=== PATIENT | male | born 1960 | race Caucasian/White ===

== ENCOUNTER → 2016-07-17 | Outpatient (REF) | payer MEDICARE ==
[~2016-07-17] MED LIST: /AUGM875TA OR; /PANT40TA PO; ALPH0.1S OS; ATRO1OPD OS; AUGM875T27 PO; BACIDCA PO; BIAX500T PO; CARA1TAB2 PO; CIPR250S PO; FURO10SO PO; GLIM1TAB PO; GLUC1000 PO; HEPA100SY INJ; HUMULIN SC; INSUH10VL SC; INSULANT SC; INVO300T PO; LASI20TA PO; LISI5TAB PO; MAXI0.1O OS; METF1000 PO; MOISTURIN CREAM TOP; NOVOLOG100 MG/ML SC; OFLO3OPSO OS; PERC7.5T8 OR; PRED1SUS6 OS; PREDOPD OS; ROCE1INJ4 IJ; SALI0.9I2 IV; SILV1CRE19 TOP; SIMV40TA2 PO; TYLE325T5 PO; VICTOZA PO; [UNRECOGNIZED DRUG - CODE] OS
== END ==
LOC: M LABDRAW1 12:54
PROVIDERS: ATTEND Internal Medicine Endocrinology, Diabetes & Metabolism
DX: E11.65 Type 2 diabetes mellitus with hyperglycemia (principal); E78.00 Pure hypercholesterolemia, unspecified

== ENCOUNTER → 2016-09-04 | Outpatient (REF) | payer MEDICARE | LOC: M LAB REF 11:48 | PROVIDERS: ATTEND Podiatrist | DX: E11.621 Type 2 diabetes mellitus with foot ulcer (principal) ==

== ENCOUNTER → 2016-12-22 | Outpatient (CLI) | payer MEDICARE ==
[~2016-12-22] MED LIST changes: +BENA25TA10 PO; +BYDU1INJ SC; +GABA-282 PO; +INSUHUMDS SC; +INVO100T PO; +LATA5OPD OS; +METF500T13 PO; +METO-346 PO; +PANT40TA2 PO; +PROBCAP4 PO; -SILV1CRE19 TOP; +SILV1CRE60 TOP
[2016-12-22 14:28] LABS: CREATININE FOR GFR 1.59 MG/DL (0.70-1.30); GLOMERULAR FILTRATION RATE 47.8 (>56)
== END ==
LOC: M SMT 10:20
PROVIDERS: ATTEND Surgery
DX: E11.621 Type 2 diabetes mellitus with foot ulcer (principal)
CPT/HCPCS: 11042; 36415; 82565; 84520; G0463

== ENCOUNTER → 2016-12-28 | Outpatient (CLI) | payer MEDICARE ==
--- NOTE | 2016-12-28 17:16 | REP ---
MRI RIGHT FOOT, WITH AND WITHOUT CONTRAST: TECHNIQUE: Multiple sequences obtained in the axial, coronal, and sagittal planes, pre and post intravenous administration of 11 mL of gadolinium. Comparison is made with prior MRI 03/19/2014. The patient has had prior amputation at the second, third and fourth distal metatarsal level. There are diffuse arthritic changes. There is narrowing, subchondral sclerosis and spurring at the first metatarsal phalangeal joint. There is diffuse narrowing with subchondral sclerosis and cystic change in the intertarsal joints. Scattered subchondral marrow edema throughout the tarsal bones appears to be secondary to arthritic changes. There is also subchondral marrow edema in the bases of the metatarsals. There is edema in the distal first metatarsal. On the post gadolinium images there does appear to be some subtle ill-defined bone marrow enhancement within the plantar aspect of the head of the first metatarsal suggesting an area of osteomyelitis. The adjacent first proximal phalanx does not appear to be involved. There is scattered ill-defined soft tissue edema in the superficial soft tissues of the forefoot with some mild scattered ill-defined enhancement compatible with mild cellulitis. No abscess collection is seen. IMPRESSION: Findings suggesting osteomyelitis in the plantar aspect of the distal first metatarsal. Adjacent cellulitis. No abscess. Diffuse arthritic changes. Signed by Tone Wang MD 12/29/2016 09:47 A
== END ==
LOC: M RAD 13:57
PROVIDERS: ATTEND Surgery
DX: E11.621 Type 2 diabetes mellitus with foot ulcer (principal)
CPT/HCPCS: 73720; A9576

== ENCOUNTER → 2017-01-12 | Outpatient (CLI) | payer MEDICARE ==
--- NOTE | 2017-01-12 17:03 | REP ---
Clinical: Preoperative assessment . Comparison: None . Technique: PA and lateral. Findings: The mediastinum and cardiac silhouette are relatively normal; evidence of prior aortic valve replacement and surgical clips in the right suprahilar mediastinum. Airway is midline and patent. The lung jack are clear and without acute consolidation, effusion, or pneumothorax. The skeletal structures are intact and normal. Impression: 1. No acute cardiopulmonary process. Signed by Gilbert Hicks MD 01/12/2017 04:54 P
== END ==
LOC: M WUC 16:35
PROVIDERS: ATTEND Podiatrist
DX: Z01.818 Encounter for other preprocedural examination (principal); M86.671 Other chronic osteomyelitis, right ankle and foot; E11.621 Type 2 diabetes mellitus with foot ulcer; Z79.4 Long term (current) use of insulin; A49.01 Methicillin susceptible Staphylococcus aureus infection, unspecified site
CPT/HCPCS: 71020; 86140; G0463

== ENCOUNTER → 2017-01-12 | Outpatient (REF) | payer MEDICARE | LOC: M LAB REF 16:28 | PROVIDERS: ATTEND Nurse Practitioner Adult Health | DX: M86.671 Other chronic osteomyelitis, right ankle and foot (principal) ==

== ENCOUNTER → 2017-01-19 | Day surgery (SDC) | payer MEDICARE ==
[~2017-01-19] VITALS: Ht 195.6 cm; Wt 112.9 kg
[~2017-01-19] MED LIST changes: +BACITRACIN PWD 50,000 UNITS VIAL As Ordered ONE; +BUPIVACAINE HCL 0.5% 30 ML VIAL As Ordered ONE; +KETAMINE HCL 200 MG/20 ML VIAL As Ordered ONE; +KETOROLAC 60 MG/2 ML VIAL (J1885) As Ordered ONE; +LIDOCAINE 2% INJ 100 MG/5 ML SDV (FOR ANES.) As Ordered ONE; +LIDOCAINE 2% MDV 20 ML VIAL As Ordered ONE; +LR 1,000 ML IV ONE; +METOPROLOL TART 12.5 MG PER 1/2 TAB PO ONE; +METOPROLOL TART 25 MG TABLET As Ordered ONE; +METOPROLOL TART 25 MG TABLET PO ONE; +MIDAZOLAM INJ 2 MG/2 ML VIAL (J2250) As Ordered ONE; +NEOSPORIN GU IRRIG 20 ML VIAL As Ordered ONE; +ONDANSETRON 4MG/2ML VIAL (J2405) As Ordered ONE; +PROPOFOL 200 MG/20 ML VIAL As Ordered ONE; +ROPIvacaine 0.5% 30 ML INJECTION (J2795) As Ordered ONE; +VANCOMYCIN 1000 MG/20 ML VIAL (J3370) As Ordered ONE; +VANCOMYCIN HCL 1,000 MG, VIAL MATE ADAPTER 1 EACH in D5W 250 ML IV ONE; +VANCOMYCIN HCL 500 MG/10 ML VIAL (J3370) As Ordered ONE; +dexameTHASONE 4 MG/ML 1ML VIAL (J1100) As Ordered ONE; +fentaNYL 100 MCG/2 ML INJECTION (J3010) As Ordered ONE
[2017-01-19 10:58] VITALS: BP 116/68
--- NOTE | 2017-01-19 13:41 | REP ---
Clinical: Postoperative assessment. Technique: Portable AP, lateral and oblique views of the right foot. Comparison: 03/30/2016. Findings: The patient is status post partial amputations through the mid tarsal diaphyses. Overlying postsurgical changes including scattered antibiotic pellets in drainage catheter noted. Impression: Status post midtarsal amputations. Signed by Gilbert Hicks MD 01/19/2017 01:32 P
[2017-01-19 14:15] VITALS: BP 108/60
--- NOTE | 2017-01-19 18:01 | RO ---
DATE OF PROCEDURE: 01/19/2017 PREPROCEDURE DIAGNOSES: Unhealing ulceration, possible osteomyelitis first metatarsal right foot. POSTPROCEDURE DIAGNOSES: Unhealing ulceration, possible osteomyelitis first metatarsal right foot. OPERATIVE PROCEDURE: Transmetatarsal amputation right foot. SURGEON: Oziel Singh DPM CUSTOMER SERVICE SALES ASSOCIATE: Tone Fishman DO HEMOSTASIS: Ankle pneumatic tourniquet. This was only used for a portion of the case and it was inflated to 200 mg of mmHg for 18 minutes. IMPLANTS UTILIZED: 5 mm vancomycin impregnated beads. DRAINS: TLS. DESCRIPTION OF PROCEDURE: On 01/19/2017, this 56-year-old male was taken from his hospital room to the operating room and placed on the operating room table in the supine position. Following the induction of IV sedation, local and regional anesthesia, the right lower extremity was prepped and draped in the usual aseptic manner. Attention was directed to the patient's right foot where the following procedure was performed: TRANSMETATARSAL AMPUTATION RIGHT FOOT: Attention directed to the patient's first metatarsal where there was noted to be an ulceration inferior to the first metatarsal head. At this time, a wedge shaped incision was placed at the proximal aspect of the digits then encompassing a plantar aspect which extended just proximal to the ulcer under the first metatarsal head. All bleeders as encountered were electrocoagulated or tied. The tourniquet was then inflated and the first metatarsal was then osteotomized just proximal to articular cartilage biased more on the medial side and inferior surface. Upon creation of this osteotomy through the first metatarsal, the first metatarsal was sent for culture, aerobic and anaerobically. The sesamoids were similarly dissected free from the soft tissue and sent for bacterial culture. Then the second metatarsal was exposed and an osteotomy was performed approximately 1 to 2 mm proximal to the first metatarsal osteotomy. Similarly this was staggered down for the third, fourth and fifth metatarsals giving a parabola to the foot. All bleeders as encountered were electrocoagulated. Tendons were tensioned in a distal direction and cut to allow retraction. The skin and soft tissues was examined and the soft tissue was thinned to allow adequate closure. After electrocoagulation was performed and tourniquet was deflated, the wound was pulse lavaged with 3 liters of dilute vancomycin solution. Utilizing Karla any remaining bleeding was covered, allowed to set for one minute and hemostasis was noted to be obtained. TLS drain was then placed across the first through fifth metatarsal exiting dorsally between the fourth and fifth metatarsals. This was sutured in place with #2-0 silk suture. Skin closure was obtained with #3-0 nylon suture in a simple interrupted type fashion. Sterile compressive dressing was applied. The patient having apparently tolerated the surgical procedure well was taken from the OR to the recovery room with vital signs stable, the patient afebrile, for further monitoring by the anesthesia department. Depending on the patient's culture he will be placed on antibiotics to cover the most suitable pathogen. The bone was hard and no abscess was formed. No direct evidence of osteomyelitis. [facility]
== END | disposition home or self-care (01) ==
LOC: M SDC 09:35
PROVIDERS: ATTEND Podiatrist
DX: L97.512 Non-pressure chronic ulcer of other part of right foot with fat layer exposed (principal); M79.674 Pain in right toe(s); E10.42 Type 1 diabetes mellitus with diabetic polyneuropathy; E10.621 Type 1 diabetes mellitus with foot ulcer; Z79.4 Long term (current) use of insulin; I48.91 Unspecified atrial fibrillation; Z95.2 Presence of prosthetic heart valve; N18.9 Chronic kidney disease, unspecified; N40.0 Benign prostatic hyperplasia without lower urinary tract symptoms; Z79.899 Other long term (current) drug therapy
CPT/HCPCS: 28805; 73630; 87070; 87075; 87077; 87186; 87205; 88307; C1713; J1100; J1885; J2250; J2405; J2795; J3010; J3370

== ENCOUNTER → 2017-02-13 | Outpatient (REF) | payer MEDICARE ==
[~2017-02-13] MED LIST changes: -BACITRACIN PWD 50,000 UNITS VIAL As Ordered ONE; -BUPIVACAINE HCL 0.5% 30 ML VIAL As Ordered ONE; -KETAMINE HCL 200 MG/20 ML VIAL As Ordered ONE; -KETOROLAC 60 MG/2 ML VIAL (J1885) As Ordered ONE; -LIDOCAINE 2% INJ 100 MG/5 ML SDV (FOR ANES.) As Ordered ONE; -LIDOCAINE 2% MDV 20 ML VIAL As Ordered ONE; -LR 1,000 ML IV ONE; -METOPROLOL TART 12.5 MG PER 1/2 TAB PO ONE; -METOPROLOL TART 25 MG TABLET As Ordered ONE; -METOPROLOL TART 25 MG TABLET PO ONE; -MIDAZOLAM INJ 2 MG/2 ML VIAL (J2250) As Ordered ONE; -NEOSPORIN GU IRRIG 20 ML VIAL As Ordered ONE; -ONDANSETRON 4MG/2ML VIAL (J2405) As Ordered ONE; -PROPOFOL 200 MG/20 ML VIAL As Ordered ONE; -ROPIvacaine 0.5% 30 ML INJECTION (J2795) As Ordered ONE; -VANCOMYCIN 1000 MG/20 ML VIAL (J3370) As Ordered ONE; -VANCOMYCIN HCL 1,000 MG, VIAL MATE ADAPTER 1 EACH in D5W 250 ML IV ONE; -VANCOMYCIN HCL 500 MG/10 ML VIAL (J3370) As Ordered ONE; -dexameTHASONE 4 MG/ML 1ML VIAL (J1100) As Ordered ONE; -fentaNYL 100 MCG/2 ML INJECTION (J3010) As Ordered ONE
== END ==
LOC: M LAB REF 17:05
PROVIDERS: ATTEND Podiatrist
DX: L97.512 Non-pressure chronic ulcer of other part of right foot with fat layer exposed (principal)

== ENCOUNTER → 2017-04-19 | Outpatient (REF) | payer MEDICARE | LOC: EEVIPCON 15:41 → M LAB REF 15:41 | PROVIDERS: ATTEND Podiatrist | DX: L03.115 Cellulitis of right lower limb (principal) ==

== ENCOUNTER → 2017-05-18 | Outpatient (CLI) | payer MEDICARE | LOC: M ADAMS 10:51 | DX: R06.02 Shortness of breath (principal) | CPT/HCPCS: 71046 ==

== ENCOUNTER → 2017-06-22 | Outpatient (REF) | payer MEDICARE | LOC: M LAB REF 18:07 | DX: L03.115 Cellulitis of right lower limb (principal) | CPT/HCPCS: 87186 ==

== ENCOUNTER → 2017-07-13 | Outpatient (CLI) | payer MEDICARE ==
[~2017-07-13] MED LIST changes: -/AUGM875TA OR; -/PANT40TA PO; -ALPH0.1S OS; -ATRO1OPD OS; -AUGM875T27 PO; -BACIDCA PO; -BENA25TA10 PO; -BIAX500T PO; -BYDU1INJ SC; -CARA1TAB2 PO; -CIPR250S PO; -FURO10SO PO; -GABA-282 PO; -GLIM1TAB PO; -GLUC1000 PO; -HEPA100SY INJ; -HUMULIN SC; -INSUH10VL SC; -INSUHUMDS SC; -INSULANT SC; -INVO100T PO; -INVO300T PO; -LASI20TA PO; -LATA5OPD OS; -LISI5TAB PO; -MAXI0.1O OS; -METF1000 PO; -METF500T13 PO; +METHACHOLINE KIT (J7674) INH; -METO-346 PO; -MOISTURIN CREAM TOP; -NOVOLOG100 MG/ML SC; -OFLO3OPSO OS; -PANT40TA2 PO; -PERC7.5T8 OR; -PRED1SUS6 OS; -PREDOPD OS; -PROBCAP4 PO; -ROCE1INJ4 IJ; -SALI0.9I2 IV; -SILV1CRE60 TOP; -SIMV40TA2 PO; -TYLE325T5 PO; -VICTOZA PO; -[UNRECOGNIZED DRUG - CODE] OS
== END ==
LOC: M CARPUL 07:28
DX: R06.02 Shortness of breath (principal)
CPT/HCPCS: J7674

== ENCOUNTER → 2017-09-14 | Outpatient (REF) | payer MEDICARE | LOC: M LAB REF 08:52 | DX: T81.31XA Disruption of external operation (surgical) wound, not elsewhere classified, initial encounter (principal); B95.4 Other streptococcus as the cause of diseases classified elsewhere; B95.7 Other staphylococcus as the cause of diseases classified elsewhere; B96.5 Pseudomonas (aeruginosa) (mallei) (pseudomallei) as the cause of diseases classified elsewhere | CPT/HCPCS: 87077; 87186 ==

== ENCOUNTER → 2017-09-21 | Outpatient (REF) | payer MEDICARE ==
[2017-09-21 12:38] LABS: HEMATOCRIT 43.1 % (42.0-52.0); HEMOGLOBIN 12.8 g/dl (13.5-17.5); MEAN CORPUSCULAR HEMOGLOBIN 28.2 pg (27.0-33.0); MEAN CORPUSCULAR HGB CONC 29.7 g/dl (32.0-36.5); MEAN CORPUSCULAR VOLUME 94.9 fl (80.0-96.0); PLATELET COUNT, AUTOMATED 292 10^3/uL (150-450); RED BLOOD COUNT 4.54 10^6/uL (4.30-6.10); RED CELL DISTRIBUTION WIDTH 15.3 % (11.5-14.5); WHITE BLOOD COUNT 6.3 10^3/uL (4.0-10.0)
[2017-09-21 13:10] LABS: ALBUMIN 3.9 GM/DL (3.2-5.2); ALBUMIN/GLOBULIN RATIO 1.05 (1.00-1.93); ALKALINE PHOSPHATASE 81 U/L (45-117); ALT/SGPT 13 U/L (12-78); ANION GAP 10 MEQ/L (8-16); AST/SGOT 19 U/L (7-37); BILIRUBIN,TOTAL 0.7 MG/DL (0.2-1.0); BLOOD UREA NITROGEN 16 MG/DL (7-18); C REACTIVE PROTEIN QUANTITATIV 1.83 MG/DL (0.00-0.30); CALCIUM LEVEL 8.9 MG/DL (8.5-10.1); CARBON DIOXIDE LEVEL 20 MEQ/L (21-32); CHLORIDE LEVEL 111 MEQ/L (98-107); CREATININE FOR GFR 1.45 MG/DL (0.70-1.30); GLUCOSE, FASTING 73 MG/DL (70-100); POTASSIUM SERUM 5.1 MEQ/L (3.5-5.1); SODIUM LEVEL 141 MEQ/L (136-145); TOTAL PROTEIN 7.6 GM/DL (6.4-8.2)
[2017-09-21 13:25] LABS: ERYTHROCYTE SEDIMENTATION RATE 6 mm/hr (0-20)
== END ==
LOC: M LAB REF 12:19
DX: E11.621 Type 2 diabetes mellitus with foot ulcer (principal); L97.809 Non-pressure chronic ulcer of other part of unspecified lower leg with unspecified severity
CPT/HCPCS: 80053

== ENCOUNTER → 2017-09-24 | Outpatient (CLI) | payer MEDICARE | LOC: M RAD 06:31 | DX: T81.31XA Disruption of external operation (surgical) wound, not elsewhere classified, initial encounter (principal); I70.213 Atherosclerosis of native arteries of extremities with intermittent claudication, bilateral legs | CPT/HCPCS: 93926 ==

== ENCOUNTER → 2017-09-26 | Outpatient (REF) | payer MEDICARE ==
[2017-09-26 14:06] LABS: ESTIMATED AVERAGE GLUCOSE 154 MG/DL (60-110)
== END ==
LOC: M LAB REF 12:13
DX: E11.621 Type 2 diabetes mellitus with foot ulcer (principal)
CPT/HCPCS: 83036

== ENCOUNTER → 2017-11-29 | Outpatient (CLI) | payer MEDICARE ==
[2017-11-29 18:17] LABS: NT-PRO BNP 455 PG/ML (<125)
== END ==
LOC: M SMT 13:04
DX: R06.02 Shortness of breath (principal); E11.621 Type 2 diabetes mellitus with foot ulcer; L97.512 Non-pressure chronic ulcer of other part of right foot with fat layer exposed
CPT/HCPCS: 36415

== ENCOUNTER → 2018-01-16 | Outpatient (REF) | payer MEDICARE | LOC: M LAB REF 17:29 | DX: E11.621 Type 2 diabetes mellitus with foot ulcer (principal); L97.512 Non-pressure chronic ulcer of other part of right foot with fat layer exposed | CPT/HCPCS: 87186 ==

== ENCOUNTER 2018-01-25 14:31 | Inpatient (IN) | payer MEDICARE ==
[2018-01-25] MEDS: PIPERACILLIN/TAZOBACTAM SOD 3.375 GM in D5W MINI-BAG PLUS 50 ML IV (16:58)
[2018-01-25 17:29] LABS: BASO # 0.1 10^3/uL (0.0-0.2); BASO % 1.4 % (0.0-1.0); EOS # 0.3 10^3/uL (0.0-0.50); EOS % 4.8 % (0.0-3.0); HEMATOCRIT 34.5 % (42.0-52.0); HEMOGLOBIN 11.1 g/dl (13.5-17.5); IMMATURE GRANULOCYTE % 0.4 % (0-3.0); LYMPH # 1.5 10^3/uL (1.5-4.5); LYMPH % 27.2 % (24.0-44.0); MEAN CORPUSCULAR HEMOGLOBIN 27.6 pg (27.0-33.0); MEAN CORPUSCULAR HGB CONC 32.2 g/dl (32.0-36.5); MEAN CORPUSCULAR VOLUME 85.8 fl (80.0-96.0); MONO # 0.4 10^3/uL (0.0-0.8); MONO % 6.2 % (0.0-5.0); NEUTROPHILS # 3.4 10^3/uL (1.8-7.7); PLATELET COUNT, AUTOMATED 449 10^3/uL (150-450); RED BLOOD COUNT 4.02 10^6/uL (4.30-6.10); RED CELL DISTRIBUTION WIDTH 15.5 % (11.5-14.5); WHITE BLOOD COUNT 5.6 10^3/uL (4.0-10.0)
[2018-01-25 17:50] LABS: ERYTHROCYTE SEDIMENTATION RATE 2 mm/hr (0-20)
[2018-01-25 17:59] LABS: ANION GAP 7 MEQ/L (8-16); BLOOD UREA NITROGEN 23 MG/DL (7-18); C REACTIVE PROTEIN QUANTITATIV 3.55 MG/DL (0.00-0.30); CALCIUM LEVEL 8.9 MG/DL (8.5-10.1); CARBON DIOXIDE LEVEL 25 MEQ/L (21-32); CHLORIDE LEVEL 106 MEQ/L (98-107); CREATININE FOR GFR 1.55 MG/DL (0.70-1.30); GLOMERULAR FILTRATION RATE 49.1 (>56); GLUCOSE, FASTING 177 MG/DL (70-100); POTASSIUM SERUM 4.5 MEQ/L (3.5-5.1); SODIUM LEVEL 138 MEQ/L (136-145)
[2018-01-25 18:05] LABS: LACTIC ACID SEPSIS PROTOCOL 2.2 MMOL/L (0.4-2.0)
[2018-01-25] MEDS: VANCOMYCIN HCL 1,000 MG, VIAL MATE ADAPTER 1 EACH in D5W 250 ML IV ×2 (18:12→22:45)
[2018-01-25] MEDS ORDERED: ONDANSETRON 4MG/2ML VIAL (J2405) IV (19:15)
[2018-01-25] MEDS ORDERED: ACETAMINOPHEN TAB 650MG DOSE (2X325MG) PO (19:15)
[2018-01-25 22:36] LABS: BEDSIDE GLUCOSE 190 MG/DL (70-105)
[2018-01-25] MEDS: diphenhydrAMINE 50 MG CAP PO (23:03)
[2018-01-25] MEDS: SIMVASTATIN 40 MG TAB PO (23:03)
[2018-01-25] MEDS: SENOKOT S TAB PO (23:03)
[2018-01-25] MEDS: AMITRIPTYLINE 10 MG TAB PO (23:03)
[2018-01-25] MEDS: FAMOTIDINE 20 MG TAB PO (23:03)
[2018-01-25] MEDS: LATANOPROST 0.005% OPHTH SOLN 2.5 ML OS (23:04)
[2018-01-25] MEDS: LEVEMIR (INSULIN DETEMIR) 1 UNITS/0.01ML SC (23:04)
[2018-01-26] MEDS: PIPERACILLIN/TAZOBACTAM SOD 3.375 GM in D5W MINI-BAG PLUS 50 ML IV ×4 (00:33→18:11)
[2018-01-26] MEDS ORDERED: PIPERACILLIN/TAZOBACTAM SOD 2.25 GM in D5W MINI-BAG PLUS 50 ML IV (01:00)
[2018-01-26] MEDS: NS 500 ML IV (01:00)
[2018-01-26 03:10] LABS: HEMATOCRIT 30.2 % (42.0-52.0); HEMOGLOBIN 9.9 g/dl (13.5-17.5); MEAN CORPUSCULAR HEMOGLOBIN 27.7 pg (27.0-33.0); MEAN CORPUSCULAR HGB CONC 32.8 g/dl (32.0-36.5); MEAN CORPUSCULAR VOLUME 84.6 fl (80.0-96.0); PLATELET COUNT, AUTOMATED 351 10^3/uL (150-450); RED BLOOD COUNT 3.57 10^6/uL (4.30-6.10); RED CELL DISTRIBUTION WIDTH 15.3 % (11.5-14.5); WHITE BLOOD COUNT 4.6 10^3/uL (4.0-10.0)
[2018-01-26 03:35] LABS: ANION GAP 8 MEQ/L (8-16); BLOOD UREA NITROGEN 19 MG/DL (7-18); C REACTIVE PROTEIN QUANTITATIV 2.87 MG/DL (0.00-0.30); CALCIUM LEVEL 8.1 MG/DL (8.5-10.1); CARBON DIOXIDE LEVEL 22 MEQ/L (21-32); CHLORIDE LEVEL 108 MEQ/L (98-107); CREATININE FOR GFR 1.31 MG/DL (0.70-1.30); GLOMERULAR FILTRATION RATE 59.6 (>56); GLUCOSE, FASTING 202 MG/DL (70-100); MAGNESIUM LEVEL 1.9 MG/DL (1.8-2.4); POTASSIUM SERUM 3.8 MEQ/L (3.5-5.1); SODIUM LEVEL 138 MEQ/L (136-145)
[2018-01-26 03:39] LABS: LACTIC ACID SEPSIS PROTOCOL 0.9 MMOL/L (0.4-2.0)
[2018-01-26] MEDS: FAMOTIDINE 20 MG TAB PO ×2 (09:07→20:59)
[2018-01-26] MEDS: HEPARIN SOD (PORCINE) 5000 UNITS/ML VIAL SC ×2 (09:07→21:00)
[2018-01-26] MEDS: SENOKOT S TAB PO ×2 (09:07→20:59)
[2018-01-26] MEDS: VANCOMYCIN HCL 1,000 MG, VIAL MATE ADAPTER 1 EACH in D5W 250 ML IV ×2 (09:07→20:58)
[2018-01-26] MEDS: ASPIRIN 81 MG ENTERIC TAB PO (09:07)
[2018-01-26 11:05] LABS: BEDSIDE GLUCOSE 84 MG/DL (70-105)
[2018-01-26] MEDS ORDERED: DEXTROSE 50% 50 ML SYRINGE IV (14:30)
[2018-01-26] MEDS ORDERED: GLUCAGON FOR INJ 1 MG VIAL (J1610) SC (14:30)
[2018-01-26] MEDS ORDERED: GLUCOSE 4 GM CHEW TABLET PO (14:30)
[2018-01-26 17:27] LABS: BEDSIDE GLUCOSE 167 MG/DL (70-105)
[2018-01-26] MEDS: HumaLOG INSULIN (NovoLOG) PER UNIT SC ×2 (18:11→21:01)
[2018-01-26 19:59] LABS: BEDSIDE GLUCOSE 251 MG/DL (70-105)
[2018-01-26] MEDS: SIMVASTATIN 40 MG TAB PO (20:59)
[2018-01-26] MEDS: AMITRIPTYLINE 10 MG TAB PO (20:59)
[2018-01-26] MEDS: diphenhydrAMINE 50 MG CAP PO (20:59)
[2018-01-26] MEDS: LEVEMIR (INSULIN DETEMIR) 1 UNITS/0.01ML SC (21:00)
[2018-01-26] MEDS: LATANOPROST 0.005% OPHTH SOLN 2.5 ML OS (21:02)
[2018-01-27] MEDS: PIPERACILLIN/TAZOBACTAM SOD 3.375 GM in D5W MINI-BAG PLUS 50 ML IV ×5 (00:59→23:55)
[2018-01-27 06:17] LABS: BEDSIDE GLUCOSE 229 MG/DL (70-105)
[2018-01-27 07:34] LABS: HEMATOCRIT 30.6 % (42.0-52.0); MEAN CORPUSCULAR HEMOGLOBIN 27.3 pg (27.0-33.0); MEAN CORPUSCULAR HGB CONC 32.7 g/dl (32.0-36.5); MEAN CORPUSCULAR VOLUME 83.6 fl (80.0-96.0); PLATELET COUNT, AUTOMATED 404 10^3/uL (150-450); RED BLOOD COUNT 3.66 10^6/uL (4.30-6.10); RED CELL DISTRIBUTION WIDTH 15.2 % (11.5-14.5); WHITE BLOOD COUNT 4.8 10^3/uL (4.0-10.0)
[2018-01-27 07:49] LABS: ANION GAP 9 MEQ/L (8-16); BLOOD UREA NITROGEN 14 MG/DL (7-18); C REACTIVE PROTEIN QUANTITATIV 1.46 MG/DL (0.00-0.30); CALCIUM LEVEL 8.4 MG/DL (8.5-10.1); CARBON DIOXIDE LEVEL 22 MEQ/L (21-32); CHLORIDE LEVEL 109 MEQ/L (98-107); CREATININE FOR GFR 1.26 MG/DL (0.70-1.30); GLOMERULAR FILTRATION RATE > 60.0 (>56); GLUCOSE, FASTING 212 MG/DL (70-100); POTASSIUM SERUM 4.2 MEQ/L (3.5-5.1); SODIUM LEVEL 140 MEQ/L (136-145)
[2018-01-27 08:24] LABS: VANCOMYCIN LEVEL TROUGH 15.8 UG/ML (10.0-20.0)
[2018-01-27] MEDS: SENOKOT S TAB PO ×2 (08:32→21:56)
[2018-01-27] MEDS: VANCOMYCIN HCL 1,000 MG, VIAL MATE ADAPTER 1 EACH in D5W 250 ML IV ×2 (08:32→21:55)
[2018-01-27] MEDS: HEPARIN SOD (PORCINE) 5000 UNITS/ML VIAL SC ×2 (08:32→21:56)
[2018-01-27] MEDS: ASPIRIN 81 MG ENTERIC TAB PO (08:32)
[2018-01-27] MEDS: HumaLOG INSULIN (NovoLOG) PER UNIT SC ×4 (08:33→21:57)
[2018-01-27] MEDS: FAMOTIDINE 20 MG TAB PO ×2 (08:33→21:56)
[2018-01-27 11:32] LABS: BEDSIDE GLUCOSE 108 MG/DL (70-105)
[2018-01-27 16:27] LABS: BEDSIDE GLUCOSE 169 MG/DL (70-105)
[2018-01-27 19:40] LABS: BEDSIDE GLUCOSE 276 MG/DL (70-105)
[2018-01-27] MEDS: SIMVASTATIN 40 MG TAB PO (21:56)
[2018-01-27] MEDS: diphenhydrAMINE 50 MG CAP PO (21:56)
[2018-01-27] MEDS: AMITRIPTYLINE 10 MG TAB PO (21:56)
[2018-01-27] MEDS: LEVEMIR (INSULIN DETEMIR) 1 UNITS/0.01ML SC (21:56)
[2018-01-27] MEDS: LATANOPROST 0.005% OPHTH SOLN 2.5 ML OS (21:57)
[2018-01-28] MEDS: PIPERACILLIN/TAZOBACTAM SOD 3.375 GM in D5W MINI-BAG PLUS 50 ML IV ×3 (06:27→18:00)
[2018-01-28 07:11] LABS: HEMATOCRIT 30.7 % (42.0-52.0); HEMOGLOBIN 10.1 g/dl (13.5-17.5); MEAN CORPUSCULAR HEMOGLOBIN 27.8 pg (27.0-33.0); MEAN CORPUSCULAR HGB CONC 32.9 g/dl (32.0-36.5); MEAN CORPUSCULAR VOLUME 84.6 fl (80.0-96.0); PLATELET COUNT, AUTOMATED 368 10^3/uL (150-450); RED BLOOD COUNT 3.63 10^6/uL (4.30-6.10); RED CELL DISTRIBUTION WIDTH 15.3 % (11.5-14.5)
[2018-01-28 07:23] LABS: ANION GAP 10 MEQ/L (8-16); BLOOD UREA NITROGEN 9 MG/DL (7-18); C REACTIVE PROTEIN QUANTITATIV 0.94 MG/DL (0.00-0.30); CALCIUM LEVEL 8.3 MG/DL (8.5-10.1); CARBON DIOXIDE LEVEL 23 MEQ/L (21-32); CHLORIDE LEVEL 110 MEQ/L (98-107); CREATININE FOR GFR 1.11 MG/DL (0.70-1.30); GLOMERULAR FILTRATION RATE > 60.0 (>56); GLUCOSE, FASTING 175 MG/DL (70-100); MAGNESIUM LEVEL 2.1 MG/DL (1.8-2.4); SODIUM LEVEL 143 MEQ/L (136-145)
[2018-01-28] MEDS: HEPARIN SOD (PORCINE) 5000 UNITS/ML VIAL SC (09:00)
[2018-01-28] MEDS: HumaLOG INSULIN (NovoLOG) PER UNIT SC ×4 (09:33→21:00)
[2018-01-28] MEDS: ASPIRIN 81 MG ENTERIC TAB PO (09:34)
[2018-01-28] MEDS: VANCOMYCIN HCL 1,000 MG, VIAL MATE ADAPTER 1 EACH in D5W 250 ML IV ×2 (09:34→22:16)
[2018-01-28] MEDS: FAMOTIDINE 20 MG TAB PO ×2 (09:34→22:18)
[2018-01-28] MEDS: SENOKOT S TAB PO ×2 (09:34→22:18)
[2018-01-28 11:30] LABS: BEDSIDE GLUCOSE 191 MG/DL (70-105)
[2018-01-28] MEDS ORDERED: LIDOCAINE 1% MDV 20ML VIAL As Ordered (13:40)
[2018-01-28 16:41] LABS: BEDSIDE GLUCOSE 100 MG/DL (70-105)
[2018-01-28] MEDS: BUPIVACAINE HCL 0.5% 10 ML VIAL As Ordered (19:14)
[2018-01-28] MEDS: LIDOCAINE 2% MDV 20 ML VIAL As Ordered (19:15)
[2018-01-28] MEDS ORDERED: fentaNYL 100 MCG/2 ML INJECTION (J3010) As Ordered (19:41)
[2018-01-28] MEDS ORDERED: MIDAZOLAM INJ 2 MG/2 ML VIAL (J2250) As Ordered (19:41)
[2018-01-28] MEDS ORDERED: PROPOFOL 200 MG/20 ML VIAL As Ordered ×2 (19:41→20:05)
[2018-01-28] MEDS: ROPIvacaine 0.5% 30 ML INJECTION (J2795 PER 1MG) As Ordered (19:55)
[2018-01-28] MEDS ORDERED: PHENYLephrine HCL 500 MCG/5 ML (100MCG/ML) SYRINGE (J2370) As Ordered (20:04)
[2018-01-28] MEDS: TOBRAMYCIN SULF 1.2 GM VIAL As Ordered (20:22)
[2018-01-28] MEDS ORDERED: PERCOCET 5MG/325MG TAB PO (21:15)
[2018-01-28] MEDS ORDERED: fentaNYL 100 MCG/2 ML INJECTION (J3010) IV (21:15)
[2018-01-28 21:22] LABS: BEDSIDE GLUCOSE 123 MG/DL (70-105)
[2018-01-28] MEDS: LEVEMIR (INSULIN DETEMIR) 1 UNITS/0.01ML SC (22:18)
[2018-01-28] MEDS: SIMVASTATIN 40 MG TAB PO (22:18)
[2018-01-28] MEDS: AMITRIPTYLINE 10 MG TAB PO (22:18)
[2018-01-28] MEDS: diphenhydrAMINE 50 MG CAP PO (22:19)
[2018-01-28] MEDS: LATANOPROST 0.005% OPHTH SOLN 2.5 ML OS (22:20)
[2018-01-29] MEDS: PIPERACILLIN/TAZOBACTAM SOD 3.375 GM in D5W MINI-BAG PLUS 50 ML IV ×5 (00:25→23:58)
[2018-01-29] MEDS: SODIUM CHLORIDE 0.9% INJ 10 ML SYR IV ×3 (01:59→18:05)
[2018-01-29] MEDS: HEPARIN SOD (PORCINE) 5000 UNITS/ML VIAL SC ×2 (05:59→18:04)
[2018-01-29 06:26] LABS: HEMATOCRIT 31.1 % (42.0-52.0); HEMOGLOBIN 10.1 g/dl (13.5-17.5); MEAN CORPUSCULAR HEMOGLOBIN 27.9 pg (27.0-33.0); MEAN CORPUSCULAR HGB CONC 32.5 g/dl (32.0-36.5); MEAN CORPUSCULAR VOLUME 85.9 fl (80.0-96.0); PLATELET COUNT, AUTOMATED 358 10^3/uL (150-450); RED BLOOD COUNT 3.62 10^6/uL (4.30-6.10); RED CELL DISTRIBUTION WIDTH 15.2 % (11.5-14.5); WHITE BLOOD COUNT 6.4 10^3/uL (4.0-10.0)
[2018-01-29] MEDS: PERCOCET 5MG/325MG TAB PO ×2 (06:26→13:40)
[2018-01-29 06:49] LABS: ANION GAP 9 MEQ/L (8-16); BLOOD UREA NITROGEN 8 MG/DL (7-18); C REACTIVE PROTEIN QUANTITATIV 0.74 MG/DL (0.00-0.30); CALCIUM LEVEL 8.3 MG/DL (8.5-10.1); CARBON DIOXIDE LEVEL 24 MEQ/L (21-32); CHLORIDE LEVEL 107 MEQ/L (98-107); CREATININE FOR GFR 1.18 MG/DL (0.70-1.30); GLOMERULAR FILTRATION RATE > 60.0 (>56); GLUCOSE, FASTING 263 MG/DL (70-100); MAGNESIUM LEVEL 2.1 MG/DL (1.8-2.4); POTASSIUM SERUM 4.1 MEQ/L (3.5-5.1); SODIUM LEVEL 140 MEQ/L (136-145)
[2018-01-29] MEDS: LR 1,000 ML IV (08:19)
[2018-01-29 08:37] LABS: VANCOMYCIN LEVEL TROUGH 18.1 UG/ML (10.0-20.0)
[2018-01-29] MEDS: FAMOTIDINE 20 MG TAB PO ×2 (09:13→21:08)
[2018-01-29] MEDS: SENOKOT S TAB PO ×2 (09:13→21:08)
[2018-01-29] MEDS: VANCOMYCIN HCL 1,000 MG, VIAL MATE ADAPTER 1 EACH in D5W 250 ML IV ×2 (09:13→21:07)
[2018-01-29] MEDS: ASPIRIN 81 MG ENTERIC TAB PO (09:13)
[2018-01-29] MEDS: HumaLOG INSULIN (NovoLOG) PER UNIT SC ×4 (09:14→21:00)
[2018-01-29 11:47] LABS: BEDSIDE GLUCOSE 111 MG/DL (70-105)
[2018-01-29 17:12] LABS: BEDSIDE GLUCOSE 218 MG/DL (70-105)
[2018-01-29 20:48] LABS: BEDSIDE GLUCOSE 147 MG/DL (70-105)
[2018-01-29] MEDS: LATANOPROST 0.005% OPHTH SOLN 2.5 ML OS (21:00)
[2018-01-29] MEDS: LEVEMIR (INSULIN DETEMIR) 1 UNITS/0.01ML SC (21:08)
[2018-01-29] MEDS: AMITRIPTYLINE 10 MG TAB PO (21:08)
[2018-01-29] MEDS: diphenhydrAMINE 50 MG CAP PO (21:08)
[2018-01-29] MEDS: SIMVASTATIN 40 MG TAB PO (21:08)
[2018-01-30] MEDS: HEPARIN SOD (PORCINE) 5000 UNITS/ML VIAL SC ×2 (05:55→18:14)
[2018-01-30] MEDS: PIPERACILLIN/TAZOBACTAM SOD 3.375 GM in D5W MINI-BAG PLUS 50 ML IV ×3 (05:55→18:15)
[2018-01-30] MEDS: SODIUM CHLORIDE 0.9% INJ 10 ML SYR IV ×3 (05:56→22:48)
[2018-01-30 06:06] LABS: HEMATOCRIT 30.5 % (42.0-52.0); HEMOGLOBIN 9.8 g/dl (13.5-17.5); MEAN CORPUSCULAR HEMOGLOBIN 27.5 pg (27.0-33.0); MEAN CORPUSCULAR HGB CONC 32.1 g/dl (32.0-36.5); MEAN CORPUSCULAR VOLUME 85.4 fl (80.0-96.0); PLATELET COUNT, AUTOMATED 348 10^3/uL (150-450); RED BLOOD COUNT 3.57 10^6/uL (4.30-6.10); RED CELL DISTRIBUTION WIDTH 15.2 % (11.5-14.5); WHITE BLOOD COUNT 5.5 10^3/uL (4.0-10.0)
[2018-01-30 06:55] LABS: ANION GAP 5 MEQ/L (8-16); BLOOD UREA NITROGEN 7 MG/DL (7-18); C REACTIVE PROTEIN QUANTITATIV 4.89 MG/DL (0.00-0.30); CALCIUM LEVEL 8.2 MG/DL (8.5-10.1); CARBON DIOXIDE LEVEL 27 MEQ/L (21-32); CHLORIDE LEVEL 108 MEQ/L (98-107); CREATININE FOR GFR 1.19 MG/DL (0.70-1.30); GLOMERULAR FILTRATION RATE > 60.0 (>56); GLUCOSE, FASTING 198 MG/DL (70-100); MAGNESIUM LEVEL 1.8 MG/DL (1.8-2.4); SODIUM LEVEL 140 MEQ/L (136-145)
[2018-01-30] MEDS: SENOKOT S TAB PO ×2 (09:06→21:21)
[2018-01-30] MEDS: VANCOMYCIN HCL 1,000 MG, VIAL MATE ADAPTER 1 EACH in D5W 250 ML IV ×2 (09:06→21:22)
[2018-01-30] MEDS: FAMOTIDINE 20 MG TAB PO ×2 (09:07→21:21)
[2018-01-30] MEDS: ASPIRIN 81 MG ENTERIC TAB PO (09:07)
[2018-01-30] MEDS: HumaLOG INSULIN (NovoLOG) PER UNIT SC ×4 (09:07→21:00)
[2018-01-30 11:34] LABS: BEDSIDE GLUCOSE 214 MG/DL (70-105)
[2018-01-30 16:59] LABS: BEDSIDE GLUCOSE 145 MG/DL (70-105)
[2018-01-30 19:43] LABS: BEDSIDE GLUCOSE 208 MG/DL (70-105)
[2018-01-30] MEDS: AMITRIPTYLINE 10 MG TAB PO (21:21)
[2018-01-30] MEDS: diphenhydrAMINE 50 MG CAP PO (21:21)
[2018-01-30] MEDS: SIMVASTATIN 40 MG TAB PO (21:21)
[2018-01-30] MEDS: LATANOPROST 0.005% OPHTH SOLN 2.5 ML OS (21:22)
[2018-01-30] MEDS: LEVEMIR (INSULIN DETEMIR) 1 UNITS/0.01ML SC (21:22)
[2018-01-31] MEDS: PIPERACILLIN/TAZOBACTAM SOD 3.375 GM in D5W MINI-BAG PLUS 50 ML IV ×3 (00:03→12:35)
[2018-01-31] MEDS: SODIUM CHLORIDE 0.9% INJ 10 ML SYR IV ×4 (00:42→22:19)
[2018-01-31 05:18] LABS: HEMATOCRIT 28.6 % (42.0-52.0); HEMOGLOBIN 9.3 g/dl (13.5-17.5); MEAN CORPUSCULAR HEMOGLOBIN 27.4 pg (27.0-33.0); MEAN CORPUSCULAR HGB CONC 32.5 g/dl (32.0-36.5); MEAN CORPUSCULAR VOLUME 84.4 fl (80.0-96.0); PLATELET COUNT, AUTOMATED 326 10^3/uL (150-450); RED BLOOD COUNT 3.39 10^6/uL (4.30-6.10); RED CELL DISTRIBUTION WIDTH 15.5 % (11.5-14.5); WHITE BLOOD COUNT 4.3 10^3/uL (4.0-10.0)
[2018-01-31 05:37] LABS: ANION GAP 7 MEQ/L (8-16); BLOOD UREA NITROGEN 7 MG/DL (7-18); C REACTIVE PROTEIN QUANTITATIV 3.99 MG/DL (0.00-0.30); CALCIUM LEVEL 8.1 MG/DL (8.5-10.1); CARBON DIOXIDE LEVEL 25 MEQ/L (21-32); CHLORIDE LEVEL 109 MEQ/L (98-107); CREATININE FOR GFR 1.02 MG/DL (0.70-1.30); GLOMERULAR FILTRATION RATE > 60.0 (>56); GLUCOSE, FASTING 221 MG/DL (70-100); MAGNESIUM LEVEL 1.9 MG/DL (1.8-2.4); POTASSIUM SERUM 3.8 MEQ/L (3.5-5.1); SODIUM LEVEL 141 MEQ/L (136-145)
[2018-01-31] MEDS: HEPARIN SOD (PORCINE) 5000 UNITS/ML VIAL SC ×2 (06:07→17:46)
[2018-01-31] MEDS: FAMOTIDINE 20 MG TAB PO ×2 (09:09→21:02)
[2018-01-31] MEDS: ASPIRIN 81 MG ENTERIC TAB PO (09:09)
[2018-01-31] MEDS: SENOKOT S TAB PO ×2 (09:09→21:02)
[2018-01-31] MEDS: VANCOMYCIN HCL 1,000 MG, VIAL MATE ADAPTER 1 EACH in D5W 250 ML IV ×2 (09:10→21:02)
[2018-01-31] MEDS: HumaLOG INSULIN (NovoLOG) PER UNIT SC ×4 (09:10→20:56)
[2018-01-31 12:11] LABS: BEDSIDE GLUCOSE 196 MG/DL (70-105)
[2018-01-31 17:00] LABS: BEDSIDE GLUCOSE 154 MG/DL (70-105)
[2018-01-31] MEDS: LevoFLOXacin 750 MG TABLET PO (17:53)
[2018-01-31 20:24] LABS: BEDSIDE GLUCOSE 202 MG/DL (70-105)
[2018-01-31] MEDS: diphenhydrAMINE 50 MG CAP PO (21:02)
[2018-01-31] MEDS: LATANOPROST 0.005% OPHTH SOLN 2.5 ML OS (21:02)
[2018-01-31] MEDS: LEVEMIR (INSULIN DETEMIR) 1 UNITS/0.01ML SC (21:02)
[2018-01-31] MEDS: AMITRIPTYLINE 10 MG TAB PO (21:02)
[2018-01-31] MEDS: SIMVASTATIN 40 MG TAB PO (21:04)
[2018-02-01] MEDS: LevoFLOXacin 750 MG TABLET PO (05:01)
[2018-02-01] MEDS: SODIUM CHLORIDE 0.9% INJ 10 ML SYR IV ×4 (05:02→21:54)
[2018-02-01 05:15] LABS: HEMATOCRIT 28.7 % (42.0-52.0); HEMOGLOBIN 9.3 g/dl (13.5-17.5); MEAN CORPUSCULAR HEMOGLOBIN 27.7 pg (27.0-33.0); MEAN CORPUSCULAR HGB CONC 32.4 g/dl (32.0-36.5); MEAN CORPUSCULAR VOLUME 85.4 fl (80.0-96.0); PLATELET COUNT, AUTOMATED 340 10^3/uL (150-450); RED BLOOD COUNT 3.36 10^6/uL (4.30-6.10); RED CELL DISTRIBUTION WIDTH 15.9 % (11.5-14.5); WHITE BLOOD COUNT 4.6 10^3/uL (4.0-10.0)
[2018-02-01 05:53] LABS: ANION GAP 9 MEQ/L (8-16); BLOOD UREA NITROGEN 14 MG/DL (7-18); C REACTIVE PROTEIN QUANTITATIV 2.06 MG/DL (0.00-0.30); CARBON DIOXIDE LEVEL 25 MEQ/L (21-32); CHLORIDE LEVEL 109 MEQ/L (98-107); CREATININE FOR GFR 1.05 MG/DL (0.70-1.30); GLOMERULAR FILTRATION RATE > 60.0 (>56); GLUCOSE, FASTING 274 MG/DL (70-100); MAGNESIUM LEVEL 1.9 MG/DL (1.8-2.4); POTASSIUM SERUM 4.1 MEQ/L (3.5-5.1); SODIUM LEVEL 143 MEQ/L (136-145)
[2018-02-01] MEDS: HEPARIN SOD (PORCINE) 5000 UNITS/ML VIAL SC ×2 (07:25→18:11)
[2018-02-01] MEDS: ASPIRIN 81 MG ENTERIC TAB PO (07:26)
[2018-02-01] MEDS: SENOKOT S TAB PO ×2 (07:26→20:36)
[2018-02-01] MEDS: FAMOTIDINE 20 MG TAB PO ×2 (07:26→20:36)
[2018-02-01] MEDS: HumaLOG INSULIN (NovoLOG) PER UNIT SC ×4 (07:26→21:36)
[2018-02-01] MEDS: VANCOMYCIN HCL 1,000 MG, VIAL MATE ADAPTER 1 EACH in D5W 250 ML IV ×2 (09:14→20:35)
[2018-02-01 12:25] LABS: BEDSIDE GLUCOSE 201 MG/DL (70-105)
[2018-02-01] MEDS: dexameTHASONE 4 MG/ML 1ML VIAL (J1100) As Ordered ×2 (13:55→14:24)
[2018-02-01] MEDS: BUPIVACAINE HCL 0.5% 30 ML VIAL As Ordered (13:55)
[2018-02-01] MEDS: LIDOCAINE 2% MDV 20 ML VIAL As Ordered (13:55)
[2018-02-01] MEDS ORDERED: ONDANSETRON 4MG/2ML VIAL (J2405) As Ordered (14:02)
[2018-02-01] MEDS ORDERED: LIDOCAINE 2% INJ 100 MG/5 ML SDV (FOR ANES.) As Ordered (14:02)
[2018-02-01] MEDS ORDERED: PROPOFOL 200 MG/20 ML VIAL As Ordered ×2 (14:02)
[2018-02-01] MEDS ORDERED: MIDAZOLAM INJ 2 MG/2 ML VIAL (J2250) As Ordered (14:03)
[2018-02-01] MEDS ORDERED: fentaNYL 100 MCG/2 ML INJECTION (J3010) As Ordered (14:03)
[2018-02-01] MEDS: ROPIvacaine 0.5% 30 ML INJECTION (J2795 PER 1MG) As Ordered (14:38)
[2018-02-01] MEDS: TOBRAMYCIN SULF 1.2 GM VIAL As Ordered (14:58)
[2018-02-01] MEDS: NEOSPORIN GU IRRIG 20 ML VIAL As Ordered (14:59)
[2018-02-01] MEDS: BACITRACIN PWD 50,000 UNITS VIAL As Ordered (14:59)
[2018-02-01 15:39] LABS: BEDSIDE GLUCOSE 206 MG/DL (70-105)
[2018-02-01] MEDS ORDERED: ONDANSETRON 4MG/2ML VIAL (J2405) IV (15:45)
[2018-02-01] MEDS ORDERED: fentaNYL 100 MCG/2 ML INJECTION (J3010) IV (15:45)
[2018-02-01] MEDS ORDERED: PERCOCET 5MG/325MG TAB PO (15:45)
[2018-02-01] MEDS: NS 1,000 ML IV (16:55)
[2018-02-01] MEDS: LATANOPROST 0.005% OPHTH SOLN 2.5 ML OS (20:36)
[2018-02-01] MEDS: AMITRIPTYLINE 10 MG TAB PO (20:36)
[2018-02-01] MEDS: SIMVASTATIN 40 MG TAB PO (20:36)
[2018-02-01] MEDS: diphenhydrAMINE 50 MG CAP PO (20:36)
[2018-02-01 21:03] LABS: BEDSIDE GLUCOSE 210 MG/DL (70-105)
[2018-02-01] MEDS: LEVEMIR (INSULIN DETEMIR) 1 UNITS/0.01ML SC (21:54)
[2018-02-02] MEDS: HEPARIN SOD (PORCINE) 5000 UNITS/ML VIAL SC ×2 (05:01→17:25)
[2018-02-02] MEDS: LevoFLOXacin 750 MG TABLET PO (05:01)
[2018-02-02] MEDS: SODIUM CHLORIDE 0.9% INJ 10 ML SYR IV ×3 (05:01→21:58)
[2018-02-02 05:56] LABS: C REACTIVE PROTEIN QUANTITATIV 1.24 MG/DL (0.00-0.30)
[2018-02-02 06:12] LABS: BEDSIDE GLUCOSE 240 MG/DL (70-105)
[2018-02-02] MEDS: SENOKOT S TAB PO ×2 (07:59→20:42)
[2018-02-02] MEDS: ASPIRIN 81 MG ENTERIC TAB PO (07:59)
[2018-02-02] MEDS: FAMOTIDINE 20 MG TAB PO ×2 (07:59→20:41)
[2018-02-02] MEDS: HumaLOG INSULIN (NovoLOG) PER UNIT SC ×4 (08:00→21:47)
[2018-02-02] MEDS: VANCOMYCIN HCL 1,000 MG, VIAL MATE ADAPTER 1 EACH in D5W 250 ML IV ×2 (09:42→20:41)
[2018-02-02 11:50] LABS: BEDSIDE GLUCOSE 216 MG/DL (70-105)
[2018-02-02 17:18] LABS: BEDSIDE GLUCOSE 138 MG/DL (70-105)
[2018-02-02] MEDS: MOM 30ML SUSPENSION UDC PO (17:25)
[2018-02-02] MEDS: diphenhydrAMINE 50 MG CAP PO (20:42)
[2018-02-02] MEDS: SIMVASTATIN 40 MG TAB PO (20:42)
[2018-02-02] MEDS: AMITRIPTYLINE 10 MG TAB PO (20:42)
[2018-02-02] MEDS: LATANOPROST 0.005% OPHTH SOLN 2.5 ML OS (20:42)
[2018-02-02 21:45] LABS: BEDSIDE GLUCOSE 244 MG/DL (70-105)
[2018-02-02] MEDS: LEVEMIR (INSULIN DETEMIR) 1 UNITS/0.01ML SC (21:58)
[2018-02-03] MEDS: LevoFLOXacin 750 MG TABLET PO (06:13)
[2018-02-03] MEDS: HEPARIN SOD (PORCINE) 5000 UNITS/ML VIAL SC ×2 (06:13→17:42)
[2018-02-03] MEDS: SODIUM CHLORIDE 0.9% INJ 10 ML SYR IV ×3 (06:13→22:54)
[2018-02-03 06:28] LABS: BEDSIDE GLUCOSE 117 MG/DL (70-105)
[2018-02-03] MEDS: FAMOTIDINE 20 MG TAB PO ×2 (08:04→20:27)
[2018-02-03] MEDS: ASPIRIN 81 MG ENTERIC TAB PO (08:04)
[2018-02-03] MEDS: HumaLOG INSULIN (NovoLOG) PER UNIT SC ×4 (08:04→21:00)
[2018-02-03] MEDS: SENOKOT S TAB PO ×2 (08:04→20:27)
[2018-02-03 09:00] LABS: VANCOMYCIN LEVEL TROUGH 12.4 UG/ML (10.0-20.0)
[2018-02-03 09:00] LABS: C REACTIVE PROTEIN QUANTITATIV 0.81 MG/DL (0.00-0.30)
[2018-02-03] MEDS: VANCOMYCIN HCL 1,000 MG, VIAL MATE ADAPTER 1 EACH in D5W 250 ML IV ×2 (09:19→20:27)
[2018-02-03 12:16] LABS: BEDSIDE GLUCOSE 270 MG/DL (70-105)
[2018-02-03] MEDS: VANCOMYCIN HCL 500 MG in D5W MINI-BAG PLUS 100 ML IV (12:19)
[2018-02-03 17:23] LABS: BEDSIDE GLUCOSE 158 MG/DL (70-105)
[2018-02-03] MEDS: MOM 30ML SUSPENSION UDC PO (17:41)
[2018-02-03] MEDS: SIMVASTATIN 40 MG TAB PO (20:27)
[2018-02-03] MEDS: diphenhydrAMINE 50 MG CAP PO (20:27)
[2018-02-03] MEDS: AMITRIPTYLINE 10 MG TAB PO (20:27)
[2018-02-03] MEDS: LATANOPROST 0.005% OPHTH SOLN 2.5 ML OS (20:27)
[2018-02-03 20:36] LABS: BEDSIDE GLUCOSE 193 MG/DL (70-105)
[2018-02-03] MEDS: LEVEMIR (INSULIN DETEMIR) 1 UNITS/0.01ML SC (21:07)
[2018-02-04] MEDS: SODIUM CHLORIDE 0.9% INJ 10 ML SYR IV ×3 (05:56→21:53)
[2018-02-04] MEDS: LevoFLOXacin 750 MG TABLET PO (05:56)
[2018-02-04] MEDS: HEPARIN SOD (PORCINE) 5000 UNITS/ML VIAL SC ×2 (05:57→17:57)
[2018-02-04 06:16] LABS: BEDSIDE GLUCOSE 107 MG/DL (70-105)
[2018-02-04 06:48] LABS: C REACTIVE PROTEIN QUANTITATIV 0.62 MG/DL (0.00-0.30)
[2018-02-04] MEDS: HumaLOG INSULIN (NovoLOG) PER UNIT SC ×5 (07:32→20:54)
[2018-02-04] MEDS: ASPIRIN 81 MG ENTERIC TAB PO (09:18)
[2018-02-04] MEDS: SENOKOT S TAB PO ×2 (09:18→20:50)
[2018-02-04] MEDS: FAMOTIDINE 20 MG TAB PO ×2 (09:18→20:49)
[2018-02-04] MEDS: VANCOMYCIN HCL 1,000 MG, VIAL MATE ADAPTER 1 EACH in D5W 250 ML IV ×2 (09:18→20:49)
[2018-02-04] MEDS: BISACODYL 10 MG SUPP PR ×2 (10:56→20:50)
[2018-02-04 12:00] LABS: BEDSIDE GLUCOSE 160 MG/DL (70-105)
[2018-02-04] MEDS ORDERED: ISOVUE-300 61% 50ML VIAL (Q9967) As Ordered (13:35)
[2018-02-04] MEDS ORDERED: LIDOCAINE 1% MDV 20ML VIAL As Ordered (14:37)
[2018-02-04 17:49] LABS: BEDSIDE GLUCOSE 121 MG/DL (70-105)
[2018-02-04] MEDS: AMITRIPTYLINE 10 MG TAB PO (20:49)
[2018-02-04] MEDS: SIMVASTATIN 40 MG TAB PO (20:49)
[2018-02-04] MEDS: LATANOPROST 0.005% OPHTH SOLN 2.5 ML OS (20:49)
[2018-02-04] MEDS: diphenhydrAMINE 50 MG CAP PO (20:49)
[2018-02-04] MEDS: LEVEMIR (INSULIN DETEMIR) 1 UNITS/0.01ML SC (20:50)
[2018-02-04 21:52] LABS: BEDSIDE GLUCOSE 253 MG/DL (70-105)
[2018-02-05] MEDS: LevoFLOXacin 750 MG TABLET PO (05:23)
[2018-02-05] MEDS: HEPARIN SOD (PORCINE) 5000 UNITS/ML VIAL SC ×2 (05:24→17:24)
[2018-02-05 05:50] LABS: BEDSIDE GLUCOSE 298 MG/DL (70-105)
[2018-02-05] MEDS: VANCOMYCIN HCL 1,000 MG, VIAL MATE ADAPTER 1 EACH in D5W 250 ML IV (07:49)
[2018-02-05] MEDS: ASPIRIN 81 MG ENTERIC TAB PO (07:49)
[2018-02-05] MEDS: HumaLOG INSULIN (NovoLOG) PER UNIT SC ×2 (07:49→12:59)
[2018-02-05] MEDS: FAMOTIDINE 20 MG TAB PO (07:49)
[2018-02-05] MEDS: SENOKOT S TAB PO (07:50)
[2018-02-05] MEDS: BISACODYL 10 MG SUPP PR (07:50)
[2018-02-05 11:47] LABS: BEDSIDE GLUCOSE 198 MG/DL (70-105)
[2018-02-05] MEDS: GENTAMICIN SULFATE 0.1% OINT 15 GM TOP (12:58)
[2018-02-05 17:06] LABS: BEDSIDE GLUCOSE 167 MG/DL (70-105)
[2018-02-05] MEDS: SODIUM CHLORIDE 0.9% INJ 10 ML SYR IV (17:24)
== END 2018-02-05 17:57 | disposition home health service (06) | DRG 501 ==
LOC: M MSPAV 01-30 22:11 → M ED 14:31 → M ED INP 19:02 → M MS4PR 22:26
PROC: 0QBN0ZZ Excision of Right Metatarsal, Open Approach (ICD-10-PCS; 2018-01-28 18:00)
PROC: 0LBV0ZZ Excision of Right Foot Tendon, Open Approach (ICD-10-PCS; principal; 2018-01-28 19:40)
DX: T87.43 Infection of amputation stump, right lower extremity (principal); L03.115 Cellulitis of right lower limb; M86.171 Other acute osteomyelitis, right ankle and foot; E11.40 Type 2 diabetes mellitus with diabetic neuropathy, unspecified; E78.5 Hyperlipidemia, unspecified; K59.00 Constipation, unspecified; Z95.2 Presence of prosthetic heart valve; Z79.82 Long term (current) use of aspirin; Z79.899 Other long term (current) drug therapy; K21.9 Gastro-esophageal reflux disease without esophagitis; E11.51 Type 2 diabetes mellitus with diabetic peripheral angiopathy without gangrene; I35.0 Nonrheumatic aortic (valve) stenosis; B95.62 Methicillin resistant Staphylococcus aureus infection as the cause of diseases classified elsewhere; B96.4 Proteus (mirabilis) (morganii) as the cause of diseases classified elsewhere; Z79.4 Long term (current) use of insulin; E11.618 Type 2 diabetes mellitus with other diabetic arthropathy; N18.9 Chronic kidney disease, unspecified; E11.621 Type 2 diabetes mellitus with foot ulcer; Y83.5 Amputation of limb(s) as the cause of abnormal reaction of the patient, or of later complication, without mention of misadventure at the time of the procedure

== ENCOUNTER 2018-02-06 14:25 | Outpatient (CLI) | payer MEDICARE ==
[2018-02-06] MEDS: DALBAVANCIN 1,500 MG in D5W 250 ML IV (15:03)
== END 2018-02-06 16:20 | disposition home or self-care (01) ==
LOC: M INFU 14:25
DX: A49.02 Methicillin resistant Staphylococcus aureus infection, unspecified site (principal); M86.171 Other acute osteomyelitis, right ankle and foot
CPT/HCPCS: J0875

== ENCOUNTER 2018-02-18 12:44 | Outpatient (CLI) | payer MEDICARE ==
[2018-02-18] MEDS: DALBAVANCIN 1,500 MG in D5W 250 ML IV (13:39)
[2018-02-18 13:50] LABS: BASO # 0.1 10^3/uL (0.0-0.2); BASO % 1.1 % (0.0-1.0); EOS # 0.3 10^3/uL (0.0-0.50); EOS % 4.7 % (0.0-3.0); HEMATOCRIT 35.9 % (42.0-52.0); HEMOGLOBIN 11.6 g/dl (13.5-17.5); IMMATURE GRANULOCYTE % 0.4 % (0-3.0); LYMPH # 1.6 10^3/uL (1.5-4.5); LYMPH % 29.1 % (24.0-44.0); MEAN CORPUSCULAR HEMOGLOBIN 28.3 pg (27.0-33.0); MEAN CORPUSCULAR HGB CONC 32.3 g/dl (32.0-36.5); MEAN CORPUSCULAR VOLUME 87.6 fl (80.0-96.0); MONO # 0.4 10^3/uL (0.0-0.8); MONO % 6.9 % (0.0-5.0); NEUTROPHILS # 3.2 10^3/uL (1.8-7.7); NEUTROPHILS % 57.8 % (36.0-66.0); PLATELET COUNT, AUTOMATED 292 10^3/uL (150-450); RED CELL DISTRIBUTION WIDTH 17.4 % (11.5-14.5); WHITE BLOOD COUNT 5.5 10^3/uL (4.0-10.0)
[2018-02-18 14:14] LABS: ERYTHROCYTE SEDIMENTATION RATE 39 mm/hr (0-20)
[2018-02-18 14:15] LABS: ANION GAP 7 MEQ/L (8-16); BLOOD UREA NITROGEN 27 MG/DL (7-18); C REACTIVE PROTEIN QUANTITATIV 0.75 MG/DL (0.00-0.30); CALCIUM LEVEL 8.9 MG/DL (8.5-10.1); CARBON DIOXIDE LEVEL 24 MEQ/L (21-32); CHLORIDE LEVEL 108 MEQ/L (98-107); CREATININE FOR GFR 1.49 MG/DL (0.70-1.30); GLOMERULAR FILTRATION RATE 51.4 (>56); GLUCOSE, FASTING 123 MG/DL (70-100); POTASSIUM SERUM 4.5 MEQ/L (3.5-5.1); SODIUM LEVEL 139 MEQ/L (136-145)
== END 2018-02-18 15:00 | disposition home or self-care (01) ==
LOC: M INFU 12:44
DX: M86.671 Other chronic osteomyelitis, right ankle and foot (principal); E11.621 Type 2 diabetes mellitus with foot ulcer; I35.0 Nonrheumatic aortic (valve) stenosis; I50.30 Unspecified diastolic (congestive) heart failure; I35.1 Nonrheumatic aortic (valve) insufficiency; K21.9 Gastro-esophageal reflux disease without esophagitis; H91.01 Ototoxic hearing loss, right ear; I73.9 Peripheral vascular disease, unspecified; N40.0 Benign prostatic hyperplasia without lower urinary tract symptoms; I11.0 Hypertensive heart disease with heart failure; E78.00 Pure hypercholesterolemia, unspecified; E78.5 Hyperlipidemia, unspecified; Z79.4 Long term (current) use of insulin; Z79.82 Long term (current) use of aspirin; Z79.899 Other long term (current) drug therapy
CPT/HCPCS: J0875

== ENCOUNTER → 2018-02-28 | Outpatient (REF) | payer MEDICARE ==
[2018-02-28 13:36] LABS: BASO # 0.1 10^3/uL (0.0-0.2); BASO % 0.8 % (0.0-1.0); EOS # 0.2 10^3/uL (0.0-0.50); EOS % 3.4 % (0.0-3.0); HEMOGLOBIN 11.5 g/dl (13.5-17.5); IMMATURE GRANULOCYTE % 0.3 % (0-3.0); LYMPH # 1.4 10^3/uL (1.5-4.5); LYMPH % 21.9 % (24.0-44.0); MEAN CORPUSCULAR HEMOGLOBIN 28.7 pg (27.0-33.0); MEAN CORPUSCULAR HGB CONC 31.9 g/dl (32.0-36.5); MEAN CORPUSCULAR VOLUME 89.8 fl (80.0-96.0); MONO # 0.5 10^3/uL (0.0-0.8); MONO % 7.3 % (0.0-5.0); NEUTROPHILS # 4.3 10^3/uL (1.8-7.7); NEUTROPHILS % 66.3 % (36.0-66.0); PLATELET COUNT, AUTOMATED 270 10^3/uL (150-450); RED BLOOD COUNT 4.01 10^6/uL (4.30-6.10); RED CELL DISTRIBUTION WIDTH 16.7 % (11.5-14.5); WHITE BLOOD COUNT 6.5 10^3/uL (4.0-10.0)
[2018-02-28 13:50] LABS: ANION GAP 9 MEQ/L (8-16); BLOOD UREA NITROGEN 27 MG/DL (7-18); CALCIUM LEVEL 9.2 MG/DL (8.5-10.1); CARBON DIOXIDE LEVEL 26 MEQ/L (21-32); CHLORIDE LEVEL 106 MEQ/L (98-107); CREATININE FOR GFR 1.71 MG/DL (0.70-1.30); GLOMERULAR FILTRATION RATE 43.8 (>56); GLUCOSE, FASTING 143 MG/DL (70-100); POTASSIUM SERUM 5.1 MEQ/L (3.5-5.1); SODIUM LEVEL 141 MEQ/L (136-145)
[2018-02-28 14:10] LABS: ERYTHROCYTE SEDIMENTATION RATE 39 mm/hr (0-20)
== END ==
LOC: M LABDRAW1 12:27
DX: M86.671 Other chronic osteomyelitis, right ankle and foot (principal); E11.621 Type 2 diabetes mellitus with foot ulcer
CPT/HCPCS: 80048

== ENCOUNTER → 2018-03-25 | Outpatient (REF) | payer MEDICARE ==
[2018-03-25 13:00] LABS: BASO # 0.1 10^3/uL (0.0-0.2); BASO % 1.3 % (0.0-1.0); EOS # 0.2 10^3/uL (0.0-0.50); EOS % 4.7 % (0.0-3.0); HEMATOCRIT 38.2 % (42.0-52.0); IMMATURE GRANULOCYTE % 0.2 % (0-3.0); LYMPH # 1.3 10^3/uL (1.5-4.5); LYMPH % 27.9 % (24.0-44.0); MEAN CORPUSCULAR HEMOGLOBIN 28.4 pg (27.0-33.0); MEAN CORPUSCULAR HGB CONC 31.4 g/dl (32.0-36.5); MEAN CORPUSCULAR VOLUME 90.3 fl (80.0-96.0); MONO # 0.3 10^3/uL (0.0-0.8); MONO % 7.6 % (0.0-5.0); NEUTROPHILS # 2.6 10^3/uL (1.8-7.7); NEUTROPHILS % 58.3 % (36.0-66.0); PLATELET COUNT, AUTOMATED 269 10^3/uL (150-450); RED BLOOD COUNT 4.23 10^6/uL (4.30-6.10); RED CELL DISTRIBUTION WIDTH 14.9 % (11.5-14.5); WHITE BLOOD COUNT 4.5 10^3/uL (4.0-10.0)
[2018-03-25 13:24] LABS: ERYTHROCYTE SEDIMENTATION RATE 18 mm/hr (0-20)
[2018-03-25 13:45] LABS: ALBUMIN 3.9 GM/DL (3.2-5.2); ALBUMIN/GLOBULIN RATIO 1.11 (1.00-1.93); ALKALINE PHOSPHATASE 82 U/L (45-117); ALT/SGPT 24 U/L (12-78); ANION GAP 12 MEQ/L (8-16); AST/SGOT 17 U/L (7-37); BILIRUBIN,TOTAL 0.7 MG/DL (0.2-1.0); BLOOD UREA NITROGEN 20 MG/DL (7-18); CALCIUM LEVEL 9.2 MG/DL (8.5-10.1); CARBON DIOXIDE LEVEL 22 MEQ/L (21-32); CHLORIDE LEVEL 107 MEQ/L (98-107); CREATININE FOR GFR 1.26 MG/DL (0.70-1.30); GLOMERULAR FILTRATION RATE > 60.0 (>56); GLUCOSE, FASTING 147 MG/DL (70-100); POTASSIUM SERUM 5.2 MEQ/L (3.5-5.1); SODIUM LEVEL 141 MEQ/L (136-145); TOTAL PROTEIN 7.4 GM/DL (6.4-8.2)
== END ==
LOC: M SFHCPLAZ 09:33
DX: M86.671 Other chronic osteomyelitis, right ankle and foot (principal)
CPT/HCPCS: 80053

== ENCOUNTER → 2018-04-16 | Outpatient (REF) | payer MEDICARE ==
[2018-04-16 13:27] LABS: BASO # 0.1 10^3/uL (0.0-0.2); BASO % 1.4 % (0.0-1.0); EOS # 0.2 10^3/uL (0.0-0.50); EOS % 3.2 % (0.0-3.0); IMMATURE GRANULOCYTE % 0.4 % (0-3.0); LYMPH # 1.5 10^3/uL (1.5-4.5); LYMPH % 26.1 % (24.0-44.0); MEAN CORPUSCULAR HEMOGLOBIN 27.7 pg (27.0-33.0); MEAN CORPUSCULAR HGB CONC 32.4 g/dl (32.0-36.5); MEAN CORPUSCULAR VOLUME 85.5 fl (80.0-96.0); MONO # 0.4 10^3/uL (0.0-0.8); MONO % 7.3 % (0.0-5.0); NEUTROPHILS # 3.5 10^3/uL (1.8-7.7); NEUTROPHILS % 61.6 % (36.0-66.0); PLATELET COUNT, AUTOMATED 291 10^3/uL (150-450); RED BLOOD COUNT 4.33 10^6/uL (4.30-6.10); RED CELL DISTRIBUTION WIDTH 13.7 % (11.5-14.5); WHITE BLOOD COUNT 5.6 10^3/uL (4.0-10.0)
[2018-04-16 13:51] LABS: ERYTHROCYTE SEDIMENTATION RATE 17 mm/hr (0-20)
[2018-04-16 13:52] LABS: ALKALINE PHOSPHATASE 79 U/L (45-117); ALT/SGPT 19 U/L (12-78); ANION GAP 7 MEQ/L (8-16); AST/SGOT 16 U/L (7-37); BILIRUBIN,TOTAL 0.4 MG/DL (0.2-1.0); BLOOD UREA NITROGEN 13 MG/DL (7-18); CALCIUM LEVEL 8.6 MG/DL (8.5-10.1); CARBON DIOXIDE LEVEL 28 MEQ/L (21-32); CHLORIDE LEVEL 107 MEQ/L (98-107); CREATININE FOR GFR 1.23 MG/DL (0.70-1.30); GLOMERULAR FILTRATION RATE > 60.0 (>56); GLUCOSE, FASTING 110 MG/DL (70-100); POTASSIUM SERUM 4.8 MEQ/L (3.5-5.1); SODIUM LEVEL 142 MEQ/L (136-145); TOTAL PROTEIN 7.2 GM/DL (6.4-8.2)
[2018-04-16 13:53] LABS: ALBUMIN 3.8 GM/DL (3.2-5.2); ALBUMIN/GLOBULIN RATIO 1.12 (1.00-1.93)
== END ==
LOC: M SFHCPLAZ 10:31 → M SFHCADAM 10:37
DX: M86.671 Other chronic osteomyelitis, right ankle and foot (principal)
CPT/HCPCS: 80053

== ENCOUNTER → 2018-05-23 | Outpatient (REF) | payer MEDICARE ==
[~2018-05-23] MED LIST changes: +/AUGM875TA OR; +/PANT40TA PO; +ALPH0.1S OS; +AMIT10TA PO; +ASPI81TA85 PO; +ATRO1OPD OS; +AUGM875T27 PO; +BACIDCA PO; +BENA25TA10 PO; +BIAX500T PO; +BYDU1INJ SC; +CARA1TAB2 PO; +CIPR250S PO; +DOXY100T PO; +FURO10SO PO; +FURO20TA2 PO; +GABA-843 PO; +GENT1OI TOP; +GLIM1TAB PO; +GLUC1000 PO; +HEPA100SY INJ; +HUMULIN SC; +INSUH10VL SC; +INSUHUMDS SC; +INSULANT SC; +INVO100T PO; +INVO300T PO; +LASI20TA PO; +LATA5OPD OS; +LEVA750T7 PO; +LISI5TAB PO; +MAXI0.1O OS; +METF1000 PO; +METF500T13 PO; -METHACHOLINE KIT (J7674) INH; +METO-346 PO; +MOISTURIN CREAM TOP; +NOVOLOG100 MG/ML SC; +OFLO3OPSO OS; +PANT40TA3 PO; +PERC7.5T8 OR; +PRED1SUS6 OS; +PREDOPD OS; +PROBCAP4 PO; +RANI150T PO; +ROCE1INJ6 IJ; +SALI0.9I2 IV; +SILV1CRE60 TOP; +SIMV40TA2 PO; +TYLE325T5 PO; +VICTOZA PO; +[UNRECOGNIZED DRUG - CODE] OS
[2018-05-23 13:25] LABS: C REACTIVE PROTEIN QUANTITATIV 0.48 MG/DL (0.00-0.30); CALCIUM LEVEL 8.4 MG/DL (8.8-10.2); CREATININE FOR GFR 1.39 MG/DL (0.70-1.30); GLOMERULAR FILTRATION RATE 55.5 (>49); POTASSIUM SERUM 4.1 MEQ/L (3.5-5.1)
[2018-05-23 13:38] LABS: BASO # 0.1 10^3/uL (0.0-0.2); BASO % 1.3 % (0.0-1.0); EOS # 0.2 10^3/uL (0.0-0.50); EOS % 3.3 % (0.0-3.0); HEMATOCRIT 36.4 % (42.0-52.0); HEMOGLOBIN 11.7 g/dl (13.5-17.5); LYMPH # 1.4 10^3/uL (1.5-4.5); LYMPH % 25.7 % (24.0-44.0); MEAN CORPUSCULAR HEMOGLOBIN 27.1 pg (27.0-33.0); MEAN CORPUSCULAR HGB CONC 32.1 g/dl (32.0-36.5); MEAN CORPUSCULAR VOLUME 84.3 fl (80.0-96.0); MONO # 0.4 10^3/uL (0.0-0.8); MONO % 6.9 % (0.0-5.0); NEUTROPHILS # 3.4 10^3/uL (1.8-7.7); NEUTROPHILS % 62.6 % (36.0-66.0); PLATELET COUNT, AUTOMATED 290 10^3/uL (150-450); RED BLOOD COUNT 4.32 10^6/uL (4.30-6.10); WHITE BLOOD COUNT 5.4 10^3/uL (4.0-10.0)
[2018-05-23 14:03] LABS: ERYTHROCYTE SEDIMENTATION RATE 18 mm/hr (0-20)
== END ==
LOC: M SFHCPLAZ 09:59
PROVIDERS: ATTEND Internal Medicine Infectious Disease
DX: M86.671 Other chronic osteomyelitis, right ankle and foot (principal)
CPT/HCPCS: 36415; 80048; 85025; 85652; 86140; G0463

== ENCOUNTER → 2018-05-29 | Outpatient (REF) | payer MEDICARE | LOC: M LAB REF 15:32 | PROVIDERS: ATTEND Podiatrist | DX: E11.621 Type 2 diabetes mellitus with foot ulcer (principal) ==

== ENCOUNTER → 2018-06-21 | Outpatient (REF) | payer MEDICARE ==
[2018-06-21 13:18] LABS: BASO # 0.1 10^3/uL (0.0-0.2); BASO % 1.5 % (0.0-1.0); EOS # 0.2 10^3/uL (0.0-0.50); EOS % 4.3 % (0.0-3.0); HEMATOCRIT 38.3 % (42.0-52.0); LYMPH # 1.2 10^3/uL (1.5-4.5); LYMPH % 26.2 % (24.0-44.0); MEAN CORPUSCULAR HEMOGLOBIN 26.4 pg (27.0-33.0); MEAN CORPUSCULAR HGB CONC 31.3 g/dl (32.0-36.5); MEAN CORPUSCULAR VOLUME 84.2 fl (80.0-96.0); MONO # 0.4 10^3/uL (0.0-0.8); MONO % 7.7 % (0.0-5.0); NEUTROPHILS # 2.8 10^3/uL (1.8-7.7); NEUTROPHILS % 60.1 % (36.0-66.0); PLATELET COUNT, AUTOMATED 278 10^3/uL (150-450); RED BLOOD COUNT 4.55 10^6/uL (4.30-6.10); WHITE BLOOD COUNT 4.7 10^3/uL (4.0-10.0)
[2018-06-21 13:21] LABS: C REACTIVE PROTEIN QUANTITATIV 0.7 MG/DL (0.00-0.30); CALCIUM LEVEL 8.9 MG/DL (8.8-10.2); CREATININE FOR GFR 1.48 MG/DL (0.70-1.30); GLOMERULAR FILTRATION RATE 51.6 (>49); POTASSIUM SERUM 4.6 MEQ/L (3.5-5.1)
[2018-06-21 14:20] LABS: ERYTHROCYTE SEDIMENTATION RATE 19 mm/hr (0-20)
== END ==
LOC: M SFHCPLAZ 08:39
PROVIDERS: ATTEND Internal Medicine Infectious Disease
DX: M86.671 Other chronic osteomyelitis, right ankle and foot (principal)

== ENCOUNTER → 2018-08-07 | Outpatient (REF) | payer MEDICARE ==
[~2018-08-07] MED LIST changes: +XALA0.007 OS; +XARE15TA PO
[2018-08-07 12:57] LABS: CALCIUM LEVEL 9.2 MG/DL (8.8-10.2); CREATININE FOR GFR 1.54 MG/DL (0.70-1.30); GLOMERULAR FILTRATION RATE 49.3 (>49); MAGNESIUM LEVEL 2.2 MG/DL (1.8-2.4); POTASSIUM SERUM 5.8 MEQ/L (3.5-5.1)
[2018-08-07 13:02] LABS: HEMATOCRIT 39.4 % (42.0-52.0); HEMOGLOBIN 12.5 g/dl (13.5-17.5); MEAN CORPUSCULAR HEMOGLOBIN 25.8 pg (27.0-33.0); MEAN CORPUSCULAR HGB CONC 31.7 g/dl (32.0-36.5); MEAN CORPUSCULAR VOLUME 81.2 fl (80.0-96.0); PLATELET COUNT, AUTOMATED 299 10^3/uL (150-450); RED BLOOD COUNT 4.85 10^6/uL (4.30-6.10); WHITE BLOOD COUNT 4.8 10^3/uL (4.0-10.0)
== END ==
LOC: M LABDRWAD 12:06
PROVIDERS: ATTEND Physician Assistant
DX: Z01.810 Encounter for preprocedural cardiovascular examination (principal); I50.32 Chronic diastolic (congestive) heart failure; I48.0 Paroxysmal atrial fibrillation

== ENCOUNTER 2018-08-14 14:21 | Day surgery (SDC) | payer MEDICARE ==
[~2018-08-14] VITALS: Ht 195.6 cm; Wt 119.2 kg
[~2018-08-14 14:21] MED LIST changes: -/PANT40TA PO; +LATA0.0013 OS; -LATA5OPD OS; +LR 1,000 ML IV ONE; +OFLO0.3D57 OS; -OFLO3OPSO OS; +PROT1TAB2 PO
[2018-08-14 15:32] LABS: CREATININE FOR GFR 1.53 MG/DL (0.70-1.30); GLOMERULAR FILTRATION RATE 49.7 (>49); PHOSPHORUS LEVEL 2.5 MG/DL (2.5-4.9); POTASSIUM SERUM 4.3 MEQ/L (3.5-5.1)
[2018-08-14] MEDS ORDERED: ONDANSETRON 4MG/2ML VIAL (J2405) As Ordered ONE (18:06)
[2018-08-14] MEDS ORDERED: fentaNYL 100 MCG/2 ML INJECTION (J3010) As Ordered ONE (18:06)
[2018-08-14] MEDS ORDERED: LIDOCAINE 2% INJ 100 MG/5 ML SDV (FOR ANES.) As Ordered ONE (18:06)
[2018-08-14] MEDS ORDERED: dexameTHASONE 4 MG/ML 1ML VIAL (J1100) As Ordered ONE (18:06)
[2018-08-14] MEDS ORDERED: MIDAZOLAM INJ 2 MG/2 ML VIAL (J2250) As Ordered ONE (18:06)
[2018-08-14] MEDS ORDERED: PROPOFOL 200 MG/20 ML VIAL As Ordered ONE (18:06)
[2018-08-14] MEDS ORDERED: BUPIVACAINE HCL 0.5% 30 ML VIAL As Ordered ONE (18:53)
[2018-08-14] MEDS ORDERED: ONDANSETRON 4MG/2ML VIAL (J2405) IV PRN (19:30)
[2018-08-14] MEDS ORDERED: PERCOCET 5MG/325MG TAB PO PRN (19:30)
[2018-08-14] MEDS ORDERED: HYDROMORPHONE HCL 0.5 MG/ 0.5 ML SYRINGE (J1170 PER 1) IV PRN (19:30)
[2018-08-14] MEDS ORDERED: NORCO, ANEXSIA 5/325MG TABLET (HYDROcodone/ACETAMINOPHEN) PO PRN ×2 (19:30)
[2018-08-14] MEDS ORDERED: LR 1,000 ML IV SCH ×2 (19:30)
[2018-08-14] MEDS ORDERED: fentaNYL 100 MCG/2 ML INJECTION (J3010) IV PRN (19:30)
[2018-08-14 20:25] VITALS: BP 144/90
--- NOTE | 2018-08-21 14:58 | RO ---
DATE OF PROCEDURE: 08/14/2018 PREOPERATIVE DIAGNOSIS: Right lower extremity plantar flexion contracture. POSTOPERATIVE DIAGNOSIS: Right lower extremity plantar flexion contracture at the ankle. PROCEDURE: Right gastrocnemius resection. SURGEON: Lakesha Hall MD FLOATING LABOR GANG SUPERVISOR: Comfort Davalos PA-C ANESTHESIA: Laryngeal mask airway (LMA). ESTIMATED BLOOD LOSS: 10 mL. COMPLICATIONS: None. CONDITION: Stable to recovery. INDICATIONS: Garrett Issa is a 58-year-old male who had difficulty with wound breakdown of a partial foot amputation done by Dr. Singh. The patient does have a slight plantar flexion contracture of his ankle and it was felt that gastrocnemius resection would help with this and potentially help with his wound healing. Risks and benefits of the surgery were discussed with the patient in detail. He understands that I cannot guarantee that this procedure will help his foot wounds to heal. He would still like to proceed with the procedure. He understands risks include, but are not limited to, infection, damage to nerves and blood vessels, pain, need for additional procedures, or blood clot. Informed consent was obtained in the office. PROCEDURE: Patient was met in the preoperative holding area where the right lower extremity was marked as the correct operative side. He was taken to the operating room and placed in the supine position on the operating room table. Bony prominences were all padded. He underwent anesthesia without difficulty. Antibiotics were given within 60 minutes prior to incision. A well padded tourniquet was placed on the right upper thigh. The right lower extremity was prepped and draped in a normal sterile fashion. An official time out was held with the correct patient, operative side and operative procedure were verified. Following this, leg was exsanguinated and tourniquet was inflated to 250 mmHg. An incision was made at the level of the gastrocnemius muscle in the medial leg. Dissection to the gastrocnemius fascia was performed. Care was taken to avoid the saphenous vein. The fascia was incised. The interval between the soleus and gastrocnemius muscle was developed. A speculum was placed in this interval. Using a long handled knife the fascia over the anterior aspect of the gastrocnemius muscle was released. This was released in its entirety and the ankle did gain plantar flexion following this. There was actually a fair amount of scar tissue in this interval distally and I did attempt to release this with my finger. This did require me to make the incision slightly larger than previously anticipated. Following release of the gastrocnemius the fascia was closed with #2- Vicryl. The subcutaneous tissues were closed using #3-0 Vicryl and skin was closed using #3-0 nylon. Sterile dressing was applied. Patient was extubated and taken to the recovery room in stable condition. PLAN: Patient will be weightbearing as tolerated in his [employer] [place] walker. I will see him back in two weeks for suture removal. He will resume his prior Eliquis which he was previously taking.
== END 2018-08-14 20:25 | disposition home or self-care (01) ==
LOC: M SDC 14:21
PROVIDERS: ATTEND Orthopaedic Surgery
DX: M24.571 Contracture, right ankle (principal); I48.0 Paroxysmal atrial fibrillation; E11.9 Type 2 diabetes mellitus without complications; I50.32 Chronic diastolic (congestive) heart failure; E78.00 Pure hypercholesterolemia, unspecified; N18.3 Chronic kidney disease, stage 3 (moderate); I35.0 Nonrheumatic aortic (valve) stenosis; I44.0 Atrioventricular block, first degree; I71.2 Thoracic aortic aneurysm, without rupture; Z79.82 Long term (current) use of aspirin; Z79.4 Long term (current) use of insulin; Z79.899 Other long term (current) drug therapy; Z79.01 Long term (current) use of anticoagulants; I95.89 Other hypotension; Z95.3 Presence of xenogenic heart valve
CPT/HCPCS: 27687; 36415; 80069; J0690; J1100; J2250; J2405; J3010

== ENCOUNTER → 2019-01-31 | Outpatient (REF) | payer MEDICARE ==
[~2019-01-31] MED LIST changes: -LR 1,000 ML IV ONE
== END ==
LOC: M LAB REF 16:43
PROVIDERS: ATTEND Podiatrist
DX: L03.125 Acute lymphangitis of right lower limb (principal); M79.671 Pain in right foot

== ENCOUNTER 2019-02-11 10:21 | Inpatient (IN) | payer MEDICARE ==
[~2019-02-11] VITALS: Ht 195.6 cm; Wt 115.1 kg
[~2019-02-11 10:21] MED LIST changes: -GLUCTAB6 PO; -METF-791 PO; -VANCOMYCIN HCL 1,000 MG, VIAL MATE ADAPTER 1 EACH in D5W 250 ML IV SCH; -XARE20TA PO
[2019-02-11 11:21] VITALS: BP 125/85
[2019-02-11] MEDS ORDERED: XARE20TA PO (12:42)
[2019-02-11] MEDS ORDERED: METF-791 PO (12:42)
[2019-02-11] MEDS ORDERED: GLUCTAB6 PO (12:42)
[2019-02-11 14:00] VITALS: BP 116/74
[2019-02-11] MEDS ORDERED: GLUCAGON FOR INJ 1 MG VIAL (J1610) SC PRN ×2 (14:15→19:00)
[2019-02-11] MEDS ORDERED: DEXTROSE 50% 50 ML SYRINGE IV PRN ×2 (14:15→19:00)
[2019-02-11] MEDS ORDERED: GLUCOSE 4 GM CHEW TABLET PO PRN ×2 (14:15→19:00)
[2019-02-11 14:48] LABS: BASO # 0.1 10^3/uL (0.0-0.2); BASO % 1.1 % (0.0-1.0); EOS # 0.1 10^3/uL (0.0-0.5); EOS % 1.4 % (0.0-3.0); HEMATOCRIT 42.7 % (42.0-52.0); HEMOGLOBIN 13.8 g/dl (13.5-17.5); LYMPH # 1.6 10^3/uL (1.5-5.0); LYMPH % 24.6 % (24.0-44.0); MEAN CORPUSCULAR HEMOGLOBIN 26.6 pg (27.0-33.0); MEAN CORPUSCULAR HGB CONC 32.3 g/dl (32.0-36.5); MEAN CORPUSCULAR VOLUME 82.3 fl (80.0-96.0); MONO # 0.4 10^3/uL (0.0-0.8); NEUTROPHILS # 4.3 10^3/uL (1.5-8.5); NEUTROPHILS % 66.6 % (36.0-66.0); PLATELET COUNT, AUTOMATED 381 10^3/uL (150-450); RED BLOOD COUNT 5.19 10^6/uL (4.30-6.10); WHITE BLOOD COUNT 6.5 10^3/uL (4.0-10.0)
--- NOTE | 2019-02-11 16:25 | HPEPDOC ---
[facility] Medical History & Physical Date of Admission Feb 11, 2019 Date of Service: Feb 11, [address] Singh, podiatry Attending Physician: MICHELLE DANIEL MD History and Physical CHIEF COMPLAINT: Osteomyelitis of the right foot HISTORY OF PRESENT ILLNESS: Garrett is a 58-year-old male with pertinent past medical history of insulin dependent diabetes mellitus, aortic valve replacement surgery on Xarelto, left ocular hypertension, detached left retina with surgical correction, chronic kidney disease, right arm blood clot, and previous surgical removal of all 5 toes of the right foot, who presented to [facility] with direct admission to the medical floor per his podiatric surgeon Dr. Singh. Patient follows with Dr. Singh once a week, and had a visit this morning at which plain film x-rays showed an infected first medial ulcer definitive for osteom yelitis of the right foot. Dr. Singh did some surgical work at the site of infection in the office and requested the patient be admitted to the hospital under the care of the hospitalist team for continued monitoring. Per Dr. Singh, patient is likely to undergo a surgical removal of the first metatarsal tomorrow afternoon (02/12). Patient recently began a 14 day course of levofloxacin prescribed by Dr. Singh. Today is day 13 of 14 day course. Patient ambulates under his own power and wears closed toe [place] walker shoes, with the right shoe extending up length of right lower extremity. In addition to Dr. Singh, patient follows with Dr. Riggs's office (PCP), Dr. Villalta (nephrology), Dr. Dennison and Dr. Khan (cardiology), Dr. Haines (optometry), and Dr. Ghotra (infectious disease) as an outpatient. PAST MEDICAL HISTORY: Insulin dependent diabetes mellitus History of right arm blood clot Chronic kidney disease History of left eye detached retina History of aortic valve replacement History of surgical removal of all 5 toes on the right foot PAST SURGICAL HISTORY Open heart surgery for aortic valve replacement (cow valve close menses, on Xarelto at home. Surgical removal of all 5 toes on the right foot; 2013 surgery involving surgical removal of right toe lead to a detached retina in the left eye and a right arm blood clot Surgical correction for detached retina of left eye. 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 Denies ETOH: Very rarely and only socially when does Illicit drug use: Denies IV drug use: Denies FAMILY HISTORY: Father: Chronic kidney disease, aortic and mitral valve surgical replacement Mother:. Chronic kidney disease, diabetes mellitus Siblings: Sister, diabetes mellitus ALLERGIES: Please see below. REVIEW OF SYSTEMS: CONSTITUTIONAL: Denies fever, chills, night sweats, weakness. HEENT: Denies headache, feeling lightheaded, dizziness, syncope, eye pain, diplopia, blurry vision, decreased visual acuity from his baseline, ear pain, tinnitus, rhinorrhea, or sore throat. CARDIOVASCULAR: Denies chest pain, chest pressure, palpitation, or lower extremity edema RESPIRATORY: Denies dyspnea or cough. GASTROINTESTINAL: Denies abdominal pain, feeling nauseated, or vomiting. GENITOURINARY:. Denies dysuria or hematuria. NEUROLOGICAL: Endorses chronic "burning" sensation of right lower extremity and right foot; endorses mild to moderate numbness of bilateral lower extremities ENDOCRINE: Denies cold or heat intolerance *Recent changes in medication include commencing levofloxacin administration 13 days ago (rx by Dr. Singh) and beginning extended release 500 mg metformin 2 tablets every morning; other than this, patient has no other recent education changes. Patient denies any recent illness. Patient denies any recent travel. Patient denies any recent exposure to sick contacts. HOME MEDICATIONS: Please see below. PHYSICAL EXAMINATION: VITAL SIGNS: Please see below GENERAL APPEARANCE:Pam Tucker is a cooperative and pleasant man who appears comfortable while seated upright in bed at time of examination. He does not appear to be in any acute distress. He is interactive and responds to questions and commands appropriately. He is well-nourished and well-developed. HEENT: Normocephalic, atraumatic. Non-icteric sclera. No conjunctival injection. No ear or nasal discharge. NECK: Supple. Trachea is midline. CARDIOVASCULAR: 2/6 systolic murmur best heard right and left parasternal second intercostal spaces; regular rhythm. No clicks or gallops appreciated. No lower extremity edema. 2+ radial and dorsalis pedis pulses bilaterally. Adequate capillary refill (< 2 seconds). LUNGS: Clear to auscultation bilaterally. Adequate respiratory effort. No visualized accessory muscle use on respiration. No retractions visualized on respiration. Symmetric chest expansion. ABDOMEN: Soft, nontender to palpation in all quadrants. Nondistended. Normoactive bowel sounds present. No masses appreciated on palpation. No hepatom egaly or splenomegaly. No guarding, rebound, or rigidity. No costovertebral angle tenderness. MUSCULOSKELETAL: 5 out of 5 muscle strength testing upper extremities bilaterally. 5 out of 5 muscle strength of left lower extremity and right lower extremity (with exception of right foot). EXTREMITIES: There is bandaging over the right foot with some bloody saturation at the distal/anterior aspect. There are no toes remaining on the right foot. There is no odor emanating from right foot. There is no lower extremity edema bilaterally. There is no clubbing or cyanosis. NEUROLOGICAL: Patient is awake, alert and oriented 3. He is conversant and responds appropriately to questions and commands. Sensation to light touch of the upper extremities is intact bilaterally. There is mild to moderate dimini shed sensation to light touch of the lower extremities bilaterally. PSYCHIATRIC: Appropriate mood and appropriate affect. LABORATORY DATA: See below. IMAGING: No imaging as inpatient for this admission. Patient did have a plain film total right foot x-ray at outpatient podiatry office earlier this morning, which per business information manager, showed definite osteomyelitis diagnosis of right foot with infected first medial ulcer. MICROBIOLOGY: Please see below. ASSESSMENT & PLAN: #Osteomyelitis of right foot -On complete plain film x-rays of the right foot obtained earlier this morning (02/11), infected medial ulcer was visualized. -Patient's podiatric surgeon, Dr. Singh, is planning a surgical removal of the first metatarsal of the right foot tomorrow afternoon (02/12). -Patient was started on consistent carbohydrate diet today and will be NPO after midnight in anticipation of surgical procedure tomorrow -Patient's home Xarelto medication was held in anticipation of surgical procedure tomorrow. Patient last took his Xarelto on the evening of 02/10. Therefore, by tomorrow morning (02/12), patient will be approximately 30 hours removed from last administered Xarelto dose. -Review of patient's past antibiotic susceptibilities showed sensitivity to Zosyn. Therefore, hospitalist team commenced Zosyn administration today (02/11). Hospitalist team spoke with Dr. Singh this afternoon, and he agreed on the antibiotic choice of Zosyn. -2 separate venous blood cultures were obtained this afternoon 20 minutes apart, results are pending -Initial CBC and BMP lab values were ordered -Patient has history of surgical removal of all 5 toes on right foot. #Insulin-dependent diabetes mellitus -Patient takes Lantus at bedtime, Humalog at meals, and metformin in the morning, at home for his diabetes. -Metformin was held upon admission and patient was switched to insulin sliding scale and scheduled FSBS checks were ordered -Patient's home simvastatin continued -Initial BMP was ordered #History of aortic valve replacement -Xarelto was held in anticipation of surgery tomorrow. Patient last took Xarelto last evening and will be approximately 30 hours removed from this dose by tomorrow morning -Patient takes 81 mg aspirin at home. This will be held upon admission. -Patient's replacement valve is a cow valve #Chronic kidney disease -Patient follows with Dr. Villalta's outpatient -Initial BMP was ordered -Patient made NPO at midnight and IV fluids will be commenced at this time #History of right arm blood clot -Patient takes Xarelto as outpatient. Xarelto was held in anticipation of surg yisel tomorrow. #Left eye ocular hypertension -Continue with patient's home Latanoprost #History of detached retina in the left eye DVT prophylaxis: Patient takes 20 mg of Xarelto every evening as outpatient. Xarelto has been held in anticipation of surgery tomorrow. Last dose of Xarelto was the evening of 02/10. Disposition: Hospitalist team's overseeing patient's general medical needs working in collaboration with patient's podiatric surgeon, Dr. Singh. Patient is likely to have surgery tomorrow afternoon. We will await the results of the surgery and discuss with Dr. Singh as to the best plan moving forward. I performed a history and physical examination of the patient and discussed their management with the above documenter. I reviewed the note and agree with the documented findings and plan of care. Vital Signs Vital Signs Date Time Temp Pulse Resp B/P (MAP) Pulse Ox O2 Delivery O2 Flow Rate FiO2 02/11/19 14:00 98.4 83 19 116/74 (88) 97 Laboratory Data Labs 24H Laboratory Tests 2 02/11/19 14:29: Immature Granulocyte % (Auto) 0.3, White Blood Count 6.5, Red Blood Count 5.19, Hemoglobin 13.8, Hematocrit 42.7, Mean Corpuscular Volume 82.3, Mean Corpuscular Hemoglobin 26.6L, Mean Corpuscular Hemoglobin Concent 32.3, Red Cell Distribution Width 17.2H, Platelet Count 381, Neutrophils (%) (Auto) 66.6H, Lymphocytes (%) (Auto) 24.6, Monocytes (%) (Auto) 6.0H, Eosinophils (%) (Auto) 1.4, Basophils (%) (Auto) 1.1H, Neutrophils # (Auto) 4.3, Lymphocytes # (Auto) 1.6, Monocytes # (Auto) 0.4, Eosinophils # (Auto) 0.1, Basophils # (Auto) 0.1, Nucleated Red Blood Cells % (auto) 0.0 CBC/BMP Laboratory Tests 02/11/19 14:29 Red Blood Count 5.19, Mean Corpuscular Volume 82.3, Mean Corpuscular Hemoglobin 26.6 L, Mean Corpuscular Hemoglobin Concent 32.3, Red Cell Distribution Width 17.2 H, Neutrophils (%) (Auto) 66.6 H, Lymphocytes (%) (Auto) 24.6, Monocytes (%) (Auto) 6.0 H, Eosinophils (%) (Auto) 1.4, Basophils (%) (Auto) 1.1 H, Neutrophils # (Auto) 4.3, Lymphocytes # (Auto) 1.6, Monocytes # (Auto) 0.4, Eosinophils # (Auto) 0.1, Basophils # (Auto) 0.1 Microbiology Microbiology 02/11/19 Blood Culture, Received Pending 02/11/19 Blood Culture, Received Pending Home Medications Scheduled Aspirin (Aspir 81) 81 Mg Tab, 81 MG PO DAILY Furosemide (Furosemide) 20 Mg Tab, 20 MG PO BID takes 0800/1800 Gluc Fink/Chondro Fink A/Vit C/Mn (Glucosamine Chondroitin Tab) 1 Each Tablet, 1 TAB PO BID Insulin Glargine (Lantus) 1 Units/0.01 Ml Susp, 1 DOSE SC QHS 18 - 22 UNITS Insulin Human Lispro (Humalog) 1 Units/0.01 Ml Inj, 1 DOSE SC AC 8 - 10 UNITS PER SLIDING SCALE Latanoprost (Xalatan) 0.005 % Nat, 1 DROP OS QHS Metformin HCl (Metformin HCl ER) 500 Mg Tab.er.24h, 1,000 MG PO DAILY Ranitidine HCl (Ranitidine HCl) 150 Mg Tab, 1 TAB PO QHS Rivaroxaban (Xarelto) 20 Mg Tablet, 20 MG PO QHS Simvastatin (Simvastatin) 40 Mg Tab, 40 MG PO QHS Allergies Coded Allergies: No Known Allergies (Verified , 08/14/18) A-FIB/CHADSVASC A-FIB History Current/History of A-Fib/PAF?: No Current PO Anticoag Therapy: Yes JAY BENNETT PGY-1 Feb 11, 2019 16:25 MICHELLE DANIEL MD Feb 13, 2019 10:49
[2019-02-11] MEDS: PIPERACILLIN/TAZOBACTAM SOD 3.375 GM in D5W MINI-BAG PLUS 50 ML IV SCH ×2 (17:03→21:50)
[2019-02-11] MEDS ORDERED: HumaLOG INSULIN (NovoLOG) PER UNIT SC SCH (18:00)
--- NOTE | 2019-02-11 18:06 | IPN ---
DATE: 02/11/2019 At approximately 5 p.m. CHIEF COMPLAINT: Patient is seen today for evaluate of infection in his right foot. Patient has numerous right foot infections in the past. Has been treated with multiple food surgeries, including a transmetatarsal amputation of the right foot and a gastrocnemius recession. All of these have failed to resolve his chronic ulcerations, even in light of appropriate offloading with a Pro Walker and a transmetatarsal amputation shoe. Patient presented in the office today with a sequester extending of the plantar ulceration on the medial side. This was removed and sent for culture aerobically and anaerobically. X-rays revealed osteomyelitis of the distal phalanx. Therefore, he was sent to the hospital for admission, intravenous (IV) antibiotics, and resection of 1st metatarsal. MEDICATIONS: - simvastatin 40 mg daily - Benadryl as needed - Lantus insulin. - Humalog insulin - 81 mg aspirin - Xarelto - furosemide 20 mg twice a day - amitriptyline 10 mg daily - ranitidine 150 mg twice a day PAST MEDICAL HISTORY: 1. Insulin-dependent diabetes. 2. Hypercholesterolemia. 3. Aortic stenosis with valvular replacement. 4. Left eye retinal detachment. 5. Charcot foot deformity of the right foot. 6. History of gastrointestinal (GI) bleeding. 7. Congestive heart failure. 8. Diastolic dysfunction. 9. Basilic vein thrombosis. 10. Hiatal hernia. 11. Hearing impairment. PAST SURGICAL HISTORY: 1. Esophagogastroduodenoscopy (EGD). 2. Surgery for a scalp abscess. 3. Multiple foot surgeries as described, ending in a transmetatarsal amputation of the right foot and a gastrocnemius recession. 4. Aortic valve replacement. DIAGNOSTIC STUDIES: Patient's white count is 6.5. C-reactive protein is 0.62. X-rays from my office reveal sequester formation as well as osteolysis of the 1st metatarsal. No other signs of bony infection. Ulcerations on the plantar aspect of the transmetatarsal site over the 1st metatarsal and 3rd metatarsals, the medial ulcer extending to bone. ASSESSMENT: Osteomyelitis, 1st metatarsal. PLAN: We discussed with the patient resection of the 1st metatarsal, trying to leave as much attachment over the anterior tibial tendon as it inserts into the medial cuneiform. This will be packed open with tobramycin-impregnated beads. We discussed with the patient after resolution of the infection, would recommend a transmetatarsal amputation to rebalance the forefoot. This could be performed with delayed prior closure over antibiotic beads in the future. We discussed with the patient that this would probably be anywhere from 3 days to 2 weeks, depending on his response. His questions were answered. He is nothing by mouth after breakfast tomorrow.
[2019-02-11] MEDS ORDERED: ACETAMINOPHEN TAB 650MG DOSE (2X325MG) PO PRN (19:15)
[2019-02-11] MEDS: HumaLOG INSULIN (NovoLOG) PER UNIT SC SCH (21:00)
[2019-02-11 22:00] VITALS: BP 105/64
[2019-02-12] VITALS (8 sets, daily range): BP systolic 93–122; BP diastolic 53–70
[2019-02-12] MEDS: PIPERACILLIN/TAZOBACTAM SOD 3.375 GM in D5W MINI-BAG PLUS 50 ML IV SCH ×4 (05:12→21:50)
[2019-02-12 06:23] LABS: BASO # 0.1 10^3/uL (0.0-0.2); BASO % 1.4 % (0.0-1.0); EOS # 0.1 10^3/uL (0.0-0.5); EOS % 3.2 % (0.0-3.0); HEMATOCRIT 37.2 % (42.0-52.0); LYMPH # 1.4 10^3/uL (1.5-5.0); LYMPH % 32.3 % (24.0-44.0); MEAN CORPUSCULAR HEMOGLOBIN 26.5 pg (27.0-33.0); MEAN CORPUSCULAR HGB CONC 32.3 g/dl (32.0-36.5); MEAN CORPUSCULAR VOLUME 82.1 fl (80.0-96.0); MONO # 0.4 10^3/uL (0.0-0.8); MONO % 10.2 % (0.0-5.0); NEUTROPHILS # 2.3 10^3/uL (1.5-8.5); NEUTROPHILS % 52.7 % (36.0-66.0); PLATELET COUNT, AUTOMATED 330 10^3/uL (150-450); RED BLOOD COUNT 4.53 10^6/uL (4.30-6.10); WHITE BLOOD COUNT 4.3 10^3/uL (4.0-10.0)
[2019-02-12 06:37] LABS: CALCIUM LEVEL 9.3 MG/DL (8.8-10.2); CREATININE FOR GFR 1.38 MG/DL (0.70-1.30); POTASSIUM SERUM 4.8 MEQ/L (3.5-5.1)
[2019-02-12] MEDS: FUROSEMIDE 20 MG TAB PO SCH ×2 (08:53→19:07)
[2019-02-12] MEDS: HumaLOG INSULIN (NovoLOG) PER UNIT SC SCH ×5 (08:55→23:17)
[2019-02-12] MEDS ORDERED: dexameTHASONE 4 MG/ML 1ML VIAL (J1100) As Ordered ONE (16:40)
[2019-02-12] MEDS ORDERED: PROPOFOL 200 MG/20 ML VIAL As Ordered ONE (16:40)
[2019-02-12] MEDS ORDERED: ONDANSETRON 4MG/2ML VIAL (J2405) As Ordered ONE (16:40)
[2019-02-12] MEDS ORDERED: LIDOCAINE 2% INJ 100 MG/5 ML SDV (FOR ANES.) As Ordered ONE (16:40)
[2019-02-12] MEDS ORDERED: fentaNYL 100 MCG/2 ML INJECTION (J3010) As Ordered ONE (16:42)
[2019-02-12] MEDS ORDERED: MIDAZOLAM INJ 2 MG/2 ML VIAL (J2250) As Ordered ONE (16:42)
[2019-02-12] MEDS ORDERED: BUPIVACAINE HCL 0.5% 10 ML VIAL As Ordered ONE (16:43)
[2019-02-12] MEDS ORDERED: ROPIvacaine 0.5% 30 ML INJECTION (J2795 PER 1MG) As Ordered ONE (16:43)
[2019-02-12] MEDS ORDERED: LIDOCAINE 2% MDV 20 ML VIAL As Ordered ONE (16:44)
[2019-02-12] MEDS ORDERED: TOBRAMYCIN SULF 1.2 GM VIAL As Ordered ONE (16:44)
[2019-02-12] MEDS ORDERED: TOBRAMYCIN INJ 80 MG/2 ML VIAL (J3260) As Ordered ONE (16:44)
[2019-02-12] MEDS ORDERED: PHENYLephrine HCL 500 MCG/5 ML (100MCG/ML) SYRINGE (J2370) As Ordered ONE (17:20)
--- NOTE | 2019-02-12 18:40 | REP ---
Right foot three views postoperative study: Comparison is 02/04/2018. There has been amputation at the level of the proximal metatarsals of the second through fifth digits. The base of the great toe metatarsal has been resected as an interval change. Radiopaque pledgets are again noted within the soft tissues. There is diffuse soft tissue edema. Electronically Signed by Toen Connelly MD 02/12/2019 06:32 P
--- NOTE | 2019-02-12 18:44 | IPNPDOC ---
Date Seen The patient was seen on 02/12/19. Progress Note SUBJECTIVE: Garrett was seen and examined this morning while lying upright in bed. He denies any issues overnight. He is not in any pain. He is eating and drinking without any issues. He was made npo after breakfast this morning in anticipation of podiatric surgery this afternoon. He denies feeling feverish, chills, night sweats, chest pain, chest pressure, palpitations, shortness of breath, cough, abdominal pain, feeling nauseated, vomiting, generalized weakness, lower extremity edema, or paresthesias at this time. OBJECTIVE PHYSICAL EXAMINATION: VITAL SIGNS: Please see below. GENERAL APPEARANCE:. Garrett is a cooperative and pleasant man who appears comfortable while seated upright in bed at time of examination. He does not appear to be in any acute distress. He is interactive and responds to questions and commands appropriately. He is well-nourished and well-developed. HEENT: Normocephalic, atraumatic. Non-icteric sclera NECK: Supple. Trachea is midline. CARDIOVASCULAR: 2/6 systolic murmur best heard at the right and left parasternal second intercostal spaces; regular rhythm. No clicks or gallops appreciated. No lower extremity edema. 2+ radial and dorsalis pedis pulses bilaterally. Adequate capillary refill of left foot (< 2 seconds). LUNGS: Clear to auscultation bilaterally. Adequate respiratory effort. No visualized accessory muscle use on respiration. No retractions visualized on respiration. Symmetric chest expansion. ABDOMEN: Soft, nontender to palpation in all quadrants. Nondistended. Normoactive bowel sounds present. No masses appreciated on palpation. No hep atomegaly or splenomegaly. No guarding, rebound, or rigidity. MUSCULOSKELETAL: 5 out of 5 muscle strength testing upper extremities bilaterally. 5 out of 5 muscle strength of left lower extremity and right lower extremity (with exception of right foot). EXTREMITIES: There is bandaging over the right foot with some bloody saturation at the distal/anterior aspect. There are no toes remaining on the right foot. There is no odor emanating from right foot. There is no lower extremity edema bilaterally. There is no clubbing or cyanosis. NEUROLOGICAL: Patient is awake, alert and oriented 3. He is conversant and responds appropriately to questions and commands. Sensation to light touch of the upper extremities is intact bilaterally. There is mild to moderate diminished sensation to light touch of the lower extremities bilaterally. PSYCHIATRIC: Appropriate mood and appropriate affect. LABORATORY DATA, IMAGING STUDIES, MICROBIOLOGY: Please see below. ASSESSMENT AND PLAN: This is a 58-year-old man with long-standing insulin-dependent diabetes who follows with Dr. Singh of podiatric surgery as outpatient on a weekly basis. He has had extensive surgeries on his right foot, with all of toes removed. On presentation to Dr. Singh's office on 02/11, x-ray showed osteolysis with plantar ulceration over the first and third metatarsals consistent with clonal picture of osteomyelitis. Some areas of ulceration extended to the bone. Patient was sent to [facility] with a direct admission with likely surgical removal of the first metatarsal scheduled for the afternoon of 02/12. #Osteomyelitis of right foot -Patient's podiatric surgeon, Dr. Singh, is planning a surgical removal of the first metatarsal of the right foot this afternoon -Patient was made npo after breakfast this morning in anticipation of his afternoon procedure -Patient's home Xarelto medication was held yesterday in anticipation of surgery today. Patient last took his Xarelto on the evening of 02/10. Therefore, by this afternoon, patient will be approximately 35 hours removed from last administration of Xarelto. -Patient is on day #2 of Zosyn antibiotic coverage. This antibiotic was discussed with Dr. Singh, and he agreed to its use. -2 separate blood culture results are pending, as are both aerobic and anaerobic cultures from the wound taken by Dr. Singh on 02/11 -No leukocytosis on morning labs. Continue to recheck labs in a daily basis #Insulin-dependent diabetes mellitus -Patient takes Lantus at bedtime, Humalog at meals, and metformin in the morning, at home for his diabetes. -Metformin was held upon admission and patient was switched to insulin sliding scale and scheduled FSBS checks were ordered -Patient's home simvastatin continued #History of aortic valve replacement -Xarelto was held in anticipation of surgery. Patient last took Xarelto on the evening of 02/10 and will be approximately 35 hours removed from this dose by this afternoon -Patient takes 81 mg aspirin at home. This will be held upon admission. -Patient's replacement valve is a cow valve #Chronic kidney disease -Patient follows with Dr. Villalta's outpatient -[facility] this morning, patient's creatinine was elevated at 1.38. His baseline appears to be 1-1.2 -Patient made NPO after breakfast this morning and IV fluids were subsequently started. #History of right arm blood clot -Patient takes Xarelto as outpatient. Xarelto was held in anticipation of surgery today. #Left eye ocular hypertension -Continue with patient's home Latanoprost #History of thoracic aortic aneurysm -Patient states he follows with a specialist physician in [place] who has charted aneurysm diameter for multiple years. His physician is informed to him that when it reaches diameter of 5 cm surgery will likely be warranted. 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 Xarelto has been held in anticipation of surgery today. Last dose of Xarelto was the evening of 02/10. Disposition: With patient undergoing right first metatarsal surgical removal thi s afternoon, hospitalist team will touch base afterwards with the surgeon (Dr. Singh) and discuss outcome and neck medications for patient's care moving forward. If needed, hospice team may rechallenge to infectious disease to determine best course of antibiotic based on surgery outcome from today. I saw and evaluated the patient. I agree with the findings and plan of care as documented in the above note VS, I&O, 24H, Fishbone Vital Signs/I&O Vital Signs Date Time Temp Pulse Resp B/P (MAP) Pulse Ox O2 Delivery O2 Flow Rate FiO2 02/12/19 18:13 71 16 119/82 (94) 95 02/12/19 17:49 98.4 I&O- Last 24 Hours up to 6 AM 02/12/19 06:00 Intake Total 1550 ml Balance 1550 ml Laboratory Data 24H LABS Laboratory Tests 2 02/11/19 20:58: Bedside Glucose (Misc Panel) 249H 02/12/19 05:52: Immature Granulocyte % (Auto) 0.2, White Blood Count 4.3, Red Blood Count 4.53, Hemoglobin 12.0L, Hematocrit 37.2L, Mean Corpuscular Volume 82.1, Mean Corpuscular Hemoglobin 26.5L, Mean Corpuscular Hemoglobin Concent 32.3, Red Cell Distribution Width 16.9H, Platelet Count 330, Neutrophils (%) (Auto) 52.7, Lymphocytes (%) (Auto) 32.3, Monocytes (%) (Auto) 10.2H, Eosinophils (%) (Auto) 3.2H, Basophils (%) (Auto) 1.4H, Neutrophils # (Auto) 2.3, Lymphocytes # (Auto) 1.4L, Monocytes # (Auto) 0.4, Eosinophils # (Auto) 0.1, Basophils # (Auto) 0.1, Nucleated Red Blood Cells % (auto) 0.0, Anion Gap 5L, Glomerular Filtration Rate 56.0, Blood Urea Nitrogen 18, Creatinine 1.38H, Sodium Level 138, Potassium Level 4.8, Chloride Level 106, Carbon Dioxide Level 27, Calcium Level 9.3 02/12/19 11:23: Bedside Glucose (Misc Panel) 247H 02/12/19 16:10: Bedside Glucose (Misc Panel) 151H 02/12/19 17:57: Bedside Glucose (Misc Panel) 149H CBC/BMP Laboratory Tests 02/12/19 05:52 Red Blood Count 4.53, Mean Corpuscular Volume 82.1, Mean Corpuscular Hemoglobin 26.5 L, Mean Corpuscular Hemoglobin Concent 32.3, Red Cell Distribution Width 16.9 H, Neutrophils (%) (Auto) 52.7, Lymphocytes (%) (Auto) 32.3, Monocytes (%) (Auto) 10.2 H, Eosinophils (%) (Auto) 3.2 H, Basophils (%) (Auto) 1.4 H, Neutrophils # (Auto) 2.3, Lymphocytes # (Auto) 1.4 L, Monocytes # (Auto) 0.4, Eosinophils # (Auto) 0.1, Basophils # (Auto) 0.1, Calcium Level 9.3 Microbiology Microbiology 02/11/19 Blood Culture - Preliminary, Resulted No growth after 24 hours . All specim... 02/11/19 Blood Culture - Preliminary, Resulted No growth after 24 hours . All specim... JAY BENNETT PGY-1 Feb 12, 2019 18:44 MICHELLE DANIEL MD Feb 13, 2019 10:59
[2019-02-12] MEDS ORDERED: fentaNYL 100 MCG/2 ML INJECTION (J3010) IV PRN (18:45)
[2019-02-12] MEDS ORDERED: LR 1,000 ML IV SCH (18:45)
[2019-02-12] MEDS ORDERED: MEPERIDINE INJ 25 MG/ML VIAL (J2175) IV PRN (18:45)
[2019-02-12] MEDS ORDERED: PERCOCET 5MG/325MG TAB PO PRN ×3 (18:45→19:15)
[2019-02-12] MEDS ORDERED: METOCLOPRAMIDE INJ 10MG/2ML VIAL (J2765) IV PRN (18:45)
[2019-02-12] MEDS ORDERED: ONDANSETRON 4MG/2ML VIAL (J2405) IV PRN (18:45)
[2019-02-12] MEDS: SIMVASTATIN 40 MG TAB PO SCH (21:50)
[2019-02-12] MEDS: FAMOTIDINE 20 MG TAB PO SCH (21:50)
[2019-02-12] MEDS: LATANOPROST 0.005% OPHTH SOLN 2.5 ML OS SCH (21:52)
[2019-02-13] MEDS: RIVAROXABAN 20 MG TAB (XARELTO) PO SCH ×2 (00:16→21:20)
[2019-02-13] MEDS: PIPERACILLIN/TAZOBACTAM SOD 3.375 GM in D5W MINI-BAG PLUS 50 ML IV SCH ×4 (05:22→21:19)
[2019-02-13 06:00] VITALS: BP 111/65
[2019-02-13 06:54] LABS: CALCIUM LEVEL 9.4 MG/DL (8.8-10.2); CREATININE FOR GFR 1.7 MG/DL (0.70-1.30); POTASSIUM SERUM 4.6 MEQ/L (3.5-5.1)
--- NOTE | 2019-02-13 07:21 | RO ---
DATE OF PROCEDURE: 02/11/2019 PREOPERATIVE DIAGNOSIS: Osteomyelitis of first metatarsal. POSTOPERATIVE DIAGNOSIS: Osteomyelitis of first metatarsal. PROCEDURE PERFORMED: Resection of first metatarsal, right foot. SURGEON: GLENROY Zamarripa ASSISTANT: None. ANESTHESIA: Local monitored anesthesia care (MAC). ESTIMATED BLOOD LOSS: 25 mL. DRAINS UTILIZED: 1/4-inch Iodoform gauze. IMPLANTS UTILIZED: Ten 5 mm Tobramycin impregnated beads. HEMOSTASIS: None. DESCRIPTION OF OPERATION: On 02/11/2019 this 58-year-old male was taken from his hospital room to the operating room, placed on the operating room table in supine position. Following the induction of IV sedation, local and regional anesthesia, the right lower extremity was prepped and draped in the usual aseptic manner. Sterile draping was completed and the following procedure was performed. RESECTION OF FIRST METATARSAL, RIGHT FOOT: Attention was directed to the patient's right foot where there was noted to be an ulcer over the first metatarsal. At this time, an incision was formed from the medial margin of the ulcer dorsally, measuring approximately 2 cm. A flap of skin was then created down to the first metatarsal and utilizing meticulous dissection, the soft tissue attachments to the medial cuneiform were resected and the bone was removed in total. It was sent to pathology for aerobic, anaerobic and fungal cultures. A bleeders as encountered were electrocoagulated. The wound was copiously lavaged with 3 liters of dilute tobramycin solution with a low pressure pulse lavage system. The ten 5 mm tobramycin beads were then placed into the wound. 1/4-inch Iodoform gauze was then placed in the wound exiting out of the ulcer site and the wound was coapted with retention stitches with #2-0 nylon suture. We discussed with the patient staying on antibiotics until the bone culture is available. We discussed as the resection resolves, anywhere from a week to two weeks, doing a resectional transmetatarsal proximal amputation to close these longstanding ulcers on the plantar surface of his foot. THALIA
[2019-02-13 07:58] LABS: HEMATOCRIT 38.6 % (42.0-52.0); HEMOGLOBIN 12.6 g/dl (13.5-17.5); MEAN CORPUSCULAR HGB CONC 32.6 g/dl (32.0-36.5); MEAN CORPUSCULAR VOLUME 82.7 fl (80.0-96.0); PLATELET COUNT, AUTOMATED 366 10^3/uL (150-450); RED BLOOD COUNT 4.67 10^6/uL (4.30-6.10); WHITE BLOOD COUNT 8.4 10^3/uL (4.0-10.0)
[2019-02-13] MEDS: HumaLOG INSULIN (NovoLOG) PER UNIT SC SCH ×4 (08:28→21:20)
[2019-02-13] MEDS: FUROSEMIDE 20 MG TAB PO SCH ×2 (08:28→16:29)
[2019-02-13 08:45] VITALS: BP 118/65
--- NOTE | 2019-02-13 13:48 | IPNPDOC ---
Date Seen The patient was seen on 02/13/19. Progress Note SUBJECTIVE: Garrett was seen and examined this morning while lying upright in bed. He underwent surgical resection of the right first metatarsal late afternoon yesterday. The surgery was performed by Dr. Singh to address osteomyelitis of the right medial first metatarsal. The resected osteomyelitic bone was sent off for aerobic, anaerobic and fungal cultures. Patient tolerated the procedure well and resumed regular diet starting with dinner yesterday evening. Patient is in no acute pain at time of exam and did well overnight. He denies fever, chills, chest pain, chest pressure, palpitations, shortness of breath, cough, abdominal pain, feeling nauseated, vomiting, or paresthesias at this time. OBJECTIVE PHYSICAL EXAMINATION: VITAL SIGNS: Please see below. GENERAL APPEARANCE:. Patient is pleasant and cooperative. He is resting comfortably in bed at time of exam. He does not appear to be in any acute distress. He is interactive and responds to questions and commands appropriately . He is well-nourished and well-developed. HEENT: Normocephalic, atraumatic. Non-icteric sclera NECK: Supple. Trachea is midline. CARDIOVASCULAR: 2/6 systolic murmur best heard at the right and left parasternal second intercostal spaces; regular rhythm. No clicks or gallops appreciated. No lower extremity edema. 2+ radial pulses bilaterally, 2+ left posterior tibial pulse. LUNGS: Clear to auscultation bilaterally. Adequate respiratory effort. No visualized accessory muscle use on respiration. No retractions visualized on respiration. Symmetric chest expansion. ABDOMEN: Soft, nontender to palpation in all quadrants. Nondistended. Normoactive bowel sounds present. No masses appreciated on palpation. No hepatomegaly or splenomegaly. No guarding, rebound, or rigidity. MUSCULOSKELETAL: 5 out of 5 muscle strength testing upper extremities bilaterally. 5 out of 5 muscle strength testing lower extremities bilaterally. Patient is able to flex and extend the foot at the ankle joint bilaterally. EXTREMITIES: There is Haider bandaging covering the right foot extending just superior to the level of the malleoli. There are no toes remaining on the right foot. There is no odor emanating from right foot. There is no lower extremity edema bilaterally. There appears to be two prominent areas of calcification overlying the right anterior tibia. NEUROLOGICAL: Patient is awake, alert and oriented 3. He is conversant and responds appropriately to questions and commands. Sensation to light touch of the upper extremities is intact bilaterally. There is mildly diminished sensation to light touch of the lower extremities bilaterally. PSYCHIATRIC: Appropriate mood and appropriate affect. LABORATORY DATA, IMAGING STUDIES, MICROBIOLOGY: Please see below. ASSESSMENT AND PLAN: This is a 58-year-old man with long-standing insulin-dependent diabetes who follows with Dr. Singh of podiatric surgery as outpatient on a weekly basis. He has had extensive surgeries on his right foot, with all of the toes previously removed. On presentation to Dr. Singh's office on 02/11, x- ray showed osteolysis with medial and plantar ulceration over the first and third metatarsals consistent with clinical picture of osteomyelitis. Some areas of ulceration extended to the bone. Patient was sent to [facility] with a direct admission with likely surgical removal of the first metatarsal scheduled for the afternoon of 02/12. On the afternoon of 02/12, patient went to surgery performed by Dr. Singh. The right first metatarsal was resected. There was very little purulent material visualized. The removed bone was sent for cultures. Antibiotic beads were placed into the soft tissue or bony then. Patient tolerated the procedure well and resumed diet. Hospitalist team to indicated with Dr. Singh, who states an approximate 4-5 days, modification of remaining metatarsals on the right foot and soft tissue will be surgically made and the area will be closed. Until that time, the patient will remain in the hospital. Patient follows with infectious disease as outpatient and they have been consult ed. Patient will remain on Zosyn for the time being until results of bone cultures return and infectious disease evaluate's patient. #Osteomyelitis of right foot -Patient underwent surgical removal first metatarsal on the right foot yesterday afternoon. 10. Tobramycin antibiotic beads were inserted in the soft tissue in the area was packed with gauze and bandaged. Patient tolerated the procedure well and resumed diabetic diet upon return from all are. -Patient is on day #3 of Zosyn antibiotic coverage. Patient will continue on antibiotic until results of resected bone culture return. -Infectious disease has been consulted and they follow with patient on outpatient basis -Aerobic, anaerobic, fungal cultures from resected bone are pending -No leukocytosis on morning labs. Continue to recheck labs in a daily basis -Patient is to remain nonweightbearing on the right foot -Hospitalist team spoke with Dr. Singh podiatric surgery, and Dr. Singh will likely perform a surgical modification and closure of all the right first metatarsals in approximately 4-5 days' time. Patient will remain in the hospital in the meantime. #Insulin-dependent diabetes mellitus -Patient takes Lantus at bedtime, Humalog at meals, and metformin in the morning, at home for his diabetes. -Patient resumed diabetic diet upon return from the OR yesterday evening -Continue with sliding scale insulin and FSBS -Metformin was held upon admission -Patient's home simvastatin continued #History of aortic valve replacement -Patient resumed administration of Xarelto on 02/13 -Patient takes 81 mg aspirin at home. This will be held upon admission. -Patient's replacement valve is a cow valve #Chronic kidney disease -Patient follows with Dr. Villalta's outpatient -GFR had decreased this morning to 44% from 56% yesterday -Patient is no longer npo, is off IV fluids, and has resumed eating and drinking #Elevated creatinine -Patient's creatinine increased today to 1.7 from 1.38 yesterday -upon review of patient's lifetime hospital summary, it appears his baseline is between 1 and 1.2 -Increase may be associated with patient's recent osteomyelitis infection or possibly due to effects of Zosyn antibiotic that's being administered -Patient follows with Dr. Villalta of nephrology as outpatient -Continue to follow metabolic panels #History of right arm blood clot -Patient takes Xarelto as outpatient. -Patient resumed Xarelto administration on 02/13 #Left eye ocular hypertension -Continue with patient's home Latanoprost #History of aortic aneurysm -Patient states he follows with a specialist physician in [place] who has charted aneurysm diameter for multiple years. His physician has informed to him that when it reaches diameter of 5 cm, surgery will likely be warranted. 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 Xarelto has been held in anticipation of surgery today. Last dose of Xarelto was the evening of 02/10. Disposition: Hospitalist team spoke patient's podiatric surgeon on 02/13. Patient tolerated surgery on 02/12 well. In 4-5 days' time, patient will likely undergo subsequent surgery to modify and close the soft tissue overlying the metatarsals of the right foot. Patient will remain in the hospital until next surgery. I saw and evaluated the patient. I agree with the findings and plan of care as documented in the above note VS, I&O, 24H, Fishbone Vital Signs/I&O Vital Signs Date Time Temp Pulse Resp B/P (MAP) Pulse Ox O2 Delivery O2 Flow Rate FiO2 02/13/19 08:45 98.8 74 18 118/65 (82) 97 I&O- Last 24 Hours up to 6 AM 02/13/19 06:00 Intake Total 2140 ml Output Total 1850 ml Balance 290 ml Laboratory Data 24H LABS Laboratory Tests 2 02/12/19 16:10: Bedside Glucose (Misc Panel) 151H 02/12/19 17:57: Bedside Glucose (Misc Panel) 149H 02/12/19 19:07: Bedside Glucose (Misc Panel) 163H 02/12/19 22:51: Bedside Glucose (Misc Panel) 490H 02/13/19 05:50: Nucleated Red Blood Cells % (auto) 0.0 02/13/19 05:55: Anion Gap 9, Glomerular Filtration Rate 44.0L, Blood Urea Nitrogen 22H, Creatinine 1.70H, Sodium Level 136, Potassium Level 4.6, Chloride Level 102, Carbon Dioxide Level 25, Calcium Level 9.4 02/13/19 11:31: Bedside Glucose (Misc Panel) 236H CBC/BMP Laboratory Tests 02/13/19 05:50 Red Blood Count 4.67, Mean Corpuscular Volume 82.7, Mean Corpuscular Hemoglobin 27.0, Mean Corpuscular Hemoglobin Concent 32.6, Red Cell Distribution Width 16.7 H 02/13/19 05:55 Calcium Level 9.4 Microbiology Microbiology 02/12/19 Fungal Smear, Received Pending 02/12/19 Fungal Culture, Received Pending 02/12/19 Gram Stain - Final, Resulted 02/12/19 Wound Culture, Resulted Pending 02/12/19 Anaerobic Culture, Resulted Pending 02/11/19 Blood Culture - Preliminary, Resulted No growth after 24 hours . All specim... 02/11/19 Blood Culture - Preliminary, Resulted No growth after 24 hours . All specim... JAY BENNETT PGY-1 Feb 13, 2019 13:48 MICHELLE DANIEL MD Feb 16, 2019 11:29
[2019-02-13 16:00] VITALS: BP 130/75
[2019-02-13 18:00] VITALS: BP 105/68
--- NOTE | 2019-02-13 18:33 | IPN ---
DATE: 02/13/2019 I was asked to consult by Dr. Singh for evaluation of chronic osteomyelitis of the right foot. Garrett is a 58-year-old gentleman with a history of insulin-dependent diabetes and chronic osteomyelitis of the right foot who was admitted recently with an infected and medial ulcer with osteomyelitis and Dr. Signh took him to the OR for incision and drainage and surgical removal of the first metatarsal done on 02/12/2019. He has sent intraoperative wound cultures on 02/11. Intraoperative wound cultures are still pending. Cultures from 01/31 were positive for Citrobacter frendi Klebsiella, Pseudomonas and E faecalis and the patient was started on IV Zosyn. He did report fevers and chills for the week prior to admission. He denies any nausea, vomiting or diarrhea. He feels well. PAST MEDICAL HISTORY: Significant for insulin-dependent diabetes, chronic kidney disease, detached left retina, Left ocular hypertension, Right arm DVT. PAST SURGICAL HISTORY: Aortic valve replacement, open heart surgery with a cow valve on Xarelto, transmetatarsal amputation of the right foot. Bilateral cataract surgery. SOCIAL HISTORY: He is single and lives with his girlfriend. He has one daughter in [place] and he is on disability. He drinks rarely alcohol. Does not smoke or drink or use drugs. PHYSICAL EXAMINATION: On physical exam he is a healthy looking gentleman in no acute distress. He has been afebrile throughout this admission. Temperature is 96.7, pulse 60, respirations 18, blood pressure 130/75, O2 sat 98% on room air. Heart: Normal S1-S2 with a systolic ejection murmur 2/6 unchanged. Lungs are clear. No wheezes or rhonchi. Abdomen: Soft, nontender. No hepatosplenomegaly. Extremities: No clubbing, cyanosis or edema. There is a calcific deposits on the anterior cortez there is a transmetatarsal amputation of the right foot with very bloody discharge and clots. There is no evidence of infection. No purulence. No crepitus. The dressing was changed postop day #1 and it was very bloody. The patient had a new dressing placed and was advised to remain to have the foot elevated for the next hour. IMPRESSION: Chronic osteomyelitis of the right foot with a foot x-ray showing soft tissue edema amputation of the first metatarsal was done by Dr. Singh on 02/11 and cultures are still pending. He also had tobramycin beads placed to cover for gram negatives that were cultured. The patient clinically doing well. PLAN: Continue with IV Zosyn and obtain followup CBC, CRP, sed rate tomorrow. Depending on results of intraoperative wound culture will decide whether the patient needs to be on home IV antibiotic or he could be switched to an oral regimen. Thank you for consultation. I will see the patient in followup tomorrow.
[2019-02-13] MEDS: SIMVASTATIN 40 MG TAB PO SCH (21:20)
[2019-02-13] MEDS: FAMOTIDINE 20 MG TAB PO SCH (21:20)
[2019-02-13 22:00] VITALS: BP 122/71
[2019-02-13] MEDS: LATANOPROST 0.005% OPHTH SOLN 2.5 ML OS SCH (22:27)
[2019-02-14] MEDS: PIPERACILLIN/TAZOBACTAM SOD 3.375 GM in D5W MINI-BAG PLUS 50 ML IV SCH ×4 (04:46→23:21)
[2019-02-14 06:00] VITALS: BP 104/66
[2019-02-14 06:33] LABS: C REACTIVE PROTEIN QUANTITATIV 0.54 MG/DL (0.00-0.30); CALCIUM LEVEL 8.6 MG/DL (8.8-10.2); CREATININE FOR GFR 1.65 MG/DL (0.70-1.30); GLOMERULAR FILTRATION RATE 45.5 (>49); POTASSIUM SERUM 3.8 MEQ/L (3.5-5.1)
[2019-02-14] MEDS: FUROSEMIDE 20 MG TAB PO SCH ×2 (08:17→15:53)
[2019-02-14] MEDS: HumaLOG INSULIN (NovoLOG) PER UNIT SC SCH ×4 (08:18→21:51)
[2019-02-14 11:33] LABS: HEMATOCRIT 37.3 % (42.0-52.0); HEMOGLOBIN 12.2 g/dl (13.5-17.5); MEAN CORPUSCULAR HEMOGLOBIN 26.5 pg (27.0-33.0); MEAN CORPUSCULAR HGB CONC 32.7 g/dl (32.0-36.5); MEAN CORPUSCULAR VOLUME 81.1 fl (80.0-96.0); PLATELET COUNT, AUTOMATED 393 10^3/uL (150-450); WHITE BLOOD COUNT 7.7 10^3/uL (4.0-10.0)
[2019-02-14 14:00] VITALS: BP 115/70
--- NOTE | 2019-02-14 15:26 | PHACANCOPD ---
PHARMACY VANCOMYCIN DOSING Pt Demographics Demographics Patient Age:58 , Weight:115.100 , Gender: male Adjusted Body Weight Date: 02/14/19, Adjusted Body Weight: Kg Events Past 24 Hours Events Past 24 Hours: NO: Dialysis, Diuretic Therapy, Change in CrCl, Fever, Elevation in WBC, Pending Diagnostics, Pending Procedures, Other Vancomycin Vancomycin indication: OSTEOMYELITIS Vancomycin Load Y/N: Yes Load Dose Date Time Vancomycin Load Dose: 2000MG Date: 02/14 Time: @17, AND 21 Vancomycin Dose Date: 02/14/19. Current Vancomycin Dose: [1000MG IV Q12H@17] Intermittent Dosing?: No Labs Labs Vital Signs Label Value Date Time Patient Temperature 98.4 degrees F 02/13/19 2200 Patient Temperature 98.3 degrees F 02/14/19 0600 Item Value Date Time White Blood Count 8.4 10^3/uL 02/13/19 0550 White Blood Count 7.7 10^3/uL 02/14/19 1122 Erythrocyte Sedimentation Rate 34 mm/hr H 02/14/19 0555 C-Reactive Protein, Quantitative 0.54 MG/DL H 02/14/19 0555 Creatinine 1.70 MG/DL H 02/13/19 0555 Creatinine 1.65 MG/DL H 02/14/19 0555 Micro Microbiology 02/12/19 Fungal Smear, Received Pending 02/12/19 Fungal Culture, Received Pending 02/12/19 Gram Stain - Final, Resulted 02/12/19 Wound Culture, Resulted Pending 02/12/19 Anaerobic Culture, Resulted Pending 02/11/19 Blood Culture - Preliminary, Resulted No Growth after 48 hours. All Specime... 02/11/19 Blood Culture - Preliminary, Resulted No Growth after 72 hours. All specime... Creatinine Clearance Date:02/14/19. Creatinine Clearance: . Assessment and Plan Maintaining Current Dose?: Yes Reason for dose change: No Dose Change Pharmacist Note Pharmacist Note Date: 02/14/19. Pharmacist note: Patient is being treated for chronic osteomyelitis who went to the OR on 02/12/2019 for an I&D and surgical removal of the first metatarsal. The intraop culture grew staph. haemolyticus, staph epidermidis, and corynebacterium. His anaerobic culture is still pending. Patient was loaded with 2000mg of Vancomycin, receiving 1000mg at 1700 and 1000mg at 2100. He will be continued on Vancomycin 1000mg IV q12h based off previous consults. We will continue to monitor and make adjustments as necessary. [facility] Feb 14, 2019 15:26
[2019-02-14] MEDS: VANCOMYCIN HCL 1,000 MG, VIAL MATE ADAPTER 1 EACH in D5W 250 ML IV SCH (17:09)
--- NOTE | 2019-02-14 19:02 | IPN ---
DATE: 02/11/2019 Garrett seems to be doing well. He had some significant bleeding postoperatively after his dressing was changed last night by myself. He had significant bleeding and it needed to be changed two more time since. He denies any fever or chills. No nausea, vomiting, or diarrhea. No abdominal pain. LABORATORY DATA: White count 7.7, hemoglobin 12.2, hematocrit 37.3, platelets 393. Sodium 136, potassium 3.8, chloride 103, bicarbonate 26, BUN 20, creatinine 1.65, glucose 253, calcium 8.6. CRP 0.54. Blood cultures from February 12 are still pending. Culture from the bone that was removed in the office, head of metatarsal, had Staphylococcus hemolytic and Staphylococcus epidermidis, Corynebacterium species, all heavy to moderate growth, methicillin-resistant Staphylococcus epidermidis. Culture from January 31 was positive for Citrobacter, Klebsiella pneumoniae, Pseudomonas aeruginosa, and Enterococcus (E) faecalis. Vital signs: Temperature is 98.3, pulse 61, respirations 17, blood pressure 104/66, oxygen saturation 95% on room air. Foot exam was not done today, as the patient had significant bleeding, and Dr. Singh had just changed the dressing. There is no edema. There is no bleeding on the dressing. There is no cellulitis of the leg. IMPRESSION: Chronic osteomyelitis of the right foot, status post metatarsal resection, and the patient will be going for further surgery with extension of the transmetatarsal amputation next week. There have been multiple cultures with polymicrobial sepideh, including Staphylococcus hemolytic and Staphylococcus epidermidis. PLAN: Will continue with IV Zosyn, add IV vancomycin until operative cultures are available. Depending on results of cultures from the operating room (OR), will decide on home IV antibiotic or oral antibiotic. Case will be discussed with Dr. Singh. The patient will be in the hospital for another 5 days for second surgery.
[2019-02-14] MEDS ORDERED: VANCOMYCIN HCL 1,000 MG, VIAL MATE ADAPTER 1 EACH in D5W 250 ML IV ONE (21:00)
--- NOTE | 2019-02-14 21:02 | IPNPDOC ---
Date Seen The patient was seen on 02/14/19. Progress Note SUBJECTIVE: Garrett was seen and examined today while lying in bed. He reports multiple times yesterday evening and through the overnight profuse bleeding of the right foot that saturated through his gauze and Haider bandage and the dressing over his right foot had to be changed 4-5 times. He also states that one time this morning, ambulating to the bathroom with the assistance of his crutches, he became acutely short of breath. He is since ambulated to the bathroom and has not had similar dyspnea. He is eating and drinking without any issues. He reports having his first bowel movement since admission. He denies any acute pain at this time. He denies fever, chills, chest pain, chest pressure, palpitations, cough, abdominal pain, feeling nauseated, vomiting, or paresthesias at this time. OBJECTIVE PHYSICAL EXAMINATION: VITAL SIGNS: Please see below. GENERAL APPEARANCE:. Patient is pleasant and cooperative. He is resting comfortably in bed at time of exam. He does not appear to be in any acute distress. He is interactive and responds to questions and commands appropriately. He is well-nourished and well-developed. HEENT: Normocephalic, atraumatic. Non-icteric sclera NECK: Supple. Trachea is midline. CARDIOVASCULAR: 2/6 systolic murmur best heard at the right and left parasternal second intercostal spaces; regular rhythm. No clicks or gallops appreciated. No lower extremity edema. 2+ radial pulses bilaterally, 2+ left posterior tibial pulse. LUNGS: Clear to auscultation bilaterally. Adequate respiratory effort. No visualized accessory muscle use on respiration. No retractions visualized on respiration. Symmetric chest expansion. ABDOMEN: Soft, nontender to palpation in all quadrants. Nondistended. Normoactive bowel sounds present. No masses appreciated on palpation. No hepatomegaly or splenomegaly. No guarding, rebound, or rigidity. MUSCULOSKELETAL: 5 out of 5 muscle strength testing upper extremities bilaterally. 5 out of 5 muscle strength testing lower extremities bilaterally. Patient is able to flex and extend the foot at the ankle joint bilaterally. EXTREMITIES: There is Haider bandaging covering the right foot extending just superior to the level of the malleoli. There are no toes remaining on the right foot. There is no odor emanating from right foot. There is no lower extremity edema bilaterally. No blood has saturated through current dressing. There marilyn ears to be two prominent areas of calcification overlying the right anterior tibia. There is bruising over the anterior aspect of patient's right wrist and into the plantar eminence. NEUROLOGICAL: Patient is awake, alert and oriented 3. He is conversant and responds appropriately to questions and commands. Sensation to light touch of the upper extremities is intact bilaterally. There is mildly diminished sensation to light touch of the lower extremities bilaterally. SKIN: There is a roughly 3 inch horizontal scar over the right pectoral muscle, just lateral to the right sternal border. PSYCHIATRIC: Appropriate mood and appropriate affect. LABORATORY DATA, IMAGING STUDIES, MICROBIOLOGY: Please see below. ASSESSMENT AND PLAN: This is a 58-year-old man with long-standing insulin-dependent diabetes who follows with Dr. Singh of podiatric surgery as outpatient on a weekly basis. He has had extensive surgeries on his right foot, with all of the toes previously removed. On presentation to Dr. Singh's office on 02/11, x- ray showed osteolysis with medial and plantar ulceration over the first and third metatarsals consistent with clinical picture of osteomyelitis. Some areas of ulceration extended to the bone. Patient was sent to [facility] with a direct admission with likely surgical removal of the first metatarsal scheduled for the afternoon of 02/12. On the afternoon of 02/12, patient went to surgery performed by Dr. Singh. The right first metatarsal was resected. There was very little purulent material visualized. The removed bone was sent for cultures. Antibiotic beads were placed into the soft tissue or bony then. Patient tolerated the procedure well and resumed diet. Hospitalist team communicated with Dr. Singh, who is planning a follow-up surgery on Sunday, 02/18 for modification of remaining metatarsals on the right foot and soft tissue will be surgically made and the area will be closed. Until that time, the patient will remain in the hospital. Patient follows with infectious disease as outpatient and Dr Ghotra has been in to see him. Dr. Ghotra is awaiting results of specimens from 02/12 operation to determine whether patient will be sent home on either IV or oral antibiotic. In the meantime, IV vancomycin has been added to patient's antibiotic regimen with previous IV Zosyn. #Osteomyelitis of right foot -Patient underwent surgical removal first metatarsal on the right foot on 02/12.Tobramycin antibiotic beads were inserted in the soft tissue in the area was packed with gauze and bandaged. Patient tolerated the procedure well and resumed diabetic diet upon return from all are. -Patient is on day #4 of Zosyn antibiotic coverage. -Infectious disease has seen the patient and added IV vancomycin to patient's antibiotic regimen. Infectious disease is awaiting specimen cultures from 02/12 surgery to determine if patient will be sent home on IV or oral antibiotics. -Aerobic, anaerobic, fungal cultures from resected bone are pending -No leukocytosis on morning labs. Continue to recheck labs in a daily basis -Patient is to remain nonweightbearing on the right foot -Hospitalist team spoke with Dr. Singh podiatric surgery, and Dr. Singh will likely perform a surgical modification and closure of all the right first metatarsals on Sunday, 02/18. Patient will remain in the hospital in the meantime. #Insulin-dependent diabetes mellitus -Patient takes Lantus at bedtime, Humalog at meals, and metformin in the morning, at home for his diabetes. -Patient remains on diabetic diet -Continue with sliding scale insulin and FSBS -Metformin was held upon admission -Patient's home simvastatin continued #History of aortic valve replacement -Xarelto as held this morning after patient had profuse episodes of bleeding, saturating bandaging of the right foot. Patient was going to be taken off Xarelto in 1 days time anyway in preparation for 02/18 surgery. -Patient takes 81 mg aspirin at home. This will be held upon admission. -Patient's replacement valve is a cow valve #Chronic kidney disease -Patient follows with Dr. Villalta's outpatient -GFR remains around the mid 40% -Patient has been on diabetic diet since 02/12 surgery #Elevated creatinine -Patient's creatinine remains increased this morning -upon review of patient's lifetime hospital summary, it appears his baseline is between 1 and 1.2 -Increase may be associated with patient's recent osteomyelitis infection or possibly due to effects of Zosyn antibiotic that's being administered -Patient follows with Dr. Villalta of nephrology as outpatient -Continue to follow metabolic panels #History of right arm blood clot -Patient takes Xarelto as outpatient. -Xarelto was held this morning after patient had multiple episodes of bleeding and it was already going to be held in 1 days time in preparation for . Follow-up surgery #Left eye ocular hypertension -Continue with patient's home Latanoprost #History of aortic aneurysm -Patient states he follows with a specialist physician in [place] who has charted aneurysm diameter for multiple years. His physician has informed to him that when it reaches diameter of 5 cm, surgery will likely be warranted. 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 Xarelto was held this morning after patient experienced multiple episodes of bleeding from the right foot than saturated bandaging. Xarelto was already destined to be held in 1 days time in preparation for . Follow-up surgery. Disposition: Patient is awaiting follow-up surgery of right foot on 02/18. In the meantime, cultures from 02/12 surgery are still pending and this will determine patient's home antibiotic regimen once he is discharged. We will continue to collaborate with podiatric surgery and infectious disease as the next steps in patient's care. I saw and evaluated the patient. I agree with the findings and plan of care as documented in the above note VS, I&O, 24H, Fishbone Vital Signs/I&O Vital Signs Date Time Temp Pulse Resp B/P (MAP) Pulse Ox O2 Delivery O2 Flow Rate FiO2 02/14/19 14:00 96.8 82 16 115/70 (85) 96 I&O- Last 24 Hours up to 6 AM 02/14/19 06:00 Intake Total 1270 ml Output Total 0 ml Balance 1270 ml Laboratory Data 24H LABS Laboratory Tests 2 02/13/19 21:07: Bedside Glucose (Misc Panel) 266H 02/14/19 05:55: Erythrocyte Sedimentation Rate 34H, Anion Gap 7L, Glomerular Filtration Rate 45.5L, Blood Urea Nitrogen 20H, Creatinine 1.65H, Sodium Level 136, Potassium Level 3.8, Chloride Level 103, Carbon Dioxide Level 26, Calcium Level 8.6L, C-Reactive Protein, Quantitative 0.54H 02/14/19 11:22: Nucleated Red Blood Cells % (auto) 0.0 02/14/19 11:39: Bedside Glucose (Misc Panel) 168H 02/14/19 16:35: Bedside Glucose (Misc Panel) 208H CBC/BMP Laboratory Tests 02/14/19 05:55 Calcium Level 8.6 L 02/14/19 11:22 Red Blood Count 4.60, Mean Corpuscular Volume 81.1, Mean Corpuscular Hemoglobin 26.5 L, Mean Corpuscular Hemoglobin Concent 32.7, Red Cell Distribution Width 16.9 H Microbiology Microbiology 02/12/19 Fungal Smear, Received Pending 02/12/19 Fungal Culture, Received Pending 02/12/19 Gram Stain - Final, Resulted 02/12/19 Wound Culture, Resulted Pending 02/12/19 Anaerobic Culture, Resulted Pending 02/11/19 Blood Culture - Preliminary, Resulted No Growth after 72 hours. All specime... 02/11/19 Blood Culture - Preliminary, Resulted No Growth after 72 hours. All specime... JAY BENNETT PGY-1 Feb 14, 2019 21:02 MICHELLE DANIEL MD Feb 16, 2019 11:43
[2019-02-14] MEDS: LATANOPROST 0.005% OPHTH SOLN 2.5 ML OS SCH (21:46)
[2019-02-14] MEDS: SIMVASTATIN 40 MG TAB PO SCH (21:47)
[2019-02-14] MEDS: FAMOTIDINE 20 MG TAB PO SCH (21:47)
[2019-02-14 22:00] VITALS: BP 139/84
[2019-02-15] MEDS: PIPERACILLIN/TAZOBACTAM SOD 3.375 GM in D5W MINI-BAG PLUS 50 ML IV SCH ×4 (04:54→21:57)
[2019-02-15 06:00] VITALS: BP 126/77
[2019-02-15] MEDS: VANCOMYCIN HCL 1,000 MG, VIAL MATE ADAPTER 1 EACH in D5W 250 ML IV SCH ×2 (06:20→17:50)
[2019-02-15 06:49] LABS: HEMATOCRIT 32.9 % (42.0-52.0); HEMOGLOBIN 10.6 g/dl (13.5-17.5); MEAN CORPUSCULAR HEMOGLOBIN 26.8 pg (27.0-33.0); MEAN CORPUSCULAR HGB CONC 32.2 g/dl (32.0-36.5); MEAN CORPUSCULAR VOLUME 83.1 fl (80.0-96.0); PLATELET COUNT, AUTOMATED 294 10^3/uL (150-450); RED BLOOD COUNT 3.96 10^6/uL (4.30-6.10)
[2019-02-15 07:13] LABS: C REACTIVE PROTEIN QUANTITATIV 1.43 MG/DL (0.00-0.30); CALCIUM LEVEL 8.8 MG/DL (8.8-10.2); CREATININE FOR GFR 1.36 MG/DL (0.70-1.30); GLOMERULAR FILTRATION RATE 56.9 (>49); POTASSIUM SERUM 3.7 MEQ/L (3.5-5.1)
[2019-02-15] MEDS: HumaLOG INSULIN (NovoLOG) PER UNIT SC SCH ×4 (08:09→21:56)
[2019-02-15] MEDS: FUROSEMIDE 20 MG TAB PO SCH ×2 (08:09→17:49)
[2019-02-15 14:00] VITALS: BP 113/69
--- NOTE | 2019-02-15 18:26 | IPNPDOC ---
Date Seen The patient was seen on 02/15/19. Progress Note SUBJECTIVE: Garrett was seen and examined this morning while lying upright in bed. He reports that his right IV blew at 5 AM this morning. A new IV was placed. The dorsum of the right hand, but patient expresses concern that it will stay. He mentions having spoken with infectious disease about having a midline catheter placed. Nursing staff also put additional wrapping around Haider bandage and of right foot as there was some breakthrough bleeding overnight. He continues to ambulate with the assistance of crutches and remarks that he feels fatigued while doing so. He had a bowel movement this morning. He is eating and drinking without any issues. He denies fever, chills, chest pain, chest pressure, palpitations, shortness of breath, cough, abdominal pain, feeling nauseated, vomiting, or paresthesias at this time. OBJECTIVE PHYSICAL EXAMINATION: VITAL SIGNS: Please see below. GENERAL APPEARANCE:. Patient is pleasant and cooperative. He is resting comfortably , lying upright in bed at time of exam. He does not appear to be in any acute distress. He is interactive and responds to questions and commands appropriately. HEENT: Normocephalic, atraumatic. Non-icteric sclera.. Neck is supple. Trachea is midline. CARDIOVASCULAR: 2/6 systolic murmur best heard at the right and left parasternal second intercostal spaces; regular rhythm. No clicks or gallops appreciated. No lower extremity edema. 2+ radial pulses bilaterally, 2+ left posterior tibial pulse. LUNGS: Clear to auscultation bilaterally. Adequate respiratory effort. No visualized accessory muscle use on respiration. No retractions visualized on respiration. Symmetric chest expansion. ABDOMEN: Soft, nontender to palpation in all quadrants. Nondistended. Normoactive bowel sounds present. No masses appreciated on palpation. No hepatomegaly or splenomegaly. No guarding, rebound, or rigidity. MUSCULOSKELETAL: 5 out of 5 muscle strength testing upper extremities bilaterally. 5 out of 5 muscle strength testing lower extremities bilaterally. Patient is able to flex and extend the foot at the ankle joint bilaterally. EXTREMITIES: There is Haider bandaging covering the right foot extending just superior to the level of the malleoli. There are no toes remaining on the right foot. There is no odor emanating from right foot. There is no lower extremity edema bilaterally. A few small isolated areas of bleeding are visible on the plantar aspect of the foot through Haider bandaging. There are two prominent areas of calcification overlying the right anterior tibia. There is bruising over the anterior aspect of patient's right wrist and into the thenar eminence. NEUROLOGICAL: Patient is awake, alert and oriented 3. He is conversant and responds appropriately to questions and commands. Sensation to light touch of the upper extremities is intact bilaterally. There is mildly diminished sensation to light touch of the lower extremities bilaterally. SKIN: There is a roughly 3 inch horizontal scar over the right pectoral muscle, just lateral to the right sternal border. PSYCHIATRIC: Appropriate mood and appropriate affect. LABORATORY DATA, IMAGING STUDIES, MICROBIOLOGY: Please see below. Final Gram stain from 02/12 culture had no organisms seen Final wound culture from 02/12 showed moderate growth of Staphylococcus coagulase negative bacteria that is resistant to tetracycline, penicillin G, Bactrim, and amoxicillin; it is sensitive to erythromycin, clindamycin, vancomycin, daptomycin, minocycline, and Zyvox. Anaerobic culture from 02/12 results are still pending. ASSESSMENT AND PLAN: This is a 58-year-old man with long-standing insulin-dependent diabetes who follows with Dr. Singh of podiatric surgery as outpatient on a weekly basis. He has had extensive surgeries on his right foot, with all of the toes previously removed. On presentation to Dr. Singh's office on 02/11, x- ray showed osteolysis with medial and plantar ulceration over the first and third metatarsals consistent with clinical picture of osteomyelitis. Some areas of ulceration extended to the bone. Patient was sent to [facility] with a direct admission with likely surgical removal of the first metatarsal scheduled for the afternoon of 02/12. On the afternoon of 02/12, patient went to surgery performed by Dr. Singh. The right first metatarsal was resected. There was very little purulent material visualized. The removed bone was sent for cultures. Antibiotic beads were placed into the soft tissue or bony then. Patient tolerated the procedure well and resumed diet. Hospitalist team communicated with Dr. Singh, who is planning a follow-up surgery on Sunday, 02/18 for modification of remaining metatarsals on the right foot and soft tissue will be surgically made and the area will be closed. Until that time, the patient will remain in the hospital. Patient follows with infectious disease as outpatient and Dr Ghotra has been in to see him. Dr. Ghotra is awaiting results of specimens from 02/12 operation to determine whether patient will be sent home on either IV or oral antibiotic. IV vancomycin has been added to patient's antibiotic regimen with previous IV Zosyn. Final wound culture from 02/12 showed moderate growth of Staphylococcus coagulase negative bacteria that was resistant to oxacillin, tetracycline, penicillin G, and Bactrim. #Osteomyelitis of right foot -Patient underwent surgical removal first metatarsal on the right foot on 02/12.Tobramycin antibiotic beads were inserted in the soft tissue in the area was packed with gauze and bandaged. Patient tolerated the procedure well and resumed diabetic diet upon return from all are. -Patient is on day #5 of Zosyn antibiotic coverage, and day #2 of vancomycin antibiotic coverage. -Infectious disease has seen the patient and added IV vancomycin to patient's antibiotic regimen on 02/14. Infectious disease is awaiting specimen cultures from 02/12 surgery to determine if patient will be sent home on IV or oral antibiotics. -Final wound culture from 02/12 showed moderate growth of Staphylococcus coagulase negative bacteria that is resistant to tetracycline, penicillin G, Bactrim, and amoxicillin; it is sensitive to erythromycin, clindamycin, vancomycin, daptomycin, minocycline, and Zyvox. -Anaerobic cultures from 02/12 are still pending. -No leukocytosis on morning labs. Continue to recheck cbc daily -Patient is to remain nonweightbearing on the right foot -Hospitalist team spoke with Dr. Singh of podiatric surgery, and a surgical modification and closure of all the right first metatarsals on Sunday, 02/18 is planned. Patient will remain in the hospital in the meantime. #Insulin-dependent diabetes mellitus -Patient takes Lantus at bedtime, Humalog at meals, and metformin in the morning, at home for his diabetes. -Patient remains on diabetic diet -Continue with sliding scale insulin and FSBS -Metformin was held upon admission -Patient's home simvastatin continued #History of aortic valve replacement -Xarelto as held as a morning after patient had episodes of profuse right foot bleeding, that saturated bandaging. Patient was going to be taken off Xarelto in 1 days time anyway in preparation for 02/18 surgery. -Patient takes 81 mg aspirin at home. This will be held upon admission. -Patient's replacement valve is a cow valve #Chronic kidney disease -Patient follows with Dr. Villalta's outpatient -GFR seems to range from the mid 40s to mid 50s percent -Patient has been on diabetic diet since 02/12 surgery #Elevated creatinine -Patient's creatinine remains increased this morning, but has decreased over the last few days. -upon review of patient's lifetime hospital summary, it appears his baseline is between 1 and 1.2 -Increase may be associated with patient's recent osteomyelitis infection or possibly due to effects of Zosyn antibiotic that's being administered -Patient follows with Dr. Villalta of nephrology as outpatient -Continue to follow metabolic panels #History of right arm blood clot -Patient takes Xarelto as outpatient. -Xarelto was yesterday morning after patient had multiple episodes of bleeding and it was already going to be held in 1 days time in preparation for 02/18 follow-up surgery #Left eye ocular hypertension -Continue with patient's home Latanoprost #History of aortic aneurysm -Patient states he follows with a specialist physician in [place] who has charted aneurysm diameter for multiple years. His physician has informed to him that when it reaches diameter of 5 cm, surgery will likely be warranted. 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 Xarelto was held yesterday morning after patient experienced multiple episodes of bleeding from the right foot that saturated bandaging. Xarelto was already destined to be held in 1 days time in preparation for 02/18 follow-up surgery. Disposition: Patient is awaiting follow-up surgery of right foot on 02/18.he is nonweightbearing on the right foot. In the meantime. Final wound culture from 02/12 surgery showed moderate growth of Staphylococcus coagulase negative bacteria. We will continue to collaborate with podiatric surgery and infectious disease as the next steps in patient's care. I saw and evaluated the patient. I agree with the findings and plan of care as documented in the above note VS, I&O, 24H, Fishbone Vital Signs/I&O Vital Signs Date Time Temp Pulse Resp B/P (MAP) Pulse Ox O2 Delivery O2 Flow Rate FiO2 02/15/19 14:00 97.4 73 19 113/69 (84) 93 I&O- Last 24 Hours up to 6 AM 02/15/19 06:00 Intake Total 1640 ml Output Total 2100 ml Balance -460 ml Laboratory Data 24H LABS Laboratory Tests 2 02/14/19 20:37: Bedside Glucose (Misc Panel) 304H 02/15/19 05:44: Anion Gap 7L, Glomerular Filtration Rate 56.9, Blood Urea Nitrogen 26H, Creatinine 1.36H, Sodium Level 134L, Potassium Level 3.7, Chloride Level 102, Carbon Dioxide Level 25, Calcium Level 8.8, C-Reactive Protein, Quantitative 1.43H 02/15/19 05:45: Nucleated Red Blood Cells % (auto) 0.0 02/15/19 11:43: Bedside Glucose (Misc Panel) 324H 02/15/19 16:45: Bedside Glucose (Misc Panel) 219H CBC/BMP Laboratory Tests 02/15/19 05:44 Calcium Level 8.8 02/15/19 05:45 Red Blood Count 3.96 L, Mean Corpuscular Volume 83.1, Mean Corpuscular Hemoglobin 26.8 L, Mean Corpuscular Hemoglobin Concent 32.2, Red Cell Distribution Width 16.8 H Microbiology Microbiology 02/12/19 Fungal Smear, Received Pending 02/12/19 Fungal Culture, Received Pending 02/12/19 Gram Stain - Final, Resulted 02/12/19 Wound Culture - Final, Resulted Staphylococcus Sp Coag Neg 02/12/19 Anaerobic Culture, Resulted Pending 02/11/19 Blood Culture - Preliminary, Resulted No Growth after 72 hours. All specime... 02/11/19 Blood Culture - Preliminary, Resulted No Growth after 72 hours. All specime... JAY BENNETT PGY-1 Feb 15, 2019 18:26 MICHELLE DANIEL MD Feb 16, 2019 11:59
[2019-02-15] MEDS: SIMVASTATIN 40 MG TAB PO SCH (21:56)
[2019-02-15] MEDS: FAMOTIDINE 20 MG TAB PO SCH (21:56)
[2019-02-15] MEDS: LATANOPROST 0.005% OPHTH SOLN 2.5 ML OS SCH (21:57)
[2019-02-15 22:00] VITALS: BP 125/70
[2019-02-16] MEDS: PIPERACILLIN/TAZOBACTAM SOD 3.375 GM in D5W MINI-BAG PLUS 50 ML IV SCH ×4 (04:16→21:32)
[2019-02-16 04:19] LABS: HEMATOCRIT 30.5 % (42.0-52.0); MEAN CORPUSCULAR HEMOGLOBIN 26.9 pg (27.0-33.0); MEAN CORPUSCULAR HGB CONC 32.8 g/dl (32.0-36.5); PLATELET COUNT, AUTOMATED 274 10^3/uL (150-450); RED BLOOD COUNT 3.72 10^6/uL (4.30-6.10); WHITE BLOOD COUNT 5.8 10^3/uL (4.0-10.0)
[2019-02-16 04:47] LABS: BLOOD UREA NITROGEN 25 MG/DL (7-18); C REACTIVE PROTEIN QUANTITATIV 1.23 MG/DL (0.00-0.30); CALCIUM LEVEL 8.5 MG/DL (8.8-10.2); CARBON DIOXIDE LEVEL 26 MEQ/L (21-32); CHLORIDE LEVEL 104 MEQ/L (98-107); CREATININE FOR GFR 1.28 MG/DL (0.70-1.30); GLOMERULAR FILTRATION RATE > 60.0 (>49); GLUCOSE, FASTING 413 MG/DL (70-100); POTASSIUM SERUM 3.9 MEQ/L (3.5-5.1); SODIUM LEVEL 137 MEQ/L (136-145); VANCOMYCIN LEVEL TROUGH 12.9 UG/ML (10.0-20.0)
--- NOTE | 2019-02-16 05:08 | PHACANCOPD ---
PHARMACY VANCOMYCIN DOSING Pt Demographics Demographics Patient Age:58 , Weight:115.100 , Gender: male Adjusted Body Weight Date: 02/14/19, Adjusted Body Weight: Kg Vancomycin Vancomycin indication: OSTEOMYELITIS Vancomycin Load Y/N: Yes Load Dose Date Time Vancomycin Load Dose: 2000MG Date: 02/14 Time: @17, AND 21 Vancomycin Dose Date: 02/14/19. Current Vancomycin Dose: [1000MG IV Q12H@17] Intermittent Dosing?: No Labs Micro Microbiology 02/12/19 Fungal Smear, Received Pending 02/12/19 Fungal Culture, Received Pending 02/12/19 Gram Stain - Final, Resulted 02/12/19 Wound Culture - Final, Resulted Staphylococcus Sp Coag Neg 02/12/19 Anaerobic Culture, Resulted Pending 02/11/19 Blood Culture - Preliminary, Resulted No Growth after 72 hours. All specime... 02/11/19 Blood Culture - Preliminary, Resulted No Growth after 72 hours. All specime... Creatinine Clearance Date:02/14/19. Creatinine Clearance: . Assessment and Plan Maintaining Current Dose?: Yes Reason for dose change: No Dose Change Pharmacist Note Pharmacist Note Date: 02/16/19. Pharmacist note:Vancomycin trough drawn this morning@4:08 reported as 12.9.SCR=1.28,CRCL~77. Will administer an additional 500mg this morning(total of 1500mg),then will continue current 1 gram IV [id number] regimen- will continue to follow Date: 02/14/19. Pharmacist note: Patient is being treated for chronic osteomyelitis who went to the OR on 02/12/2019 for an I&D and surgical removal of the first metatarsal. The intraop culture grew staph. haemolyticus, staph epidermidis, and corynebacterium. His anaerobic culture is still pending. Patient was loaded with 2000mg of Vancomycin, receiving 1000mg at 1700 and 1000mg at 2100. He will be continued on Vancomycin 1000mg IV q12h based off previous consults. We will continue to monitor and make adjustments as necessary. JAMEE PRYOR PHARMACY Feb 16, 2019 05:08
[2019-02-16] MEDS: VANCOMYCIN HCL 1,000 MG, VIAL MATE ADAPTER 1 EACH in D5W 250 ML IV SCH (05:34)
[2019-02-16 06:00] VITALS: BP 122/70
[2019-02-16] MEDS ORDERED: VANCOMYCIN HCL 500 MG in D5W MINI-BAG PLUS 100 ML IV ONE (06:00)
[2019-02-16] MEDS: HumaLOG INSULIN (NovoLOG) PER UNIT SC SCH ×4 (08:39→21:32)
[2019-02-16] MEDS: FUROSEMIDE 20 MG TAB PO SCH ×2 (08:40→17:39)
[2019-02-16] MEDS: LINEZOLID 600MG TABLET (ZYVOX) PO SCH ×2 (09:46→21:29)
--- NOTE | 2019-02-16 11:16 | IPNPDOC ---
Date Seen The patient was seen on 02/16/19. Progress Note SUBJECTIVE: Patient reports that his foot is feeling fine this morning. His pain is well-controlled. He tells me that he is frustrated with the loss of IV access as he is a difficult stick and IV vancomycin has infiltrated several IVs. He is reluctant to have another IV started at this time but is agreeable with limited additional attempts, if unsuccessful he requests placement of the PICC line or midline as he has had this difficulty in the past as well. He denies fever, chills, chest pain, chest pressure, palpitations, shortness of breath, cough, abdominal pain, feeling nauseated, vomiting, or paresthesias at this time. OBJECTIVE PHYSICAL EXAMINATION: VITAL SIGNS: Please see below. GENERAL APPEARANCE:. Patient is awake alert oriented 3 cooperative no acute distress HEENT: Normocephalic, atraumatic. Non-icteric sclera.. Neck is supple. Trachea is midline. CARDIOVASCULAR: 2/6 systolic murmur best heard at the right and left parasternal second intercostal spaces; regular rhythm. No clicks or gallops appreciated. LUNGS: Clear to auscultation bilaterally. ABDOMEN: Soft, nontender to palpation in all quadrants. Nondistended. Normoactive bowel sounds present. No masses appreciated on palpation. EXTREMITIES: There is Haider bandaging covering the right foot extending just superior to the level of the malleoli. The dressing is clean dry and intact. NEUROLOGICAL: Exam is nonfocal PSYCHIATRIC: Appropriate mood and appropriate affect. LABORATORY DATA, IMAGING STUDIES, MICROBIOLOGY: Please see below. Final Gram stain from 02/12 culture had no organisms seen Final wound culture from 02/12 showed moderate growth of Staphylococcus coagulase negative bacteria that is resistant to tetracycline, penicillin G, Bactrim, and amoxicillin; it is sensitive to erythromycin, clindamycin, vancomycin, daptomycin, minocycline, and Zyvox. Anaerobic culture from 02/12 results are still pending. ASSESSMENT AND PLAN: This is a 58-year-old diabetic man with ostial myelitis of the right foot #1. Osteomyelitis of right foot: Given his IV infiltration AND transition from IV vancomycin to by mouth baseline continue with IV Zosyn and reestablish IV access at this time. He is status post tobramycin beads insertion as well as debridement as per podiatry the plan is for further debridement on Sunday. Once this is completed and he believe all infected bone has been removed at the time he could likely be transitioned to appropriate by mouth antibiotics to complete a course for cellulitis. Following that he would also benefit I suspect from physical therapy occupational therapy to ensure his mobility prior to disposition home. Infectious disease help is greatly appreciated. He is continued on pain control #2. Insulin-dependent diabetes mellitus: He has had intermittent hyperglycemia since hospitalized. Likely secondary to his active infection. I will start him on some Levemir daily at bedtime. Patient remains on diabetic diet Continue with sliding scale insulin and FSBS. #3. History of aortic valve replacement: Anticoagulation currently on hold over his N anticoagulation related to history of an upper extremity DVT he isn't depression is a bioprosthesis heart valve. No apparent difficulties with functioning at this time. #4.Chronic kidney disease: Stable Patient follows with Dr. Villalta's outpatient, continue with furosemide 20 twice a day #5. History of right arm blood clot:Patient takes Xarelto as outpatient. 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 We'll defer to his outpatient providers currently on hold preoperatively. #6. Left eye ocular hypertension:Continue with patient's home Latanoprost #7. History of aortic aneurysm:Patient states he follows with a specialist physician in [place] who has charted aneurysm diameter for multiple years. His physician has informed to him that when it reaches diameter of 5 cm, surgery will likely be warranted. #8. Dyslipidemia: Continue with simvastatin DVT prophylaxis: Xarelto postoperatively at the discretion of podiatry. He is encouraged to up and ambulate although nonweightbearing on the right. Disposition: [facility]ry [facility]O Vital Signs Date Time Temp Pulse Resp B/P (MAP) Pulse Ox O2 Delivery O2 Flow Rate FiO2 02/16/19 06:00 98.4 69 15 122/70 (87) 95 I&O- Last 24 Hours up to 6 AM 02/16/19 06:00 Intake Total 1340 ml Output Total 3145 ml Balance -1805 ml Laboratory Data 24H LABS Laboratory Tests 2 02/15/19 11:43: Bedside Glucose (Misc Panel) 324H 02/15/19 16:45: Bedside Glucose (Misc Panel) 219H 02/15/19 20:15: Bedside Glucose (Misc Panel) 288H 02/16/19 04:08: Nucleated Red Blood Cells % (auto) 0.0, Anion Gap 7L, Glomerular Filtration Rate > 60.0, Blood Urea Nitrogen 25H, Creatinine 1.28, Sodium Level 137, Potassium Level 3.9, Chloride Level 104, Carbon Dioxide Level 26, Calcium Level 8.5L, C- Reactive Protein, Quantitative 1.23H, Vancomycin Level Trough 12.9 02/16/19 06:46: Bedside Glucose (Misc Panel) 440H CBC/BMP Laboratory Tests 02/16/19 04:08 Red Blood Count 3.72 L, Mean Corpuscular Volume 82.0, Mean Corpuscular Hemoglobin 26.9 L, Mean Corpuscular Hemoglobin Concent 32.8, Red Cell Distributi on Width 16.6 H, Calcium Level 8.5 L Microbiology Microbiology 02/12/19 Fungal Smear, Received Pending 02/12/19 Fungal Culture, Received Pending 02/12/19 Gram Stain - Final, Resulted 02/12/19 Wound Culture - Final, Resulted Staphylococcus Sp Coag Neg 02/12/19 Anaerobic Culture, Resulted Pending 02/11/19 Blood Culture - Preliminary, Resulted No Growth after 72 hours. All specime... 02/11/19 Blood Culture - Preliminary, Resulted No Growth after 72 hours. All specime... MICHELLE DANIEL MD Feb 16, 2019 11:16
[2019-02-16 14:00] VITALS: BP 124/72
[2019-02-16] MEDS ORDERED: LEVEMIR (INSULIN DETEMIR) 1 UNITS/0.01ML SC SCH (21:00)
[2019-02-16] MEDS: SIMVASTATIN 40 MG TAB PO SCH (21:29)
[2019-02-16] MEDS: LATANOPROST 0.005% OPHTH SOLN 2.5 ML OS SCH (21:29)
[2019-02-16] MEDS: FAMOTIDINE 20 MG TAB PO SCH (21:29)
[2019-02-16 22:00] VITALS: BP 120/69
[2019-02-17] MEDS: PIPERACILLIN/TAZOBACTAM SOD 3.375 GM in D5W MINI-BAG PLUS 50 ML IV SCH ×4 (04:17→21:24)
[2019-02-17 06:00] VITALS: BP 121/66
[2019-02-17 06:28] LABS: HEMATOCRIT 32.4 % (42.0-52.0); HEMOGLOBIN 10.6 g/dl (13.5-17.5); MEAN CORPUSCULAR HEMOGLOBIN 26.7 pg (27.0-33.0); MEAN CORPUSCULAR HGB CONC 32.7 g/dl (32.0-36.5); MEAN CORPUSCULAR VOLUME 81.6 fl (80.0-96.0); PLATELET COUNT, AUTOMATED 312 10^3/uL (150-450); RED BLOOD COUNT 3.97 10^6/uL (4.30-6.10); WHITE BLOOD COUNT 5.4 10^3/uL (4.0-10.0)
[2019-02-17 06:51] LABS: C REACTIVE PROTEIN QUANTITATIV 1.09 MG/DL (0.00-0.30); CALCIUM LEVEL 8.6 MG/DL (8.8-10.2); CREATININE FOR GFR 1.45 MG/DL (0.70-1.30); GLOMERULAR FILTRATION RATE 52.8 (>49); POTASSIUM SERUM 3.7 MEQ/L (3.5-5.1)
--- NOTE | 2019-02-17 07:17 | IPNPDOC ---
Date Seen The patient was seen on 02/17/19. Progress Note SUBJECTIVE: Patient is a 58-year-old male, hospitalized since 02/12/19 for osteomyelitis of the right foot. Podiatry is following. Patient was interviewed and examined in his hospital room this morning. Patient appears in good spirits with no events occurring overnight. He continues to deny any chest pain or trouble breathing. No abdominal pain. He is eating and drinki ng appropriately. He is urinating and having bowel movements without difficulty. No skin rashes. OBJECTIVE PHYSICAL EXAMINATION: VITAL SIGNS: Please see below. GENERAL: Patient was interviewed and examined in his hospital room. Patient was found to be sitting at his bedside in no acute distress. He is alert and oriented 3. He is able to answer questions appropriately neck with participate in his care. HEENT: Normocephalic, atraumatic, EOMI, sclera nonicteric, trachea midline CARDIOVASCULAR: Regular rate and rhythm. 2/6 systolic murmur most prominent in the left parasternal intercostal space. RESPIRATORY: Clear to auscultation bilaterally both anterior and posterior lung jack. No evidence of wheezing rales or rhonchi appreciated. ABDOMINAL: Soft, nontender, nondistended. No masses appreciated on palpation. EXTREMITIES: Patient's right foot is fully bandaged. No lower extremity swelling or calf tenderness bilaterally. 2+ posterior tibial pulse noted on the left. NEUROLOGICAL: No focal neurologic deficits. Patient has absent sensation in the lower right foot to the level of the mid lower leg. Minimal sensation in the left foot. LABORATORY DATA PLEASE SEE BELOW IMAGING STUDIES Foot x-ray (02/12/19): Amputation of the level of the proximal metatarsals of the second through fifth digits. The base of the great toe metatarsal has been resected as interval change. Radiopaque pledgets are again noted within the soft tissue. There is no diffuse soft tissue edema MICROBIOLOGY: Right foot fungal smear/culture (02/12/19): Pending Blood culture (02/11/19): No growth after 5 days Wound culture and Gram stain (02/12/19): Positive for coag-negative Staphylococcus and enterococcus faecalis ASSESSMENT AND PLAN: Patient is a 58-year-old male with a past mental history significant for insulin-dependent diabetes mellitus, aortic valve replacementon Xarelto, left ocular hypertension, chronic kidney disease, right arm thrombosis and previous surgical removal of all 5 digits of the right foot. Patient originally presented to the hospital via direct admission per his broomcorn scraper. Patient has been following with podiatry once a week and plain film imaging at that time indicated an infective first medial ulcer definitive for osteomyelitis the right foot. Patient underwent surgical removal of the first metatarsal on 02/12. PROBLEMS: #Osteomyelitis of right foot Status post tobramycin bead insertion and debridement. Current plan is for further debridement to be performed on 02/18/19. Patient will require physical therapy and occupational therapy to ensure mobility prior to eventual discharge. Analgesia as prescribed #Insulin dependent diabetes mellitus Patient is currently on 8 units of levemir QS. Patient's morning finger sticks have remained elevated. Increase to 10 units QS. Continue on diabetic diet with slight scale insulin and fasting blood sugars Patient has been found to be hyperglycemic in the morning #History of aortic valve replacement 2/6 systolic murmur appreciated. No difficulties with functioning #Chronic kidney disease Stable, patient follows with Dr. Villalta as an outpatient. 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 #Left eye ocular hypertension Continue patient's home latanoprost #History of aortic aneurysm Aneurysm is being closely monitored changes in size by specialist in [place]. Surgery likely be warranted when aneurysm reaches 5 cm. #Dyslipidemia Continue patient on home atorvastatin DISPOSITION: Pending repeat debridement on 02/18/19 and PT/OT clearance. DVT prophylaxis: Xarelto postoperatively Encouraged to continue ambulation VS, I&O, 24H, Janny Vital Signs/I&O Vital Signs Date Time Temp Pulse Resp B/P (MAP) Pulse Ox O2 Delivery O2 Flow Rate FiO2 02/17/19 06:00 97.9 68 19 121/66 (84) 97 I&O- Last 24 Hours up to 6 AM 02/17/19 06:00 Intake Total 2210 ml Output Total 1850 ml Balance 360 ml Laboratory Data 24H LABS Laboratory Tests 2 02/16/19 12:03: Bedside Glucose (Misc Panel) 389H 02/16/19 17:02: Bedside Glucose (Misc Panel) 173H 02/16/19 20:26: Bedside Glucose (Misc Panel) 281H 02/17/19 06:14: Nucleated Red Blood Cells % (auto) 0.0, Anion Gap 6L, Glomerular Filtration Rate 52.8, Blood Urea Nitrogen 21H, Creatinine 1.45H, Sodium Level 138, Potassium Level 3.7, Chloride Level 103, Carbon Dioxide Level 29, Calcium Level 8.6L, C-Reactive Protein, Quantitative 1.09H CBC/BMP Laboratory Tests 02/17/19 06:14 Red Blood Count 3.97 L, Mean Corpuscular Volume 81.6, Mean Corpuscular Hemoglobin 26.7 L, Mean Corpuscular Hemoglobin Concent 32.7, Red Cell Distribution Width 16.5 H, Calcium Level 8.6 L Microbiology Microbiology 02/12/19 Fungal Smear, Received Pending 02/12/19 Fungal Culture, Received Pending 02/12/19 Gram Stain - Final, Resulted 02/12/19 Wound Culture - Final, Resulted Staphylococcus Sp Coag Neg 02/12/19 Anaerobic Culture, Resulted Pending 02/11/19 Blood Culture - Final, Complete NO GROWTH AFTER 5 DAYS 02/11/19 Blood Culture - Final, Complete NO GROWTH AFTER 5 DAYS GME ATTESTATION GME ATTESTATION My faculty preceptor for this patient encounter was physically present during the encounter and was fully available. All aspects of the patient interview, examination, medical decision making process, and medical care plan development were reviewed and approved by the faculty preceptor. The faculty preceptor is aware and concurs with the plan as stated in the body of this note and will attest to such by his/her cosignature. TUTU CARY DO Feb 17, 2019 07:16
[2019-02-17] MEDS: HumaLOG INSULIN (NovoLOG) PER UNIT SC SCH ×4 (09:21→20:35)
[2019-02-17] MEDS: LINEZOLID 600MG TABLET (ZYVOX) PO SCH ×2 (09:22→21:24)
[2019-02-17] MEDS: FUROSEMIDE 20 MG TAB PO SCH ×2 (09:22→16:04)
[2019-02-17 14:00] VITALS: BP 134/77
--- NOTE | 2019-02-17 18:34 | IPN ---
DATE: 02/17/2019 Garrett seems to be doing well. He denies any nausea, vomiting, diarrhea, abdominal pain, fever or chills. His dressing was changed today just before I arrived and therefore I was not able to see his wound. He is going back to the operating room (OR) tomorrow with Dr. Singh for further resection of the metatarsal and closure. Wound culture was positive for Staphylococcus coagulase negative and Enterococcus faecalis on 02/12/2019. Anaerobic cultures are pending. Wound cultures from 02/11/2019 had Veillonella anaerobic cocci, Staphylococcus epidermidis, Corynebacterium and Staphylococcus hemolyticus. Cultures from 01/31/2019 had Citrobacter, Klebsiella, Pseudomonas and Escherichia (E) faecalis. IMPRESSION: 1. Chronic osteomyelitis of the right foot status post first metatarsal amputation, on IV Zosyn and oral linezolid. The patient to go for revision tomorrow for more surgery. 2. Insulin-dependent diabetes. Glucose between 174 and 389. PLAN: Antibiotic choice will depend on intraoperative cultures final results and will discuss with Dr. Singh operative findings tomorrow. I would probably favor IV antibiotics for at least the 3-4 weeks postoperatively if there is residual bone infection but this will be decided tomorrow after surgery.
[2019-02-17] MEDS: SIMVASTATIN 40 MG TAB PO SCH (21:24)
[2019-02-17] MEDS: FAMOTIDINE 20 MG TAB PO SCH (21:24)
[2019-02-17] MEDS: LEVEMIR (INSULIN DETEMIR) 1 UNITS/0.01ML SC SCH (21:25)
[2019-02-17] MEDS: LATANOPROST 0.005% OPHTH SOLN 2.5 ML OS SCH (21:25)
[2019-02-17 22:00] VITALS: BP 119/61
[2019-02-18] MEDS: PIPERACILLIN/TAZOBACTAM SOD 3.375 GM in D5W MINI-BAG PLUS 50 ML IV SCH ×4 (03:25→21:08)
[2019-02-18 06:00] VITALS: BP 120/70
[2019-02-18 06:24] LABS: HEMATOCRIT 33.3 % (42.0-52.0); HEMOGLOBIN 10.8 g/dl (13.5-17.5); MEAN CORPUSCULAR HEMOGLOBIN 26.6 pg (27.0-33.0); MEAN CORPUSCULAR HGB CONC 32.4 g/dl (32.0-36.5); PLATELET COUNT, AUTOMATED 306 10^3/uL (150-450); RED BLOOD COUNT 4.06 10^6/uL (4.30-6.10); WHITE BLOOD COUNT 5.3 10^3/uL (4.0-10.0)
[2019-02-18 06:49] LABS: CALCIUM LEVEL 8.5 MG/DL (8.8-10.2); CREATININE FOR GFR 1.38 MG/DL (0.70-1.30); POTASSIUM SERUM 3.6 MEQ/L (3.5-5.1)
[2019-02-18] MEDS ORDERED: POTASSIUM CHLORIDE 10 MEQ SR TABLET PO ONE (08:00)
[2019-02-18] MEDS: LINEZOLID 600MG TABLET (ZYVOX) PO SCH ×2 (08:40→21:09)
[2019-02-18] MEDS: HumaLOG INSULIN (NovoLOG) PER UNIT SC SCH ×5 (08:40→20:54)
[2019-02-18] MEDS: FUROSEMIDE 20 MG TAB PO SCH ×2 (08:42→17:00)
--- NOTE | 2019-02-18 09:47 | IPNPDOC ---
Date Seen The patient was seen on 02/18/19. Progress Note SUBJECTIVE: Patient is a 58-year-old male, hospitalized since 02/12/19 for osteomyelitis of the right foot. Podiatry and infectious disease are following. Patient was interviewed and examined in his hospital room this morning. Patient was found to be laying in bed in good spirits. He denies any events occurring overnight. He does not have any acute complaints. No chest pain or difficulty breathing. He denies any abdominal pain. He is eating and drinking appropriately . Patient is having bowel movements and urinating without difficulty. He is noted no skin rashes. Pain is adequately controlled. He is to remain nothing by mouth after breakfast this morning for surgery later this evening. OBJECTIVE PHYSICAL EXAMINATION: VITAL SIGNS: Please see below. GENERAL: Patient was interviewed and examined in his hospital room. Patient was found to be sitting at his bedside in no acute distress. He is alert and oriented 3. He is able to answer questions appropriately neck with participate in his care. HEENT: Normocephalic, atraumatic, EOMI, sclera nonicteric, trachea midline CARDIOVASCULAR: Regular rate and rhythm. 2/6 systolic murmur most prominent in the left parasternal intercostal space. RESPIRATORY: Clear to auscultation bilaterally both anterior and posterior lung jack. No evidence of wheezing rales or rhonchi appreciated. ABDOMINAL: Soft, nontender, nondistended. No masses appreciated on palpation. EXTREMITIES: Patient's right foot is fully bandaged. No lower extremity swelling or calf tenderness bilaterally. 2+ posterior tibial pulse noted on the left. NEUROLOGICAL: No focal neurologic deficits. Patient has absent sensation in the lower right foot to the level of the mid lower leg. Minimal sensation in the left foot. LABORATORY DATA Please see below. IMAGING STUDIES Foot x-ray (02/12/19): Amputation of the level of the proximal metatarsals of the second through fifth digits. The base of the great toe metatarsal has been resected as interval change. Radiopaque pledgets are again noted within the soft tissue. There is no diffuse soft tissue edema MICROBIOLOGY: Right foot fungal smear/culture (02/12/19): Pending Blood culture (02/11/19): No growth after 5 days Wound culture and Gram stain (02/12/19): Positive for coag-negative Sta phylococcus and enterococcus faecalis ASSESSMENT Patient is a 58-year-old male with a past mental history significant for insulin-dependent diabetes mellitus, aortic valve replacementon Xarelto, left ocular hypertension, chronic kidney disease, right arm thrombosis and previous surgical removal of all 5 digits of the right foot. Patient originally presented to the hospital via direct admission per his financial services auditor. Patient has been following with podiatry once a week and plain film imaging at that time indicated an infective first medial ulcer definitive for osteomyelitis the right foot. Patient underwent surgical removal of the first metatarsal on 02/12. C urrently receiving IV Zosyn and oral linezolid. Patient is scheduled for further debridement later this evening 02/18/19. #Osteomyelitis of right foot, status post first metatarsal resection Status post tobramycin bead insertion and debridement. Current plan is for further debridement to be performed later this evening, 02/18/19. Currently utilizing IV Zosyn and oral linezolid. Infectious disease is following and we greatly appreciate their input. Anabiotic therapy subjective change given operative findings later today. IV antibiotics likely be required if residual bone infection is found. Patient will require physical therapy and occupational therapy to ensure mobility prior to eventual discharge. Analgesia as prescribed #Insulin dependent diabetes mellitus Patient is currently on 10 units of levemir QS. Patient's morning finger sticks have remained elevated. Increase to 12 units QS. Continue on diabetic diet with slight scale insulin and fasting blood sugars Patient has been found to be hyperglycemic in the morning #History of aortic valve replacement - bioprosthetic 2/6 systolic murmur appreciated. No difficulties with functioning #Chronic kidney disease Stable, patient follows with Dr. Villalta as an outpatient. 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 #Left eye ocular hypertension Continue patient's home latanoprost #History of aortic aneurysm Aneurysm is being closely monitored changes in size by specialist in [place]. Surgery likely be warranted when aneurysm reaches 5 cm. #Dyslipidemia Continue patient on home atorvastatin DISPOSITION: Pending repeat debridement on 02/18/19 and PT/OT clearance. DVT prophylaxis: Xarelto post-operatively Encouraged to continue ambulation VS, I&O, 24H, Fishbone Vital Signs/I&O Vital Signs Date Time Temp Pulse Resp B/P (MAP) Pulse Ox O2 Delivery O2 Flow Rate FiO2 02/18/19 06:00 97.1 71 18 120/70 (87) 96 I&O- Last 24 Hours up to 6 AM 02/18/19 06:00 Intake Total 990 ml Output Total 1350 ml Balance -360 ml Laboratory Data 24H LABS Laboratory Tests 2 02/17/19 11:30: Bedside Glucose (Misc Panel) 394H 02/17/19 16:42: Bedside Glucose (Misc Panel) 174H 02/17/19 20:25: Bedside Glucose (Misc Panel) 231H 02/18/19 06:09: Nucleated Red Blood Cells % (auto) 0.0, Anion Gap 7L, Glomerular Filtration Rate 56.0, Blood Urea Nitrogen 19H, Creatinine 1.38H, Sodium Level 139, Potassium Level 3.6, Chloride Level 104, Carbon Dioxide Level 28, Calcium Level 8.5L CBC/BMP Laboratory Tests 02/18/19 06:09 Red Blood Count 4.06 L, Mean Corpuscular Volume 82.0, Mean Corpuscular Hemoglobin 26.6 L, Mean Corpuscular Hemoglobin Concent 32.4, Red Cell Distribution Width 16.6 H, Calcium Level 8.5 L Microbiology Microbiology 02/12/19 Fungal Smear, Received Pending 02/12/19 Fungal Culture, Received Pending 02/12/19 Gram Stain - Final, Resulted 02/12/19 Wound Culture - Final, Resulted Staphylococcus Sp Coag Neg Enterococcus Faecalis 02/12/19 Anaerobic Culture, Resulted Pending 02/11/19 Blood Culture - Final, Complete NO GROWTH AFTER 5 DAYS 02/11/19 Blood Culture - Final, Complete NO GROWTH AFTER 5 DAYS GME ATTESTATION GME ATTESTATION My faculty preceptor for this patient encounter was physically present during the encounter and was fully available. All aspects of the patient interview, examination, medical decision making process, and medical care plan development were reviewed and approved by the faculty preceptor. The faculty preceptor is aware and concurs with the plan as stated in the body of this note and will attest to such by his/her cosignature. ATTENDING NOTE I, Murray Rodriguez, have independently examined this patient and performed my own physical exam, as well as reviewed the documentation and edited where necessary. I have discussed in detail with the resident / student the findings and plan of treatment as documented by the resident / student and edited their note. I agree with their findings and treatment plan and have edited their documentation. I will continue to follow the patient during this hospital stay. TUTU CARY DO Feb 18, 2019 09:47 MURRAY RODRIGUEZ MD Feb 18, 2019 10:25
[2019-02-18] MEDS ORDERED: LIDOCAINE 2% MDV 20 ML VIAL As Ordered ONE (13:15)
[2019-02-18] MEDS ORDERED: BUPIVACAINE HCL 0.5% 30 ML VIAL As Ordered ONE (13:15)
[2019-02-18 14:00] VITALS: BP 116/70
[2019-02-18] MEDS ORDERED: PROPOFOL 200 MG/20 ML VIAL As Ordered ONE ×3 (15:07→17:43)
[2019-02-18] MEDS ORDERED: ONDANSETRON 4MG/2ML VIAL (J2405) As Ordered ONE (15:08)
[2019-02-18] MEDS ORDERED: LIDOCAINE 2% INJ 100 MG/5 ML SDV (FOR ANES.) As Ordered ONE (15:08)
[2019-02-18] MEDS ORDERED: fentaNYL 100 MCG/2 ML INJECTION (J3010) As Ordered ONE (15:08)
[2019-02-18] MEDS ORDERED: MIDAZOLAM INJ 2 MG/2 ML VIAL (J2250) As Ordered ONE (15:08)
[2019-02-18] MEDS ORDERED: ROPIvacaine 0.5% 30 ML INJECTION (J2795 PER 1MG) As Ordered ONE (15:11)
[2019-02-18] MEDS ORDERED: ZOSYN 3.375 GM VIAL (J2543) As Ordered ONE (15:47)
[2019-02-18] MEDS ORDERED: VANCOMYCIN HCL 500 MG/10 ML VIAL (J3370) As Ordered ONE (16:13)
[2019-02-18] MEDS ORDERED: PHENYLephrine HCL 500 MCG/5 ML (100MCG/ML) SYRINGE (J2370) As Ordered ONE (17:53)
[2019-02-18] MEDS ORDERED: fentaNYL 100 MCG/2 ML INJECTION (J3010) IV PRN (18:30)
[2019-02-18] MEDS ORDERED: LR 1,000 ML IV SCH (18:30)
[2019-02-18] MEDS ORDERED: oxyCODONE 5MG TAB PO PRN (18:30)
[2019-02-18] MEDS ORDERED: ONDANSETRON 4MG/2ML VIAL (J2405) IV PRN (18:30)
--- NOTE | 2019-02-18 19:02 | REP ---
HISTORY: Resection. Two spot views of the right foot were obtained using a portable C-Arm device in my absentia. The examination has been submitted to the department of radiology for review. There is evidence of forefoot surgical resection. 8.2 seconds were utilized to obtain the examination. Electronically Signed by Liam Sims DO 02/18/2019 07:45 P
[2019-02-18] MEDS: SIMVASTATIN 40 MG TAB PO SCH (21:09)
[2019-02-18] MEDS: LATANOPROST 0.005% OPHTH SOLN 2.5 ML OS SCH (21:09)
[2019-02-18] MEDS: LEVEMIR (INSULIN DETEMIR) 1 UNITS/0.01ML SC SCH (21:09)
[2019-02-18] MEDS: FAMOTIDINE 20 MG TAB PO SCH (21:09)
[2019-02-18 22:00] VITALS: BP 125/79
[2019-02-19 02:00] VITALS: BP 119/78
[2019-02-19] MEDS: PIPERACILLIN/TAZOBACTAM SOD 3.375 GM in D5W MINI-BAG PLUS 50 ML IV SCH ×4 (04:11→21:32)
[2019-02-19 06:00] VITALS: BP 119/68
[2019-02-19] MEDS: RIVAROXABAN 20 MG TAB (XARELTO) PO SCH (08:16)
[2019-02-19] MEDS: HumaLOG INSULIN (NovoLOG) PER UNIT SC SCH ×4 (08:17→21:31)
[2019-02-19] MEDS: LINEZOLID 600MG TABLET (ZYVOX) PO SCH ×2 (08:17→21:30)
[2019-02-19] MEDS: FUROSEMIDE 20 MG TAB PO SCH ×2 (08:17→16:23)
--- NOTE | 2019-02-19 09:10 | RO ---
DATE OF PROCEDURE: 02/18/2019 PREPROCEDURE DIAGNOSIS: Stage IV wound status post osteomyelitis and foot infection, right foot. POSTPROCEDURE DIAGNOSIS: Stage IV wound status post osteomyelitis and foot infection, right foot. PROCEDURE: Revisional transmetatarsal amputation with insertion of vancomycin beads over a TLS drain, right foot. SURGEON: Dr. Oziel Singh N[facility] TEACHER: None. ANESTHESIA: Local monitored anesthesia care (MAC). ESTIMATED BLOOD LOSS: 250 mL. HEMOSTASIS: None. IMPLANTABLES: 25 mm vancomycin impregnated beads. DESCRIPTION OF PROCEDURE: On 02/18/2019, this 58-year-old male was taken from his hospital room to the operating room and placed on the operating table in the supine position. Following the induction of IV sedation and local and regional anesthesia, the right lower extremity was prepped and draped in the usual aseptic manner. Attention was directed to the patient's right foot where there was noted to be an open wound from a resection of the first metatarsal with antibiotic beads. This was removed. Two ulcers were present on the planar aspect of the foot. At this time, an incision was placed from the medial aspect of the foot across the lateral aspect distally of the foot encompassing a previous transmetatarsal amputation site. Dissection was carried straight down to bone. All bleeders, as encountered, were electrocoagulated. Utilizing a [place] elevator, a flap of tissue full thickness was created along the dorsal metatarsal plane and the inferior metatarsal plane. Large bleeder was noted from the planar arch. This was tied off with #2-0 Monocryl. Other bleeders were electrocoagulated as encountered. Utilizing a C-arm as guidance, a resection across the 5th, 4th, 3rd, and second metatarsal was performed angled in a slightly dorsal, distal to plantar proximal orientation leaving the bases of those remaining metatarsals. The wound was then flushed with copious amounts of dilute vancomycin solution, 3 liters with a low pressure pulsed lavage system. Utilizing #0 suture, the two ulcers were excised on the planar aspect of the foot enclosed with 0 nylon. An 0 nylon bolster stitch was then placed across the distal aspect of the transmetatarsal site and the remaining skin edges were coapted and maintained with #2-0 nylon in a simple interrupted type fashion. TLS drain was placed in the wound as well as 25 mm vancomycin impregnated beads. No gaps were noted in the closure with minimal tension across the wound edges. TLS drain was functioning satisfactorily and a sterile dressing was applied consisting of Adaptic, 4 x 4s, 4 x 4 splints, ABD, and Coban. The patient having apparently tolerated the procedure well, was taken from the OR to the recovery room for further monitoring by anesthesia department. Postop instructions were given upon discharge.
--- NOTE | 2019-02-19 09:19 | IPNPDOC ---
Date Seen The patient was seen on 02/19/19. Progress Note SUBJECTIVE: Patient is a 58-year-old male, hospitalized since 02/12/19 for osteomyelitis of the right foot. Podiatry and infectious disease are following. Patient was interviewed and examined this hospital room this morning. Patient was found to base laying complaint is bed in no acute distress. Patient did undergo a right metatarsal resection of toes 2, 3, 4 and 5 with delayed closure of his right foot late yesterday afternoon with Dr. Singh. Patient reports tolerating the procedure well. Operative notes indicate a 250 milliliter estimated blood loss. Patient reports not being in any pain or discomfort at this time. He continues to eat, stool, urinating without difficulty. His continue not bearing weight on his ri she still, 9 Suman TLS drain is for the foot ght foot. No headache, nausea, vomiting, abdominal pain. OBJECTIVE PHYSICAL EXAMINATION: VITAL SIGNS: Please see below. GENERAL: Patient was interviewed and examined in his hospital room. Patient was found to be laying comfortably in his bed, head raised, in no acute distress. He is alert and oriented 3. He is able to answer questions appropriately neck with participate in his care. HEENT: Normocephalic, atraumatic, EOMI, sclera nonicteric, trachea midline CARDIOVASCULAR: Regular rate and rhythm. 2/6 systolic murmur most prominent in the left parasternal intercostal space. RESPIRATORY: Clear to auscultation bilaterally both anterior and posterior lung jack. No evidence of wheezing rales or rhonchi appreciated. ABDOMINAL: Soft, nontender, nondistended. No masses appreciated on palpation. EXTREMITIES: Patient's right foot is fully bandaged. No lower extremity swelling or calf tenderness bilaterally. 2+ posterior tibial pulse noted on the left. NEUROLOGICAL: No focal neurologic deficits. Patient has absent sensation in the lower right foot to the level of the mid lower leg. Minimal sensation in the left foot. LABORATORY DATA Please see below. IMAGING STUDIES Foot x-ray (02/12/19): Amputation of the level of the proximal metatarsals of the second through fifth digits. The base of the great toe metatarsal has been resected as interval change. Radiopaque pledgets are again noted within the soft tissue. There is no diffuse soft tissue edema MICROBIOLOGY: Right foot fungal smear/culture (02/12/19): Pending Blood culture (02/11/19): No growth after 5 days Wound culture and Gram stain (02/12/19): Positive for coag-negative Staphylococcus and enterococcus faecalis ASSESSMENT Patient is a 58-year-old male with a past mental history significant for insulin-dependent diabetes mellitus, aortic valve replacementon Xarelto, left ocular hypertension, chronic kidney disease, right arm thrombosis and previous surgical removal of all 5 digits of the right foot. Patient originally presented to the hospital via direct admission per his photoengraving photographer. Patient has been following with podiatry once a week and plain film imaging at that time indicated an infective first medial ulcer definitive for osteomyelitis the right foot. Patient underwent surgical removal of the first metatarsal on 02/12. Patient was receiving IV Zosyn and oral linezolid prior to undergoing repeat debridement on 02/18/19. #Osteomyelitis of right foot, status post first metatarsal resection Status post repeat debridement and partial resection of third, fourth, fifth metatarsals on 02/19/19. TLS drain was placed in addition to 25 mm vancomycin impregnated beads. Wound wa s closed with minimal tension. Wound culture positive for coag-negative staph and enterococcus faecalis, susceptible to linezolid and Zosyn respectively. Infectious disease is following and we greatly appreciate their input in regard to oral antibiotic choice for D/C. No weightbearing on right foot. Xarelto 20 mg to be continued daily. Patient will require physical therapy and occupational therapy to ensure mobility prior to eventual discharge. Analgesia as prescribed. #Insulin dependent diabetes mellitus Patient is currently on 12 units of Levemir QS Continue on diabetic diet with slight scale insulin and fasting blood sugars Patient has been found to be hyperglycemic in the morning Consistent carb diet #History of aortic valve replacement - bioprosthetic 2/6 systolic murmur appreciated. No difficulties with functioning #Chronic kidney disease Stable, patient follows with Dr. Villalta as an outpatient. Continue furosemide 20 mg twice a day #History of right arm blood clot Patient on Xarelto for lifetime anticoagulation per recommendation of patient's refrigerator car icer and primary care provider Currently on hold preoperatively. #Left eye ocular hypertension Continue patient's home latanoprost #History of aortic aneurysm Aneurysm is being closely monitored changes in size by specialist in [place]. Surgery likely be warranted when aneurysm reaches 5 cm. #Dyslipidemia Continue patient on home atorvastatin DISPOSITION: Pending podiatry and PT/OT clearance. DVT prophylaxis: Xarelto 20 mg post-operatively VS, I&O, 24H, Fishbone Vital Signs/I&O Vital Signs Date Time Temp Pulse Resp B/P (MAP) Pulse Ox O2 Delivery O2 Flow Rate FiO2 02/19/19 06:00 98.8 76 18 119/68 (85) 98 I&O- Last 24 Hours up to 6 AM 02/19/19 06:00 Intake Total 2155 ml Output Total 1150 ml Balance 1005 ml Laboratory Data 24H LABS Laboratory Tests 2 02/18/19 11:22: Bedside Glucose (Misc Panel) 287H 02/18/19 15:12: Bedside Glucose (Misc Panel) 262H 02/18/19 20:32: Bedside Glucose (Misc Panel) 222H 02/19/19 06:56: Bedside Glucose (Misc Panel) 319H Microbiology Microbiology 02/12/19 Fungal Smear, Received Pending 02/12/19 Fungal Culture, Received Pending 02/12/19 Gram Stain - Final, Complete 02/12/19 Wound Culture - Final, Complete Staphylococcus Sp Coag Neg Enterococcus Faecalis 02/12/19 Anaerobic Culture - Final, Complete Anaerobic Cocci 02/11/19 Blood Culture - Final, Complete NO GROWTH AFTER 5 DAYS 02/11/19 Blood Culture - Final, Complete NO GROWTH AFTER 5 DAYS GME ATTESTATION GME ATTESTATION My faculty preceptor for this patient encounter was physically present during the encounter and was fully available. All aspects of the patient interview, examination, medical decision making process, and medical care plan development were reviewed and approved by the faculty preceptor. The faculty preceptor is aware and concurs with the plan as stated in the body of this note and will attest to such by his/her cosignature. ATTENDING NOTE I, Murray Rodriguez, have independently examined this patient and performed my own physical exam, as well as reviewed the documentation and edited where necessary. I have discussed in detail with the resident / student the findings and plan of treatment as documented by the resident / student and edited their note. I agree with their findings and treatment plan and have edited their documentation. I will continue to follow the patient during this hospital stay. TUTU CARY DO Feb 19, 2019 09:19 MURRAY RODRIGUEZ MD Feb 19, 2019 14:20
[2019-02-19 09:26] LABS: BASO # 0.1 10^3/uL (0.0-0.2); EOS # 0.2 10^3/uL (0.0-0.5); EOS % 2.4 % (0.0-3.0); HEMATOCRIT 28.4 % (42.0-52.0); HEMOGLOBIN 9.2 g/dl (13.5-17.5); LYMPH # 1.3 10^3/uL (1.5-5.0); LYMPH % 20.6 % (24.0-44.0); MEAN CORPUSCULAR HEMOGLOBIN 27.1 pg (27.0-33.0); MEAN CORPUSCULAR HGB CONC 32.4 g/dl (32.0-36.5); MEAN CORPUSCULAR VOLUME 83.8 fl (80.0-96.0); MONO # 0.4 10^3/uL (0.0-0.8); MONO % 6.6 % (0.0-5.0); NEUTROPHILS # 4.3 10^3/uL (1.5-8.5); NEUTROPHILS % 69.1 % (36.0-66.0); PLATELET COUNT, AUTOMATED 271 10^3/uL (150-450); RED BLOOD COUNT 3.39 10^6/uL (4.30-6.10); WHITE BLOOD COUNT 6.2 10^3/uL (4.0-10.0)
[2019-02-19 09:42] LABS: CALCIUM LEVEL 8.5 MG/DL (8.8-10.2); CREATININE FOR GFR 1.47 MG/DL (0.70-1.30); MAGNESIUM LEVEL 1.9 MG/DL (1.8-2.4); POTASSIUM SERUM 4.2 MEQ/L (3.5-5.1)
[2019-02-19 10:00] VITALS: BP 120/60
[2019-02-19 14:00] VITALS: BP 107/64
--- NOTE | 2019-02-19 17:44 | IPN ---
DATE: 02/19/2019 at 5:26 p.m. CHIEF COMPLAINT: Patient is seen for evaluation of right foot surgery, revisional transmetatarsal amputation right foot with insertion of vancomycin impregnated beads with TLS drain. Bandage was removed. The incision is well coapted and maintained. The TLS drain is functioning satisfactorily. The patient states that four vials were removed on the TLS drain. He denies shortness of breath or chest pain. He is having mild discomfort on the distal aspect of the surgical site. No signs of dehiscence or suture breakdown. Patient's mycobacteriology study does reveal growth or anaerobic cocci presently pending sensitivity and identification. ASSESSMENT: Healing well status-post revisional transmetatarsal amputation right foot. PLAN: A dry sterile dressing was applied. The patient is to stay nonweightbearing on his right foot and continue changing TLS drains every 8 hours or when half full. I discussed with the patient removing the TLS drain in approximately 2 days. Unless the drain is still showing significant discharge would like to be able to keep the patient in the hospital until the TLS drain is removed. His questions were answered.
[2019-02-19 18:00] VITALS: BP 117/60
[2019-02-19] MEDS: FAMOTIDINE 20 MG TAB PO SCH (21:30)
[2019-02-19] MEDS: SIMVASTATIN 40 MG TAB PO SCH (21:30)
[2019-02-19] MEDS: LEVEMIR (INSULIN DETEMIR) 1 UNITS/0.01ML SC SCH (21:32)
[2019-02-19] MEDS: LATANOPROST 0.005% OPHTH SOLN 2.5 ML OS SCH (21:32)
[2019-02-19 22:00] VITALS: BP 119/70
[2019-02-20] MEDS: PIPERACILLIN/TAZOBACTAM SOD 3.375 GM in D5W MINI-BAG PLUS 50 ML IV SCH ×4 (04:42→20:52)
[2019-02-20 06:00] VITALS: BP 115/70
[2019-02-20 06:07] LABS: HEMATOCRIT 27.7 % (42.0-52.0); HEMOGLOBIN 9.1 g/dl (13.5-17.5); MEAN CORPUSCULAR HEMOGLOBIN 27.2 pg (27.0-33.0); MEAN CORPUSCULAR HGB CONC 32.9 g/dl (32.0-36.5); MEAN CORPUSCULAR VOLUME 82.7 fl (80.0-96.0); PLATELET COUNT, AUTOMATED 249 10^3/uL (150-450); RED BLOOD COUNT 3.35 10^6/uL (4.30-6.10); WHITE BLOOD COUNT 4.6 10^3/uL (4.0-10.0)
[2019-02-20 06:28] LABS: CALCIUM LEVEL 8.6 MG/DL (8.8-10.2); CREATININE FOR GFR 1.47 MG/DL (0.70-1.30); POTASSIUM SERUM 3.6 MEQ/L (3.5-5.1)
[2019-02-20] MEDS: LINEZOLID 600MG TABLET (ZYVOX) PO SCH ×2 (09:28→20:52)
[2019-02-20] MEDS: FUROSEMIDE 20 MG TAB PO SCH ×2 (09:29→16:30)
[2019-02-20] MEDS: RIVAROXABAN 20 MG TAB (XARELTO) PO SCH (09:29)
[2019-02-20] MEDS: HumaLOG INSULIN (NovoLOG) PER UNIT SC SCH ×4 (09:30→21:00)
[2019-02-20 14:00] VITALS: BP 104/56
--- NOTE | 2019-02-20 14:54 | IPNPDOC ---
Date Seen The patient was seen on 02/20/19. Progress Note SUBJECTIVE: Patient was seen and examined this morning. He currently has no new complaints. Currently status post a to metatarsal section of digits 2 through 4 and 5 with delayed closure of his right foot. Patient continues to have drain place, however, drainage, dysphagia removed tomorrow. Patient has been continued with dressing changes. OBJECTIVE PHYSICAL EXAMINATION: VITAL SIGNS: Please see below. GENERAL: Patient is awake, alert and oriented. does not appear to be in acute distress HEENT: Atraumatic, normocephalic. Eyes are nonicteric. Trachea is midline. Mucous membranes are pink and moist. No conjunctival pallor CARDIOVASCULAR:. Normal S1, S2, regular rate and rhythm.. 2/6 systolic murmur. Capillary refills less than 2 seconds. RESPIRATORY:. Clear vesicular breath sounds bilaterally with good respiratory effort. There is no wheezes, rhonchi or rales. ABDOMINAL: Soft, nondistended, nontender to palpation in all 4 quadrants. No rebound tenderness or guarding. No hernias or bruising EXTREMITIES: Patient has complete bandaging of right foot.. There is no swelling or calf tenderness. He has 2+ posterior tibial pulses on the left. NEUROLOGICAL:. No focal neurological deficits PSYCHOLOGICAL: Mood and affect appear appropriate LABORATORY DATA, IMAGING STUDIES, MICROBIOLOGY: Please see below. DVT prophylaxis ordered?: Xarelto 20 mg ASSESSMENT AND PLAN: Patient is a 58-year-old male with past medical history significant for insulin-dependent diabetes mellitus, aortic valve replacement on Xarelto, hypertension, chronic disease, history of right arm thrombosis and transmetatarsal amputation of the right foot who presented with a right foot osteomyelitis. Patient seen by both his sql data analyst, Dr. Singh and infectious disease for management of his right foot osteomyelitis. Patient is currently on day 10 of his IV Zosyn and Zyvox. He is status post debridement on 02/18/2018 PROBLEMS: 1. Osteomyelitis of the right foot, status post transmetatarsal resection on 02/19/2019 -TLS drain currently in place with vancomycin and antibiotic beads -Coagulase-negative Staphylococcus and enterococcus both sensitive to linezolid and Zosyn. Is currently on day 10 of IV Zosyn. Infectious disease is following and constipation is greatly appreciated. -Patient continued on no weightbearing of right foot -Patient continue on Xarelto 20 mg daily -Continue physical therapy 2. Insulin independent diabetes mellitus -12 units Levemir daily at bedtime -Patient has sliding scale coverage before meals, daily at bedtime. Will continue with physical carbohydrate diet. Patient appears to be noncompliant with diet as he has junk food in the room. 3. History of aortic valve replacement, bioprosthetic: -Patient is currently on Xarelto 20 mg 4., Chronic kidney disease -Patient currently follows Dr. Villalta as an outpatient. He is continued on furosemide 20 mg twice a day -He is on Zosyn IV. Continue to trend his creatinine will likely discontinue antibiotics as he has reached day 10 of IV treatment. 5. History of right arm thrombosis -Patient is on Xarelto 6. Ocular hypertension, left eye -Patient continue latanoprost 7. History of aortic aneurysm -Currently stable. Follow outpatient 8., Dyslipidemia -Patient continued on home atorvastatin DISPOSITION: Patient will continue to work with physical therapy. Plan is to have drain removed tomorrow. Patient will continue to have dressings changed daily. Despite discharge Sunday or Sunday. VS, I&O, 24H, [facility] Vital Signs/I&O Vital Signs Date Time Temp Pulse Resp B/P (MAP) Pulse Ox O2 Delivery O2 Flow Rate FiO2 02/20/19 06:00 97.0 80 18 115/70 (85) 99 I&O- Last 24 Hours up to 6 AM 02/20/19 06:00 Intake Total 2210 ml Output Total 1500 ml Balance 710 ml Laboratory Data 24H LABS Laboratory Tests 2 02/19/19 17:04: Bedside Glucose (Misc Panel) 327H 02/19/19 20:06: Bedside Glucose (Misc Panel) 368H 02/20/19 05:49: Nucleated Red Blood Cells % (auto) 0.0, Anion Gap 6L, Glomerular Filtration Rate 52.0, Blood Urea Nitrogen 18, Creatinine 1.47H, Sodium Level 140, Potassium Level 3.6, Chloride Level 106, Carbon Dioxide Level 28, Calcium Level 8.6L 02/20/19 11:40: Bedside Glucose (Misc Panel) 315H CBC/BMP Laboratory Tests 02/20/19 05:49 Red Blood Count 3.35 L, Mean Corpuscular Volume 82.7, Mean Corpuscular Hemoglobin 27.2, Mean Corpuscular Hemoglobin Concent 32.9, Red Cell Distribution Width 16.6 H, Calcium Level 8.6 L Microbiology Microbiology 02/12/19 Fungal Smear, Received Pending 02/12/19 Fungal Culture, Received Pending 02/12/19 Gram Stain - Final, Complete 02/12/19 Wound Culture - Final, Complete Staphylococcus Sp Coag Neg Enterococcus Faecalis 02/12/19 Anaerobic Culture - Final, Complete Anaerobic Cocci 02/11/19 Blood Culture - Final, Complete NO GROWTH AFTER 5 DAYS 02/11/19 Blood Culture - Final, Complete NO GROWTH AFTER 5 DAYS GME ATTESTATION GME ATTESTATION My faculty preceptor for this patient encounter was physically present during the encounter and was fully available. All aspects of the patient interview, examination, medical decision making process, and medical care plan development were reviewed and approved by the faculty preceptor. The faculty preceptor is aware and concurs with the plan as stated in the body of this note and will attest to such by his/her cosignature. ATTENDING NOTE I, Murray Rodriguez, have independently examined this patient and performed my own physical exam, as well as reviewed the documentation and edited where necessary. I have discussed in detail with the resident / student the findings and plan of treatment as documented by the resident / student and edited their note. I agree with their findings and treatment plan and have edited their documentation. I will continue to follow the patient during this hospital stay. ZULEMA SHAW DO Feb 20, 2019 14:54 MURRAY RODRIGUEZ MD Feb 20, 2019 15:27
[2019-02-20] MEDS: LATANOPROST 0.005% OPHTH SOLN 2.5 ML OS SCH (20:52)
[2019-02-20] MEDS: FAMOTIDINE 20 MG TAB PO SCH (20:52)
[2019-02-20] MEDS: SIMVASTATIN 40 MG TAB PO SCH (20:52)
[2019-02-20] MEDS: LEVEMIR (INSULIN DETEMIR) 1 UNITS/0.01ML SC SCH (20:53)
[2019-02-20 22:00] VITALS: BP 112/66
[2019-02-21] MEDS: PIPERACILLIN/TAZOBACTAM SOD 3.375 GM in D5W MINI-BAG PLUS 50 ML IV SCH ×4 (04:41→22:10)
[2019-02-21 06:00] VITALS: BP 104/57
[2019-02-21 06:17] LABS: HEMATOCRIT 26.8 % (42.0-52.0); HEMOGLOBIN 8.7 g/dl (13.5-17.5); MEAN CORPUSCULAR HEMOGLOBIN 26.7 pg (27.0-33.0); MEAN CORPUSCULAR HGB CONC 32.5 g/dl (32.0-36.5); MEAN CORPUSCULAR VOLUME 82.2 fl (80.0-96.0); PLATELET COUNT, AUTOMATED 251 10^3/uL (150-450); RED BLOOD COUNT 3.26 10^6/uL (4.30-6.10); WHITE BLOOD COUNT 4.4 10^3/uL (4.0-10.0)
[2019-02-21 06:39] LABS: CALCIUM LEVEL 8.4 MG/DL (8.8-10.2); CREATININE FOR GFR 1.44 MG/DL (0.70-1.30); GLOMERULAR FILTRATION RATE 53.3 (>49); POTASSIUM SERUM 3.7 MEQ/L (3.5-5.1)
[2019-02-21] MEDS: HumaLOG INSULIN (NovoLOG) PER UNIT SC SCH ×4 (08:33→21:22)
[2019-02-21] MEDS: LINEZOLID 600MG TABLET (ZYVOX) PO SCH ×2 (08:34→21:21)
[2019-02-21] MEDS: RIVAROXABAN 20 MG TAB (XARELTO) PO SCH (08:34)
[2019-02-21] MEDS: FUROSEMIDE 20 MG TAB PO SCH ×2 (10:16→16:43)
--- NOTE | 2019-02-21 10:49 | IPNPDOC ---
Date Seen The patient was seen on 02/21/19. Progress Note SUBJECTIVE: Patient is interviewed and examined in his hospital room this morning. Patient was found to be sitting comfortably in his chair in no acute distress. Patient is status post metatarsal resection and revision of digits 2 through 5 with delayed closure. Patient has a TLS drain in place with continued dressing changes. Patient denies any events overnight. Denies any chest pain or shortness of breath, abdominal pain, difficulty moving his bowels or urinating. Patient is currently being followed by podiatry plans to see the patient later today. The patient denies any acute complaints. OBJECTIVE PHYSICAL EXAMINATION: VITAL SIGNS: Please see below. GENERAL: Patient is awake, alert and oriented. does not appear to be in acute distress HEENT: Atraumatic, normocephalic. Eyes are nonicteric. Trachea is midline. Mucous membranes are pink and moist. No conjunctival pallor CARDIOVASCULAR:. Normal S1, S2, regular rate and rhythm.. 2/6 systolic murmur. Capillary refills less than 2 seconds. RESPIRATORY:. Clear vesicular breath sounds bilaterally with good respiratory effort. There is no wheezes, rhonchi or rales. ABDOMINAL: Soft, nondistended, nontender to palpation in all 4 quadrants. No rebound tenderness or guarding. No hernias or bruising EXTREMITIES: Patient has complete bandaging of right foot.. There is no swelling or calf tenderness. He has 2+ posterior tibial pulses on the left. NEUROLOGICAL:. No focal neurological deficits PSYCHOLOGICAL: Mood and affect appear appropriate LABORATORY DATA: Please see below IMAGING STUDIES: Foot x-ray (02/12/19): Amputation of the level of the proximal metatarsals of the second through fifth digits. The base of the great toe metatarsal has been resected as interval change. Radiopaque pledgets are again noted within the soft tissue. There is no diffuse soft tissue edema MICROBIOLOGY: Right foot fungal smear/culture (02/12/19): Pending Blood culture (02/11/19): No growth after 5 days Wound culture and Gram stain (02/12/19): Positive for coag-negative Staphylococcus and enterococcus faecalis ASSESSMENT AND PLAN: Patient is a 58-year-old male with past medical history significant for insulin-dependent diabetes mellitus, aortic valve replacement on Xarelto, hypertension, chronic disease, history of right arm thrombosis and transmetatarsal amputation of the right foot who presented with a right foot osteomyelitis. Patient seen by both his instructional support assistant, Dr. Singh and infectious disease for management of his right foot osteomyelitis. Patient is currently on day 11 of his IV Zosyn and day 6 of Zyvox. He is status post debridement on 02/18/2018 PROBLEMS: #Osteomyelitis of the right foot, status post transmetatarsal resection on 02/19/[address] drain [address] in place with vancomycin and antibiotic beads Coagulase-negative Staphylococcus and enterococcus both sensitive to Zyvox and Zosyn. Patient is currently on day 11 of IV Zosyn and day 6 of Zyvox. Infectious disease is following and constipation is greatly appreciated. Plan fo r by mouth Zyvox and Flagyl upon discharge for continued antibiotic coverage. Patient continued on no weightbearing of right foot Patient continue on Xarelto 20 mg daily Continue physical therapy #Insulin independent diabetes mellitus 12 units Levemir daily at bedtime Patient has sliding scale coverage before meals, daily at bedtime. Will continue with physical carbohydrate diet. Patient appears to be noncompliant with diet as he has high-glycemic index foods #Anemia Patient's H&H was morning was 8.7/26.8, patient previously trending around 10.8 Plan to repeat H&H this afternoon at 1400. #History of aortic valve replacement, bioprosthetic: Patient is currently on Xarelto 20 mg #Chronic kidney disease Patient currently follows Dr. Villalta as an outpatient. He is continued on furosemide 20 mg twice a day He is on Zosyn IV. Continue to trend his creatinine will likely discontinue a ntibiotics as he has reached day 10 of IV treatment. #History of right arm thrombosis Patient is on Xarelto #Ocular hypertension, left eye Patient continue latanoprost #History of aortic aneurysm Currently stable. Follow outpatient #Dyslipidemia Patient continued on home atorvastatin DVT prophylaxis: Xarelto 20 mg DISPOSITION: Discharge home pending drain removal VS, I&O, 24H, [facility] Vital Signs/I&O Vital Signs Date Time Temp Pulse Resp B/P (MAP) Pulse Ox O2 Delivery O2 Flow Rate FiO2 02/21/19 06:00 97.6 66 16 104/57 (73) 99 I&O- Last 24 Hours up to 6 AM 02/21/19 06:00 Intake Total 2340 ml Output Total 1200 ml Balance 1140 ml Laboratory Data 24H LABS Laboratory Tests 2 02/20/19 11:40: Bedside Glucose (Misc Panel) 315H 02/20/19 16:42: Bedside Glucose (Misc Panel) 180H 02/20/19 20:40: Bedside Glucose (Misc Panel) 210H 02/21/19 05:43: Nucleated Red Blood Cells % (auto) 0.0, Erythrocyte Sedimentation Rate 63H, Anion Gap 5L, Glomerular Filtration Rate 53.3, Blood Urea Nitrogen 13, Creatinine 1.44H, Sodium Level 137, Potassium Level 3.7, Chloride Level 104, Carbon Dioxide Level 28, Calcium Level 8.4L, C-Reactive Protein, Quantitative 2.34H CBC/BMP Laboratory Tests 02/21/19 05:43 Red Blood Count 3.26 L, Mean Corpuscular Volume 82.2, Mean Corpuscular Hemoglobin 26.7 L, Mean Corpuscular Hemoglobin Concent 32.5, Red Cell Distribution Width 16.7 H, Calcium Level 8.4 L Microbiology Microbiology 02/12/19 Fungal Smear, Received Pending 02/12/19 Fungal Culture, Received Pending 02/12/19 Gram Stain - Final, Complete 02/12/19 Wound Culture - Final, Complete Staphylococcus Sp Coag Neg Enterococcus Faecalis 02/12/19 Anaerobic Culture - Final, Complete Anaerobic Cocci 02/11/19 Blood Culture - Final, Complete NO GROWTH AFTER 5 DAYS 02/11/19 Blood Culture - Final, Complete NO GROWTH AFTER 5 DAYS GME ATTESTATION GME ATTESTATION My faculty preceptor for this patient encounter was physically present during the encounter and was fully available. All aspects of the patient interview, examination, medical decision making process, and medical care plan development were reviewed and approved by the faculty preceptor. The faculty preceptor is aware and concurs with the plan as stated in the body of this note and will attest to such by his/her cosignature. ATTENDING NOTE I, Murray Rodriguez, have independently examined this patient and performed my own physical exam, as well as reviewed the documentation and edited where necessary. I have discussed in detail with the resident / student the findings and plan of treatment as documented by the resident / student and edited their note. I agree with their findings and treatment plan and have edited their documentation. I will continue to follow the patient during this hospital stay. TUTU CARY DO Feb 21, 2019 10:49 MURRAY RODRIGUEZ MD Feb 21, 2019 15:32
[2019-02-21] MEDS ORDERED: ZYVO1TAB PO (10:57)
--- NOTE | 2019-02-21 13:17 | IPN ---
DATE: 02/21/2019 TIME: 10:45 a.m. CHIEF COMPLAINT: The patient is seen at bedside for evaluation status post revision of transmetatarsal amputation of the right foot. The bandage was removed. The TLS drain no longer is pulling any discharge. There is no breakthrough bleeding noted. The wound is well coapted and maintained. The patient's temperature is 97.6, pulse 66, respirations 16, blood pressure 104/57, pulse oximetry on room air is 99. LABORATORY DATA: Laboratory studies reviewed revealing a white count of 4.4 and a hemoglobin of 8.7. C-reactive protein 2.34 on today's date. ASSESSMENT: Healing well status post transmetatarsal amputation, revision, right foot. PLAN: The TLS drain was removed today and a dry, sterile dressing was applied. The patient's antibiotics are being covered by Dr. Ghotra from infectious disease. The patient's questions were answered. He will be seen in my office on Sunday. He is tentatively planned for discharge on Sunday.
--- NOTE | 2019-02-21 13:57 | IPN ---
DATE: 02/21/2019 Garrett is doing well. He will be going home on Sunday. He is worried about going home now he feels short of breath with exertion and is worried about stepping on his foot and causing wound dehiscence. No fever or chills. No nausea, vomiting or diarrhea. No abdominal pain. LABORATORY DATA: White count is 4.4, hemoglobin 8.7, hematocrit 26.8, platelets 251. ESR 63. Sodium 137, potassium 3.7, chloride 104, bicarb 28, BUN 13, creatinine 1.4, glucose 273, calcium 8.4, CRP 2.34. Wound culture had staph coag negative, E faecalis and anaerobic cocci. Fungal culture is pending. MEDICATIONS: Linezolid 600 mg every twice a day and Zosyn. PHYSICAL EXAM: A transmetatarsal amputation of the right foot with sutures in place, healing well. There is some bloody drainage but no evidence of infection. No purulence. No tenderness. There is a TLS drain that was removed by Dr. Singh. PLAN: Since all the infected wound has been removed the patient will be going home on oral antibiotics including linezolid to cover for gram positives 600 twice a day for 2 weeks along with by mouth Flagyl for anaerobic coverage 500 mg by mouth every [address] Singh agrees with home oral antibiotic if the patient loses his IV site please switch the patient to oral antibiotics.
[2019-02-21 14:00] VITALS: BP 113/62
[2019-02-21 14:31] LABS: HEMOGLOBIN 9.3 g/dl (13.5-17.5)
[2019-02-21] MEDS: FAMOTIDINE 20 MG TAB PO SCH (21:21)
[2019-02-21] MEDS: SIMVASTATIN 40 MG TAB PO SCH (21:21)
[2019-02-21] MEDS: LATANOPROST 0.005% OPHTH SOLN 2.5 ML OS SCH (21:21)
[2019-02-21] MEDS: LEVEMIR (INSULIN DETEMIR) 1 UNITS/0.01ML SC SCH (21:22)
[2019-02-21 22:00] VITALS: BP 130/67
[2019-02-22] MEDS: PIPERACILLIN/TAZOBACTAM SOD 3.375 GM in D5W MINI-BAG PLUS 50 ML IV SCH ×2 (03:57→10:47)
[2019-02-22 06:00] VITALS: BP 119/67
[2019-02-22 06:02] LABS: HEMATOCRIT 26.3 % (42.0-52.0); HEMOGLOBIN 8.7 g/dl (13.5-17.5); MEAN CORPUSCULAR HGB CONC 33.1 g/dl (32.0-36.5); MEAN CORPUSCULAR VOLUME 81.7 fl (80.0-96.0); PLATELET COUNT, AUTOMATED 234 10^3/uL (150-450); RED BLOOD COUNT 3.22 10^6/uL (4.30-6.10); WHITE BLOOD COUNT 4.2 10^3/uL (4.0-10.0)
[2019-02-22 06:36] LABS: CALCIUM LEVEL 8.4 MG/DL (8.8-10.2); CREATININE FOR GFR 1.43 MG/DL (0.70-1.30); GLOMERULAR FILTRATION RATE 53.7 (>49); POTASSIUM SERUM 3.9 MEQ/L (3.5-5.1)
[2019-02-22] MEDS: FUROSEMIDE 20 MG TAB PO SCH ×3 (08:39→16:47)
[2019-02-22] MEDS: LINEZOLID 600MG TABLET (ZYVOX) PO SCH ×2 (08:39→21:07)
[2019-02-22] MEDS: RIVAROXABAN 20 MG TAB (XARELTO) PO SCH (08:39)
[2019-02-22] MEDS: HumaLOG INSULIN (NovoLOG) PER UNIT SC SCH ×4 (08:40→21:08)
[2019-02-22 08:47] VITALS: BP 105/62
[2019-02-22] MEDS ORDERED: ONDANSETRON 4MG/2ML VIAL (J2405) IV ONE (11:00)
[2019-02-22] MEDS: LACTOBACILLUS ACIDOPHILUS CAP (BACID) PO SCH ×2 (12:34→17:22)
[2019-02-22 14:00] VITALS: BP 128/91
[2019-02-22 14:05] LABS: HEMATOCRIT 33.9 % (42.0-52.0)
[2019-02-22 14:08] LABS: HEMOGLOBIN 10.9 g/dl (13.5-17.5)
[2019-02-22] MEDS ORDERED: metroNIDAZOLE (FLAGYL) 500 MG TAB PO SCH (16:00)
[2019-02-22] MEDS: metroNIDAZOLE (FLAGYL) 500 MG TAB PO SCH ×2 (16:46→21:07)
[2019-02-22 16:48] VITALS: BP 112/70
--- NOTE | 2019-02-22 17:02 | IPNPDOC ---
Date Seen The patient was seen on 02/22/19. Progress Note SUBJECTIVE: Patient was interviewed and examined in his hospital room this morning. Patient found to be sitting comfortably in a chair at bedside. He denied any acute complaints overnight, including chest pain or difficulty breathing at rest. He did report that yesterday he had 2 loose stools and one this morning. He continues to complain of weakness and dyspnea with exertion to the bathroom. Patient has been cleared by physical therapy and his processing operator, Dr. Singh for discharge. OBJECTIVE PHYSICAL EXAMINATION: VITAL SIGNS: Please see below. GENERAL: Patient is awake, alert and oriented. does not appear to be in acute distress HEENT: Atraumatic, normocephalic. Eyes are nonicteric. Trachea is midline. Mucous membranes are pink and moist. No conjunctival pallor CARDIOVASCULAR:. Normal S1, S2, regular rate and rhythm.. 2/6 systolic murmur. Capillary refills less than 2 seconds. RESPIRATORY:. Clear vesicular breath sounds bilaterally with good respiratory effort. There is no wheezes, rhonchi or rales. ABDOMINAL: Soft, nondistended, nontender to palpation in all 4 quadrant. EXTREMITIES: Patient has complete bandaging of right foot.. There is no swelling or calf tenderness. He has 2+ posterior tibial pulses on the left. NEUROLOGICAL:. No focal neurological deficits PSYCHOLOGICAL: Mood and affect appear appropriate LABORATORY DATA: Please see below IMAGING STUDIES: Foot x-ray (02/12/19): Amputation of the level of the proximal metatarsals of the second through fifth digits. The base of the great toe metatarsal has been resected as interval change. Radiopaque pledgets are again noted within the soft tissue. 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 Patient seen by both his processing operator, Dr. Singh and infectious disease for management of his right foot osteomyelitis. Patient is currently on day 12 of his IV Zosyn and day 7 of Zyvox. He is status post debridement on 02/18/2018. Patient was transitioned to oral antibiotics on 02/22/19. He did complain of some increasing loose stools was given a probiotic. PROBLEMS: #Osteomyelitis of the right foot, status post transmetatarsal resection on 02/19/2019 Till Estring removed last evening. Patient is on day 12 of IV Zosyn and day 7 of oral Zyvox. Patient is currently also being followed by infectious disease we appreciate their input to Manage this patient. Patient to be sent home with oral Zyvox and metronidazole. Patient transitioned to by mouth medications today. Patient does report some increased loose stools. Appropriate medical be started. #Insulin independent diabetes mellitus 12 units Levemir daily at bedtime Patient has sliding scale coverage before meals, daily at bedtime. Will continue with physical carbohydrate diet. Patient appears to be noncompliant with diet as he has high-glycemic index foods #Anemia Patient's H&H was morning was 8.7, repeat performed at 1400 showed an improvement to 10.9. Patient should be discharged home with iron supplementation #History of aortic valve replacement, bioprosthetic: Patient is currently on Xarelto 20 mg #Chronic kidney disease Patient currently follows Dr. Villalta as an outpatient. He is continued on furosemide 20 mg twice a day He is on Zosyn IV. Continue to trend his creatinine will likely discontinue ant ibiotics as he has reached day 10 of IV treatment. #History of right arm thrombosis Patient is on Xarelto #Ocular hypertension, left eye Patient continue latanoprost #History of aortic aneurysm Currently stable. Follow outpatient #Dyslipidemia Patient continued on home atorvastatin DVT prophylaxis: Xarelto 20 mg VS, I&O, 24H, Fishbone Vital Signs/I&O Vital Signs Date Time Temp Pulse Resp B/P (MAP) Pulse Ox O2 Delivery O2 Flow Rate FiO2 02/22/19 08:47 105/62 (76) 02/22/19 06:00 97.4 77 18 98 I&O- Last 24 Hours up to 6 AM 02/22/19 06:00 Intake Total 2430 ml Output Total 1002 ml Balance 1428 ml Laboratory Data 24H LABS Laboratory Tests 2 02/21/19 18:24: Bedside Glucose (Misc Panel) 306H 02/21/19 21:11: Bedside Glucose (Misc Panel) 317H 02/22/19 05:46: Nucleated Red Blood Cells % (auto) 0.0, Anion Gap 7L, Glomerular Filtration Rate 53.7, Blood Urea Nitrogen 17, Creatinine 1.43H, Sodium Level 139, Potassium Level 3.9, Chloride Level 106, Carbon Dioxide Level 26, Calcium Level 8.4L 02/22/19 11:37: Bedside Glucose (Misc Panel) 241H CBC/BMP Laboratory Tests 02/22/19 05:46 Red Blood Count 3.22 L, Mean Corpuscular Volume 81.7, Mean Corpuscular Hemoglobin 27.0, Mean Corpuscular Hemoglobin Concent 33.1, Red Cell Distribution Width 16.5 H, Calcium Level 8.4 L 02/22/19 13:54 Microbiology Microbiology 02/12/19 Fungal Smear, Received Pending 02/12/19 Fungal Culture, Received Pending 02/12/19 Gram Stain - Final, Complete 02/12/19 Wound Culture - Final, Complete Staphylococcus Sp Coag Neg Enterococcus Faecalis 02/12/19 Anaerobic Culture - Final, Complete Anaerobic Cocci GME ATTESTATION GME ATTESTATION My faculty preceptor for this patient encounter was physically present during the encounter and was fully available. All aspects of the patient interview, examination, medical decision making process, and medical care plan development were reviewed and approved by the faculty preceptor. The faculty preceptor is aware and concurs with the plan as stated in the body of this note and will attest to such by his/her cosignature. ATTENDING NOTE I, Murray Rodriguez, have independently examined this patient and performed my own physical exam, as well as reviewed the documentation and edited where necessary. I have discussed in detail with the resident / student the findings and plan of treatment as documented by the resident / student and edited their note. I agree with their findings and treatment plan and have edited their documentation. I will continue to follow the patient during this hospital stay. TUTU CARY DO Feb 22, 2019 17:02 MURRAY RODRIGUEZ MD Feb 25, 2019 17:50
[2019-02-22] MEDS: SIMVASTATIN 40 MG TAB PO SCH (21:07)
[2019-02-22] MEDS: LATANOPROST 0.005% OPHTH SOLN 2.5 ML OS SCH (21:07)
[2019-02-22] MEDS: FAMOTIDINE 20 MG TAB PO SCH (21:08)
[2019-02-22] MEDS: LEVEMIR (INSULIN DETEMIR) 1 UNITS/0.01ML SC SCH (21:08)
[2019-02-22 22:00] VITALS: BP 130/72
[2019-02-23] MEDS: metroNIDAZOLE (FLAGYL) 500 MG TAB PO SCH ×2 (05:57→13:00)
[2019-02-23 06:00] VITALS: BP 115/65
[2019-02-23] MEDS: HumaLOG INSULIN (NovoLOG) PER UNIT SC SCH ×2 (08:28→12:56)
[2019-02-23] MEDS: LACTOBACILLUS ACIDOPHILUS CAP (BACID) PO SCH ×2 (08:28→12:56)
[2019-02-23] MEDS: FUROSEMIDE 20 MG TAB PO SCH (08:28)
[2019-02-23] MEDS: LINEZOLID 600MG TABLET (ZYVOX) PO SCH (08:28)
[2019-02-23] MEDS: RIVAROXABAN 20 MG TAB (XARELTO) PO SCH (08:29)
[2019-02-23] MEDS ORDERED: FLAG500T PO (11:43)
--- NOTE | 2019-02-23 11:57 | DS.PDOC ---
Discharge Summary General Date of Admission Feb 11, 2019 at 11:11 Date of Discharge 02/23/2019 Discharge Summary PROCEDURES PERFORMED DURING STAY: 02/11/2019: Resection of first metatarsal, right foot. by Dr. Singh 02/18/2019: Revision of transmetatarsal amputation with insertion of vancomycin beads over a TLS drain, right foot by Dr. Singh ADMITTING DIAGNOSES / DISCHARGE DIAGNOSES: Osteomyelitis of the right foot - s/p transmetatarsal resection on 02/11/2019 and revision on 02/18/19 IDDM2 with Hyperglycemia Normocytic anemia History of bioprosthetic aortic valve replacement Chronic kidney disease History of right arm thrombosis, on Xarelto Ocular hypertension, Left eye History of aortic aneurysm DLP DVT prophylaxis COMPLICATIONS/CHIEF COMPLAINT: Right foot infection HISTORY OF PRESENT ILLNESS: Patient is a 58-year-old male with a past history of IDDM2, AVR, Left ocular hypertension, Detached left retina with surgical correction, chronic kidney disease, Right arm blood clot (on Xarelto), and previous surgical removal of all 5 toes of the right foot, who presented to [facility] with direct admission from Dr. Singh (Podiatry) for infected first medial ulcer definitive for osteomyelitis of the right foot. Dr. Singh did some surgical work at the site of infection in the office and requested the patient be admitted to the hospital under the care of the hospitalist team for continued monitoring. Per Dr. Singh, patient is likely to undergo a surgical removal of the first metatarsal tomorrow afternoon (02/12). Patient was admitted to the hospitalist service with podiatry and infectious disease on consultation. HOSPITAL COURSE: Osteomyelitis of the right foot - s/p transmetatarsal resection on 02/11/2019 and revision on 02/18/19 - Dressing remains intact and clean - Leukocytosis resolved - c/w Linezolid and Flagyl to cover Wound culture 02/12: Staphylococcus, Enterococcus and Anaerobic cocci - Dr. Singh and Dr. Ghotra on consultation - Patient has been advised to follow-up with Angelica Suazo, Dr. Singh and Dr. Ghotra within 7 days IDDM2 with Hyperglycemia - Has been advised to remain compliant with dietary restrictions - c/w Levemir and ISS Anemia - Hg has trended down slightly; likely 2/2 multifactorial etiology (Dilutional and possible OR losses) - Currently does not have any active bleeding - Has not required transfusions during this hospitalization History of bioprosthetic aortic valve replacement Chronic kidney disease - Cr appears to be at baseline - c/w Furosemide - Will have outpatient f/u with Dr. Villalta History of right arm thrombosis - c/w Xarelto Ocular hypertension, left eye - c/w Latanoprost History of aortic aneurysm - Remains stable - Will have outpatient f/u with Cardiology DLP - c/w Atorvastatin DVT prophylaxis - on full anticoagulation with Xarelto DISCHARGE MEDICATIONS: Please see below. ALLERGIES: Please see below. PHYSICAL EXAMINATION ON DISCHARGE: Vitals (See below) General: Lying in bed, no acute distress, comfortable, AAOx3 HEENT: NC, AT CVS: RRR, +S1S2 Lungs: Fair air entry b/l, -w/r/r Abdomen: Soft, ND, NT Extremities: - Edema, - Calf tenderness, R foot with dressing in place LABORATORY DATA: Please see below. ACTIVITY: [As tolerated]. DISCHARGE PLAN: Follow up with Dr. Angelica Suazo, Dr. Singh and Dr. Ghotra within 7 days Remain compliant with treatment plan and medications Return to the ER if you experience any problems DISPOSITION: Home with services; PT and Wound care DISCHARGE CONDITION: [Stable]. TIME SPENT ON DISCHARGE: 40 minutes Vital Signs/I&Os Vital Signs Date Time Temp Pulse Resp B/P (MAP) Pulse Ox O2 Delivery O2 Flow Rate FiO2 02/23/19 06:00 97.8 79 18 115/65 (82) 99 I&O- Last 24 Hours up to 6 AM 02/23/19 06:00 Intake Total 1150 ml Output Total 2920 ml Balance -1770 ml Laboratory Data Labs 24H Laboratory Tests 2 02/22/19 16:40: Bedside Glucose (Misc Panel) 243H 02/22/19 20:35: Bedside Glucose (Misc Panel) 279H CBC/BMP Laboratory Tests 02/22/19 13:54 FSBS Laboratory Tests Test 02/22/19 16:40 02/22/19 20:35 Range/Units Bedside Glucose (Misc Panel) 243 279 80-115 MG/DL Discharge Medications Scheduled Furosemide (Furosemide) 20 Mg Tab, 20 MG PO BID, (Reported) takes 0800/1800 Gluc Fink/Chondro Fink A/Vit C/Mn (Glucosamine Chondroitin Tab) 1 Each Tablet, 1 TAB PO BID, (Reported) Insulin Glargine (Lantus) 1 Units/0.01 Ml Susp, 1 DOSE SC QHS, (Reported) 18 - 22 UNITS Insulin Human Lispro (Humalog) 1 Units/0.01 Ml Inj, 1 DOSE SC AC, (Reported) 8 - 10 UNITS PER SLIDING SCALE Latanoprost (Xalatan) 0.005 % Nat, 1 DROP OS QHS, (Reported) Linezolid (Zyvox) 600 Mg Tablet, 600 MG PO BID with food Metformin HCl (Metformin HCl ER) 500 Mg Tab.er.24h, 1,000 MG PO DAILY, (Reported ) Metronidazole (Flagyl) 500 Mg Tablet, 500 MG PO TID Ranitidine HCl (Ranitidine HCl) 150 Mg Tab, 1 TAB PO QHS, (Reported) Rivaroxaban (Xarelto) 20 Mg Tablet, 20 MG PO QHS, (Reported) Simvastatin (Simvastatin) 40 Mg Tab, 40 MG PO QHS, (Reported) Allergies Coded Allergies: No Known Allergies (Verified , 08/14/18) MARSHALL CEJA MD Feb 23, 2019 11:57
[2019-02-23 14:00] VITALS: BP 111/45
== END 2019-02-23 15:04 | disposition home health service (06) | DRG 988 ==
LOC: M MSPAV 11:11
PROVIDERS: ADMIT Internal Medicine; ATTEND Internal Medicine
PROC: 0QTN0ZZ Resection of Right Metatarsal, Open Approach (ICD-10-PCS; principal; 2019-02-11)
PROC: 3E0102A Introduction of Anti-Infective Envelope into Subcutaneous Tissue, Open Approach (ICD-10-PCS; 2019-02-18)
DX: E11.621 Type 2 diabetes mellitus with foot ulcer (principal); M86.171 Other acute osteomyelitis, right ankle and foot; E11.69 Type 2 diabetes mellitus with other specified complication; D64.9 Anemia, unspecified; H40.052 Ocular hypertension, left eye; Z79.01 Long term (current) use of anticoagulants; Z95.2 Presence of prosthetic heart valve; N18.9 Chronic kidney disease, unspecified; Z86.718 Personal history of other venous thrombosis and embolism; I71.4 Abdominal aortic aneurysm, without rupture; Z79.4 Long term (current) use of insulin; Z79.899 Other long term (current) drug therapy; Z79.82 Long term (current) use of aspirin; E78.00 Pure hypercholesterolemia, unspecified; I50.9 Heart failure, unspecified; E78.5 Hyperlipidemia, unspecified; E11.65 Type 2 diabetes mellitus with hyperglycemia; L97.519 Non-pressure chronic ulcer of other part of right foot with unspecified severity

== ENCOUNTER → 2019-02-11 | Outpatient (REF) | payer MEDICARE ==
[~2019-02-11] MED LIST changes: +GLUCTAB6 PO; +METF-791 PO; +VANCOMYCIN HCL 1,000 MG, VIAL MATE ADAPTER 1 EACH in D5W 250 ML IV SCH; +XARE20TA PO
== END ==
LOC: M LAB REF 14:39
PROVIDERS: ATTEND Podiatrist
DX: M86.671 Other chronic osteomyelitis, right ankle and foot (principal); M79.671 Pain in right foot

== ENCOUNTER → 2019-03-06 | Outpatient (REF) | payer MEDICARE ==
[~2019-03-06] MED LIST changes: +FLAG500T PO; +GLUCTAB6 PO; +METF-791 PO; +XARE20TA PO; +ZYVO1TAB PO
[2019-03-06 11:07] LABS: BASO % 0.7 % (0.0-1.0); HEMATOCRIT 27.8 % (42.0-52.0); HEMOGLOBIN 9.1 g/dl (13.5-17.5); LYMPH # 0.9 10^3/uL (1.5-5.0); LYMPH % 22.7 % (24.0-44.0); MEAN CORPUSCULAR HEMOGLOBIN 27.2 pg (27.0-33.0); MEAN CORPUSCULAR HGB CONC 32.7 g/dl (32.0-36.5); MEAN CORPUSCULAR VOLUME 83.2 fl (80.0-96.0); MONO # 0.3 10^3/uL (0.0-0.8); MONO % 7.1 % (0.0-5.0); NEUTROPHILS # 2.8 10^3/uL (1.5-8.5); NEUTROPHILS % 67.8 % (36.0-66.0); PLATELET COUNT, AUTOMATED 260 10^3/uL (150-450); RED BLOOD COUNT 3.34 10^6/uL (4.30-6.10); WHITE BLOOD COUNT 4.1 10^3/uL (4.0-10.0)
[2019-03-06 11:35] LABS: ERYTHROCYTE SEDIMENTATION RATE 39 mm/hr (0-20)
[2019-03-06 11:52] LABS: BLOOD UREA NITROGEN 21 MG/DL (7-18); C REACTIVE PROTEIN QUANTITATIV < 0.30 MG/DL (0.00-0.30); CALCIUM LEVEL 9.2 MG/DL (8.8-10.2); CARBON DIOXIDE LEVEL 22 MEQ/L (21-32); CHLORIDE LEVEL 104 MEQ/L (98-107); CREATININE FOR GFR 1.64 MG/DL (0.70-1.30); GLOMERULAR FILTRATION RATE 45.8 (>49); GLUCOSE, FASTING 233 MG/DL (70-100); IRON (FE) 241 UG/DL (65-175); PERCENT SATURATION 83.4 % (19.7-50.0); POTASSIUM SERUM 4.5 MEQ/L (3.5-5.1); SODIUM LEVEL 137 MEQ/L (136-145); TOTAL IRON BINDING CAPACITY 289 UG/DL (250-450)
== END ==
LOC: M SFHCPLAZ 08:49
PROVIDERS: ATTEND Internal Medicine Infectious Disease
DX: M86.9 Osteomyelitis, unspecified (principal); D50.0 Iron deficiency anemia secondary to blood loss (chronic)
CPT/HCPCS: 36415; 80048; 83550; 85025; 85652; 86140; G0463

== ENCOUNTER → 2019-03-20 | Outpatient (REF) | payer MEDICARE ==
[2019-03-20 13:26] LABS: BASO # 0.1 10^3/uL (0.0-0.2); BASO % 1.4 % (0.0-1.0); EOS # 0.1 10^3/uL (0.0-0.5); EOS % 2.4 % (0.0-3.0); HEMOGLOBIN 9.6 g/dl (13.5-17.5); LYMPH # 1.2 10^3/uL (1.5-5.0); LYMPH % 24.1 % (24.0-44.0); MEAN CORPUSCULAR HEMOGLOBIN 27.4 pg (27.0-33.0); MEAN CORPUSCULAR VOLUME 91.2 fl (80.0-96.0); MONO # 0.3 10^3/uL (0.0-0.8); MONO % 6.6 % (0.0-5.0); NEUTROPHILS # 3.3 10^3/uL (1.5-8.5); NEUTROPHILS % 65.3 % (36.0-66.0); PLATELET COUNT, AUTOMATED 494 10^3/uL (150-450); RED BLOOD COUNT 3.51 10^6/uL (4.30-6.10)
[2019-03-20 14:22] LABS: ERYTHROCYTE SEDIMENTATION RATE 33 mm/hr (0-20)
== END ==
LOC: M SFHCPLAZ 11:01
PROVIDERS: ATTEND Internal Medicine Infectious Disease
DX: M86.9 Osteomyelitis, unspecified (principal)
CPT/HCPCS: 36415; 85025; 85652; 86140; G0463

== ENCOUNTER → 2019-04-08 | Outpatient (REF) | payer MEDICARE ==
[~2019-04-08] MED LIST changes: +SIMV40TA20 PO
[2019-04-08 19:09] LABS: PERCENT SATURATION 14.7 % (19.7-50.0)
== END ==
LOC: M LAB REF 17:47
PROVIDERS: ATTEND Nurse Practitioner Adult Health
DX: R79.0 Abnormal level of blood mineral (principal); Z79.899 Other long term (current) drug therapy

== ENCOUNTER → 2019-06-16 | Outpatient (REF) | payer MEDICARE ==
[2019-06-16 13:50] LABS: CALCIUM LEVEL 9.2 MG/DL (8.8-10.2); CREATININE FOR GFR 1.61 MG/DL (0.70-1.30); GLOMERULAR FILTRATION RATE 46.7 (>49); MAGNESIUM LEVEL 1.9 MG/DL (1.8-2.4); POTASSIUM SERUM 5.3 MEQ/L (3.5-5.1)
== END ==
LOC: M LABDRWAD 12:55
PROVIDERS: ATTEND Physician Assistant
DX: I50.32 Chronic diastolic (congestive) heart failure (principal); I48.0 Paroxysmal atrial fibrillation

== ENCOUNTER 2019-08-23 14:13 | Inpatient (IN) | payer MEDICARE ==
[~2019-08-23] VITALS: Ht 195.6 cm; Wt 105.6 kg
[2019-08-23] MEDS ORDERED: NS 1,000 ML IV ONE (15:00)
[2019-08-23 15:42] LABS: BASO # 0.1 10^3/uL (0.0-0.2); BASO % 0.4 % (0.0-1.0); EOS % 0.1 % (0.0-3.0); HEMATOCRIT 38.6 % (42.0-52.0); HEMOGLOBIN 13.2 g/dl (13.5-17.5); LYMPH # 1.1 10^3/uL (1.5-5.0); LYMPH % 9.8 % (24.0-44.0); MEAN CORPUSCULAR HEMOGLOBIN 27.3 pg (27.0-33.0); MEAN CORPUSCULAR HGB CONC 34.2 g/dl (32.0-36.5); MEAN CORPUSCULAR VOLUME 79.9 fl (80.0-96.0); MONO # 0.8 10^3/uL (0.0-0.8); MONO % 6.8 % (0.0-5.0); NEUTROPHILS # 9.5 10^3/uL (1.5-8.5); NEUTROPHILS % 81.7 % (36.0-66.0); PLATELET COUNT, AUTOMATED 233 10^3/uL (150-450); RED BLOOD COUNT 4.83 10^6/uL (4.30-6.10); WHITE BLOOD COUNT 11.6 10^3/uL (4.0-10.0)
[2019-08-23 16:11] LABS: OSMOLALITY SERUM 278 MOSM/KG (280-301)
[2019-08-23 16:17] LABS: ACETONE/KETONE 1.42 MG/DL (<2.81); ALBUMIN 2.4 GM/DL (3.2-5.2); ALT/SGPT 23 U/L (12-78); BILIRUBIN,DIRECT 0.4 MG/DL (0.0-0.2); CK-MB VALUE MASS < 1.0 NG/ML (<3.6); CPK CREATINE PHOSPHOKINASE 19 U/L (39-308); LIPASE 84 U/L (73-393); MB/CK RELATIVE INDEX 5.26 (< OR =4); TOTAL PROTEIN 7.6 GM/DL (6.4-8.2); TROPONIN I 0.08 NG/ML (< 0.10)
[2019-08-23] MEDS ORDERED: NORCO, ANEXSIA 5/325MG TABLET (HYDROcodone/ACETAMINOPHEN) PO ONE (16:30)
[2019-08-23 17:58] LABS: URIC ACID 9.2 MG/DL (3.5-7.2)
[2019-08-23] MEDS ORDERED: CLINDAMYCIN 600 MG in IV 1 EA IV ONE (18:00)
[2019-08-23] MEDS ORDERED: MORPHINE 4 MG/ML 1ML VIAL/SYRINGE (J2270) IV ONE (18:00)
--- NOTE | 2019-08-23 19:34 | HPEPDOC ---
[facility] Medical History & Physical Date of Admission Aug 23, 2019 Date of Service: Aug 23, 2019 Primary Care Physician: Angelica Suazo Attending Physician: Siomara Mondragon MD History and Physical CHIEF COMPLAINT: Increased left foot pain, shortness of breath HISTORY OF PRESENT ILLNESS: The patient is a 59-year-old male with past medical history of stable aortic aneurysm, Charcot foot, peripheral neuropathy, HLD, DM type II, GERD, CAD s/p NV, CKD who presented to [facility] emergency room with the chief complaint of worsening left foot pain and shortness of breath. Patient stated his symptoms started on 08/15/19: nonbloody diarrhea, nausea, nonbloody vomiting. These continued until several days ago when the diarrhea finally stopped. He had persistent decreased appetite. Patient states that he has always has had some SOB; however, on 08/19/19 it worsened. Shortness of breath increased with rest at this time, nonproductive cough became present. Patient was spiking fevers throughout the days from 08/15/19 -08/19/19. They seemed to cease; however, the patient says they came back recently. Patient also complains of increased swelling, redness, pain, increased pressure developing in the left foot. This morning he states that he noticed his foot was "bigger than normal". He has chronic swelling in that foot; however, this was much changed. Patient states that he could not apply wt to the left lower ext. Patient states that his sugars have been very high at home, at times as high as 500. Associated symptoms include lightheadedness, dizziness, he admits to travel to [facility] regularly for his groceries, decreased PO intake of fluids and food, a recent fall earlier this week without hitting his head. Denies abdominal pain, chest pain, recent sick exposure that he knows of. In the emergency room, vital signs show temp 96.8, pulse 57674, blood pressure 126/67, respiratory rate 1220, 99% on room air. His left foot was markedly swollen and very tender to touch. Chest x-ray of his chest was unremarkable, left foot x-ray showed soft tissue swelling. Believe EBC minimally elevated at 11.6, sodium 127, chloride 93, potassium slightly low at 3.4, blood sugar 160. His creatinine was elevated at 1.5, CRP high at 24.9, troponin 0.08, CK-MB 5.26, uric acid elevated at 9.2, lactic acid elevated at 3, decreased lymphocytes. The patient appeared uncomfortable in pain and was oriented 3. The patient had a Covid 19 nasal swab done and sent. Respiratory panel was negative. The patient was admitted for left lower extremity swelling secondary to an acute gouty flare, rule out Covid 19 infection. This case was discussed with Dr. Reyes, pulmonology. REVIEW OF SYSTEMS: CONSTITUTIONAL: Denies unexplained weight gain or weight loss, loss of appeti te,night sweats EYES: Denies eye drainage, eye pain, visual changes, dry/irritated eye EARS, NOSE, MOUTH, THROAT: Denies difficulty hearing, ringing in ears, mouth sores, loose teeth, sore throat, facial numbness or pain NECK: Denies swollen glands CARDIOVASCULAR: Denies irregular heartbeat, racing heart, chest pains, swelling of feet or legs, pain in legs with walking RESPIRATORY: Denies night sweats, wheezing, oxygen at home, coughing up blood, cough lasting > 1 month GASTROINTESTINAL: Denies abdominal pain, constipation, bloody stool, heartburn GENITOURINARY: Denies painful urination, bloody urine, frequent urination, urgency, leaking urine, impotence MUSCULOSKELETAL: Denies muscle pain INTEGUMENTARY: Denies rash, itching, new skin lesion, change in existing skin lesion, hair loss or increase, breast changes. NEUROLOGICAL: Denies headaches, dizziness,numbness or tingling PSYCHIATRIC: Denies depression, anxiety, recurrent bad thoughts, mood swings, hallucinations PAST MEDICAL HISTORY: 1. Aortic aneurysm, stable 2. Charcot's foot 3. Peripheral neuropathy 4. HLD 5. DM type II 6. GERD 7. CAD s/p NV 8. Retinal detachment 9. CKD Stage unknown PAST SURGICAL HISTORY: 1. Aortic valve replacement 2. Right foot surgery x 12-13 3. Left retinal reattachment 4. Right gastrocnemius surgery 5. Resection of bleeding ulcers 3 6. Transmetatarsal amputation with first and second toe debridement SOCIAL HISTORY: Pt denies smoking history. Drinks socially, denies IVDU or illicit drug use. Lives alone in the [place] area. PCP- Gabriele, Oil Boiler- Dr. Felder, Podiatry- Dr. Singh, Nephrology- Dr. Villalta. DNR/DNI, states that it is on file. Maci (a friend) is his emergency contact FAMILY HISTORY: Father: Valvular disease, CAD. at 90 y/o Mother: DM type II, skin cancer. Alive Paternal uncle: CAD, NV. in 80's Maternal uncle: CAD, NV. at 71 y/o HOME MEDICATIONS: Please see below. ALLERGIES: Please see below. PHYSICAL EXAMINATION: CONSTITUTIONAL: Appears uncomfortable, AAO x 3 EYES: PERRLA, EOM intact HENT, MOUTH: Normocephalic, atraumatic, moist mucous membranes, NECK: SUPPLE, no JVD, no lymphadenopathy, no carotid bruit CV: Regular rate and rhythm, S1S2 normal, no murmurs/rubs/gallops RESPIRATORY: Decreased breath sounds bilaterally, no rales/rhonchi/wheezes GI: BS positive in 4 quadrants, soft, nontender, nondistended, no rebound or guarding, no organomegaly : Deferred MUSCULOSKELETAL: Diffuse swelling, redness and tenderness to palpation of the left foot. Decreased ROM of left ankle. No cyanosis, clubbing, joint deformity or other extremity edema INTEGUMENTARY: Intact, no rashes, no lesions, no erythema NEUROLOGIC: Cranial Nerves II-XII are intact, no focal deficits PSYCHIATRIC: Flat affect LABORATORY DATA: Please see below IMAGING: CXR: NAD Left foot XR: Soft tissue swelling ASSESSMENT: Patient is a 59-year-old male admitted for left lower extremity swelling secondary to acute gouty flare, cellulitis, shortness of breath rule out COVID- 19 infection PLAN: 1. Left lower extremity swelling multifactorial to acute gouty flare, cellulitis. Hx of Charcot foot on left. Cannot prescribe NSAIDs due to acute kidney injury. Started on colchicine, clindamycin IV Q6hrs. Tylenol ATC, Tra madol PRN for pain. F/u CT left foot. Will need PT/OT when improves. 2. Shortness of breath r/o COVID 19. Fevers at home, incr SOB, age >60, multiple risk factors including recent travel, DM type II, CAD. COVID testing done in ER, f/u results. As per protocol follow-up CRP, CBC with differential, ferritin, pro-calcitonin, LDH, BNP, troponin, d-dimer, fibrinogen, PT/PTT every 12 hours. Follow up baseline HIV1/HIV2, interleukin-6, pro-calcitonin. Starting on hydroxychloroquine 400 mg by mouth twice a day 1 day then 200 mg by mouth daily 4 days and azithromycin 500 mg IV Q24H. F/u initial ECG, monitoring QTC with daily ECG and telemetry. Enoxaparin 0.5 mg/kg BID. Incentive spirometer Q2 hrs while awake, OOBTC and OOB with meals. Contact and droplet precautions initiated. Continue with supportive care and Q4H oxygen monitoring. O2 supplementation PRN. 3. Acute kidney injury on CKD Stage unknown. Holding home lasix. Cr 1.5. C/w IVFs, daily labs. Avoid nephrotoxic medications. 4. Hypokalemia, mild. Potassium 3.4. Supplement 40 mEq PO tonight, f/u labs in AM. 5. Dehydration likely 2/2 to recent diarrheal illness (poss. COVID) vs. gastroenteritis, decreased PO intake. LA 3. C/w IVFs at 100 cc/hr, f/u CMP daily, replace electrolytes PRN. 6. Hyponatremia, moderate. Likely 2/2 to dehydration causes above. C/w plan above. 7. DM type II. C/w levemir HS, ISS, AC/HS finger sticks, consistent carb diet. F/u lipid panel, HbA1c. 8. CAD s/p NV. Trops higher end of normal, CKMB elevated. f/u ECG, on telemetry. 9. HLD. C/w statin. 10. Aortic aneurysm, stable and chronic. Follows up with imaging yearly. 11. Peripheral neuropathy. Stable. 12. GERD. Famotidine. 13. DVT px. Enoxaparin BID. DISPOSITION: Admitted under inpatient status. Plan is discharge home when me dically improved. Vital Signs Vital Signs Date Time Temp Pulse Resp B/P (MAP) Pulse Ox O2 Delivery O2 Flow Rate FiO2 08/23/19 18:17 16 Room Air 08/23/19 18:14 98.2 92 107/59 (75) 95 Laboratory Data Labs 24H Laboratory Tests 2 08/23/19 14:49: Immature Granulocyte % (Auto) 1.2, Neutrophils (%) (Auto) 81.7H, Lymphocytes (%) (Auto) 9.8L, Monocytes (%) (Auto) 6.8H, Eosinophils (%) (Auto) 0.1, Basophils (%) (Auto) 0.4, Neutrophils # (Auto) 9.5H, Lymphocytes # (Auto) 1.1L, Monocytes # (Auto) 0.8, Eosinophils # (Auto) 0.0, Basophils # (Auto) 0.1, Nucleated Red Blood Cells % (auto) 0.0, Osmolality 278L, Lactic Acid Level 3.0*H, Uric Acid 9.2H, Magnesium Level 2.0, Total Bilirubin 1.0, Direct Bilirubin 0.4H, Aspartate Amino Transf (AST/SGOT) 36, Alanine Aminotransferase (ALT/SGPT) 23, Alkaline Phosphatase 100, Total Creatine Kinase 19L, Creatine Kinase MB < 1.0, Creatine Kinase MB Relative Index 5.26H, Troponin I 0.08, C-Reactive Protein, Quantitative 24.90H, Total Protein 7.6, Albumin 2.4L, Albumin/Globulin Ratio 0.46L, Lipase 84, B-Hydroxybutyrate 1.42 08/23/19 15:27: POC Glucose (Misc Panel) 160H, POC Sodium (Misc Panel) 127L, POC Potassium (Misc Panel) 3.4L, POC Chloride (Misc Panel) 93L, POC Total CO2 (Misc Panel) 22.0L, POC Blood Urea Nitrogen (Misc Panel 33H, POC Ionized Calcium (Misc Panel) 4.1L, POC Creatinine (Misc Panel) 1.5H, POC Hematocrit (Misc Panel) 43.0 CBC/BMP Laboratory Tests 08/23/19 14:49 Microbiology Microbiology 08/23/19 Coronavirus COVID-19 PCR (ELSA), Received Pending 08/23/19 Respiratory Panel (PCR) - Final, Complete Home Medications Scheduled Furosemide (Furosemide) 20 Mg Tab, 20 MG PO BID takes 0800/1800 Gluc Fink/Chondro Fink A/Vit C/Mn (Glucosamine Chondroitin Tab) 1 Each Tablet, 1 TAB PO DAILY Insulin Glargine (Lantus) 1 Units/0.01 Ml Susp, 1 DOSE SC QHS 18 - 22 UNITS Insulin Human Lispro (Humalog) 1 Units/0.01 Ml Inj, 1 DOSE SC AC Usually 8 - 10 UNITS PER SLIDING SCALE Latanoprost (Xalatan) 0.005 % Nat, 1 DROP OS QHS Metformin HCl (Metformin HCl ER) 500 Mg Tab.er.24h, 1,000 MG PO DAILY Ranitidine HCl (Ranitidine HCl) 150 Mg Tab, 1 TAB PO DAILY Rivaroxaban (Xarelto) 20 Mg Tablet, 20 MG PO QHS Simvastatin (Simvastatin) 40 Mg Tab, 40 MG PO QHS Allergies Coded Allergies: No Known Allergies (Verified , 08/14/18) A-FIB/CHADSVASC A-FIB History Current/History of A-Fib/PAF?: No Current PO Anticoag Therapy: Yes Age/Risk Factor Scoring CHADSVASC: CHADSVASC Response (Comments) Value Age Risk Factor Age < 65 years old 0 Gender Risk Factor Male 0 Hx of CHF No 0 Hx of HTN Yes 1 Hx of Stroke/TIA/or VTE No 0 Hx of Diabetes Yes 1 Hx of Vascular Disease No 0 Total 2 Treatment Treatment ordered: Other (enoxaparin) Other anticoagulant ordered: enoxaparin Siomara Mondragon MD Aug 23, 2019 19:34
[2019-08-23] MEDS ORDERED: AZITHROMYCIN INJ 500 MG, VIAL MATE ADAPTER 1 EACH in D5W 250 ML IV ONE (20:30)
[2019-08-23] MEDS ORDERED: GLUCOSE 4 GM CHEW TABLET PO PRN (20:45)
[2019-08-23] MEDS ORDERED: GLUCAGON FOR INJ 1 MG VIAL (J1610) SC PRN (20:45)
[2019-08-23] MEDS ORDERED: DEXTROSE 50% 50 ML SYRINGE IV PRN (20:45)
[2019-08-23 20:50] LABS: INR 1.71; PROTHROMBIN TIME 19.8 SECONDS (11.8-14.0)
[2019-08-23 20:51] LABS: PARTIAL THROMBOPLASTIN TIME 54.6 SECONDS (25.0-38.4)
[2019-08-23 20:53] LABS: D-DIMER QUANT 2122.59 ng/ml (<500)
[2019-08-23] MEDS ORDERED: COMBIVENT RESPIMAT 100-20MCG INHALER 4GM INH PRN (21:00)
[2019-08-23 21:34] LABS: BASO % 0.5 % (0.0-1.0); EOS % 0.5 % (0.0-3.0); HEMATOCRIT 39.1 % (42.0-52.0); HEMOGLOBIN 13.3 g/dl (13.5-17.5); LYMPH # 1.1 10^3/uL (1.5-5.0); LYMPH % 12.2 % (24.0-44.0); MEAN CORPUSCULAR HEMOGLOBIN 27.6 pg (27.0-33.0); MEAN CORPUSCULAR VOLUME 81.1 fl (80.0-96.0); MONO # 1.1 10^3/uL (0.0-0.8); MONO % 12.5 % (0.0-5.0); NEUTROPHILS # 6.3 10^3/uL (1.5-8.5); NEUTROPHILS % 72.9 % (36.0-66.0); PLATELET COUNT, AUTOMATED 218 10^3/uL (150-450); RED BLOOD COUNT 4.82 10^6/uL (4.30-6.10); WHITE BLOOD COUNT 8.7 10^3/uL (4.0-10.0)
--- NOTE | 2019-08-23 22:01 | REPVR ---
PROCEDURE INFORMATION: Exam: CT Left Lower Extremity Without Contrast, Foot Exam date and time: 08/23/2019 9:35 PM Age: 59 years old Clinical indication: Cellulitis and swelling, leg or foot; Left; Additional info: Left foot swelling, cellulitis. Covid-19 R/O TECHNIQUE: Imaging protocol: CT of the Left lower extremity without contrast was performed. Exam focused on the foot. Axial, coronal and sagittal reformatted images were created and reviewed. Radiation optimization: All CT scans at this facility use at least one of these dose optimization techniques: automated exposure control; mA and/or kV adjustment per patient size (includes targeted exams where dose is matched to clinical indication); or iterative reconstruction. COMPARISON: RF Foot, Ap, Lat 02/18/2019 5:00 PM FINDINGS: Bones/joints: Extensive deformity, disorganization and fragmentation of the midfoot with associated chronic appearing periarticular erosive/destructive changes. Similar, less pronounced findings in the hindfoot. No CT evidence of acute fracture or dislocation. No convincing acute erosive or destructive changes. Soft tissues: Diffuse soft tissue swelling and subcutaneous edema with overlying skin thickening, compatible with cellulitis and probable myositis. No convincing organized fluid collection. No soft tissue gas. IMPRESSION: 1. Limited noncontrast examination. 2. Cellulitis and probable myositis without convincing organized fluid collection. 3. Evidence of chronic Charcot neuropathy. Superimposed acute osteomyelitis is difficult to definitively excluded. If clinically indicated, MRI would provide a more sensitive evaluation. 4. Additional findings, as above. Electronically signed by: Esequiel Toney On 08/23/2019 22:01:01 PM
[2019-08-23] MEDS: ACETAMINOPHEN TAB 650MG DOSE (2X325MG) PO SCH (22:05)
[2019-08-23] MEDS: SIMVASTATIN 40 MG TAB PO SCH (22:05)
[2019-08-23] MEDS: LEVEMIR (INSULIN DETEMIR) 1 UNITS/0.01ML SC SCH (22:06)
[2019-08-23] MEDS: NS 1,000 ML IV SCH (22:07)
[2019-08-23] MEDS: HYDROXYCHLOROQUINE 200 MG TAB PO SCH (22:11)
[2019-08-23] MEDS: ALBUTEROL 90 MCG/ACT 8GM HFA INHALER INH SCH (22:11)
[2019-08-23] MEDS: COLCHICINE 0.6 MG TAB PO SCH (22:11)
[2019-08-23] MEDS: traMADol 50 MG TAB PO PRN (22:12)
[2019-08-23] MEDS: LATANOPROST 0.005% OPHTH SOLN 2.5 ML OS SCH (22:12)
[2019-08-23 22:15] VITALS: BP 110/56
[2019-08-23 22:23] LABS: ALBUMIN 2.1 GM/DL (3.2-5.2); ALT/SGPT 25 U/L (12-78); BILIRUBIN,TOTAL 1.2 MG/DL (0.2-1.0); BLOOD UREA NITROGEN 33 MG/DL (7-18); CALCIUM LEVEL 7.7 MG/DL (8.8-10.2); CARBON DIOXIDE LEVEL 19 MEQ/L (21-32); CHLORIDE LEVEL 97 MEQ/L (98-107); CREATININE FOR GFR 1.52 MG/DL (0.70-1.30); FERRITIN 590 NG/ML (26-388); GLOMERULAR FILTRATION RATE 49.9 (>49); GLUCOSE, FASTING 191 MG/DL (70-100); LDH LACTATE DEHYDROGENASE 518 U/L (87-241); NT-PRO BNP 1729 PG/ML (<125); POTASSIUM SERUM 4.7 MEQ/L (3.5-5.1); SODIUM LEVEL 128 MEQ/L (136-145); TOTAL PROTEIN 7.1 GM/DL (6.4-8.2); TRIGLYCERIDES LEVEL 244 MG/DL (<150); TROPONIN I 0.08 NG/ML (< 0.10)
[2019-08-24] VITALS (7 sets, daily range): BP systolic 94–105; BP diastolic 57–63; O2SAT 95–98
[2019-08-24] MEDS ORDERED: PERCOCET 5MG/325MG TAB PO ONE (00:15)
[2019-08-24] MEDS: CLINDAMYCIN 600 MG in IV 1 EA IV SCH ×4 (00:30→17:53)
[2019-08-24] MEDS: ENOXAPARIN 60 MG/0.6 ML SYR (J1650) SC SCH ×3 (00:30→20:16)
[2019-08-24] MEDS: traMADol 50 MG TAB PO PRN ×3 (04:42→20:18)
--- NOTE | 2019-08-24 07:39 | REP ---
CHEST PORTABLE: REASON: Dyspnea. FINDINGS: The technique utilized in obtaining the radiograph has magnified the cardiac silhouette and accentuated the interstitial markings. The superior mediastinal structures are midline. The cardiac silhouette is unremarkable in size, shape, and position. The diaphragmatic surfaces of the lungs are regular, and the costophrenic angles are clear. The pulmonary jack are clear. The imaged osseous structures are intact. IMPRESSION: There is no acute cardiopulmonary disease. Electronically Signed by Liam Sims DO 08/24/2019 08:09 A
--- NOTE | 2019-08-24 07:41 | REP ---
REASON: Swelling, no history of trauma. Four views at left ankle show diffuse soft tissue swelling. Degenerative changes seen involving the ankle and imaged portion of the foot. There is no evidence of an acute ankle fracture. Plantar and retrocalcaneal heel spurs are present. Electronically Signed by Liam Sims DO 08/24/2019 08:09 A
[2019-08-24] MEDS: LACTOBACILLUS ACIDOPHILUS CAP (BACID) PO SCH ×2 (08:10→17:53)
[2019-08-24] MEDS: COLCHICINE 0.6 MG TAB PO SCH ×2 (08:11→16:44)
[2019-08-24] MEDS: ACETAMINOPHEN TAB 650MG DOSE (2X325MG) PO SCH ×4 (08:13→20:18)
[2019-08-24] MEDS: FAMOTIDINE 20 MG TAB PO SCH (08:14)
[2019-08-24] MEDS: HYDROXYCHLOROQUINE 200 MG TAB PO SCH ×2 (08:14→20:18)
[2019-08-24] MEDS: HumaLOG INSULIN (NovoLOG) PER UNIT SC SCH ×3 (08:15→17:52)
[2019-08-24] MEDS: NS 1,000 ML IV SCH ×3 (08:19→20:19)
[2019-08-24 08:45] LABS: BASO % 0.5 % (0.0-1.0); EOS # 0.1 10^3/uL (0.0-0.5); EOS % 0.7 % (0.0-3.0); HEMATOCRIT 31.1 % (42.0-52.0); LYMPH % 11.7 % (24.0-44.0); MEAN CORPUSCULAR HEMOGLOBIN 27.6 pg (27.0-33.0); MEAN CORPUSCULAR HGB CONC 34.4 g/dl (32.0-36.5); MEAN CORPUSCULAR VOLUME 80.2 fl (80.0-96.0); MONO # 1.2 10^3/uL (0.0-0.8); MONO % 13.3 % (0.0-5.0); NEUTROPHILS # 6.3 10^3/uL (1.5-8.5); NEUTROPHILS % 72.4 % (36.0-66.0); PLATELET COUNT, AUTOMATED 151 10^3/uL (150-450); RED BLOOD COUNT 3.88 10^6/uL (4.30-6.10); WHITE BLOOD COUNT 8.7 10^3/uL (4.0-10.0)
[2019-08-24 08:58] LABS: INR 1.47; PROTHROMBIN TIME 17.6 SECONDS (11.8-14.0)
[2019-08-24 08:59] LABS: PARTIAL THROMBOPLASTIN TIME 39.1 SECONDS (25.0-38.4)
[2019-08-24 09:00] LABS: D-DIMER QUANT 1338.95 ng/ml (<500); HEMOGLOBIN A1c 11.3 %
[2019-08-24 09:04] LABS: C REACTIVE PROTEIN QUANTITATIV 17.7 MG/DL (0.00-0.30); TROPONIN I 0.06 NG/ML (< 0.10)
[2019-08-24 09:38] LABS: HEMOGLOBIN 10.7 g/dl (13.5-17.5)
[2019-08-24] MEDS: ALBUTEROL 90 MCG/ACT 8GM HFA INHALER INH SCH ×3 (11:05→19:45)
[2019-08-24] MEDS ORDERED: PROHANCE 279.3MG/ML 5ML VIAL (A9576) As Ordered ONE (11:28)
--- NOTE | 2019-08-24 11:34 | ECGEPIP ---
[facility] - ED Test Date: 2019-08-23 Pat Name: CHAYO WHITNEY Department: Room: [place] [address] Gender: Male Choirmaster: alvina : 1960 Requested By: ANNA SUTTON PA-C Order Number: [id number] Reading MD: Liv Limon Measurements Intervals Sheldon Rate: 93 P: 59 NM: 233 QRS: -34 QRSD: 121 T: 44 QT: 363 QTc: 453 Interpretive Statements SINUS RHYTHM WITH FIRST DEGREE AV BLOCK POSSIBLE LEFT ATRIAL ENLARGEMENT MARKED LEFT AXIS DEVIATION LAFB PROBABLE LATERAL MYOCARDIAL INFARCTION, OF INDETERMINATE AGE NONSPECIFIC ST T WAVE CHANGES CW 01/25/[address] T WAVE CHANGES Electronically Signed on 08-24-2019 11:34:16 EDT by Liv Limon
--- NOTE | 2019-08-24 11:38 | IPNPDOC ---
Date Seen The patient was seen on 08/24/19. Progress Note SUBJECTIVE: CT left foot showed possible cellulitis vs. myositis, could not r/o osteomyelitis. MRI foot today. Patient states pain is 7/10 on pain scale this AM, decreased redness, erythema. Increased fluid as labs are only slightly improved, careful not to fluid overload. On RA, denies increased SOB, n/v/d, fevers or chills. OBJECTIVE: VITAL SIGNS: Please see below PHYSICAL EXAMINATION: CONSTITUTIONAL: Appears more comfortable, AAO x 3 EYES: PERRLA, EOM intact HENT, MOUTH: Normocephalic, atraumatic, moist mucous membranes, NECK: SUPPLE, no JVD, no lymphadenopathy, no carotid bruit CV: Regular rate and rhythm, S1S2 normal, no murmurs/rubs/gallops RESPIRATORY: Decreased breath sounds bilaterally, no rales/rhonchi/wheezes GI: BS positive in 4 quadrants, soft, nontender, nondistended, no rebound or guarding, no organomegaly : Deferred MUSCULOSKELETAL: Decreased redness with persistent tenderness and swelling of the left foot. Decreased ROM of left ankle. No cyanosis, clubbing, joint deformity or other extremity edema INTEGUMENTARY: Intact, no rashes, no lesions, no erythema NEUROLOGIC: Cranial Nerves II-XII are intact, no focal deficits PSYCHIATRIC: Flat affect LABORATORY DATA: Please see below IMAGING: CT left foot w/out contrast: 1. Limited noncontrast examination. 2. Cellulitis and probable myositis without convincing organized fluid collection. 3. Evidence of chronic Charcot neuropathy. Superimposed acute osteomyelitis is difficult to definitively excluded. If clinically indicated, MRI would provide a more sensitive evaluation. 4. Additional findings, as above MRI to be done today ASSESSMENT: Patient is a 59-year-old male admitted for left lower extremity swelling secondary to acute gouty flare, cellulitis, r/o osteomyelitis, shortness of breath rule out COVID- 19 infection PLAN: 1. Left lower extremity swelling multifactorial to acute gouty flare, cellulitis vs. myositits, r/o acute osteomyelitis. Hx of Charcot foot. F/u MRI foot. C/w colchicine, clindamycin IV Q6hrs, Tylenol ATC, Tramadol PRN for pain. PT/OT when improves. 2. Shortness of breath r/o COVID 19. Afebrile, on RA, COVID testing pending. Improved SOB. F/u of all labs as per protocol. C/w hydroxychloroquine 200 mg PO BID 4 days and azithromycin 500 mg IV Q24H. ECG QTc wnl. F/u daily ECG and telemetry. Enoxaparin 0.5 mg/kg BID. Incentive spirometer Q2 hrs while awake, OOBTC and OOB with meals. Contact and droplet precautions initiated. Continue with supportive care and Q4H oxygen monitoring. 3. Acute kidney injury on CKD Stage unknown. Cr wnl. Will c/w IVFs, daily labs. Avoid nephrotoxic medications. 4. Hypokalemia, mild. Resolved. F/u labs in AM. 5. Dehydration likely 2/2 to recent diarrheal illness (poss. COVID) vs. gastroenteritis, decreased PO intake. LA wnl. Improving; however sodium and chloride still low. Increased IVFs to 125 mg x 6 hrs then will decrease to 100 cc/hr after. F/u CMP daily, replace electrolytes PRN. 6. Hyponatremia, moderate. Likely 2/2 to dehydration causes above. Sodium only improved mildly, will increase rate and f/u labs in AM. 7. DM type II. BS uncontrolled, started levemir 12 U SC QAM in addition to nightly dose. HbA1c >11. C/w levemir BID, ISS, AC/HS finger sticks, consistent carb diet. F/u lipid panel. 8. CAD s/p CO. Asymptomatic. F/u ECG, on telemetry. 9. Elevated BNP. No known history of heart failure by patient. Improved on repeat test. Monitor closely for signs of fluid overload on increased IVF rate. 10. HLD. C/w statin. 11. Aortic aneurysm, stable and chronic. Follows up with imaging yearly. 12. Peripheral neuropathy. Stable. 13. GERD. Famotidine. 14. DVT px. Enoxaparin BID. DISPOSITION: Admitted under inpatient status. Plan is discharge home when medically improved. VS, I&O, 24H, Fishbone Vital Signs/I&O Vital Signs Date Time Temp Pulse Resp B/P (MAP) Pulse Ox O2 Delivery O2 Flow Rate FiO2 08/24/19 11:04 96.4 78 14 95/63 95 Room Air I&O- Last 24 Hours up to 6 AM 4/12/20 06:00 Intake Total 2355 ml Output Total 1100 ml Balance 1255 ml Laboratory Data 24H LABS Laboratory Tests 2 08/23/19 14:49: Immature Granulocyte % (Auto) 1.2, Neutrophils (%) (Auto) 81.7H, Lymphocytes (%) (Auto) 9.8L, Monocytes (%) (Auto) 6.8H, Eosinophils (%) (Auto) 0.1, Basophils (%) (Auto) 0.4, Neutrophils # (Auto) 9.5H, Lymphocytes # (Auto) 1.1L, Monocytes # (Auto) 0.8, Eosinophils # (Auto) 0.0, Basophils # (Auto) 0.1, Nucleated Red Blood Cells % (auto) 0.0, Osmolality 278L, Lactic Acid Level 3.0*H, Uric Acid 9.2H, Magnesium Level 2.0, Total Bilirubin 1.0, Direct Bilirubin 0.4H, Aspartate Amino Transf (AST/SGOT) 36, Alanine Aminotransferase (ALT/SGPT) 23, Alkaline Phosphatase 100, Total Creatine Kinase 19L, Creatine Kinase MB < 1.0, Creatine Kinase MB Relative Index 5.26H, Troponin I 0.08, C-Reactive Protein, Quantitative 24.90H, Total Protein 7.6, Albumin 2.4L, Albumin/Globulin Ratio 0.46L, Lipase 84, B-Hydroxybutyrate 1.42 08/23/19 14:58: 08/23/19 15:27: POC Glucose (Misc Panel) 160H, POC Sodium (Misc Panel) 127L, POC Potassium (Misc Panel) 3.4L, POC Chloride (Misc Panel) 93L, POC Total CO2 (Misc Panel) 22.0L, POC Blood Urea Nitrogen (Misc Panel 33H, POC Ionized Calcium (Misc Panel) 4.1L, POC Creatinine (Misc Panel) 1.5H, POC Hematocrit (Misc Panel) 43.0 08/23/19 20:42: Prothrombin Time 19.8H, Prothromb Time International Ratio 1.71, Activated Partial Thromboplast Time 54.6H, Fibrinogen 648H, D-Dimer, Quantitative 2122.59H 08/23/19 20:44: Lactic Acid Followup at 4 Hours 1.5 08/23/19 21:20: Immature Granulocyte % (Auto) 1.4, Neutrophils (%) (Auto) 72.9H, Lymphocytes (%) (Auto) 12.2L, Monocytes (%) (Auto) 12.5H, Eosinophils (%) (Auto) 0.5, Basophils (%) (Auto) 0.5, Neutrophils # (Auto) 6.3, Lymphocytes # (Auto) 1.1L, Monocytes # (Auto) 1.1H, Eosinophils # (Auto) 0.0, Basophils # (Auto) 0.0, Nucleated Red Blood Cells % (auto) 0.0, Anion Gap 12, Glomerular Filtration Rate 49.9, Calcium Level 7.7L, Ferritin 590H, Total Bilirubin 1.2H, Aspartate Amino Transf (AST/SGOT) 67H, Alanine Aminotransferase (ALT/SGPT) 25, Alkaline Phosphatase 87, Lactate Dehydrogenase 518H, Troponin I 0.08, C-Reactive Protein, Quantitative 21.80H, KS-Gmo-I-Type Natriuretic Peptide 1729H, Total Protein 7.1, Albumin 2.1L, Albumin/Globulin Ratio 0.42L, Triglycerides Level 244H 08/23/19 21:29: Urine Color YELLOW, Urine Appearance HAZY, Urine pH 5.0, Urine Specific [place] 1.017, Urine Protein NEGATIVE, Urine Glucose (UA) 3+H, Urine Ketones TRACEH, Urine Blood NEGATIVE, Urine Nitrite NEGATIVE, Urine Bilirubin NEGATIVE, Urine Urobilinogen 2.0H, Urine Leukocyte Esterase NEGATIVE, Urine WBC (Auto) 3, Urine RBC (Auto) 5H, Urine Hyaline Casts (Auto) 19, Urine Bacteria (Auto) NEGATIVE, Urine Squamous Epithelial Cells 0, Urine Granular Casts (Auto) 5, Urine Mucus (Auto) SMALL, Urine Sperm (Auto) 08/23/19 21:57: [facility]side [facility] 191H 08/24/19 08:05: Immature Granulocyte % (Auto) 1.4, Neutrophils (%) (Auto) 72.4H, Lymphocytes (%) (Auto) 11.7L, Monocytes (%) (Auto) 13.3H, Eosinophils (%) (Auto) 0.7, Basophils (%) (Auto) 0.5, Neutrophils # (Auto) 6.3, Lymphocytes # (Auto) 1.0L, Monocytes # (Auto) 1.2H, Eosinophils # (Auto) 0.1, Basophils # (Auto) 0.0, Nucleated Red Blood Cells % (auto) 0.0, Prothrombin Time 17.6H, Prothromb Time International Ratio 1.47, Activated Partial Thromboplast Time 39.1H, Fibrinogen 566H, D-Dimer, Quantitative 1338.95H, Estimated Mean Plasma Glucose 278H, Hemoglobin A1c 11.3, Lactic Acid Level 0.7, Ferritin 546H, Lactate Dehydrogenase 236, Troponin I 0.06#, C-Reactive Protein, Quantitative 17.70H, VQ-Wia-M-Type Natriuretic Peptide 886H 08/24/19 08:07: Bedside Glucose (Misc Panel) 198H 08/24/19 11:09: Bedside Glucose (Misc Panel) 252H CBC/BMP Laboratory Tests 08/23/19 14:49 08/23/19 21:20 08/24/19 08:05 Microbiology Microbiology 08/24/19 Blood Culture, Received Pending 08/23/19 Blood Culture, Received Pending 08/23/19 Coronavirus COVID-19 PCR (ELSA), Received Pending 08/23/19 Respiratory Panel (PCR) - Final, Complete Current Medications Current Medications Medications (Trade) Dose Ordered Sig/Shaheen Route PRN Reason Start Time Stop Time Status Last Admin Dose Admin Acetaminophen (Tylenol Tab) 650 mg QID PO 08/23/19 21:00 08/24/19 08:13 Albuterol Sulfate (Proventil, Ventolin Hfa) 2 puff RTID INH 08/23/19 20:00 08/24/19 11:05 Albuterol/ Ipratropium (Combivent Respimat 100-20mcg) 1 puff Q6HP PRN INH SHORTNESS OF BREATH 08/23/19 21:00 Clindamycin Phosphate 600 mg/ IV Miscellaneous Supplies 50 ml @ 100 mls/hr Q6H IV 08/24/19 00:00 08/24/19 05:24 Colchicine (Colcrys) 0.6 mg BID PO 08/25/19 09:00 Colchicine (Colcrys) 0.6 mg TID PO 08/23/19 21:00 08/24/19 16:01 08/24/19 08:11 Dextrose (Dextrose 50%) 25 ml ASDIRECTED PRN IV SEE LABEL COMMENTS 08/23/19 20:45 Enoxaparin Sodium (Lovenox) 50 mg Q12H SC 08/23/19 21:00 08/24/19 08:20 Famotidine (Pepcid) 40 mg DAILY PO 08/24/19 09:00 08/24/19 08:14 Glucagon (Glucagon) 1 mg ASDIRECTED PRN SC SEE LABEL COMMENTS 08/23/19 20:45 Glucose (Glucose) 16 GM ASDIRECTED PRN PO SEE LABEL COMMENTS 08/23/19 20:45 Home Med (Med Rec Complete!) ASDIRECTED XX 08/23/19 18:30 08/23/19 18:28 DC Hydroxychloroquine Sulfate (Plaquenil) 200 mg Q12H PO 08/24/19 21:00 08/28/19 09:01 Hydroxychloroquine Sulfate (Plaquenil) 400 mg Q12H PO 08/23/19 21:00 08/24/19 09:01 DC 08/24/19 08:14 Insulin Detemir (Levemir Insulin) 22 units QHS SC 08/23/19 21:00 08/23/19 22:06 Insulin Human Lispro (HumaLOG INSULIN) SEE PROTOCOL TABLE AC SC 08/24/19 07:30 08/24/19 08:15 Lactobacillus Acidophilus (Bacid) 1 ea BIDWM PO 08/24/19 08:00 08/24/19 08:10 Latanoprost (Xalatan 0.005% Op Soln) 1 drop QHS OS 08/23/19 21:00 08/23/19 22:12 Simvastatin (Zocor) 40 mg QHS PO 08/23/19 21:00 08/23/19 22:05 Sodium Chloride 1,000 ml @ 100 mls/hr Q10H IV 08/23/19 20:45 08/24/19 08:19 Tramadol HCl (Ultram) 50 mg Q6HP PRN PO MODERATE PAIN (PS 5-7) 08/23/19 21:45 08/24/19 11:04 Allergies Coded Allergies: No Known Allergies (Verified , 08/14/18) Current Medications Current Medications Medications (Trade) Dose Ordered Sig/Shaheen Route PRN Reason Start Time Stop Time Status Last Admin Dose Admin Acetaminophen (Tylenol Tab) 650 mg QID PO 08/23/19 21:00 08/24/19 14:00 Albuterol Sulfate (Proventil, Ventolin Hfa) 2 puff RTID INH 08/23/19 20:00 08/24/19 14:01 Albuterol/ Ipratropium (Combivent Respimat 100-20mcg) 1 puff Q6HP PRN INH SHORTNESS OF BREATH 08/23/19 21:00 Clindamycin Phosphate 600 mg/ IV Miscellaneous Supplies 50 ml @ 100 mls/hr Q6H IV 08/24/19 00:00 08/24/19 14:01 Colchicine (Colcrys) 0.6 mg BID PO 08/25/19 09:00 Colchicine (Colcrys) 0.6 mg TID PO 08/23/19 21:00 08/24/19 16:01 DC 08/24/19 08:11 Dextrose (Dextrose 50%) 25 ml ASDIRECTED PRN IV SEE LABEL COMMENTS 08/23/19 20:45 Enoxaparin Sodium (Lovenox) 50 mg Q12H SC 08/23/19 21:00 08/24/19 08:20 Famotidine (Pepcid) 40 mg DAILY PO 08/24/19 09:00 08/24/19 08:14 Glucagon (Glucagon) 1 mg ASDIRECTED PRN SC SEE LABEL COMMENTS 08/23/19 20:45 Glucose (Glucose) 16 GM ASDIRECTED PRN PO SEE LABEL COMMENTS 08/23/19 20:45 Home Med (Med Rec Complete!) ASDIRECTED XX 08/23/19 18:30 08/23/19 18:28 DC Hydroxychloroquine Sulfate (Plaquenil) 200 mg Q12H PO 08/24/19 21:00 08/28/19 09:01 Hydroxychloroquine Sulfate (Plaquenil) 400 mg Q12H PO 08/23/19 21:00 08/24/19 09:01 DC 08/24/19 08:14 Insulin Detemir (Levemir Insulin) 12 units QAM SC 08/25/19 09:00 Insulin Detemir (Levemir Insulin) 22 units QHS SC 08/23/19 21:00 08/23/19 22:06 Insulin Human Lispro (HumaLOG INSULIN) SEE PROTOCOL TABLE AC SC 08/24/19 07:30 08/24/19 14:00 Ketorolac Tromethamine (ToRADol) 15 mg Q6HP PRN IV PAIN 08/24/19 15:30 08/29/19 15:29 Lactobacillus Acidophilus (Bacid) 1 ea BIDWM PO 08/24/19 08:00 08/24/19 08:10 Latanoprost (Xalatan 0.005% Op Soln) 1 drop QHS OS 08/23/19 21:00 08/23/19 22:12 Simvastatin (Zocor) 40 mg QHS PO 08/23/19 21:00 08/23/19 22:05 Sodium Chloride 1,000 ml @ 100 mls/hr Q10H IV 08/24/19 21:30 Sodium Chloride 1,000 ml @ 125 mls/hr Q8H IV 08/23/19 20:45 08/24/19 21:29 08/24/19 08:19 Tramadol HCl (Ultram) 50 mg Q6HP PRN PO MODERATE PAIN (PS 5-7) 08/23/19 21:45 08/24/19 11:04 Siomara Mondragon MD Aug 24, 2019 11:38
[2019-08-24] MEDS ORDERED: LEVEMIR (INSULIN DETEMIR) 1 UNITS/0.01ML SC ONE (12:00)
--- NOTE | 2019-08-24 12:18 | ECGEPIP ---
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 Lateral Q waves rule out prior injury. Borderline increased corrected QT interval No significant change from 08/23/19. Electronically Signed on 08-24-2019 12:17:51 EDT by Oziel Dennison
[2019-08-24 14:48] LABS: ALBUMIN 2.3 GM/DL (3.2-5.2); ALT/SGPT 20 U/L (12-78); BILIRUBIN,TOTAL 0.8 MG/DL (0.2-1.0); BLOOD UREA NITROGEN 28 MG/DL (7-18); CALCIUM LEVEL 7.9 MG/DL (8.8-10.2); CARBON DIOXIDE LEVEL 23 MEQ/L (21-32); CHLORIDE LEVEL 96 MEQ/L (98-107); CREATININE FOR GFR 1.29 MG/DL (0.70-1.30); GLOMERULAR FILTRATION RATE > 60.0 (>49); GLUCOSE, FASTING 293 MG/DL (70-100); POTASSIUM SERUM 3.6 MEQ/L (3.5-5.1); SODIUM LEVEL 129 MEQ/L (136-145); TOTAL PROTEIN 7.1 GM/DL (6.4-8.2)
--- NOTE | 2019-08-24 14:51 | REP ---
REASON FOR EXAM: Assess for osteomyelitis. Only the hindfoot region was imaged to any diagnostic capacity due to marked motion artifact throughout the exam markedly limiting not only the osseous detail but soft tissue detail as well. The latest prior exam for comparison is 01/25/2018. The exam was ordered and performed without the administration of intravenous gadolinium. This markedly limited examination shows patchy T1 and T2 prolongation, particularly on the most heavily T2-weighted images involving the talus and os calcis. There is evidence of a joint effusion. There is patchy T2 hypersignal seen in the plantar soft tissues. I cannot comment on the integrity of any of the imaged flexor and extensor tendons. They were seen in a marked limited fashion. The imaged portion of the midfoot cannot be accurately assessed due to the marked artifact. IMPRESSION: There is ankle edema and there is an ankle joint effusion. There is evidence of marrow edema in the os calcis and talus. There is soft tissue edema in the plantar soft tissues as well. Osteomyelitis can not be ruled by this exam. Electronically Signed by Liam Sims DO 08/24/2019 03:10 P
[2019-08-24] MEDS ORDERED: CLINDAMYCIN 600 MG/50 ML PREMIX BAG As Ordered ONE (17:47)
[2019-08-24 20:05] LABS: BASO % 0.5 % (0.0-1.0); EOS % 0.2 % (0.0-3.0); HEMOGLOBIN 11.1 g/dl (13.5-17.5); LYMPH # 0.4 10^3/uL (1.5-5.0); LYMPH % 4.4 % (24.0-44.0); MEAN CORPUSCULAR HEMOGLOBIN 28.2 pg (27.0-33.0); MEAN CORPUSCULAR HGB CONC 34.7 g/dl (32.0-36.5); MEAN CORPUSCULAR VOLUME 81.2 fl (80.0-96.0); MONO # 0.4 10^3/uL (0.0-0.8); MONO % 4.8 % (0.0-5.0); NEUTROPHILS # 7.8 10^3/uL (1.5-8.5); NEUTROPHILS % 89.3 % (36.0-66.0); PLATELET COUNT, AUTOMATED 157 10^3/uL (150-450); RED BLOOD COUNT 3.94 10^6/uL (4.30-6.10); WHITE BLOOD COUNT 8.7 10^3/uL (4.0-10.0)
[2019-08-24 20:15] LABS: INR 1.34; PROTHROMBIN TIME 16.3 SECONDS (11.8-14.0)
[2019-08-24] MEDS: LEVEMIR (INSULIN DETEMIR) 1 UNITS/0.01ML SC SCH (20:15)
[2019-08-24] MEDS: KETOROLAC 30 MG/ML VIAL (J1885) IV PRN (20:16)
[2019-08-24 20:17] LABS: PARTIAL THROMBOPLASTIN TIME 30.2 SECONDS (25.0-38.4)
[2019-08-24] MEDS: SIMVASTATIN 40 MG TAB PO SCH (20:18)
[2019-08-24] MEDS: LATANOPROST 0.005% OPHTH SOLN 2.5 ML OS SCH (20:18)
[2019-08-24 20:19] LABS: D-DIMER QUANT 1214.76 ng/ml (<500)
[2019-08-24 20:41] LABS: C REACTIVE PROTEIN QUANTITATIV 19.9 MG/DL (0.00-0.30); TROPONIN I 0.06 NG/ML (< 0.10)
[2019-08-25] VITALS (8 sets, daily range): BP systolic 85–105; BP diastolic 51–57; O2SAT 95–100
[2019-08-25] MEDS: CLINDAMYCIN 600 MG in IV 1 EA IV SCH ×4 (00:06→18:16)
[2019-08-25] MEDS: NS 1,000 ML IV SCH ×2 (05:31→17:00)
[2019-08-25] MEDS ORDERED: FUROSEMIDE 40 MG/4 ML VIAL (J1940) IV ONE (07:30)
[2019-08-25] MEDS: ALBUTEROL 90 MCG/ACT 8GM HFA INHALER INH SCH ×3 (07:32→19:55)
--- NOTE | 2019-08-25 07:51 | ECGEPIP ---
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 Different precordial lead placement but otherwise unchanged from 08/24/19. Electronically Signed on 08-25-2019 7:51:18 EDT by Oziel Dennison
--- NOTE | 2019-08-25 08:38 | CR ---
DATE OF CONSULTATION: 08/25/2019 CHIEF COMPLAINT: The patient is seen for evaluation of left foot swelling and pain. The patient states that on Sunday he had increasing pain and swelling of his left leg, which made walking difficult, also had increasing shortness of breath and fatigue. He went to the emergency room and was admitted. He is seen today for evaluation. PAST MEDICAL HISTORY: 1. Aortic aneurysm. 2. Bilateral Charcot's foot disease. The patient is status post right transmetatarsal amputation. 3. Peripheral neuropathy 4. Type 2 diabetes. 5. Hyperlipidemia. 6. Gastroesophageal reflux disease (GERD). 7. Coronary artery disease status post myocardial infarction (MO). 8. Retinal detachment. 9. Chronic kidney disease. PAST SURGICAL HISTORY: 1. Transmetatarsal amputation, right foot. 2. Aortic valve replacement. 3. Left retinal reattachment. 4. Right gastrocnemius resection. Physical exam reveals alert, well oriented, 59-year-old male. Evaluation of his foot, there is a bandage in place on his right. He has a stage III ulceration, which is not infected. Evaluation of his left reveals swelling around the ankle and talar calcaneal joint. There is no open wounds on his left. The MRI of his left foot reveals some patchy T1 and T2 prolongation involving the talus and calcaneus. There is joint effusion noted with ankle joint effusion. Laboratory studies were reviewed revealing a uric acid of 9.2, WBC 8.7, C-reactive protein 19.9. ASSESSMENT: Probable gouty arthropathy of the ankle versus Charcot joint disease acute re-flare. Most likely osteomyelitis since there is no open wound and low white count. Recommend treatment for gout. Would recommend non-weightbearing of his left lower extremity if possible to see if his swelling reduces. If his swelling and pain rapidly reduced with decrease in temperature of the ankle it would be most likely gout and he may start bearing weight on his lower extremity as tolerated. If he continues to have swelling and pain, Charcot joint disease would be more likely and this would require non-weightbearing for 6-8 weeks until the active stage has resolved. We will tailor his treatment according to his progression.
[2019-08-25 08:40] LABS: HIV 1&2 SCREEN CENTAUR NEGATIVE (NEGATIVE)
[2019-08-25 08:49] LABS: BASO % 0.3 % (0.0-1.0); EOS # 0.1 10^3/uL (0.0-0.5); EOS % 0.5 % (0.0-3.0); HEMATOCRIT 29.5 % (42.0-52.0); HEMOGLOBIN 10.4 g/dl (13.5-17.5); LYMPH # 0.9 10^3/uL (1.5-5.0); LYMPH % 8.9 % (24.0-44.0); MEAN CORPUSCULAR HGB CONC 35.3 g/dl (32.0-36.5); MEAN CORPUSCULAR VOLUME 79.5 fl (80.0-96.0); MONO # 0.8 10^3/uL (0.0-0.8); MONO % 8.3 % (0.0-5.0); NEUTROPHILS # 7.9 10^3/uL (1.5-8.5); NEUTROPHILS % 80.8 % (36.0-66.0); PLATELET COUNT, AUTOMATED 216 10^3/uL (150-450); RED BLOOD COUNT 3.71 10^6/uL (4.30-6.10); WHITE BLOOD COUNT 9.8 10^3/uL (4.0-10.0)
[2019-08-25] MEDS ORDERED: LEVEMIR (INSULIN DETEMIR) 1 UNITS/0.01ML SC SCH ×2 (09:00→21:00)
[2019-08-25 09:20] LABS: C REACTIVE PROTEIN QUANTITATIV 18.4 MG/DL (0.00-0.30); TROPONIN I 0.04 NG/ML (< 0.10)
[2019-08-25] MEDS: FAMOTIDINE 20 MG TAB PO SCH (09:30)
[2019-08-25] MEDS: ENOXAPARIN 60 MG/0.6 ML SYR (J1650) SC SCH ×2 (09:31→20:44)
[2019-08-25] MEDS: COLCHICINE 0.6 MG TAB PO SCH ×2 (09:31→20:42)
[2019-08-25] MEDS: LACTOBACILLUS ACIDOPHILUS CAP (BACID) PO SCH ×2 (09:32→18:16)
[2019-08-25] MEDS: HYDROXYCHLOROQUINE 200 MG TAB PO SCH ×2 (09:33→20:42)
[2019-08-25] MEDS: ACETAMINOPHEN TAB 650MG DOSE (2X325MG) PO SCH ×4 (09:33→20:43)
[2019-08-25] MEDS: LEVEMIR (INSULIN DETEMIR) 1 UNITS/0.01ML SC SCH (09:36)
[2019-08-25] MEDS: HumaLOG INSULIN (NovoLOG) PER UNIT SC SCH ×3 (09:37→18:17)
[2019-08-25 09:43] LABS: INR 1.33; PROTHROMBIN TIME 16.2 SECONDS (11.8-14.0)
[2019-08-25 09:44] LABS: PARTIAL THROMBOPLASTIN TIME 48.2 SECONDS (25.0-38.4)
[2019-08-25 09:46] LABS: D-DIMER QUANT 749.16 ng/ml (<500)
[2019-08-25 20:11] LABS: BASO % 0.3 % (0.0-1.0); EOS # 0.1 10^3/uL (0.0-0.5); EOS % 0.7 % (0.0-3.0); HEMATOCRIT 28.5 % (42.0-52.0); HEMOGLOBIN 9.8 g/dl (13.5-17.5); LYMPH % 13.6 % (24.0-44.0); MEAN CORPUSCULAR HEMOGLOBIN 27.9 pg (27.0-33.0); MEAN CORPUSCULAR HGB CONC 34.4 g/dl (32.0-36.5); MEAN CORPUSCULAR VOLUME 81.2 fl (80.0-96.0); MONO # 0.7 10^3/uL (0.0-0.8); MONO % 9.8 % (0.0-5.0); NEUTROPHILS # 5.5 10^3/uL (1.5-8.5); NEUTROPHILS % 74.2 % (36.0-66.0); PLATELET COUNT, AUTOMATED 192 10^3/uL (150-450); RED BLOOD COUNT 3.51 10^6/uL (4.30-6.10); WHITE BLOOD COUNT 7.4 10^3/uL (4.0-10.0)
[2019-08-25 20:20] LABS: INR 1.33; PROTHROMBIN TIME 16.2 SECONDS (11.8-14.0)
[2019-08-25 20:21] LABS: PARTIAL THROMBOPLASTIN TIME 42.7 SECONDS (25.0-38.4)
[2019-08-25 20:24] LABS: D-DIMER QUANT 806.93 ng/ml (<500)
[2019-08-25] MEDS: traMADol 50 MG TAB PO PRN (20:43)
[2019-08-25] MEDS: SIMVASTATIN 40 MG TAB PO SCH (20:43)
[2019-08-25] MEDS: LATANOPROST 0.005% OPHTH SOLN 2.5 ML OS SCH (20:44)
[2019-08-25 20:54] LABS: ALBUMIN 1.7 GM/DL (3.2-5.2); ALT/SGPT 14 U/L (12-78); BILIRUBIN,TOTAL 0.4 MG/DL (0.2-1.0); BLOOD UREA NITROGEN 22 MG/DL (7-18); CALCIUM LEVEL 7.3 MG/DL (8.8-10.2); CARBON DIOXIDE LEVEL 25 MEQ/L (21-32); CHLORIDE LEVEL 103 MEQ/L (98-107); CREATININE FOR GFR 1.13 MG/DL (0.70-1.30); FERRITIN 454 NG/ML (26-388); GLOMERULAR FILTRATION RATE > 60.0 (>49); GLUCOSE, FASTING 162 MG/DL (70-100); LDH LACTATE DEHYDROGENASE 186 U/L (87-241); NT-PRO BNP 2336 PG/ML (<125); POTASSIUM SERUM 3.7 MEQ/L (3.5-5.1); SODIUM LEVEL 133 MEQ/L (136-145); TOTAL PROTEIN 5.8 GM/DL (6.4-8.2); TROPONIN I 0.03 NG/ML (< 0.10)
--- NOTE | 2019-08-25 21:26 | IPNPDOC ---
Date Seen The patient was seen on 08/25/19. Progress Note SUBJECTIVE: Gram + nadreina bacteremia, 4/4 bottles. MRI foot could not r/o osteomyelitis; however, podiatry does not think this is likely cause. Decreased redness, swelling and improved pain per patientof left foot . Low blood pressure throughout the day today; however, patient states his BP systolic normally ranges from 100-110 mmHg systolic. Denies increased SOB, n/v/d, fevers or chills. OBJECTIVE: VITAL SIGNS: Please see below PHYSICAL EXAMINATION: CONSTITUTIONAL: Sitting up in bed, AAO x 3 EYES: PERRLA, EOM intact HENT, MOUTH: Normocephalic, atraumatic, moist mucous membranes, NECK: SUPPLE, no JVD, no lymphadenopathy, no carotid bruit CV: Regular rate and rhythm, S1S2 normal, no murmurs/rubs/gallops RESPIRATORY: Decreased breath sounds bilaterally, no rales/rhonchi/wheezes GI: BS positive in 4 quadrants, soft, nontender, nondistended, no rebound or guarding, no organomegaly : Deferred MUSCULOSKELETAL: Improved redness with persistent tenderness and swelling of the left foot. Decreased ROM of left ankle. Stage III wound where transmetatarsal amp occurred on right foot. Does not appear necrotic, is clean and nonsuppurative. No cyanosis, clubbing, INTEGUMENTARY: Intact, no rashes, no lesions, no erythema NEUROLOGIC: Cranial Nerves II-XII are intact, no focal deficits PSYCHIATRIC: Flat affect LABORATORY DATA: Please see below Blood cultures: gram pos rods, 08/15 bottles IMAGING: MRI ASSESSMENT: Patient is a 59-year-old male admitted for left lower extremity swelling secondary to acute gouty flare, cellulitis, shortness of breath rule out COVID- 19 infection, Gram pos rods bacteremia. PLAN: 1. Left lower extremity swelling multifactorial to acute gouty flare. . Hx of Charcot foot. As per podiatry, unlikely osteomyelitis due to no open wound and low WBC. NWB of LLE to see if swelling reduces. If swelling reduces most likely gout and can start WBAT then. If swelling continues, per podiatry, then Charcot disease would be more likely and this would require non-weightbearing for 6-8 weeks until the active stage has resolved. C/w colchicine, Tylenol ATC, Tramadol PRN for pain. Stopped clindamycin. 2. Shortness of breath r/o COVID 19. Afebrile, on RA, COVID testing pending. Improved SOB. F/u of all labs as per protocol. C/w hydroxychloroquine 200 mg PO BID 4 days and azithromycin 500 mg IV Q24H. ECG QTc wnl. F/u daily ECG and telemetry. Enoxaparin 0.5 mg/kg BID. Incentive spirometer Q2 hrs while awake, OOBTC and OOB with meals. Contact and droplet precautions initiated. Continue with supportive care and Q4H oxygen monitoring. 3. Gram + andreina bacteremia, 08/15 bottles. Open Stage III wound where transmetatarsal amputation occurred but appears clean. Possible source. Started on Zosyn, Vancomycin empirically. Recommend repeat blood cultures x 2 sets on 08/26/19. 4. Hypotension, chronic. Baseline 100-110 mmHg systolic. Stopped IVFs today as BNP climbing. Hold antihypertensives. 5. Elevated BNP, r/o CHF. Hx of CAD. Stopped IVFs, given 40 IV lasix today- did not schedule due to low BP. Assess to see if can tolerate 08/26/19. Echo ordered. 6. Hyponatremia, mild. Likely 2/2 to dehydration causes above. Improved with NSS but needed to stop. Monitor daily BMP. 7. DM type II. BS uncontrolled, increased levemir BID. HbA1c >11. C/w levemir BID, ISS, AC/HS finger sticks, consistent carb diet. F/u lipid panel. 8. CAD s/p HI. Asymptomatic. F/u ECG, on telemetry. 9. CKD Stage unknown. Avoid nephrotoxic medications. 10. HLD. C/w statin. 11. Aortic aneurysm, stable and chronic. Follows up with imaging yearly. 12. Peripheral neuropathy. Stable. 13. GERD. Famotidine. 14. DVT px. Enoxaparin BID. DISPOSITION: Admitted under inpatient status. Plan is discharge home when medically improved. VS, I&O, 24H, Fishbone Vital Signs/I&O Vital Signs Date Time Temp Pulse Resp B/P (MAP) Pulse Ox O2 Delivery O2 Flow Rate FiO2 08/25/19 21:13 18 Room Air 08/25/19 20:00 97.8 89 97/57 (70) 99 08/25/19 04:00 2.0 08/24/19 12:00 I&O- Last 24 Hours up to 6 AM 08/25/19 06:00 Intake Total 3232 ml Output Total 1350 ml Balance 1882 ml Laboratory Data 24H LABS Laboratory Tests 2 08/25/19 08:27: Immature Granulocyte % (Auto) 1.2, Neutrophils (%) (Auto) 80.8H, Lymphocytes (%) (Auto) 8.9L, Monocytes (%) (Auto) 8.3H, Eosinophils (%) (Auto) 0.5, Basophils (%) (Auto) 0.3, Neutrophils # (Auto) 7.9, Lymphocytes # (Auto) 0.9L, Monocytes # (Auto) 0.8, Eosinophils # (Auto) 0.1, Basophils # (Auto) 0.0, Nucleated Red Blood Cells % (auto) 0.0, Prothrombin Time 16.2H, Prothromb Time International Ratio 1.33, Activated Partial Thromboplast Time 48.2H, Fibrinogen 592H, D-Dimer, Quantitative 749.16H, Ferritin 533H, Lactate Dehydrogenase 179, Troponin I 0.04#, C-Reactive Protein, Quantitative 18.40H, TQ-Gia-H-Type Natriuretic Peptide 2050H, Procalcitonin 0.83 08/25/19 09:36: Bedside Glucose (Misc Panel) 137H 08/25/19 13:59: Bedside Glucose (Misc Panel) 196H 08/25/19 18:14: Bedside Glucose (Misc Panel) 120H 08/25/19 20:01: Immature Granulocyte % (Auto) 1.4, Neutrophils (%) (Auto) 74.2H, Lymphocytes (%) (Auto) 13.6L, Monocytes (%) (Auto) 9.8H, Eosinophils (%) (Auto) 0.7, Basophils (%) (Auto) 0.3, Neutrophils # (Auto) 5.5, Lymphocytes # (Auto) 1.0L, Monocytes # (Auto) 0.7, Eosinophils # (Auto) 0.1, Basophils # (Auto) 0.0, Nucleated Red Blood Cells % (auto) 0.0, Prothrombin Time 16.2H, Prothromb Time International Ratio 1.33, Activated Partial Thromboplast Time 42.7H, Fibrinogen 616H, D-Dimer, Quantitative 806.93H, Anion Gap 5L, Glomerular Filtration Rate > 60.0, Calcium Level 7.3L, Ferritin 454H, Total Bilirubin 0.4, Aspartate Amino Transf (AST/SGOT) 30, Alanine Aminotransferase (ALT/SGPT) 14, Alkaline Phosphatase 96, Lactate Dehydrogenase 186, Troponin I 0.03#, C-Reactive Protein, Quantitative 17.20H, JB-Vyg-Q-Type Natriuretic Peptide 2336H, Total Protein 5.8L, Albumin 1.7#L, Albumin/Globulin Ratio 0.41L CBC/BMP Laboratory Tests 08/25/19 08:27 08/25/19 20:01 Microbiology Microbiology 08/24/19 Blood Culture - Preliminary, Resulted 08/23/19 Blood Culture - Preliminary, Resulted 08/23/19 Coronavirus COVID-19 PCR ([facility]), Received Pending 08/23/19 Respiratory Panel (PCR) - Final, Complete Current Medications Current Medications Medications (Trade) Dose Ordered Sig/Shaheen Route PRN Reason Start Time Stop Time Status Last Admin Dose Admin Acetaminophen (Tylenol Tab) 650 mg QID PO 08/23/19 21:00 08/25/19 20:43 Albuterol Sulfate (Proventil, Ventolin Hfa) 2 puff RTID INH 08/23/19 20:00 08/25/19 19:55 Albuterol/ Ipratropium (Combivent Respimat 100-20mcg) 1 puff Q6HP PRN INH SHORTNESS OF BREATH 08/23/19 21:00 Clindamycin Phosphate 600 mg/ IV Miscellaneous Supplies 50 ml @ 100 mls/hr Q6H IV 08/24/19 00:00 08/25/19 18:16 Colchicine (Colcrys) 0.6 mg BID PO 08/25/19 09:00 08/25/19 20:42 Colchicine (Colcrys) 0.6 mg TID PO 08/23/19 21:00 08/24/19 16:01 DC 08/24/19 16:44 Dextrose (Dextrose 50%) 25 ml ASDIRECTED PRN IV SEE LABEL COMMENTS 08/23/19 20:45 Enoxaparin Sodium (Lovenox) 50 mg Q12H SC 08/23/19 21:00 08/25/19 20:44 Famotidine (Pepcid) 40 mg DAILY PO 08/24/19 09:00 08/25/19 09:30 Glucagon (Glucagon) 1 mg ASDIRECTED PRN SC SEE LABEL COMMENTS 08/23/19 20:45 Glucose (Glucose) 16 GM ASDIRECTED PRN PO SEE LABEL COMMENTS 08/23/19 20:45 Home Med (Med Rec Complete!) ASDIRECTED XX 08/23/19 18:30 08/23/19 18:28 DC Hydroxychloroquine Sulfate (Plaquenil) 200 mg Q12H PO 08/24/19 21:00 08/28/19 09:01 08/25/19 20:42 Hydroxychloroquine Sulfate (Plaquenil) 400 mg Q12H PO 08/23/19 21:00 08/24/19 09:01 DC 08/24/19 08:14 Insulin Detemir (Levemir Insulin) 12 units QAM SC 08/25/19 09:00 08/25/19 07:26 DC Insulin Detemir (Levemir Insulin) 16 units QAM SC 08/25/19 09:00 08/25/19 09:36 Insulin Detemir (Levemir Insulin) 22 units QHS SC 08/23/19 21:00 08/25/19 07:26 DC 08/24/19 20:15 Insulin Detemir (Levemir Insulin) 28 units QHS SC 08/25/19 21:00 08/25/19 20:44 Insulin Human Lispro (HumaLOG INSULIN) SEE PROTOCOL TABLE AC SC 08/24/19 07:30 08/25/19 18:17 Ketorolac Tromethamine (ToRADol) 15 mg Q6HP PRN IV PAIN 08/24/19 15:30 08/29/19 15:29 08/24/19 20:16 Lactobacillus Acidophilus (Bacid) 1 ea BIDWM PO 08/24/19 08:00 08/25/19 18:16 Latanoprost (Xalatan 0.005% Op Soln) 1 drop QHS OS 08/23/19 21:00 08/25/19 20:44 Simvastatin (Zocor) 40 mg QHS PO 08/23/19 21:00 08/25/19 20:43 Sodium Chloride 1,000 ml @ 80 mls/hr [id number] IV 08/24/19 21:30 08/25/19 17:00 Sodium Chloride 1,000 ml @ 125 mls/hr Q8H IV 08/23/19 20:45 08/24/19 21:29 DC 08/24/19 16:44 Tramadol HCl (Ultram) 50 mg Q6HP PRN PO MODERATE PAIN (PS 5-7) 08/23/19 21:45 08/25/19 20:43 Allergies Coded Allergies: No Known Allergies (Verified , 08/14/18) Siomara Mondragon MD Aug 25, 2019 21:26
--- NOTE | 2019-08-25 22:54 | PHACANCOPD ---
PHARMACY VANCOMYCIN DOSING Pt Demographics Demographics Patient Age:59 , Weight:105.600 , Gender: male Adjusted Body Weight Events Past 24 Hours Events Past 24 Hours: NO: Dialysis, Diuretic Therapy, Change in CrCl, Fever, Elevation in WBC, Pending Diagnostics, Pending Procedures, Other Vancomycin Vancomycin indication: EMPERIC Vancomycin Target Ranges: 15-20 mcg/ml Vancomycin Load Y/N: Yes Load Dose Date Time Vancomycin Load Dose: 2GM Date: 08/26/19 Time: 00:00 Vancomycin Dose Date: 08/26/19. Current Vancomycin Dose: [1.5GM IV Q12H (7am)] Intermittent Dosing?: No Labs Labs Laboratory Tests 08/25/19 08:27 08/25/19 20:01 Micro Microbiology 08/24/19 Blood Culture - Preliminary, Resulted G+ cocci 08/23/19 Blood Culture - Preliminary, Resulted G+ cocci 08/23/19 Coronavirus COVID-19 PCR ([facility]), Received Pending 08/23/19 Respiratory Panel (PCR) - Final, Complete NEGATIVE Creatinine Clearance Date:08/25/19. Creatinine Clearance: [>70ml/min]. Pending Labs VANCO TR 08/27/19 6AM (w/AM LABS) Assessment and Plan Maintaining Current Dose?: Yes Reason for dose change: Other Pharmacist Note Pharmacist Note Date: 08/25/19. PharmD note:VANCO 2GM LOAD SCHEDULED MIDNIGHT 08/26/19 FOLLOWED BY VANCO 1.5GM IV Q12H START 07:00 (08/26/19) WE WILL OBTAIN A STEADY STATE VANCO TROUGH WITH AM LABS 08/27/19Sunday 06:00 [facility] Aug 25, 2019 22:54
[2019-08-25] MEDS: PIPERACILLIN/TAZOBACTAM SOD 3.375 GM in D5W MINI-BAG PLUS 50 ML IV SCH (23:46)
[2019-08-26] VITALS: BP 104/63; O2SAT 98
[2019-08-26] MEDS ORDERED: VANCOMYCIN HCL 1,000 MG, VIAL MATE ADAPTER 1 EACH in D5W 250 ML IV ONE ×4 (01:00)
[2019-08-26] MEDS: KETOROLAC 30 MG/ML VIAL (J1885) IV PRN ×2 (01:06→07:26)
[2019-08-26 04:00] VITALS: BP 97/58; O2SAT 99
[2019-08-26] MEDS: PIPERACILLIN/TAZOBACTAM SOD 3.375 GM in D5W MINI-BAG PLUS 50 ML IV SCH (05:31)
[2019-08-26] MEDS ORDERED: VANCOMYCIN HCL 1,000 MG, VIAL MATE ADAPTER 1 EACH in D5W 250 ML IV SCH (07:00)
[2019-08-26] MEDS: HumaLOG INSULIN (NovoLOG) PER UNIT SC SCH (07:24)
[2019-08-26] MEDS: LACTOBACILLUS ACIDOPHILUS CAP (BACID) PO SCH (07:24)
[2019-08-26 08:00] VITALS: BP 102/60; O2SAT 99
[2019-08-26] MEDS ORDERED: VANCOMYCIN HCL 500 MG in D5W MINI-BAG PLUS 100 ML IV SCH (08:00)
[2019-08-26 08:18] LABS: BASO % 0.3 % (0.0-1.0); EOS % 0.3 % (0.0-3.0); HEMATOCRIT 29.3 % (42.0-52.0); HEMOGLOBIN 9.8 g/dl (13.5-17.5); MEAN CORPUSCULAR HEMOGLOBIN 27.2 pg (27.0-33.0); MEAN CORPUSCULAR HGB CONC 33.4 g/dl (32.0-36.5); MEAN CORPUSCULAR VOLUME 81.4 fl (80.0-96.0); MONO # 0.7 10^3/uL (0.0-0.8); MONO % 7.6 % (0.0-5.0); NEUTROPHILS % 79.8 % (36.0-66.0); PLATELET COUNT, AUTOMATED 286 10^3/uL (150-450); WHITE BLOOD COUNT 8.7 10^3/uL (4.0-10.0)
[2019-08-26 08:31] LABS: INR 1.27; PROTHROMBIN TIME 15.6 SECONDS (11.8-14.0)
[2019-08-26] MEDS: ENOXAPARIN 60 MG/0.6 ML SYR (J1650) SC SCH (08:31)
[2019-08-26 08:32] LABS: D-DIMER QUANT 762.58 ng/ml (<500); PARTIAL THROMBOPLASTIN TIME 39.2 SECONDS (25.0-38.4)
[2019-08-26] MEDS: COLCHICINE 0.6 MG TAB PO SCH (08:32)
[2019-08-26] MEDS: FAMOTIDINE 20 MG TAB PO SCH (08:32)
[2019-08-26] MEDS: LEVEMIR (INSULIN DETEMIR) 1 UNITS/0.01ML SC SCH (08:32)
[2019-08-26] MEDS: HYDROXYCHLOROQUINE 200 MG TAB PO SCH (08:33)
[2019-08-26] MEDS: ACETAMINOPHEN TAB 650MG DOSE (2X325MG) PO SCH (08:35)
[2019-08-26] MEDS: NS 1,000 ML IV SCH (08:36)
[2019-08-26 09:00] LABS: C REACTIVE PROTEIN QUANTITATIV 14.1 MG/DL (0.00-0.30); TROPONIN I 0.03 NG/ML (< 0.10)
[2019-08-26] MEDS: ALBUTEROL 90 MCG/ACT 8GM HFA INHALER INH SCH (09:41)
[2019-08-26] MEDS ORDERED: COLC1TAB13 PO (10:33)
--- NOTE | 2019-08-26 12:42 | DS.PDOC ---
Discharge Summary General Date of Admission Aug 23, 2019 at 20:16 Date of Discharge 08/26/19 Discharge Summary PROCEDURES PERFORMED DURING STAY: None. ADMITTING DIAGNOSES: 1. Swelling of left foot. DISCHARGE DIAGNOSES: 1. Left foot gout, COVID-19 ruled out, possible viral gastroenteritis. COMPLICATIONS/CHIEF COMPLAINT: swelling of left foot HISTORY OF PRESENT ILLNESS: The patient is a 59-year-old male with past medical history of stable aortic aneurysm, Charcot foot, peripheral neuropathy, HLD, DM type II, GERD, CAD s/p NC, CKD who presented to [facility] emergency room with the chief complaint of worsening left foot pain and shortness of breath. Patient stated his symptoms started on 08/15/19: nonbloody diarrhea, nausea, nonbloody vomiting. These continued until several days ago when the diarrhea finally stopped. He had persistent decreased appetite. Patient states that he has always has had some SOB; however, on 08/19/19 it worsened. Shortness of breath increased with rest at this time, nonproductive cough became present. Patient was spiking fevers throughout the days from 08/15/19 -08/19/19. They seemed to cease; however, the patient says they came back recently. Patient also complains of increased swelling, redness, pain, increased pressure developing in the left foot. This morning he states that he noticed his foot was "bigger than normal". He has chronic swelling in that foot; however, this was much changed. Patient states that he could not apply wt to the left lower ext. Patient states that his sugars have been very high at home, at times as high as 500. Associated symptoms include lightheadedness, dizziness, he admits to travel to [facility] regularly for his groceries, decreased PO intake of fluids and food, a recent fall earlier this week without hitting his head. Denies abdominal pain, chest pain, recent sick exposure that he knows of. In the emergency room, vital signs show temp 96.8, pulse 98227, blood pressure 126/67, respiratory rate 1220, 99% on room air. His left foot was markedly swollen and very tender to touch. Chest x-ray of his chest was unremarkable, left foot x-ray showed soft tissue swelling. Believe EBC minimally elevated at 11.6, sodium 127, chloride 93, potassium slightly low at 3.4, blood sugar 160. His creatinine was elevated at 1.5, CRP high at 24.9, troponin 0.08, CK-MB 5.26, uric acid elevated at 9.2, lactic acid elevated at 3, decreased lymphocytes. The patient appeared uncomfortable in pain and was oriented 3. The patient had a Covid 19 nasal swab done and sent. Respiratory panel was negative. The patient was admitted for left lower extremity swelling secondary to an acute gouty flare, rule out Covid 19 infection. This case was discussed with Dr. Reyes, pulmonology.. HOSPITAL COURSE: Patient presented in ER with nausea, vomiting and abdominal pain. All the symptoms have resolved spontaneously. Most likely patient had a viral gastroenteritis which is spontaneously resolved itself. Patient does not o ffer any complaints of abdominal pain, nausea, vomiting, etc. Also patient was admitted with left foot swelling and to rule out Covid 19 infection. Covid 19 was ruled out by nasal swab, patient was started on colchicine, which he gave him some relief with swelling and pain in his left foot and also was seen by podiatry. There is no evidence of any infection or osteomyelitis on clinical exam and our laboratory and Dr. vang will see patient in his office today after discharge to provide patient with the soft, podiatry boot and he will follow patient in his office today. Patient will be discharged home. Follow with podiatry and PCP as an outpatient DISCHARGE MEDICATIONS: Please see below. ALLERGIES: Please see below. PHYSICAL EXAMINATION ON DISCHARGE: VITAL SIGNS: Please see below. GENERAL: Within normal limits HEENT: PERRLA. Extraocular muscles intact NECK: Supple CARDIOVASCULAR EXAMINATION: S1, S2, regular RESPIRATORY EXAMINATION: Clear to A&P ABDOMINAL EXAMINATION: , Soft, nontender. Bowels are present. No organomegaly EXTREMITIES: No clubbing, cyanosis, edema SKIN: Normal NEUROLOGICAL EXAMINATION: . No focal motor sensory deficit PSYCHIATRIC EXAMINATION: Normal LABORATORY DATA: Please see below. IMAGING: MRI left foot: There is ankle edema and there is an ankle joint effusion. There is evidence of marrow edema in the os calcis and talus. There is soft tissue edema in the plantar soft tissues as well. Osteomyelitis can not be ruled by this exam. PROGNOSIS: Good ACTIVITY: As tolerated. DIET: As tolerated DISCHARGE PLAN: Discharged home today DISPOSITION: Home. ITEMS TO FOLLOWUP ON ON OUTPATIENT: 1. Follow-up with podiatry today DISCHARGE CONDITION: Stable. TIME SPENT ON DISCHARGE: 35 minutes. Vital Signs/I&Os Vital Signs Date Time Temp Pulse Resp B/P (MAP) Pulse Ox O2 Delivery O2 Flow Rate FiO2 08/26/19 08:00 99 Room Air 08/26/19 08:00 97.6 79 20 102/60 (74) 08/25/19 04:00 2.0 08/24/19 12:00 I&O- Last 24 Hours up to 6 AM 08/26/19 05:59 Intake Total 3780 ml Output Total 1800 ml Balance 1980 ml Laboratory Data Labs 24H Laboratory Tests 2 08/25/19 13:59: Bedside Glucose (Misc Panel) 196H 08/25/19 18:14: Bedside Glucose (Misc Panel) 120H 08/25/19 20:01: Immature Granulocyte % (Auto) 1.4, Neutrophils (%) (Auto) 74.2H, Lymphocytes (%) (Auto) 13.6L, Monocytes (%) (Auto) 9.8H, Eosinophils (%) (Auto) 0.7, Basophils (%) (Auto) 0.3, Neutrophils # (Auto) 5.5, Lymphocytes # (Auto) 1.0L, Monocytes # (Auto) 0.7, Eosinophils # (Auto) 0.1, Basophils # (Auto) 0.0, Nucleated Red Blood Cells % (auto) 0.0, Prothrombin Time 16.2H, Prothromb Time International Ratio 1.33, Activated Partial Thromboplast Time 42.7H, Fibrinogen 616H, D-Dimer, Quantitative 806.93H, Anion Gap 5L, Glomerular Filtration Rate > 60.0, Calcium Level 7.3L, Ferritin 454H, Total Bilirubin 0.4, Aspartate Amino Transf (AST/SGOT) 30, Alanine Aminotransferase (ALT/SGPT) 14, Alkaline Phosphatase 96, Lactate Dehydrogenase 186, Troponin I 0.03#, C-Reactive Protein, Quantitative 17.20H, RV-Ffm-E-Type Natriuretic Peptide 2336H, Total Protein 5.8L, Albumin 1.7#L, Albumin/Globulin Ratio 0.41L 08/26/19 07:19: Bedside Glucose (Misc Panel) 103 08/26/19 08:07: Immature Granulocyte % (Auto) 1.0, Neutrophils (%) (Auto) 79.8H, Lymphocytes (%) (Auto) 11.0L, Monocytes (%) (Auto) 7.6H, Eosinophils (%) (Auto) 0.3, Basophils (%) (Auto) 0.3, Neutrophils # (Auto) 7.0, Lymphocytes # (Auto) 1.0L, Monocytes # (Auto) 0.7, Eosinophils # (Auto) 0.0, Basophils # (Auto) 0.0, Nucleated Red Blood Cells % (auto) 0.0, Prothrombin Time 15.6H, Prothromb Time International Ratio 1.27, Activated Partial Thromboplast Time 39.2H, Fibrinogen 682H, D-Dimer, Quantitative 762.58H, Ferritin 420H, Lactate Dehydrogenase 165, Troponin I 0.03, C-Reactive Protein, Quantitative 14.10H, DY-Mun-B-Type Natriuretic Peptide 3045H CBC/BMP Laboratory Tests 08/25/19 20:01 08/26/19 08:07 FSBS Laboratory Tests Test 08/25/19 13:59 08/25/19 18:14 08/26/19 07:19 Range/Units Bedside Glucose (Misc Panel) 196 120 103 80-115 MG/DL Microbiology Microbiology 08/24/19 Blood Culture - Preliminary, Resulted 08/23/19 Blood Culture - Preliminary, Resulted 08/23/19 Coronavirus COVID-19 PCR ([facility]) - Final, Complete 08/23/19 Respiratory Panel (PCR) - Final, Complete Discharge Medications Scheduled Colchicine (Colchicine) 0.6 Mg Tablet, 0.6 MG PO BID Furosemide (Furosemide) 20 Mg Tab, 20 MG PO BID, (Reported) takes 0800/1800 Gluc Fink/Chondro Fink A/Vit C/Mn (Glucosamine Chondroitin Tab) 1 Each Tablet, 1 TAB PO DAILY, (Reported) Insulin Glargine (Lantus) 1 Units/0.01 Ml Susp, 1 DOSE SC QHS, (Reported) 18 - 22 UNITS Insulin Human Lispro (Humalog) 1 Units/0.01 Ml Inj, 1 DOSE SC AC, (Reported) Usually 8 - 10 UNITS PER SLIDING SCALE Latanoprost (Xalatan) 0.005 % Nat, 1 DROP OS QHS, (Reported) Metformin HCl (Metformin HCl ER) 500 Mg Tab.er.24h, 1,000 MG PO DAILY, (Reported) Ranitidine HCl (Ranitidine HCl) 150 Mg Tab, 1 TAB PO DAILY, (Reported) Rivaroxaban (Xarelto) 20 Mg Tablet, 20 MG PO QHS, (Reported) Simvastatin (Simvastatin) 40 Mg Tab, 40 MG PO QHS, (Reported) Allergies Coded Allergies: No Known Allergies (Verified , 08/14/18) JULIETA PINON MD Aug 26, 2019 12:42
--- NOTE | 2019-08-26 15:35 | ECGEPIP ---
[facility] Test Date: 2019-08-26 Pat Name: CHAYO WHITNEY Department: Room: U6109-76 Gender: Male [employer]: JASMINE : 1960 Requested By: Siomara Villegas Order Number: [id number] Reading MD: Maco Ramon Measurements Intervals [place] Rate: 76 P: 32 MD: 274 QRS: -31 QRSD: 120 T: 30 QT: 398 QTc: 449 Interpretive Statements SINUS RHYTHM WITH FIRST DEGREE AV BLOCK LEFT AXIS DEVIATION POSSIBLE OLD HIGH LATERAL MYOCARDIAL INFARCT. No significant change compared with 08/25/2019 Electronically Signed on 08-26-2019 15:35:08 EDT by Maco Ramon
--- NOTE | 2019-08-26 21:10 | ECHO ---
DATE OF PROCEDURE: 08/26/2019 REFERRING PHYSICIAN: Dr. Siomara Mondragon INDICATION: Heart failure unspecified. HEIGHT: 196 cm WEIGHT: 106 kg 2D MEASUREMENTS: Ventricular septum: 1.37-1.76 cm Posterior wall: 1.31 cm Left ventricle diastole: 4.7 cm Aortic annulus: 2.0 cm Aortic root: 2.8 cm Left atrium: 5.0 cm Inferior vena cava: 1.4 cm (more than 50% respiratory variation). DOPPLER MEASUREMENTS: Aortic valve velocity: 271 cm/s Aortic valve VTI: 54.4 cm Peak aortic valve gradient: 29 mmHg Mean aortic valve gradient: 17 mmHg LVOT velocity: 149 cm/s LVOT VTI: 30.8 cm No aortic regurgitation. No aortic stenosis. Very mild mitral regurgitation. No mitral stenosis. Mitral E velocity: 97.7 cm/s Mitral A velocity: 93.8 cm/s Mitral deceleration time: 218 ms Trace tricuspid regurgitation. No pulmonic regurgitation. Pulmonary artery systolic pressure: 21-28 mmHg. MITRAL ANNULAR TISSUE DOPPLER: E prime septal: 7.1 cm/s E prime lateral: 5.6 cm/s DESCRIPTION: Rhythm was sinus. Image quality was adequate This was a 2D, M-mode, color flow Doppler and pulse wave Doppler examination and included mitral annular tissue Doppler. CONCLUSIONS: 1. Mild concentric left ventricle hypertrophy with superimposed moderately-severe focal hypertrophy of the basal anterior ventricular septum. Hyperdynamic left ventricular (LV) systolic function. Left ventricular ejection fraction (LVEF) 75% by visual estimate. No dynamic LVOT obstruction. Grade 2 LV diastolic dysfunction (pseudonormal filling pattern). 2. Moderate left atrial dilatation. 3. Well-seated normally functioning aortic valve bioprosthesis. 4. Moderate mitral annular calcification. Very mild mitral regurgitation. No mitral stenosis. 5. Suggestive of normal pulmonary artery systolic pressure and central venous pressure. 6. No pericardial effusion. Recommend infective endocarditis prophylaxis prior to dental procedures likely to produce transient bacteremia.
[2019-08-27 14:11] LABS: MYCOPLASMA PNEUMONIAE IgG 863 U/mL (0-99); MYCOPLASMA PNEUMONIAE IgM <770 U/mL (0-769)
[2019-08-27 14:11] LABS: BODY FLUID CULTURE Not indicated. (.); LEGIONELLA ANTIGEN URINE Negative (Negative); ORGANISM ID Not indicated. (.); SPECIMEN SOURCE Urine (.); URINE STREP PNEUMONIAE ANTIGEN Negative (Negative)
== END 2019-08-26 13:05 | disposition home or self-care (01) | DRG 554 ==
LOC: M ED 14:13 → M ED INP 20:16 → ENRESERVTM 20:58 → ENRESERVDT 20:58 → M ICU 21:44
PROVIDERS: ADMIT Internal Medicine; ATTEND Internal Medicine
DX: M10.9 Gout, unspecified (principal); L03.116 Cellulitis of left lower limb; N17.9 Acute kidney failure, unspecified; A08.8 Other specified intestinal infections; Z11.59 Encounter for screening for other viral diseases; I71.4 Abdominal aortic aneurysm, without rupture; I25.10 Atherosclerotic heart disease of native coronary artery without angina pectoris; K21.9 Gastro-esophageal reflux disease without esophagitis; I25.2 Old myocardial infarction; E11.51 Type 2 diabetes mellitus with diabetic peripheral angiopathy without gangrene; Z79.899 Other long term (current) drug therapy; Z79.4 Long term (current) use of insulin; N18.9 Chronic kidney disease, unspecified; Z95.2 Presence of prosthetic heart valve; Z89.429 Acquired absence of other toe(s), unspecified side; E87.6 Hypokalemia; E86.0 Dehydration; E11.618 Type 2 diabetes mellitus with other diabetic arthropathy; E78.5 Hyperlipidemia, unspecified; I95.9 Hypotension, unspecified

== ENCOUNTER → 2019-08-29 | Outpatient (REF) | payer MEDICARE ==
[~2019-08-29] MED LIST changes: +COLC1TAB13 PO
== END ==
LOC: M LAB REF 14:19
PROVIDERS: ATTEND Nurse Practitioner Adult Health
DX: R78.81 Bacteremia (principal)

== ENCOUNTER 2019-09-23 08:52 | Inpatient (IN) | payer MEDICARE ==
[2019-09-23] VITALS (32 sets, daily range): BP systolic 76–117; BP diastolic 44–62
[~2019-09-23] VITALS: Ht 195.6 cm; Wt 103.6 kg
[~2019-09-23 08:52] MED LIST changes: -METF-791 PO; +METF-838 PO
[2019-09-23] MEDS ORDERED: DIGOXIN INJ 0.5 MG/2 ML AMP (J1160) IV STA ×2 (08:57→13:06)
[2019-09-23] MEDS ORDERED: POTA20TA6 PO (09:29)
[2019-09-23] MEDS ORDERED: AMIODARONE HCL 150 MG in IV 1 EA IV STA ×2 (09:29→10:19)
[2019-09-23] MEDS ORDERED: FAMO1TAB11 PO (09:29)
[2019-09-23] MEDS ORDERED: AMIODARONE HCL 150 MG/100 ML PREMIXED BAG (NEXTERONE) (J0282 PER 30MG) As Ordered ONE (09:34)
[2019-09-23 09:43] LABS: ABG BASE EXCESS -6.4 (-2.0-2.0); ABG HCO3 14.6 MEQ/L (22.0-26.0); ABG O2 SATURATION 99.4 % (95.0-99.0); ABG PARTIAL PRESSURE O2 178.2 mmHg (75.0-100.0); ABG STANDARD HCO3 19.2 MEQ/L (22.0-26.0); ABG TOTAL CO2 15.2 MEQ/L (23.0-31.0); ABG pH (ARTERIAL) 7.517 UNITS (7.350-7.450)
[2019-09-23 09:46] LABS: ABG PARTIAL PRESSURE CO2 18.4 mmHg (35.0-45.0)
[2019-09-23 10:01] LABS: HEMATOCRIT 30.6 % (42.0-52.0); HEMOGLOBIN 10.1 g/dl (13.5-17.5); MEAN CORPUSCULAR HEMOGLOBIN 27.1 pg (27.0-33.0); PLATELET COUNT, AUTOMATED 181 10^3/uL (150-450); RED BLOOD COUNT 3.73 10^6/uL (4.30-6.10)
[2019-09-23 10:12] LABS: INR 1.88; PROTHROMBIN TIME 21.4 SECONDS (11.8-14.0)
[2019-09-23 10:13] LABS: PARTIAL THROMBOPLASTIN TIME 45.6 SECONDS (25.0-38.4)
[2019-09-23 10:22] LABS: ANISOCYTOSIS 1+; BASOPHILS 1 % (0-1); LYMPHOCYTES 2 % (16-44); MONOCYTES 1 % (0-5); NEUTROPHILS 95 % (28-66); PLATELET ESTIMATE NORMAL (NORMAL); POIKILOCYTOSIS 1+
[2019-09-23] MEDS ORDERED: ONDANSETRON 4MG/2ML VIAL As Ordered ONE (10:23)
[2019-09-23] MEDS ORDERED: ONDANSETRON 4MG/2ML VIAL IV ONE (10:30)
[2019-09-23 10:33] LABS: BLOOD UREA NITROGEN 37 MG/DL (7-18); CALCIUM LEVEL 8.4 MG/DL (8.8-10.2); CARBON DIOXIDE LEVEL 18 MEQ/L (21-32); CHLORIDE LEVEL 98 MEQ/L (98-107); CK-MB VALUE MASS < 1.0 NG/ML (<3.6); CPK CREATINE PHOSPHOKINASE 11 U/L (39-308); CREATININE FOR GFR 1.89 MG/DL (0.70-1.30); FREE T4 1.52 NG/DL (0.76-1.46); GLOMERULAR FILTRATION RATE 38.8 (>49); GLUCOSE, FASTING 361 MG/DL (70-100); MB/CK RELATIVE INDEX 9.09 (< OR =4); NT-PRO BNP 12781 PG/ML (<125); POTASSIUM SERUM 5.5 MEQ/L (3.5-5.1); SODIUM LEVEL 127 MEQ/L (136-145); TROPONIN I < 0.02 NG/ML (< 0.10)
--- NOTE | 2019-09-23 10:37 | REP ---
PORTABLE CHEST X-RAY: Single view. HISTORY: Chest pain. COMPARISON CHEST X-RAY: August 16, 2019. FINDINGS: Monitoring electrodes overlie the chest. Oxygen delivery tubing is seen. There are surgical clips projecting in the right suprahilar and paratracheal region. The lungs are well inflated and clear. The pleural angles are sharp. Heart size is normal. The patient is status post aortic valve replacement. IMPRESSION: Status post aortic valve replacement. No active disease. Electronically Signed by Alexei Artis MD 09/23/2019 11:26 A
[2019-09-23] MEDS ORDERED: XARE15TA PO (10:53)
[2019-09-23] MEDS ORDERED: AMIT10TA PO (10:53)
[2019-09-23] MEDS ORDERED: ACETAMINOPHEN TAB 650MG DOSE (2X325MG) PO PRN (11:15)
[2019-09-23] MEDS ORDERED: MOM 30ML SUSPENSION UDC PO PRN (11:15)
[2019-09-23] MEDS ORDERED: MAALOX 30 ML SUSP *UDC PO PRN (11:15)
--- NOTE | 2019-09-23 11:27 | HPEPDOC ---
[facility] Medical History & Physical Date of Admission September 23, 2019 Date of Service: September 23, 2019 History and Physical CHIEF COMPLAINT: SOB, A.fib with RVR HISTORY OF PRESENT ILLNESS: Pt is a 59-year-old male with PMH DVT and paroxysmal A. fib s/p AVR on Xarelto, hx of GI bleed 07/2013 requiring 32 units of blood, HfpEF, history of stable thoracic aortic aneurysm, CAD status post [place], CK D III, DM type 2 insulin-dependent, HTN, HLD, peripheral neuropathy, Charcot foot, GERD, history of gout, presenting with shortness of breath and was found to be in A. fib with RVR at the cardiology office. Patient was sent over from Dr. Rojas office for A. fib with RVR at a rate in the 170s. Patient reports shortness of breath for a few days prior to evaluation on cardiology. He denies any fevers, chills, chest pain, nausea, vomiting, abdominal pain. In the ED, he was afebrile, heart rate varied from 153-169, blood pressure systolic ranging from 90-110, on 4 L of nasal cannula with a respiratory rate of 20. Labs include WBC of 11, H&H of 10.1 and 30 (baseline ) respectively, platelets 118. Other labs include a sodium of 127, corrected is 131, glucose 361, lactic acid 3.4, troponin 1.02, TSH 2.39, proBNP 41159, potassium 5.5, bicarbonate 18, BUN 37, creatinine 1.83, PTT 21.4, INR 1.88, APTT 45.6, ABG performed reveals a PCO2 of 18.4. S x-ray reveals aortic valve replacement, lungs appear clear. In the ED, patient was given digoxin 0.5 mg IV 1, amiodarone 2, and Zofran 4 mg IV 1. . He denies any improvement of dyspnea with medication use. Due to low blood pressures, he was given a 500 mL bolus of IV fluids. I personally reviewed. Patient's EKG in the ED, which reveals A. fib with RVR, left axis deviation, heart rate 175, nonspecific ST changes. Compared to previous EKG performed on 08/26/2019 revealing sinus rhythm with a first-degree lock, IL 274, left axis deviation, Q-wave present on aVR, nonspecific ST changes. Echo performed on 08/26/2019: Reveals mild concentric LVH, EF of 75%, grade 2 diastolic dysfunction, with no significant changes compared to echo performed on 09/10/2014. Patient had a stress test performed on 05/23/2017 revealing an EF of 75. ROS: 10 point review systems negative except per above. PMH: See above. PSH: See above. Bioprosthetic Aortic valve replacement (2017), right foot surgery 12-13, left retinal reattachment, right gastrocnemius surgery, r esection of bleeding ulcers 3, transmetatarsal amputation of the first and second toe debridement Family history: Father: Valvular disease, CAD. at 90 y/o, Mother: DM type II, skin cancer. Alive, Paternal uncle: CAD, [place]. in 80's, Maternal uncle: CAD, [place]. at 71 y/o Social history: No tobacco, or illicits, consumes alcohol socially, PCP- Gabriele, Card Doffer- Dr. Felder, Podiatry- Dr. Singh, Nephrology- Dr. Villalta. Medications: Reviewed Allergies: NKDA PHYSICAL EXAMINATION: VITAL SIGNS: Please see below. GENERAL: Laying supine, able to speak in full sentences, but does appear to be in respiratory distress HEENT: Normocephalic, atraumatic, moist mucous membranes NECK: Supple CARDIOVASCULAR EXAMINATION: S1, S2 RESPIRATORY EXAMINATION: CTAB ABDOMINAL EXAMINATION: Soft, nontender, nondistended, positive bowel sounds EXTREMITIES: no edema SKIN: No rash NEUROLOGICAL EXAMINATION: Awake PSYCHIATRIC EXAMINATION: Flat affect Assessment and plan: Pt is a 59-year-old male with PMH DVT and paroxysmal A. fib s/p AVR on Xarelto, hx of GI bleed 07/2013 requiring 32 units of blood, HfpEF, history of stable thoracic aortic aneurysm, CAD status post WI, CK D III, DM type 2 insulin- dependent, HTN, HLD, peripheral neuropathy, Charcot foot, GERD, history of gout, presenting with shortness of breath and was found to be in A. fib with RVR. Admit to ICU. #History of paroxysmal atrial fibrillation, atrial fibrillation with RVR: Cardiology consult, discussed with Dr. Ramon, will start amiodarone 200 mg 4 times a day by mouth, and given additional dose of digoxin 0.25 mg IV. Control, continue home Xarelto. #HFpEF: Continue home furosemide 20 mg twice a day, continue home potassium 40 MEQ daily #Anemia: Continue to monitor at this time, likely secondary to anemia, chronic disease with CKD3 #HLD: Continue home statin #hyponatremia: Likely secondary to combination of pseudohyponatremia #CKD III, continue gentle hydration #DMII: Insulin-dependent: Continue home Lantus 18 units daily at bedtime, and insulin sliding scale, hold home diabetic by mouth medications #Peripheral neuropathy: Continue home amitriptyline 10 mg daily at bedtime #GERD: Continue home famotidine 20 mg twice a day #Eye disorder: Continue home ophthalmic gtt. DVT ppx: Home Xarelto DNR/DNI Dispo: at least 2 midnights Vital Signs Vital Signs Date Time Temp Pulse Resp B/P (MAP) Pulse Ox O2 Delivery O2 Flow Rate FiO2 09/23/19 10:30 147 20 110/60 (77) 95 Nasal Cannula 4.0 09/23/19 09:05 98.8 Laboratory Data Labs 24H Laboratory Tests 2 09/23/19 09:31: Blood Gas Bicarbonate Standard 19.2L, Arterial Blood pH 7.517H, Arterial Blood Partial Pressure CO2 18.4*L, Arterial Blood Partial Pressure O2 178.2H, Arterial Blood Total CO2 15.2L, Arterial Blood HCO3 14.6L, Arterial Blood Base Excess - 6.4L, Arterial Blood Oxygen Saturation 99.4H 09/23/19 09:48: Neutrophils (%) (Auto) , Nucleated Red Blood Cells % (auto) 0.0, Neutrophils 95H, Band Neutrophils 1, Lymphocytes (Manual) 2L, Monocytes (Manual) 1, Basophils (Manual) 1, Poikilocytosis 1+, Anisocytosis 1+, Platelet Estimate NORMAL, Prothrombin Time 21.4H, Prothromb Time International Ratio 1.88, Activated Partial Thromboplast Time 45.6H, Anion Gap 11, Glomerular Filtration Rate 38.8L, Lactic Acid Level 3.4*H, Calcium Level 8.4L, Total Creatine Kinase 11L, Creatine Kinase MB < 1.0, Creatine Kinase MB Relative Index 9.09H, Troponin I < 0.02, GP-Vsy-A-Type Natriuretic Peptide 24883X, Thyroid Stimulating Hormone (TSH) 2.390, Free Thyroxine 1.52H CBC/BMP Laboratory Tests 09/23/19 09:48 Microbiology Microbiology 09/23/19 Blood Culture, Received Pending Home Medications Scheduled Amitriptyline HCl (Amitriptyline HCl) 10 Mg Tablet, 10 MG PO QHS Famotidine (Famotidine) 20 Mg Tablet, 20 MG PO BID Furosemide (Furosemide) 20 Mg Tab, 20 MG PO BID takes 0800/1800 Gluc Fink/Chondro Fink A/Vit C/Mn (Glucosamine Chondroitin Tab) 1 Each Tablet, 1 TAB PO DAILY Insulin Glargine (Lantus) 1 Units/0.01 Ml Susp, 1 DOSE SC QHS 18 - 22 UNITS Insulin Human Lispro (Humalog) 1 Units/0.01 Ml Inj, 1 DOSE SC AC Usually 8 - 10 UNITS PER SLIDING SCALE Latanoprost (Xalatan) 0.005 % Nat, 1 DROP OS QHS Metformin HCl (Metformin HCl ER) 500 Mg Tab.er.24h, 1,000 MG PO DAILY Potassium Chloride (Potassium Chloride) 20 Meq Tab.er.prt, 40 MEQ PO DAILY Rivaroxaban (Xarelto) 15 Mg Tablet, 15 MG PO QHS Simvastatin (Simvastatin) 40 Mg Tab, 40 MG PO QHS Allergies Coded Allergies: No Known Allergies (Verified , 08/14/18) A-FIB/CHADSVASC A-FIB History Current/History of A-Fib/PAF?: Yes Current PO Anticoag Therapy: Yes DELFIN NIEVES MD September 23, 2019 11:23
[2019-09-23] MEDS ORDERED: DIGOXIN INJ 0.5 MG/2 ML AMP (J1160) IV ONE (12:00)
[2019-09-23] MEDS: AMIODARONE 200 MG TAB (PACERONE) PO SCH ×3 (12:01→20:25)
[2019-09-23] MEDS ORDERED: GLUCAGON INJ 1MG VIAL SC PRN (12:15)
[2019-09-23] MEDS ORDERED: DEXTROSE 50% 50 ML SYRINGE IV PRN (12:15)
[2019-09-23] MEDS ORDERED: GLUCOSE 4GM CHEW TABLET PO PRN (12:15)
[2019-09-23] MEDS ORDERED: NS 500 ML IV ONE (12:30)
[2019-09-23] MEDS ORDERED: CALCIUM GLUCONATE 1,000 MG in D5W MINI-BAG PLUS 100 ML IV ONE (13:00)
[2019-09-23] MEDS: HumaLOG INSULIN (NovoLOG) PER UNIT SC SCH ×3 (13:04→20:26)
[2019-09-23] MEDS: NS 1,000 ML IV SCH (13:11)
[2019-09-23] MEDS ORDERED: PHENYLEPHRINE 10MG/ML 1ML VIAL (J2370 PER 1) As Ordered ONE (16:11)
[2019-09-23] MEDS ORDERED: propofoL 200 MG/20 ML VIAL As Ordered ONE (16:12)
[2019-09-23] MEDS: RIVAROXABAN 15 MG TAB (XARELTO) PO SCH (17:06)
[2019-09-23] MEDS: FUROSEMIDE 20 MG TAB PO SCH (17:06)
--- NOTE | 2019-09-23 17:15 | CR ---
DATE OF CONSULTATION: 09/23/2019 REFERRING PHYSICIAN: Dr. Mallory Dotson REASON FOR CONSULTATION: Paroxysmal atrial fibrillation with rapid ventricular response. HISTORY OF PRESENT ILLNESS: Mr. Garrett Issa is a pleasant 59-year-old man who is status post aortic valve replacement with bioprosthesis performed 06/15/2016 at [facility] in [place] by Dr. Ronni Sheikh because of previous severe aortic stenosis. At the time of operation, his aortic valve was noted to be trileaflet and heavily calcified. He received a 25 mm Magna bovine pericardial bioprosthesis. The patient's cardiac catheterization performed prior to the operating room (OR) was performed 12/19/2014, which showed angiographically normal coronary arteries. The patient's last echocardiogram Doppler was performed at [facility] 08/26/2019. It showed mild concentric left ventricle hypertrophy with superimposed moderately-severe focal hypertrophy of the basal anterior ventricular septum. Hyperdynamic left ventricular (LV) systolic function. Left ventricular ejection fraction (LVEF) 75% by visual estimate. No dynamic left ventricular outflow tract (LVOT) obstruction. Grade 2 LV diastolic dysfunction. Moderate left atrial dilatation (5.0 cm). Well-seated and normally functioning aortic valve bioprosthesis. Moderate mitral annular calcification. Very mild mitral regurgitation. No mitral stenosis. Suggestive of normal pulmonary artery pressure and central venous pressure. No pericardial effusion. A regadenoson stress SPECT myocardial perfusion imaging study from May 2017 showed normal perfusion. Patient presents to the hospital with a 2-week history of progressive exertional dyspnea to the point of dyspnea with minimal activity and dyspnea at rest. No orthopnea or paroxysmal nocturnal dyspnea (PND). He has not been aware of any leg or ankle swelling. No chest, neck, jaw or upper extremity pain, pressure, tightness, squeezing or heaviness with or without exertion. He is not aware of any palpitations. No embolic events. No presyncope or syncope. No known adverse drug reactions. MEDICATIONS PRIOR TO ADMISSION: - amitriptyline 10 mg nightly - famotidine 20 mg twice a day - furosemide 20 mg twice a day - glucosamine chondroitin one daily - Lantus insulin 18-22 units nightly - Humalog insulin 8-10 units subcu before meals - Xalatan eye drops left eye (OS) nightly one drop - metformin 1000 mg daily - potassium chloride 40 mEq daily - Xarelto 15 mg nightly - simvastatin 40 mg nightly So far, since the patient has been in the hospital today, he has received a total of 1 mg of digoxin IV, and he has received a total of 300 mg of amiodarone IV. OTHER PAST MEDICAL AND SURGICAL HISTORY: Prior degenerative, calcific aortic valve disease with severe aortic stenosis. Status post aortic valve replacement (bioprosthesis) 06/15/2016. Chronic kidney disease, stage III. Chronic hypotension, paroxysmal atrial fibrillation. He has had previous atrial fibrillation postoperative following aortic valve replacement. Abnormal ECG with first-degree atrioventricular (AV) block when in sinus rhythm. Thoracic aortic aneurysm. Hypercholesterolemia. Insulin-dependent type 2 diabetes, gastrointestinal (GI) bleed 07/2013 for which he required a total of 32 units of blood transfusions. Deep vein thrombosis (DVT) for which he is on Xarelto. Peripheral neuropathy. SURGICAL HISTORY: Ureter surgery 2005, amputation of the right 2nd,3rd, and 4th toes due to prior infection. Thrombolysis of a right arm DVT 2013. Cataract extractions with lens replacements bilateral. Eye surgery 2013 for left retinal detachment. Debridement of the right foot 03/2016. Incision and drainages of the right foot and removal of bone on multiple prior occasions. FAMILY HISTORY: Father had aortic valve replacement and mitral valve replacement. Mother has insulin-dependent diabetes. One sister with diabetes. SOCIAL HISTORY: . Retired/disabled since 2013 due to diabetes complications. Independent with activities of daily living. Lifetime nonsmoker. Rare intake of alcohol. Exercise limitations due to partial amputation of toes on the right foot. Also limited by exertional dyspnea. REVIEW OF SYSTEMS: As per history of the present illness above. Decreased hearing. Does not wear a hearing aid. At his baseline, he gets exertional dyspnea with ordinary activities of daily living. Arthralgias, peripheral neuropathy. Arthritis. Tingling in his feet. No anxiety, depression, or panic attacks. Cold intolerance. Easy bleeding and bruising tendency. All other 10-point review of systems questions negative. PHYSICAL EXAMINATION: Pulse 127, respiratory rate 24, blood pressure 87/56, oxygen (O2) saturation 98% on room air, temperature 99.7. Height 77 inches, weight 101.6 kg, body mass index (BMI) 26.6. He appears to be mildly overweight. No conjunctival pallor, scleral icterus or icterus. Oral mucosa was moist and without pallor or cyanosis. Jugular venous pulsations were at 5 cm. Trachea midline. No palpable thyroid. No clubbing, nail bed cyanosis or splinter hemorrhages. No skin lesions, skin pallor or icterus. Oriented to person, place and time. Mood and affect normal. Curvature of the spine normal. Gait was not tested at this time. Gross motor strength and tone appeared normal. Status post amputation of multiple toes of the right foot. Respiratory expansion effort was good. No crackles or wheezes. No dullness to percussion. No palpable apex beat. No parasternal lifts, heaves, thrills or palpable heart sounds. A mini thoracotomy scar was present over the right anterior chest. First and second heart sounds were variable intensity. No S3. Grade 1-2 systolic ejection murmur right second interspace. No diastolic murmurs appreciated. Carotids were normal in volume and contour and without bruits. No palpable abdominal aorta. No abdominal bruits. Femoral pulses normal. Pedal pulses normal. Trace pitting edema in both legs. No varicose veins. Abdomen was soft and nontender with normal bowel sounds. No hepatosplenomegaly or other organomegaly. Liver span 14 cm right midclavicular line. Stool for occult blood not presently indicated. INVESTIGATIONS: Electrocardiogram 09/23/2019 at 0901 hours shows atrial fibrillation with rapid ventricular response, 175 beats per minute (bpm), left axis deviation. Chest x-ray, portable, 09/23/2019 shows status post aortic valve replacement. Surgical clips projecting over the right suprahilar and paratracheal region. Lungs well inflated and clear. Pleural angles sharp. Normal heart size for portable technique. Laboratory work 06/25/2019 was reviewed: Sodium 127, potassium 5.5, chloride 98, CO2 18, BUN 37, creatinine 1.89, GFR 38.8, glucose 361, lactic acid 3.4 with repeat 1.8, calcium 8.4, CPK 11, CPK-MB less than 1.0, troponin I less than 0.02, NT-pro-BNP 12,781, TSH 2.390, free T4 1.52. ASSESSMENT AND PLAN: 1. Paroxysmal atrial fibrillation with rapid ventricular rate. Since the patient has not responded to digoxin 1 mg IV total and 300 mg of amiodarone IV total, my plan is to cardiovert the patient this afternoon. This was discussed with the patient, and he was agreeable. Risks as reviewed on the consent form with the patient. 2. Hypotension. Patient tends to run in chronic hypotension, but I suspect that his hypotension is worse due to paroxysmal atrial fibrillation with rapid ventricular response. Hopefully this will improve following cardioversion. 3. Diastolic heart failure (acute on chronic). He appears compensated on examination. Although the NT-pro-BNP is very high, it is difficult to entirely know how to interpret a value that high in the setting of chronic renal failure. 4. Status post aortic valve replacement (bioprosthesis). Stable. 5. Abnormal ECG. ECG as described above. 6. History of first-degree AV block when in sinus rhythm. MTDD
--- NOTE | 2019-09-23 17:21 | RO ---
DATE OF PROCEDURE: 09/23/2019 PREPROCEDURE DIAGNOSIS: Atrial fibrillation. POSTPROCEDURE DIAGNOSIS: Normal sinus rhythm. PROCEDURE: Direct current biphasic cardioversion shock 150 joules times one, reverse polarity. PROCEDURE PERFORMED BY: Maco Ramon MD HARD HAT DIVER: ANESTHESIA: IV sedation - propofol IV per OUTBOARD MOTOR TESTER. COMPLICATIONS: None. DESCRIPTION OF PROCEDURE: Transthoracic pacing/defibrillation patches were applied by Dr. Ramon with the sternal patch placed over the left posterior hemithorax and the apical patch placed over the sternum so as to create reverse polarity. After receiving adequate IV sedation with propofol, the patient received a single 150 joule biphasic cardioversion shock applied by Dr. Ramon, which successfully converted the patient to sinus rhythm without any undue pauses. Patient tolerated the procedure well without any immediate complications.
--- NOTE | 2019-09-23 19:21 | ECGEPIP ---
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
[2019-09-23] MEDS: LATANOPROST 0.005% OPHTH SOLN 2.5 ML OS SCH (20:23)
[2019-09-23] MEDS: AMITRIPTYLINE 10 MG TAB PO SCH (20:24)
[2019-09-23] MEDS: LEVEMIR (INSULIN DETEMIR) 1 UNITS/0.01ML SC SCH (20:25)
[2019-09-23] MEDS: FAMOTIDINE IV BAG 20 MG in IV 1 EA IV SCH (20:25)
[2019-09-23] MEDS ORDERED: FAMOTIDINE 20 MG TAB PO SCH (21:00)
[2019-09-24] VITALS (14 sets, daily range): BP systolic 91–109; BP diastolic 53–62
[2019-09-24] MEDS: NS 1,000 ML IV SCH (00:26)
[2019-09-24 04:49] LABS: HEMATOCRIT 27.5 % (42.0-52.0); HEMOGLOBIN 9.1 g/dl (13.5-17.5); MEAN CORPUSCULAR HEMOGLOBIN 26.8 pg (27.0-33.0); MEAN CORPUSCULAR HGB CONC 33.1 g/dl (32.0-36.5); MEAN CORPUSCULAR VOLUME 80.9 fl (80.0-96.0); PLATELET COUNT, AUTOMATED 162 10^3/uL (150-450); WHITE BLOOD COUNT 7.3 10^3/uL (4.0-10.0)
[2019-09-24 05:08] LABS: CALCIUM LEVEL 7.5 MG/DL (8.8-10.2); CREATININE FOR GFR 1.63 MG/DL (0.70-1.30); POTASSIUM SERUM 4.6 MEQ/L (3.5-5.1)
--- NOTE | 2019-09-24 08:21 | ECGEPIP ---
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
[2019-09-24] MEDS ORDERED: POTASSIUM CHLORIDE 10 MEQ SR TABLET PO SCH (09:00)
[2019-09-24] MEDS: FUROSEMIDE 20 MG TAB PO SCH ×2 (09:49→17:06)
[2019-09-24] MEDS: HumaLOG INSULIN (NovoLOG) PER UNIT SC SCH ×4 (09:49→21:58)
[2019-09-24] MEDS: AMIODARONE 200 MG TAB (PACERONE) PO SCH ×4 (09:49→21:59)
--- NOTE | 2019-09-24 11:27 | IPNPDOC ---
Date Seen The patient was seen on 09/24/19. Progress Note SUBJECTIVE: Was cardioverted yesterday, doing well. One blood culture came back positive for gram-positive rods, patient was afebrile overnight. Spoke with Dr. Ramon, will continue amiodarone 200 mg 4 times a day today, with plans to change 200 mg daily for the next 3 days without refills. Plan to discharge home tomorrow with follow-up with cardiology in 1 week. Downgrade patient from ICU to PCU. Reports shortness of breath improved. Pt is DNR/DNI. OBJECTIVE PHYSICAL EXAMINATION: VITAL SIGNS: Please see below. PHYSICAL EXAMINATION: VITAL SIGNS: Please see below. GENERAL: Laying supine, able to speak in full sentences, but does appear to be in respiratory distress, not on oxygen HEENT: Normocephalic, atraumatic, moist mucous membranes NECK: Supple CARDIOVASCULAR EXAMINATION: S1, S2 RESPIRATORY EXAMINATION: CTAB ABDOMINAL EXAMINATION: Soft, nontender, nondistended, positive bowel sounds EXTREMITIES: no edema SKIN: No rash NEUROLOGICAL EXAMINATION: Awake PSYCHIATRIC EXAMINATION: Flat affect Assessment and plan: Pt is a 59-year-old male with PMH DVT and paroxysmal A. fib s/p AVR on Xarelto, hx of GI bleed 07/2013 requiring 32 units of blood, HfpEF, history of stable thoracic aortic aneurysm, CAD status post [place], CK D III, DM type 2 insulin- dependent, HTN, HLD, peripheral neuropathy, Charcot foot, GERD, history of gout, presenting with shortness of breath and was found to be in A. fib with RVR. Admit to ICU. #History of paroxysmal atrial fibrillation, atrial fibrillation with RVR: Cardiology consult, discussed with Dr. Ramon, will start amiodarone 200 mg 4 times a day by mouth during hospitalization, and given additional dose of digoxin 0.25 mg IV 09/23/19. Control, continue home Xarelto. -To DC home on amiodarone 200 mg daily for 30 days, with follow-up with cardiology in 1 week #Positive blood culture 1, likely contaminant, afebrile overnight, will monitor, no antibiotics at this time, repeat blood culture 2. #HFpEF: Continue home furosemide 20 mg twice a day, continue home potassium 40 MEQ daily, patient is baseline hypotensive, no changes at this time. Stable. #Anemia: Continue to monitor at this time, likely secondary to anemia, chronic disease with CKD3 #HLD: Continue home statin #hyponatremia: Likely secondary to combination of pseudohyponatremia #CKD III, continue gentle hydration #DMII: Insulin-dependent: Continue home Lantus 18 units daily at bedtime, and insulin sliding scale, hold home diabetic by mouth medications #Peripheral neuropathy: Continue home amitriptyline 10 mg daily at bedtime #GERD: Continue home famotidine 20 mg twice a day #Eye disorder: Continue home ophthalmic gtt. DVT ppx: Home Xarelto DNR/DNI Disposition: Home on 09/25/2019 32 minutes are spent on patient care. VS, I&O, 24H, Fishbone Vital Signs/I&O Vital Signs Date Time Temp Pulse Resp B/P (MAP) Pulse Ox O2 Delivery O2 Flow Rate FiO2 09/24/19 10:00 95 18 98/57 (71) 100 Room Air 09/24/19 08:00 99.8 09/23/19 17:15 4.0 I&O- Last 24 Hours up to 6 AM 09/24/19 06:00 Intake Total 2025 ml Output Total 850 ml Balance 1175 ml Laboratory Data 24H LABS Laboratory Tests 2 09/23/19 12:59: Bedside Glucose (Misc Panel) 377H 09/23/19 14:06: Lactic Acid Followup at 4 Hours 1.8 09/23/19 17:01: Bedside Glucose (Misc Panel) 272H 09/23/19 20:14: Bedside Glucose (Misc Panel) 294H 09/24/19 04:17: Nucleated Red Blood Cells % (auto) 0.0, Anion Gap 7L, Glomerular Filtration Rate 46.0L, Calcium Level 7.5L 09/24/19 07:24: Methicillin-Resist S.aureus DNA PCR NOT DETECTED CBC/BMP Laboratory Tests 09/24/19 04:17 Microbiology Microbiology 09/23/19 Blood Culture - Preliminary, Resulted DELFIN NIEVES MD September 24, 2019 11:23
[2019-09-24] MEDS ORDERED: SLF 3 ML SYR IV PRN (13:30)
[2019-09-24] MEDS: SLF 3 ML SYR IV SCH ×2 (17:06→22:00)
[2019-09-24] MEDS: RIVAROXABAN 15 MG TAB (XARELTO) PO SCH (17:06)
[2019-09-24] MEDS ORDERED: SIMVASTATIN 40 MG TAB PO SCH (21:00)
[2019-09-24] MEDS: LEVEMIR (INSULIN DETEMIR) 1 UNITS/0.01ML SC SCH (21:58)
[2019-09-24] MEDS: AMITRIPTYLINE 10 MG TAB PO SCH (21:59)
[2019-09-24] MEDS: LATANOPROST 0.005% OPHTH SOLN 2.5 ML OS SCH (21:59)
[2019-09-24] MEDS: FAMOTIDINE IV BAG 20 MG in IV 1 EA IV SCH (21:59)
[2019-09-25] VITALS: BP 117/54
[2019-09-25 04:00] VITALS: BP 111/63
[2019-09-25 06:07] LABS: HEMATOCRIT 26.7 % (42.0-52.0); MEAN CORPUSCULAR HEMOGLOBIN 26.7 pg (27.0-33.0); MEAN CORPUSCULAR HGB CONC 33.7 g/dl (32.0-36.5); MEAN CORPUSCULAR VOLUME 79.2 fl (80.0-96.0); PLATELET COUNT, AUTOMATED 152 10^3/uL (150-450); RED BLOOD COUNT 3.37 10^6/uL (4.30-6.10); WHITE BLOOD COUNT 6.1 10^3/uL (4.0-10.0)
[2019-09-25 06:27] LABS: CALCIUM LEVEL 7.2 MG/DL (8.8-10.2); CREATININE FOR GFR 1.3 MG/DL (0.70-1.30); GLOMERULAR FILTRATION RATE 59.7 (>49); POTASSIUM SERUM 4.2 MEQ/L (3.5-5.1)
[2019-09-25] MEDS: SLF 3 ML SYR IV SCH (06:27)
[2019-09-25 08:00] VITALS: BP 13/56
[2019-09-25] MEDS: AMIODARONE 200 MG TAB (PACERONE) PO SCH (08:48)
[2019-09-25] MEDS: HumaLOG INSULIN (NovoLOG) PER UNIT SC SCH (08:48)
[2019-09-25] MEDS: FUROSEMIDE 20 MG TAB PO SCH (08:48)
--- NOTE | 2019-09-25 09:06 | DS.PDOC ---
Discharge Summary General Date of Admission September 23, 2019 at 11:12 Date of Discharge 09/25/19 Discharge Summary PROCEDURES PERFORMED DURING STAY: cardioversion ADMITTING DIAGNOSES: 1. A fib with RVR DISCHARGE DIAGNOSES: 1. A. fib with RVR, status post cardioversion, positive blood culture, suspect contaminant. COMPLICATIONS/CHIEF COMPLAINT: Atrial Fibrillation With Rvr. HISTORY OF PRESENT ILLNESS/ HOSPITAL COURSE: VITAL SIGNS: Pt is a 59-year-old male with PMH DVT and paroxysmal A. fib s/p AVR on Xarelto, hx of GI bleed 07/2013 requiring 32 units of blood, HfpEF, history of stable thoracic aortic aneurysm, CAD status post [place], CK D III, DM type 2 insulin-dependent, HTN, HLD, peripheral neuropathy, Charcot foot, GERD, history of gout, presenting with shortness of breath and was found to be in A. fib with RVR. In the ED, he received 2 doses of IV amiodarone and a dose of 0.5 mg IV of digoxin, 500 mL bolus of normal saline. He was admitted to ICU. Cardiology was consulted, and patient was started on amiodarone 200 mg 4 times a day by mouth during hospitalization, and given additional dose of digoxin 0.25 mg IV. Was cardioverted overnight. Hospitalization was otherwise uneventful, there was one blood culture revealing gram-positive rods, patient was afebrile. Consider blood cultures were drawn on 09/24/2019 and will require follow-up as an outpatient, no antibiotics are started. Patient will be discharged home on amiodarone 200 mg daily for 30 days, with follow-up with cardiology in 1 week, follow-up with PCP in a week. No other medication changes. Patient on day of discharge. Denies any fevers, chills, headaches, changes in vision, chest pain, shortness of breath, nausea, vomiting, issues with voiding or stooling, arthralgias, or new rashes. All questions were answered. Disposition: Home on 09/25/2019 Vital Signs/I&Os Vital Signs Date Time Temp Pulse Resp B/P (MAP) Pulse Ox O2 Delivery O2 Flow Rate FiO2 09/25/19 08:00 100.4 88 16 13/56 (42) 97 Room Air 09/23/19 17:15 4.0 I&O- Last 24 Hours up to 6 AM 09/25/19 06:00 Intake Total 2125 ml Output Total 400 ml Balance 1725 ml Laboratory Data Labs 24H Laboratory Tests 2 09/24/19 11:28: Bedside Glucose (Misc Panel) 359H 09/24/19 17:00: Bedside Glucose (Misc Panel) 159H 09/25/19 05:10: Nucleated Red Blood Cells % (auto) 0.0, Anion Gap 9, Glomerular Filtration Rate 59.7, Calcium Level 7.2L CBC/BMP Laboratory Tests 09/25/19 05:10 FSBS Laboratory Tests Test 09/24/19 11:28 09/24/19 17:00 Range/Units Bedside Glucose (Misc Panel) 359 159 80-115 MG/DL Microbiology Microbiology 09/24/19 Blood Culture, Received Pending 09/24/19 Blood Culture, Received Pending 09/23/19 Blood Culture - Preliminary, Resulted Discharge Medications Scheduled Amitriptyline HCl (Amitriptyline HCl) 10 Mg Tablet, 10 MG PO QHS, (Reported) Famotidine (Famotidine) 20 Mg Tablet, 20 MG PO BID, (Reported) Furosemide (Furosemide) 20 Mg Tab, 20 MG PO BID, (Reported) takes 0800/1800 Gluc Fink/Chondro Fink A/Vit C/Mn (Glucosamine Chondroitin Tab) 1 Each Tablet, 1 TAB PO DAILY, (Reported) Insulin Glargine (Lantus) 1 Units/0.01 Ml Susp, 1 DOSE SC QHS, (Reported) 18 - 22 UNITS Insulin Human Lispro (Humalog) 1 Units/0.01 Ml Inj, 1 DOSE SC AC, (Reported) Usually 8 - 10 UNITS PER SLIDING SCALE Latanoprost (Xalatan) 0.005 % Nat, 1 DROP OS QHS, (Reported) Metformin HCl (Metformin HCl ER) 500 Mg Tab.er.24h, 1,000 MG PO DAILY, (Reported) Potassium Chloride (Potassium Chloride) 20 Meq Tab.er.prt, 40 MEQ PO DAILY, (Reported) Rivaroxaban (Xarelto) 15 Mg Tablet, 15 MG PO QHS, (Reported) Simvastatin (Simvastatin) 40 Mg Tab, 40 MG PO QHS, (Reported) Allergies Coded Allergies: No Known Allergies (Verified , 08/14/18) DELFIN NIEVES MD September 25, 2019 09:06
[2019-09-25] MEDS ORDERED: AMIO200T PO (09:10)
== END 2019-09-25 12:09 | disposition home health service (06) | DRG 309 ==
LOC: EDBD 08:52 → M ED 08:52 → EEVIPCON 11:12 → M ED INP 11:12 → ENRESERV 11:52 → M ICU 13:00 → M PCU 09-24 10:30
PROVIDERS: ADMIT Family Medicine; ATTEND Family Medicine
PROC: 5A2204Z Restoration of Cardiac Rhythm, Single (ICD-10-PCS; principal; 2019-09-23)
DX: I48.0 Paroxysmal atrial fibrillation (principal); I50.32 Chronic diastolic (congestive) heart failure; I13.0 Hypertensive heart and chronic kidney disease with heart failure and stage 1 through stage 4 chronic kidney disease, or unspecified chronic kidney disease; E87.1 Hypo-osmolality and hyponatremia; I25.10 Atherosclerotic heart disease of native coronary artery without angina pectoris; I25.2 Old myocardial infarction; N18.3 Chronic kidney disease, stage 3 (moderate); E11.22 Type 2 diabetes mellitus with diabetic chronic kidney disease; E78.5 Hyperlipidemia, unspecified; Z66 Do not resuscitate; E11.42 Type 2 diabetes mellitus with diabetic polyneuropathy; E78.00 Pure hypercholesterolemia, unspecified; E11.610 Type 2 diabetes mellitus with diabetic neuropathic arthropathy; I95.89 Other hypotension; K21.9 Gastro-esophageal reflux disease without esophagitis; I71.2 Thoracic aortic aneurysm, without rupture; H57.9 Unspecified disorder of eye and adnexa; M10.9 Gout, unspecified; Z95.3 Presence of xenogenic heart valve; Z79.4 Long term (current) use of insulin; Z79.01 Long term (current) use of anticoagulants; Z79.899 Other long term (current) drug therapy; Z89.421 Acquired absence of other right toe(s)

== ENCOUNTER 2019-09-29 09:12 | Inpatient (IN) | payer MEDICARE ==
[~2019-09-29] VITALS: Ht 195.6 cm; Wt 112.3 kg
[~2019-09-29 09:12] MED LIST changes: +AMIO200T PO; +FAMO1TAB11 PO; +POTA20TA6 PO
[2019-09-29] MEDS ORDERED: MOM 30ML SUSPENSION UDC PO PRN (09:45)
[2019-09-29] MEDS ORDERED: ACETAMINOPHEN TAB 650MG DOSE (2X325MG) PO PRN (09:45)
[2019-09-29] MEDS ORDERED: MAALOX 30 ML SUSP *UDC PO PRN (09:45)
--- NOTE | 2019-09-29 09:56 | HPEPDOC ---
[facility] Medical History & Physical Date of Admission September 29, 2019 Date of Service: September 29, 2019 History and Physical CHIEF COMPLAINT: Bacteremia HISTORY OF PRESENT ILLNESS: Pt is a 59-year-old male with PMH DVT and paroxysmal A. fib s/p AVR on Xarelto, hx of GI bleed 07/2013 requiring 32 units of blood, HfpEF, history of stable thoracic aortic aneurysm, CAD status post [place], CK D III, DM type 2 insulin-dependent, HTN, HLD, peripheral neuropathy, Charcot foot, GERD, history of gout, presenting with bacteremia, he was initially hospitalized on 09/23/2019 A. fib with RVR and was cardioverted. On discharge, he was AF but had a temp 100.1 and one positive blood cx growing gram positive bacilli, thought to be a contaminant. . Repeat blood cultures report performed at that time, patient was educated that if he had a fever or if blood cultures are positive, he would have to return to the hospital. I received a call today with bilateral blood cultures positive for similar growth. I called patient's for him to come directly to the hospital. I also formed cardiology that he will be missing his appointment today due to bacteremia. After discharge from hospital, patient reports no fevers, chills, shortness of breath, nausea, vomiting, cough, abdominal pain, issues with voiding or stooling, or any new rashes. His primary complaint was generalized fatigue. Pt has documented multiple hospitalizations for osteomyelitis, at least 3 times in the last 3 years. Most recently on 08/23/2019. He was a direct admit, pending lab results. Vital signs stable, afebrile, blood pressure 116/62, satting at 93% room air. WBC of 11.7, hemoglobin and hematocrit, I'm 9.5 (around baseline) and 29.7 respectively, lactic acid 3.3, pending CMP. Coagulation PT of 21, INR of 1.8. Blood cultures 2 pending. baseline creatinine 1.2 Upon chart review, patient has a history of MRSA in joint fluid in 2014, staph coagulase negative and enterococcus faecalis and right foot wound culture in 02/2019, staph hemolyticus, staph epidermidis, Corynebacterium species and right foot. Anaerobic culture on 02/2019 with susceptibilities with vancomycin, foot culture in 2018 with growth of Pseudomonas aeruginosa, enterococcus faecalis, Klebsiella pneumoniae, Citrobacter freundii. Echo performed on 08/26/2019: Reveals mild concentric LVH, EF of 75%, grade 2 d iastolic dysfunction, with no significant changes compared to echo performed on 09/10/2014. Patient had a stress test performed on 05/23/2017 revealing an EF of 75. ROS: 10 point review systems negative except per above. PMH: See above. PSH: See above. Bioprosthetic Aortic valve replacement (2016), right foot surgery 04-25, left retinal reattachment, right gastrocnemius surgery, resection of bleeding ulcers 3, transmetatarsal amputation of the first and second toe debridement Family history: Father: Valvular disease, CAD. at 90 y/o, Mother: DM type II, skin cancer. Alive, Paternal uncle: CAD, VA. in 80's, Maternal uncle: CAD, VA. at 71 y/o Social history: No tobacco, or illicits, consumes alcohol socially, PCP- Gabriele, Fund Manager- Dr. Felder, Podiatry- Dr. Singh, Nephrology- Dr. Villalta. Medications: Reviewed Allergies: NKDA PHYSICAL EXAMINATION: VITAL SIGNS: Please see below. GENERAL: male Laying supine, appears fatigued, able to speak in full sentences, does not appear to be any cardiac or respiratory distress HEENT: Normocephalic, atraumatic, moist mucous membranes NECK: Supple CARDIOVASCULAR EXAMINATION: S1, S2 RESPIRATORY EXAMINATION: Diminished ABDOMINAL EXAMINATION: Soft, nontender, nondistended, positive bowel sounds EXTREMITIES: no edema, right foot wound appears clean, intact, slight serous fluid on bandage. SKIN: No rash, no evident open wounds/rashes on arms, abdomen, back, and legs except for known right foot wound, negative for splinter hemorrhages NEUROLOGICAL EXAMINATION: Awake PSYCHIATRIC EXAMINATION: Flat affect Assessment and plan: Pt is a 59-year-old male with PMH DVT and paroxysmal A. fib s/p AVR on Xarelto, hx of GI bleed 07/2013 requiring 32 units of blood, HfpEF, history of stable thoracic aortic aneurysm, CAD status post [place], CK D III, DM type 2 insulin- dependent, HTN, HLD, peripheral neuropathy, Charcot foot, GERD, history of gout, presenting with bacteremia. #Bacteremia, suspected etiology from right foot wound, will consult ID for consideration of further imaging, antibiotic conditions and management -Obtained wound culture, BC, CMP, coagulation levels, lactic acid, IV fluids normal saline at 100 mL an hour -Repeat blood cultures, currently place patient on broad-spectrum antibiotics: Zosyn and Vanco due to history of Pseudomonas growth. The wound, and staph organism susceptible to vancomycin, monitor fluid levels due to history of HFpEF -Stat echo for evaluation on vegetations, will d/w ID/cardiothoracic if availab le, possible transfer -place PICC, PT/OT #MAXWELL on CKD III, continue gentle hydration #Anion gap, likely secondary to lactic acidosis and uremia from infection, see above #Pseudohyponatremia secondary to elevated glucose, see above #DMII: Insulin-dependent: Continue home Lantus 18 units daily at bedtime, and insulin sliding scale, hold home diabetic by mouth medications #Anemia: Continue to monitor at this time, likely secondary to anemia, chronic disease with CKD3, if need blood transfusion, blood consent was obtained #History of paroxysmal atrial fibrillation, hx of recent atrial fibrillation with RVR: Continue home amiodarone and xarelto #HFpEF: Continue home furosemide 20 mg twice a day (with parameters, if BP less than 110/60, hold), continue home potassium 40 MEQ daily #HLD: Continue home statin #Peripheral neuropathy: Continue home amitriptyline 10 mg daily at bedtime #GERD: Continue home famotidine 20 mg twice a day #Eye disorder: Continue home ophthalmic gtt. DVT ppx: Home Xarelto DNR/DNI Dispo: at least 2 midnights Home Medications Scheduled Amiodarone HCl (Amiodarone HCl) 200 Mg Tablet, 200 MG PO DAILY Amitriptyline HCl (Amitriptyline HCl) 10 Mg Tablet, 10 MG PO QHS Famotidine (Famotidine) 20 Mg Tablet, 20 MG PO BID Furosemide (Furosemide) 20 Mg Tab, 20 MG PO BID takes 0800/1800 Gluc Fink/Chondro Fink A/Vit C/Mn (Glucosamine Chondroitin Tab) 1 Each Tablet, 1 TAB PO DAILY Insulin Glargine (Lantus) 1 Units/0.01 Ml Susp, 1 DOSE SC QHS 18 - 22 UNITS Insulin Human Lispro (Humalog) 1 Units/0.01 Ml Inj, 1 DOSE SC AC Usually 8 - 10 UNITS PER SLIDING SCALE Latanoprost (Xalatan) 0.005 % Nat, 1 DROP OS QHS Metformin HCl (Metformin HCl ER) 500 Mg Tab.er.24h, 1,000 MG PO DAILY Potassium Chloride (Potassium Chloride) 20 Meq Tab.er.prt, 40 MEQ PO DAILY Rivaroxaban (Xarelto) 15 Mg Tablet, 15 MG PO QHS Simvastatin (Simvastatin) 40 Mg Tab, 40 MG PO QHS Allergies Coded Allergies: No Known Allergies (Verified , 08/14/18) A-FIB/CHADSVASC A-FIB History Current/History of A-Fib/PAF?: Yes Current PO Anticoag Therapy: Yes DELFIN NIEVES MD September 29, 2019 09:50
[2019-09-29 11:05] VITALS: BP 116/62
[2019-09-29] MEDS ORDERED: AMIO200T PO (11:27)
[2019-09-29 11:37] LABS: HEMATOCRIT 29.7 % (42.0-52.0); HEMOGLOBIN 9.5 g/dl (13.5-17.5); MEAN CORPUSCULAR HEMOGLOBIN 26.3 pg (27.0-33.0); MEAN CORPUSCULAR VOLUME 82.3 fl (80.0-96.0); PLATELET COUNT, AUTOMATED 167 10^3/uL (150-450); RED BLOOD COUNT 3.61 10^6/uL (4.30-6.10); WHITE BLOOD COUNT 10.7 10^3/uL (4.0-10.0)
[2019-09-29 11:50] LABS: INR 1.84
[2019-09-29] MEDS ORDERED: GLUCOSE 4GM CHEW TABLET PO PRN (12:30)
[2019-09-29] MEDS ORDERED: GLUCAGON INJ 1MG VIAL SC PRN (12:30)
[2019-09-29] MEDS ORDERED: DEXTROSE 50% 50 ML SYRINGE IV PRN (12:30)
[2019-09-29 12:39] LABS: BILIRUBIN,TOTAL 1.4 MG/DL (0.2-1.0); CALCIUM LEVEL 8.1 MG/DL (8.8-10.2); CREATININE FOR GFR 1.56 MG/DL (0.70-1.30); GLOMERULAR FILTRATION RATE 48.4 (>49); POTASSIUM SERUM 5.3 MEQ/L (3.5-5.1); TOTAL PROTEIN 6.9 GM/DL (6.4-8.2)
[2019-09-29] MEDS ORDERED: PIPERACILLIN/TAZOBACTAM SOD 3.375 GM in D5W MINI-BAG PLUS 50 ML IV SCH (13:00)
[2019-09-29] MEDS ORDERED: VANCOMYCIN HCL 1,000 MG, VIAL MATE ADAPTER 1 EACH in D5W 250 ML IV ONE (15:00)
--- NOTE | 2019-09-29 15:19 | REP ---
TWO-VIEW CHEST: REASON FOR EXAM: Fatigue. Latest prior for comparison is 09/23/2019, a portable examination. FINDINGS: The superior mediastinal structures are midline. The cardiac silhouette is unremarkable in size, shape, and position. The diaphragmatic surfaces of the lungs are regular, and the costophrenic angles are clear. The pulmonary jack are clear. The imaged osseous structures are intact. IMPRESSION: There is no acute cardiopulmonary disease. Postoperative changes again noted with surgical clips in the right suprahilar region and a prosthetic aortic valve, status quo. Electronically Signed by Liam Sims DO 09/29/2019 03:51 P
[2019-09-29 15:55] VITALS: BP 105/57
[2019-09-29] MEDS ORDERED: LIDOCAINE 1% MDV 20ML VIAL As Ordered ONE (16:20)
[2019-09-29] MEDS: HumaLOG INSULIN (NovoLOG) PER UNIT SC SCH ×2 (17:30→20:29)
--- NOTE | 2019-09-29 19:15 | REP ---
Procedure: PICC line insertion with Jailene The procedure was performed under the direct supervision of Dr. Wang. The risks and benefits of the procedure were explained to the patient and informed consent was obtained. The right basilic vein was localized using ultrasound guidance. The skin was prepped and draped in a sterile fashion. 2% lidocaine was used as a local anesthetic. Using ultrasound guidance the basilic vein was cannulated and a 0.018 guidewire was inserted and advanced to the SVC using fluoroscopic guidance. The needle was removed and a 5.5 Icelandic dilator and peel-away sheath was inserted over the guide wire. A 5.5 Icelandic dual lumen catheter was cut to length of 45 cm. The dilator was removed and the catheter was inserted over the guide wire with the tip ending in the SVC. The peel-away sheath was removed and the catheter was flushed with heparinized saline as per Hospital protocol. The catheter was affixed to the skin and a sterile dressing was applied. The patient tolerated the procedure well and there were no immediate complications. 0.2 minutes of fluoro time was utilized for this procedure. Electronically Signed by JAREN Brenner 09/29/2019 05:43 P Electronically Signed by Tone Wang MD 09/29/2019 07:05 P
[2019-09-29 20:00] VITALS: BP 98/58
[2019-09-29] MEDS: VANCOMYCIN HCL 1,000 MG, VIAL MATE ADAPTER 1 EACH in D5W 250 ML IV SCH ×2 (20:00→20:15)
[2019-09-29] MEDS: RIVAROXABAN 15 MG TAB (XARELTO) PO SCH (20:15)
[2019-09-29] MEDS: FAMOTIDINE 20 MG TAB PO SCH (20:15)
[2019-09-29] MEDS: LATANOPROST 0.005% OPHTH SOLN 2.5 ML OS SCH (20:16)
[2019-09-29] MEDS: SIMVASTATIN 40 MG TAB PO SCH (20:16)
[2019-09-29] MEDS: NS 1,000 ML IV SCH ×2 (20:16→22:15)
[2019-09-29] MEDS: FUROSEMIDE 20 MG TAB PO SCH (20:16)
[2019-09-29] MEDS: AMITRIPTYLINE 10 MG TAB PO SCH (20:16)
--- NOTE | 2019-09-29 20:19 | REPVR ---
PROCEDURE INFORMATION: Exam: MR Right Lower Extremity Other Than Joint Without Contrast; Foot Exam date and time: 09/29/2019 6:59 PM Age: 59 years old Clinical indication: Prior surgery; Surgery date: 6+ months; Patient HX: PT states pain in bilateral feet, prior amputation to RT foot PT states "charcot" in left foot; Additional info: HX osteo TECHNIQUE: Imaging protocol: MR of the Right lower extremity without contrast. Exam focused on the foot. COMPARISON: 1. MRI FOOT WITHOUT CONTRAST 01/25/2018 7:32 PM 2. RF - Foot, Ap, Lat 02/18/2019 5:00:40 PM FINDINGS: Limitations: Motion artifact degrades the image quality of several sequences obtained. Bones and cartilage: Postoperative changes are noted from a right transmetatarsal amputation and an amputation of the remaining portion of the base of the right 1st metatarsal. There is abnormally decreased T1 signal and increased T2 signal in the remaining distal ends of the bases of the right 2nd, 3rd, and 4th metatarsals, which can be seen with osteomyelitis. There is no evidence for osteomyelitis involving rest of the bones of the right foot. There is a bony fusion between the right medial and intermediate cuneiforms. There is also a bony fusion across the right 2nd and 3rd tarsometatarsal joints. There are degenerative changes involving the right naviculocuneiform joint and 4th and 5th tarsometatarsal joints. There is fissuring of the articular cartilage of the medial portion of the right talar dome with associated subchondral edema (frame 24 of the coronal T2 with fat saturation series 501). Joint spaces: No joint effusion. LIGAMENTS: Anterior talofibular ligament: Intact. Posterior talofibular ligament: Intact. Calcaneofibular ligament: Intact. Deltoid ligament complex: Intact. Spring ligament complex: Intact. Lisfranc ligament: There is mildly increased T2 signal in the Lisfranc ligament (frame 14 of the axial T2 series 701 and frame 13 of the coronal T2 with fat saturation series 501), which is compatible with a sprain. TENDONS: Flexor tendons of foot: No acute tear. No tendinosis. No tenosynovitis. Tibialis posterior tendon: Intact as visualized. No tendinosis. There is a small amount of fluid in the tibialis posterior tendon sheath. Peroneal tendons: Intact as visualized. No tendinosis. No tenosynovitis. Extensor tendons of foot: No acute tear. No tendinosis. No tenosynovitis. Tibialis anterior tendon: No acute tear. No tendinosis. No tenosynovitis. Achilles tendon: Intact. No tendinosis. No peritendinitis. Tarsal canal (Sinus tarsi): There is replacement of the normal fatty signal in the sinus tarsi with edema, which is compatible with an increased risk for a sinus tarsi syndrome. Tarsal tunnel: Unremarkable. Muscles: There is severe diffuse fatty atrophy of the muscles of the right foot. Soft tissues: There is edema in the subcutaneous tissues along the posterior and dorsal lateral aspect of the right foot. No soft tissue fluid collection is noted. Plantar fascia: Intact. There is no evidence for plantar fasciitis. There is a plantar calcaneal spur at the origin of the plantar fascia. IMPRESSION: 1. Postoperative changes from a right transmetatarsal amputation and an amputation of the remaining portion of the base of the right 1st metatarsal, with abnormally decreased bone marrow signal in the remaining distal ends of the bases of the right 2nd, 3rd, and 4th metatarsals, which can be seen with osteomyelitis. 2. Sprain of the right Lisfranc ligament. 3. Fissuring of the articular cartilage of the medial portion of the right talar dome with associated subchondral edema. 4. Degenerative changes involving the right naviculocuneiform joint and 4th and 5th tarsometatarsal joints. 5. Edema in the subcutaneous tissues along the posterior and dorsal lateral aspect of the right foot, which may represent cellulitis or lymphedema. 6. Replacement of the normal fatty signal in the sinus tarsi with edema, which is compatible with an increased risk for a sinus tarsi syndrome in the right foot. Electronically signed by: Mario Brar On 09/29/2019 20:18:52 PM
--- NOTE | 2019-09-29 20:19 | REPVR ---
PROCEDURE INFORMATION: Exam: MR Left Lower Extremity Other Than Joint Without Contrast; Foot Exam date and time: 09/29/2019 7:00 PM Age: 59 years old Clinical indication: Patient HX: PT states pain in bilateral feet, prior amputation to RT foot PT states "charcot" in left foot TECHNIQUE: Imaging protocol: MR of the Left lower extremity without contrast. Exam focused on the foot. COMPARISON: 1. MRI-Foot W/O FOL WITH LEFT 08/24/2019 12:[address]-Foot WITHOUT CONTRAST LEFT 08/23/2019 9:11:49 PM FINDINGS: Limitations: Motion artifact degrades the image quality of several sequences obtained. Bones and cartilage: There is abnormally decreased T1 signal and increased T2 signal in the talus, calcaneus, tarsal navicular, cuneiform, cuboid, and base of the left 1st through 5th metatarsals, erosive changes at the left anterior and middle subtalar joints, calcaneocuboid joint, talonavicular joint, naviculocuneiform joint, and 1st through 5th tarsometatarsal joints, and fragmentation of the left tarsal navicular. These findings can be seen with a Charcot arthropathy and/or osteomyelitis. There is also bone marrow edema in the left lateral malleolus, which may be reactive in nature or represent early osteomyelitis. Joint spaces: There is a small right tibiotalar joint effusion and right posterior subtalar joint effusion. LIGAMENTS: Anterior talofibular ligament: Intact. Posterior talofibular ligament: Intact. Calcaneofibular ligament: Intact. Deltoid ligament complex: Intact. Spring ligament complex: Intact. Lisfranc ligament: Intact. TENDONS: Flexor tendons of foot: Intact as visualized. No tendinosis. There is a small amount of fluid in the flexor hallucis longus tendon sheath. Tibialis posterior tendon: Intact as visualized. No tendinosis. There is a small amount of fluid in the tibialis posterior tendon sheath. Peroneal tendons: Intact as visualized. No tendinosis. There is a small amount of fluid in the peroneus longus and brevis tendon sheaths. Extensor tendons of foot: Intact as visualized. No tendinosis. No tenosynovitis. Tibialis anterior tendon: Intact as visualized. No tendinosis. No tenosynovitis. Achilles tendon: Intact. No tendinosis. No peritendinitis. Tarsal canal (Sinus tarsi): There is replacement of the normal fatty signal in the sinus tarsi with edema, which is compatible with an increased risk for a sinus tarsi syndrome. Tarsal tunnel: Unremarkable. Muscles: There is diffuse fatty atrophy and denervation edema involving the muscles of the left foot. Soft tissues: There is edema in the subcutaneous tissues along the posterior, medial, and lateral aspect of the left hindfoot and along the dorsal aspect of the left midfoot and forefoot. No soft tissue fluid collection is noted. Plantar fascia: Intact. There is no evidence for plantar fasciitis or plantar fibromatosis. There is a plantar calcaneal spur at the origin of the plantar fascia. IMPRESSION: 1. Abnormal bone marrow signal in the talus, calcaneus, tarsal navicular, cuneiform, cuboid, and base of the left 1st through 5th metatarsals, erosive changes at the left anterior and middle subtalar joints, calcaneocuboid joint, talonavicular joint, naviculocuneiform joint, and 1st through 5th tarsometatarsal joints, and fragmentation of the left tarsal navicular. These findings can be seen with a Charcot arthropathy and/or osteomyelitis. 2. Bone marrow edema in the left lateral malleolus, which may be reactive in nature or represent early osteomyelitis. 3. Edema in the subcutaneous tissues along the posterior, medial, and lateral aspect of the left hindfoot and along the dorsal aspect of the left midfoot and forefoot, which may represent cellulitis or lymphedema. 4. Replacement of the normal fatty signal in the sinus tarsi with edema, which is compatible with an increased risk for a sinus tarsi syndrome in the left foot. Electronically signed by: Mario Brar On 09/29/2019 20:19:01 PM
[2019-09-29] MEDS: LEVEMIR (INSULIN DETEMIR) 1 UNITS/0.01ML SC SCH (20:22)
--- NOTE | 2019-09-29 22:09 | ECHO ---
DATE OF PROCEDURE: 09/29/2019 Date of : 1960 Age: 59 Gender: Male Height: 76 inches Weight: 125 pounds Body surface area: 1.83 meters squared Inpatient: Progressive care unit (PCU), room 3211 REFERRING PHYSICIAN: Dr. Mallory Dotson INDICATION: Sepsis. Prosthetic aortic valve. MEASUREMENTS: 2D Measurements: RV: 4.6 cm LV: 4.5 cm Septum: 1.4 cm Posterior wall: 1.4 cm LA: 4.2 cm LVEF: 75% Doppler Measurements: AV: 3.83 meters per second LVOT: 1.34 meters per second LVOT diameter: 1.9 cm AV mean gradient: 32 mmHg Dimensionless index: 0.35 MV-E: 111, A: 126, EA ratio: 0.9 Early mitral deceleration time: 162 ms E prime medial: 7.9, A prime medial: 86, E prime lateral: 8.1. Average E/E prime ratio: 13.9/pulmonary capillary wedge pressure: 19 mmHg. PV: 1.0 meters per second Pulmonary artery acceleration time: 120 milliseconds RVSP: 33 mmHg IVC: 1.5 cm COMMENTS: Normal sinus rhythm with first-degree AV block. No intraventricular conduction disturbance. M-mode and two dimensional echocardiography was performed with pulsed, continuous wave, color flow and tissue Doppler studies. Moderate concentric left ventricular hypertrophy with hyperkinetic wall motion. Mildly dilated left atrium with grade 1 left ventricular (LV) diastolic dysfunction and mildly increased estimated mean left atrial pressure. Mildly dilated right heart chambers with normal two hyperkinetic wall motion and Doppler evidence of mild pulmonary hypertension. Normal IVC size and collapse against and an elevated central venous pressure. Normal aortic dimensions. Echogenic bioprosthetic aortic valve with visible cusp separation. Appropriate parameters for prosthetic valve function without evident prosthetic insufficiency. Mildly thickened mitral valvular apparatus with normal leaflet excursion and no posterior systolic buckling but mild eccentric insufficiency. There was asymmetrical thickening of the chordae of the anterior leaflet that appeared to buckle into the LV outflow tract during systole, but the anterior leaflet did not. Could not rule out a vegetation on the chordae. No separate intracardiac mass or pericardial effusion. Normal appearing tricuspid valve with mild insufficiency. A preliminary report of this study was relayed directly to Dr. Dotson. I have compared today's study with that of August 26, 2019 but the image quality on that study was quite poor, so a comparison is not truly valid. Would recommend a transesophageal echocardiogram to further define this chordal structure. In the interim, in light of the prosthetic valve and positive blood cultures, this patient should be treated with parenteral antibiotic therapy as if he had endocarditis. MTDD
[2019-09-30] VITALS (7 sets, daily range): BP systolic 98–115; BP diastolic 55–67
[2019-09-30] MEDS ORDERED: SODIUM CHLORIDE 0.9% INJ 10 ML SYR IV PRN (03:00)
[2019-09-30 06:03] LABS: HEMATOCRIT 24.3 % (42.0-52.0); HEMOGLOBIN 8.2 g/dl (13.5-17.5); MEAN CORPUSCULAR HEMOGLOBIN 26.5 pg (27.0-33.0); MEAN CORPUSCULAR HGB CONC 33.7 g/dl (32.0-36.5); MEAN CORPUSCULAR VOLUME 78.4 fl (80.0-96.0); PLATELET COUNT, AUTOMATED 180 10^3/uL (150-450)
[2019-09-30] MEDS: SODIUM CHLORIDE 0.9% INJ 10 ML SYR IV SCH ×2 (06:25→18:00)
[2019-09-30] MEDS: NS 1,000 ML IV SCH (06:25)
[2019-09-30 06:26] LABS: BLOOD UREA NITROGEN 30 MG/DL (7-18); CALCIUM LEVEL 7.4 MG/DL (8.8-10.2); CARBON DIOXIDE LEVEL 22 MEQ/L (21-32); CHLORIDE LEVEL 105 MEQ/L (98-107); CREATININE FOR GFR 1.26 MG/DL (0.70-1.30); GLOMERULAR FILTRATION RATE > 60.0 (>49); GLUCOSE, FASTING 333 MG/DL (70-100); POTASSIUM SERUM 4.2 MEQ/L (3.5-5.1); SODIUM LEVEL 133 MEQ/L (136-145)
[2019-09-30] MEDS: VANCOMYCIN HCL 1,000 MG, VIAL MATE ADAPTER 1 EACH in D5W 250 ML IV SCH ×2 (06:26→19:57)
[2019-09-30 07:41] LABS: ERYTHROCYTE SEDIMENTATION RATE 66 mm/hr (0-20)
--- NOTE | 2019-09-30 07:55 | ECGEPIP ---
[facility] Test Date: 2019-09-29 Pat Name: CHAYO WHITNEY Department: Room: [place] [address] Gender: Male Television Engineer: GIOVANY : 1960 Requested By: DELFIN Garcia Order Number: [id number] Reading MD: Joelle Knight Measurements Intervals [place] Rate: 81 P: -1 TX: 244 QRS: -26 QRSD: 118 T: 32 QT: 397 QTc: 463 Interpretive Statements SINUS RHYTHM WITH FIRST DEGREE AV BLOCK LEFT AXIS DEVIATION MODERATE INTRAVENTRICULAR CONDUCTION DELAY LOW VOLTAGE LIMB LEADS NEW C/W 09/23/19 Electronically Signed on 09-29-2019 12:28:49 EDT by Joelle Knight
[2019-09-30] MEDS: FUROSEMIDE 20 MG TAB PO SCH (08:01)
[2019-09-30] MEDS: FAMOTIDINE 20 MG TAB PO SCH ×2 (08:01→22:13)
[2019-09-30] MEDS: HumaLOG INSULIN (NovoLOG) PER UNIT SC SCH ×4 (08:02→22:13)
--- NOTE | 2019-09-30 08:34 | CR ---
DATE OF CONSULTATION: 09/29/2019 REQUESTING PHYSICIAN: Dr. Mallory Dotson REASON FOR CONSULTATION: Corynebacterium bacteremia. HISTORY OF PRESENT ILLNESS: The patient is a 59-year-old male who presented to the hospital today after being called when his blood cultures came back positive for Corynebacterium species. This was the fourth positive blood culture that the patient has had with same bacterium in the last month. The patient was called back due to the fact that he is still having these blood cultures be positive. The patient says that he feels slightly ill today with some shortness of breath. The patient also is complaining of some acute left shoulder pain which also started today. he had rare fevers, He was just recently hospitalized for atrial fibrillation with rapid ventricular rate and was discharged on 09/25/2019. The blood cultures that came back positive were ordered on 09/24/2019. The patient does not complain of any chest pain he has a bovine bioprosthetic aortic valve which was replaced in 2017. The patient has been following with cardiology since. The patient did report back in the end of July he had an episode of some altered mental status. The patient states that he was with his family and they began asking what was wrong as he apparently had a very blank look on his face. Apparently, the patient became combative with both his brother and EMS and police at the time and was forcibly brought to the hospital. He says he remembers everything leading up to and the event of the officer and medics putting him onto the stretcher and then does not remember much after that. The patient thinks he may have had a stroke, but said he went to [facility] in [place], [place], and did not have evidence for a stroke. He says that there was one small lesion that he had that appeared chronic. The patient says he feels otherwise well, but does appear tired while answering questions. PAST MEDICAL HISTORY: 1. Deep vein thrombosis (DVT). 2. Paroxysmal atrial fibrillation. 3. History of gastrointestinal (GI) bleed requiring 32 units of blood. 4. Heart failure with preserved ejection fraction. 5. Stable thoracic aortic aneurysm. 6. Coronary artery disease status post myocardial infarction (DE). 7. Chronic kidney disease stage III. 8. Insulin dependent type 2 diabetes. 9. Hypertension. 10. Hyperlipidemia. 11. Peripheral neuropathy. 12. Charcot foot. 13. Gastroesophageal reflux disease (GERD). 14. History of gout. 15. MSSA endocarditis and endophtalmitis PAST SURGICAL HISTORY: 1. Prosthetic aortic valve replacement in 2017 for bicuspid aortic valve 2. Multiple right foot surgeries including a transmetatarsal amputation. 3. Left retinal reattachment. 4. Right gastrocnemius surgery. 5. Resection of bleeding ulcers times three. SOCIAL HISTORY: The patient denies smoking, drinking alcohol or illicit drug use. The patient says he lives at home by himself and used to have a dog, but his dog was given to a friend since he has been in and out of the hospital so frequently. 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 FAMILY HISTORY: The patient says that his mom is in her 90s and has dementia and also has a history of diabetes. His father at the age of 85. ALLERGIES: The patient has no known drug allergies. CURRENT INPATIENT MEDICATIONS: - amiodarone 200 mg daily - potassium chloride 40 mEq daily - amitriptyline 10 mg daily - famotidine 20 mg twice a day - latanoprost one drop every night - rivaroxaban 15 mg daily - simvastatin 40 mg daily - sliding scale insulin - Levemir 18 units at night - furosemide 20 mg twice a day - as needed Tylenol for pain - magnesium hydroxide for constipation REVIEW OF SYSTEMS: General: The patient endorses weight loss over the past few months as well as night sweats. The patient denies any fevers or chills, but did have a documented fever on the day of his discharge on 09/25/2019. HEENT: The patient denies headaches, blurry vision or earaches. Cardiovascular: The patient denies any chest pain or palpitations. Respiratory: The patient does endorse shortness of breath. Says he is not able to take in a deep breath. GI: The patient denies nausea, vomiting, abdominal pain, or diarrhea. : The patient denies any pain or difficulty with urination. Neurologic: The patient denies any numbness or tingling. Extremities: The patient describes new onset shoulder pain where he feels like he cannot lift his shoulder up, but denies any swelling in his joints. Skin: The patient says the wound of the metatarsal amputation is healing well and has no other rashes. Lymphatics: The patient denies any lumps in his neck, axilla or groin. PHYSICAL EXAMINATION: Vitals: Temperature 98.6, pulse 81, respiratory rate 18, blood pressure 105/57, pulse oximetry 99% on room air. General: The patient is an alert and oriented male patient who was laying in bed when I walked into the room. The patient is ill appearing and had hoarseness to his voice which was not present at previous times. The patient appeared very tired when answering questions, but did not appear to be in any acute distress. HEENT: Normocephalic, atraumatic, with anicteric sclerae and moist mucous membranes. Neck was supple with no lymphadenopathy or thyromegaly. Cardiovascular: Regular rate and rhythm with a 2/6 systolic murmur heard loudest over the second intercostal space on the right side. Respiratory: The patient was unable to take a deep breath in and there was diminished air movement at the bases. The rest of the lung jack were clear to auscultation bilaterally. Abdomen: Soft. Nontender to palpation with normoactive bowel sounds and no costovertebral angle (CVA) tenderness. Extremities: The patient has a transmetatarsal amputation of the right foot which has an incision that is healing with some serosanguineous discharge that is present. No erythema surrounding the wound. The patient's left ankle does appear swollen and he does have limited range of motion of the ankle. Skin: No rashes. Skin is warm, dry and intact with the exception of the wound on the tip of the transmetatarsal amputation stump on the right foot as described previous. LABORATORIES: White blood cell count 10.7, hemoglobin 9.5, hematocrit 29.7, and platelet count 167. Sodium 133, potassium 5.3, chloride 101, carbon dioxide 13, BUN 32, creatinine 1.56, glucose 466, lactic acid 3.3, calcium 8.1, bilirubin 1.4, AST 26, ALT 21, alkaline phosphatase 101, total protein 6.9, albumin 2.0. INR 1.84. IMAGING: A chest x-ray performed on 09/29/2019 was reported to show there is no acute cardiopulmonary disease. Postoperative changes again noted with surgical clips in the right suprahilar region and a prosthetic aortic valve status quo. MICROBIOLOGY: On 08/23/2019 and 08/24/2019, the patient had two blood cultures that were positive for Corynebacterium species not JK. On 08/29/2019, the patient had two blood cultures that were negative. On 09/23/2019, the patient had a blood culture that was positive for Bacillus species, not anthracis. On 09/24/2019, the patient had two positive blood cultures for Corynebacterium species not JK. There are two blood cultures pending from 09/29/2019 and a culture of the right foot that is pending as well. ASSESSMENT AND PLAN: The patient is a 59-year-old male who presents to the hospital after being called back with recurrent Corynebacterium species bacteremia with a bioprosthetic aortic valve which is concerning for possible endocarditis. Corynebacterium species bacteremia. The patient has had four sets of confirmed Corynebacterium species not JK positive blood cultures dating back to 08/23/2019 with the most recent being on 09/24/2019. With the fact that the patient has a bioprosthetic aortic valve, this is concerning for possible endocarditis. The patient did have a transthoracic echocardiogram performed today, 09/29/2019, with read still pending. If this does not show any vegetation, the patient will undergo a transesophageal echocardiogram. The patient will be started on vancomycin and ceftriaxone after a literature search shows that some Corynebacterium species are resistant to vancomycin and have good susceptibility to ceftriaxone. We have called the lab who does still have the cultures from 09/24/2019 and will send for further identification and susceptibilities. We will continue to monitor the patient and continue the further workup for possible endocarditis. The patient does not appear to have any other source of infection other than the right foot wound. Corynebacterium species is a normal sepideh for the skin, however, with the fact that the patient has had multiple blood cultures drawn at multiple times this is most likely not a contaminant and we will have to continue the workup for endocarditis. THALIA
[2019-09-30] MEDS ORDERED: POTASSIUM CHLORIDE 10 MEQ SR TABLET PO SCH (09:00)
[2019-09-30] MEDS ORDERED: AMIODARONE 200 MG TAB (PACERONE) PO SCH (09:00)
[2019-09-30] MEDS ORDERED: cefTRIAXone SOD 2 GM in D5W MINI-BAG PLUS 50 ML IV SCH (12:00)
--- NOTE | 2019-09-30 13:33 | IPNPDOC ---
Text Note Date of Service The patient was seen on 09/30/19. NOTE Subjective: Patient is a 59-year-old male with a PMHx of Paroxysmal A. fib (on Xarelot), Bicuspid aortic valve s/p AVR, Hx of GI bleed (07/2013, requiring 32 units of blood), HFpEF, Hx of stable thoracic aortic aneurysm, CAD (Hx of HI), CKD3, IDDM2, HTN, DLP, Neuropathy, Gout, GERD who presents to the hospital with bacteremia on blood cultures completed 09/23/2019. Patient was admitted on 09/22 and discharge on 09/24. At that point, patient was found to have A. fib with RVR and was cardioverted. During the hospitalization, he had blood culture that was positive but suspected to be from contamination. Patient was called back to the hospital when repeat blood cultures completed on 09/23 were also positive. Patient was directly admitted to hospital for evaluation of his bacteremia. Patient had a transthoracic echocardiogram completed on 09/28 and did not reveal definitive vegetations, but a transesophageal echocardiogram was recommended. Patient was seen and examined at the bedside. Patient reports that he feels weak and fatigued. Denies any chest pain, shortness breath or palpitations. Denies nausea, vomiting, abdominal pain, diarrhea, or urinary discomfort. Objective: Vitals (See below) General: Lying in bed, appears fatigued, AAOx3 HEENT: NC, AT CVS: +S1S2 Lungs: Fair air entry b/l, -w/r/r Abdomen: Soft, ND, NT, +BSx4 Extremities: - Edema, - Calf tenderness, R foot with partial amputation Assessment and plan: Corynebacterium bacteremia - possibly 2/2 endocarditis, possibly 2/2 Right foot wound - Remain hemodynamically stable / Afebrile - Blood cultures repeated remain positive 09/28 with Gram positive rods; Blood cultures 09/23: Corynebacterium - s/p Leukocytosis, CRP elevated - MRI R foot 09/28: 1. Postoperative changes from a right transmetatarsal amputation and an amputation of the remaining portion of the base of the right 1st metatarsal, with abnormally decreased bone marrow signal in the remaining distal ends of the bases of the right 2nd, 3rd, and 4th metatarsals, which can be seen with osteomyelitis. 2. Sprain of the right Lisfranc ligament. 3. Fissuring of the articular cartilage of the medial portion of the right talar dome with associated subchondral edema. 4. Degenerative changes involving the right naviculocuneiform joint and 4th and 5th tarsometatarsal joints. 5. Edema in the subcutaneous tissues along the posterior and dorsal lateral aspect of the right foot, which may represent cellulitis or lymphedema. 6. Replacement of the normal fatty s ignal in the sinus tarsi with edema, which is compatible with an increased risk for a sinus tarsi syndrome in the right foot. - TTE 09/28 without any definitive vegetation noted; will have SHAE today at 5 PM - c/w Vancomycin and Ceftriaxone (Day #2) - ID on consult; appreciate their input - Consulted podiatry for evaluation of R foot MAXWELL on CKD3 - Cr appears to be at baseline - Will DC IV fluids s/p Lactic acidosis - Will DC IV fluid hydration Pseudohyponatremia - likely 2/2 elevated glucose IDDM2 - c/w Levemir and ISS Anemia - Hg appears to be at baseline - Slight drop; likely 2/2 dilutional etiology - Will DC IV fluids History of paroxysmal atrial fibrillation / Hx of recent atrial fibrillation with RVR - Will c/w rate / rhythm control with amiodarone - Will c/w full anticoagulation with Xarelto HFpEF - c/w Furosemide DLP - c/w Simvastatin Peripheral neuropathy - c/w Amitriptyline GERD - c/w Famotidine DVT prophylaxis - c/w full anticoagulation with Xarelto Disposition: - Awaiting SHAE - c/w PT and OT VS,Fishbone, I+O VS, Fishbone, I+O Laboratory Tests 09/30/19 05:36 Vital Signs Date Time Temp Pulse Resp B/P (MAP) Pulse Ox O2 Delivery O2 Flow Rate FiO2 09/30/19 11:42 97.8 77 18 114/67 (83) 96 Room Air I&O- Last 24 Hours up to 6 AM 09/30/19 06:00 Intake Total 1660 ml Output Total 1250 ml Balance 410 ml MARSHALL CEJA MD September 30, 2019 13:33
--- NOTE | 2019-09-30 14:50 | REP ---
LEFT SHOULDER, THREE VIEWS: Three views of the left shoulder are performed. No acute fracture or dislocation is seen. There is mild joint space narrowing and spurring at the glenohumeral joint. IMPRESSION: Mild degenerative changes. No fracture or dislocation. Electronically Signed by Tone Wang MD 09/30/2019 04:56 P
[2019-09-30] MEDS ORDERED: propofoL 200 MG/20 ML VIAL As Ordered ONE (18:04)
[2019-09-30] MEDS ORDERED: LIDOCAINE 2% 100MG/5ML SDV (FOR ANES.) As Ordered ONE (18:04)
[2019-09-30] MEDS ORDERED: fentaNYL 100 MCG/2 ML INJECTION (J3010) As Ordered ONE (18:04)
[2019-09-30] MEDS ORDERED: ONDANSETRON 4MG/2ML VIAL As Ordered ONE (18:05)
[2019-09-30] MEDS ORDERED: CETACAINE SPRAY 5GM As Ordered ONE (18:11)
[2019-09-30] MEDS ORDERED: PHENYLephrine HCL 500 MCG/5 ML (100MCG/ML) SYRINGE (J2370) As Ordered ONE (18:38)
[2019-09-30] MEDS ORDERED: ePHEDrine SULFATE 25 MG/5 ML(5MG/ML) SYRINGE As Ordered ONE (18:38)
[2019-09-30] MEDS ORDERED: ONDANSETRON 4MG/2ML VIAL IV PRN ×2 (19:00)
[2019-09-30] MEDS ORDERED: LR 1,000 ML IV SCH ×2 (19:00)
--- NOTE | 2019-09-30 19:57 | T-ECHO ---
DATE OF PROCEDURE: 09/30/2019 REFERRING PHYSICIAN: Dr. Mallory Dotson PREPROCEDURE DIAGNOSIS: Gram-positive rods bacteremia/sepsis. POSTPROCEDURE DIAGNOSIS: Infective endocarditis. FINDINGS: See conclusions below. PROCEDURE PERFORMED: Transesophageal echocardiogram. PROCEDURE PERFORMED BY: Maco Ramon MD MANAGER OF CASE MANAGEMENT: None. IV SEDATION: Propofol per SCHOOL INSPECTOR. COMPLICATIONS: None. DESCRIPTION OF PROCEDURE: Rhythm was sinus. Patient received topical Cetacaine spray to the back of the pharynx, applied by the SCHOOL INSPECTOR prior to the start of the procedure. After receiving adequate IV sedation, esophageal intubation was accomplished by Dr. Ramno using a Jed transesophageal echocardiogram probe without difficulty. The left and right ventricles appeared normal in size and systolic function and without regional wall motion abnormalities. The intraatrial septum was intact anatomically and by color flow Doppler. No masses or thrombi were seen within the atria or their appendages. A bioprosthesis was present in the aortic position, and there appeared to be a small region of dehiscence anteriorly through which there was a mild amount of paravalvular aortic regurgitation. Perhaps a trace of central aortic regurgitation was present as well. A small vegetation, which was fairly mobile, measuring maximal length of 0.4 cm appeared to be attached to the aortic valve prosthesis seen in the aortic root. There appeared to be abnormal thickening of medium echogenicity with some echolucent regions within it that was circumferential between the posterior sinus of Valsalva and both atria, suggestive of aortic root abscess. No abnormal color flow Doppler was seen within this region of suspected aortic root abscess. There was considerable shadowing from the aortic prosthesis itself and difficult to get good visualization of the actual cusps of the aortic bioprosthesis, but there appeared to be at least some difuse thickening. The aortic valve did not appear to be stenotic by visual assessment. At least mild mitral annular calcification was present. Very mild mitral regurgitation. Tricuspid leaflets appeared normal and without vegetations. No significant tricuspid regurgitation. Pulmonic valve appeared to be structurally normal and without regurgitation. No vegetations were seen on the mitral valve. No pericardial effusion. Distal aortic arch and descending thoracic aorta were only moderately well visualized but appeared to be unremarkable. CONCLUSIONS: 1. Appearance of a small vegetation measuring maximal length 0.4 cm in association (attached to) the aortic bioprosthesis consistent with aortic valve bioprosthesis infective endocarditis. Diffuse thickening of the aortic cusps suggesting endocarditis involvement. 2. Abnormal thickening of medium echogenicity within the aortic root posteriorly between the aortic root, posterior sinus of Valsalva and both atria, suggestive of aortic root abscess. 3. Small region of aortic valve prosthesis dehiscence anteriorly with mild degree of paravalvular aortic regurgitation. 4. Status post aortic valve replacement with aortic valve bioprosthesis. 5. Normal left ventricular (LV) systolic function. Left ventricular ejection fraction (LVEF) 60-65% by visual estimate. 6. No vegetations seen on the mitral, tricuspid or pulmonic valves. 7. Mild mitral annular calcification. Very mild mitral regurgitation. 8. No pericardial effusion. Results of the transesophageal echocardiogram (SHAE) were communicated to Dr. Nighat Ghotra and to Dr. Mallory Dotson via text message via [employer]. Dr. Ghotra communicated back via [employer] asking my opinion about transferring the patient. Because of the complicated nature of this patient's situation with infective endocarditis, I felt this patient's best survival would be at a tertiary care center with cardiac surgery capabilities, and, therefore, I communicated that yes I agree with transfer to a tertiary care center. THALIA
[2019-09-30] MEDS ORDERED: NS 1,000 ML IV SCH (20:00)
[2019-09-30] MEDS ORDERED: VANC1INJ IV (20:09)
[2019-09-30] MEDS ORDERED: CEFTINJ2 IV (20:09)
[2019-09-30] MEDS ORDERED: INSUHUMDS SC ×2 (20:09)
--- NOTE | 2019-09-30 20:30 | DS.PDOC ---
Discharge Summary General Date of Admission September 29, 2019 at 10:35 Date of Discharge 09/30/2019 Discharge Summary ADMITTING DIAGNOSES / DISCHARGE DIAGNOSES: Acute Corynebacterium bacteremia - 2/2 acute bacterial endocarditis, possibly 2/2 Right foot wound MAXWELL on CKD3 s/p Lactic acidosis Pseudohyponatremia - likely 2/2 elevated glucose IDDM2 Anemia History of paroxysmal atrial fibrillation / Hx of recent atrial fibrillation with RVR HFpEF DLP Peripheral neuropathy GERD DVT prophylaxis COMPLICATIONS/CHIEF COMPLAINT: Positive Blood Culture. HISTORY OF PRESENT ILLNESS: Patient is a 59-year-old male with a PMHx of Paroxysmal A. fib (on Xarelot), Bicuspid aortic valve s/p AVR, Hx of GI bleed (07/2013, requiring 32 units of blood), HFpEF, Hx of stable thoracic aortic aneurysm, CAD (Hx of PR), CKD3, IDDM2, HTN, DLP, Neuropathy, Gout, GERD who presents to the hospital with bacteremia on blood cultures completed 09/23/2019. Patient was admitted on 09/22 and discharge on 09/24. At that point, patient was found to have A. fib with RVR and was cardioverted. During the hospitalization, he had blood culture that was positive but suspected to be from contamination. Patient was called back to the hospital when repeat blood cultures completed on 09/23 were also positive. Patient was directly admitted to hospital for evaluation of his bacteremia. Patient had a transthoracic echocardiogram completed on 09/28 and did not reveal definitive vegetations, but a transesophageal echocardiogram was recommended. HOSPITAL COURSE: Corynebacterium bacteremia - possibly 2/2 endocarditis, possibly 2/2 Right foot wound - Remain hemodynamically stable / Afebrile - Blood cultures repeated remain positive 09/28 with Gram positive rods; Blood cultures 09/23: Corynebacterium - s/p Leukocytosis, CRP elevated - MRI R foot 09/28: 1. Postoperative changes from a right transmetatarsal amputation and an amputation of the remaining portion of the base of the right 1st metatarsal, with abnormally decreased bone marrow signal in the remaining distal ends of the bases of the right 2nd, 3rd, and 4th metatarsals, which can be seen with osteomyelitis. 2. Sprain of the right Lisfranc ligament. 3. Fissuring of the articular cartilage of the medial portion of the right talar dome with associated subchondral edema. 4. Degenerative changes involving the right naviculocuneiform joint and 4th and 5th tarsometatarsal joints. 5. Edema in the subcutaneous tissues along the posterior and dorsal lateral aspect of the right foot, which may represent cellulitis or lymphedema. 6. Replacement of the normal fatty sign al in the sinus tarsi with edema, which is compatible with an increased risk for a sinus tarsi syndrome in the right foot. 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 Adilene Chinchilla, Cardiothoracic surgery - I have informed that patient and his , Maci Issa of the required transfer and evaluation MAXWELL on CKD3 - Cr appears to be at baseline - Will DC IV fluids s/p Lactic acidosis - Will DC IV fluid hydration Pseudohyponatremia - likely 2/2 elevated glucose IDDM2 - c/w Levemir and ISS Anemia - Hg appears to be at baseline - Slight drop; likely 2/2 dilutional etiology - Will DC IV fluids History of paroxysmal atrial fibrillation / Hx of recent atrial fibrillation with RVR - Will c/w rate / rhythm control with amiodarone - Will c/w full anticoagulation with Xarelto HFpEF - no evidence of fluid overload - Will DC Furosemide DLP - c/w Simvastatin Peripheral neuropathy - c/w Amitriptyline GERD - c/w Famotidine DVT prophylaxis - c/w full anticoagulation with Xarelto DISCHARGE MEDICATIONS: Please see below. ALLERGIES: Please see below. LABORATORY DATA: Please see below. PROGNOSIS: Fair ACTIVITY: [As tolerated]. DISCHARGE PLAN / DISPOSITION: Transfer to [facility] for evaluation of bioprosthetic valve and abscess collection DISCHARGE CONDITION: [Stable]. TIME SPENT ON DISCHARGE: Greater than 35 minutes. Vital Signs/I&Os Vital Signs Date Time Temp Pulse Resp B/P (MAP) Pulse Ox O2 Delivery O2 Flow Rate FiO2 09/30/19 19:35 97.8 76 18 96/58 (71) 97 Room Air 09/30/19 18:45 12 I&O- Last 24 Hours up to 6 AM 09/30/19 06:00 Intake Total 1660 ml Output Total 1250 ml Balance 410 ml Laboratory Data Labs 24H Laboratory Tests 2 09/30/19 05:36: Nucleated Red Blood Cells % (auto) 0.0, Erythrocyte Sedimentation Rate 66H, Anion Gap 6L, Glomerular Filtration Rate > 60.0, Lactic Acid Level 0.9, Calcium Level 7.4L, C-Reactive Protein, Quantitative 15.10H, Methicillin-Resist S.aureus DNA PCR NOT DETECTED 09/30/19 08:00: Urine Color YELLOW, Urine Appearance CLEAR, Urine pH 5.0, Urine Specific [place] 1.018, Urine Protein NEGATIVE, Urine Glucose (UA) 3+H, Urine Ketones TRACEH, Urine Blood NEGATIVE, Urine Nitrite NEGATIVE, Urine Bilirubin NEGATIVE, Urine Urobilinogen 0.2, Urine Leukocyte Esterase NEGATIVE, Urine WBC (Auto) 1, Urine RBC (Auto) 0, Urine Hyaline Casts (Auto) 0, Urine Bacteria (Auto) NEGATIVE, Urine Squamous Epithelial Cells 0, Urine Mucus (Auto) SMALL, Urine Sperm (Auto) 09/30/19 10:32: Coronavirus (COVID-19)(PCR) NEGATIVE 09/30/19 11:50: Bedside Glucose (Misc Panel) 325H 09/30/19 20:13: Bedside Glucose (Misc Panel) 397H CBC/BMP Laboratory Tests 09/30/19 05:36 FSBS Laboratory Tests Test 09/30/19 11:50 09/30/19 20:13 Range/Units Bedside Glucose (Misc Panel) 325 397 80-115 MG/DL Microbiology Microbiology 09/30/19 Blood Culture, Received Pending 09/30/19 Blood Culture, Received Pending 09/29/19 Gram Stain - Final, Resulted 09/29/19 Wound Culture, Resulted Pending 09/29/19 Blood Culture - Preliminary, Resulted 09/29/19 Blood Culture - Preliminary, Resulted Discharge Medications Scheduled Amiodarone HCl (Amiodarone HCl) 200 Mg Tablet, 200 MG PO DAILY, (Reported) Amitriptyline HCl (Amitriptyline HCl) 10 Mg Tablet, 10 MG PO QHS, (Reported) Ceftriaxone in Is-Osm Dextrose (Ceftriaxone 2 gm Piggyback) 2 Gm/50 Ml Froz.piggy, 1 INJ IV Q24H Famotidine (Famotidine) 20 Mg Tablet, 20 MG PO BID, (Reported) Gluc Fink/Chondro Fink A/Vit C/Mn (Glucosamine Chondroitin Tab) 1 Each Tablet, 1 TAB PO DAILY, (Reported) Insulin Glargine (Lantus) 1 Units/0.01 Ml Susp, 1 DOSE SC QHS, (Reported) 18 - 22 UNITS Insulin Human Lispro (Humalog) 1 Units/0.01 Ml Inj, 1 DOSE SC AC, (Reported) Usually 8 - 10 UNITS PER SLIDING SCALE Insulin Human Lispro (Humalog) 100 Unit/1 Ml Vial, 0 UNITS SC AC Insulin Human Lispro (Humalog) 100 Unit/1 Ml Vial, 0 UNITS SC QHS Latanoprost (Xalatan) 0.005 % Nat, 1 DROP OS QHS, (Reported) Potassium Chloride (Potassium Chloride) 20 Meq Tab.er.prt, 40 MEQ PO DAILY, (Reported) Rivaroxaban (Xarelto) 15 Mg Tablet, 15 MG PO QHS, (Reported) Simvastatin (Simvastatin) 40 Mg Tab, 40 MG PO QHS, (Reported) Vancomycin HCl in 5 % Dextrose (Vancomycin 1 Gram/250 ml-D5w) 1 Gm/250 Ml Plast..bag, 1 INJ IV Q12H Allergies Coded Allergies: No Known Allergies (Verified , 08/14/18) MARSHALL CEJA MD September 30, 2019 20:29
[2019-09-30] MEDS ORDERED: DICLOFENAC EPOLAMINE 1.3 % PATCH TOP SCH (21:00)
[2019-09-30] MEDS: RIVAROXABAN 15 MG TAB (XARELTO) PO SCH (21:00)
[2019-09-30] MEDS: LEVEMIR (INSULIN DETEMIR) 1 UNITS/0.01ML SC SCH (22:12)
[2019-09-30] MEDS: AMITRIPTYLINE 10 MG TAB PO SCH (22:13)
[2019-09-30] MEDS: SIMVASTATIN 40 MG TAB PO SCH (22:13)
[2019-09-30] MEDS: LATANOPROST 0.005% OPHTH SOLN 2.5 ML OS SCH (22:16)
--- NOTE | 2019-10-01 04:31 | CR ---
DATE: 09/30/2019 at 4:49 p.m. CHIEF COMPLAINT: 59-year-old male who is seen for evaluation of ulceration on his right foot. Patient has had a recent Charcot exacerbation on his left ankle. He is seen today for evaluation of his feet. However, he is admitted in the hospital for possible endocarditis and paroxysmal atrial fibrillation. PAST MEDICAL/SURGICAL HISTORY: Numerous surgeries on his right foot, including a transmetatarsal amputation, diabetic neuropathy, history of deep vein thrombosis, atrial fibrillation, gastrointestinal (GI) bleed, endocarditis, possible gout. PHYSICAL EXAMINATION: Reveals an alert, well-orientated 59-year-old male. Evaluation of his foot reveals a hyperkeratotic lesion at the distal transmetatarsal amputation site. This was debrided and his ulceration, which has been longstanding, is now completely healed. The skin is supple on the distal aspect of his transmetatarsal site. Evaluation of his left ankle reveals some swelling but no increased temperature. No ecchymosis. No crepitation of the ankle joint. ASSESSMENT: Healed previous ulceration of his right foot. 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 PLAN: Patient's hyperkeratotic lesion was debrided. Patient will continue with his transmetatarsal boot on the right side. He may wear his diabetic shoe on the left side. His questions are answered.
--- NOTE | 2019-10-01 05:33 | IPN ---
DATE: 09/30/2019 INFECTIOUS DISEASE PROGRESS NOTE: Garrett is doing a little better today. He is scheduled for a transesophageal echocardiogram (SHAE) this afternoon. He has no nausea, vomiting, or diarrhea. LABS: White count 9, hemoglobin 8.2, hematocrit 24.3, platelets 180, ESR 66. Sodium 133, potassium 4.2, chloride 105, bicarbonate 22, BUN 30, creatinine 1.26, glucose 333, lactic acid 0.9, calcium 7.4, CRP 15.1. Blood cultures from 09/29/2019, two sets, are positive for gram-positive rods, and repeat blood cultures today are still pending. Wound culture from the right foot was done, is pending, but there is no real open lesion. MRI of the right foot without contrast showed postoperative changes from a right transmetatarsal amputation. There is some concern of abnormal decreased signal in the bone marrow of the 1st, 2nd, 3rd, and 4th metatarsals, which can be seen with osteomyelitis with fissuring of the articular cartilage. Edema in the subcutaneous tissue. X-ray of the shoulder shows no acute pathology, mild degenerative changes. ON PHYSICAL EXAM: Temperature is 97, pulse 50, respirations 18, blood pressure 99/57, oxygen saturation 95% on room air. Heart: Normal S1, S2, with a holosystolic murmur 3/6 at the right lower sternal border radiating to the carotid. Lungs: Are clear. No wheezes, rales, or rhonchi. Abdomen: Soft, nontender. No hepatosplenomegaly. Extremities: Right foot transmetatarsal amputation with a dry scab. No evidence of infection. Left foot has an ankle effusion with minimal tenderness with range of motion. Mild left facial droop, hoarseness, which according to the patient are also new. Neurologic exam: No pronator drift. Motor strength 5/5 upper and lower extremities. IMPRESSION: 1. Gram-positives Corynebacterium bacteremia, very suspicious for endocarditis of the bioprosthetic aortic valve. The patient has had bacteremia for the past 4 weeks. He is currently on intravenous (IV) vancomycin and Rocephin. Pathogen has been sent to [facility] for identification and susceptibility. Transesophageal echocardiogram is scheduled for this afternoon. 2. History of osteomyelitis of the right foot status post transmetatarsal amputation. Currently, the foot is healed and there is no evidence of infection. These changes in the MRI are probably postsurgical versus Charcot arthropathy. 3. Left ankle effusion. Was felt also to be related to Charcot changes. Patient currently not symptomatic from his left ankle either. Dr. Singh has been consulted and has agreed. 4. History of bioprosthetic aortic valve and atrial fibrillation. Currently, in sinus rhythm. Patient is on Xarelto 15 mg nightly. PLAN: Continue with IV vancomycin. Keep vancomycin trough between 15 and 20. Rocephin 2 grams every 24 hours. Repeat blood cultures until the cultures are negative. Peripherally inserted central catheter (PICC) line has been placed. Patient will be going home on IV antibiotics once clinically stable. His sister Che Ford is a registered nurse who will be coming to stay with him for at least the first couple of weeks to help with his IV antibiotic. I did discuss the case with her, and she is in agreement.
== END 2019-09-30 22:27 | disposition short-term general hospital (02) | DRG 871 ==
LOC: M PCU 10:35
PROVIDERS: ADMIT Family Medicine; ATTEND Internal Medicine
PROC: 02HV33Z Insertion of Infusion Device into Superior Vena Cava, Percutaneous Approach (ICD-10-PCS; principal; 2019-09-29 17:00)
DX: R78.81 Bacteremia (principal); I33.0 Acute and subacute infective endocarditis; I50.32 Chronic diastolic (congestive) heart failure; I13.0 Hypertensive heart and chronic kidney disease with heart failure and stage 1 through stage 4 chronic kidney disease, or unspecified chronic kidney disease; N17.9 Acute kidney failure, unspecified; E87.2 Acidosis; E87.1 Hypo-osmolality and hyponatremia; N18.3 Chronic kidney disease, stage 3 (moderate); K21.9 Gastro-esophageal reflux disease without esophagitis; I48.0 Paroxysmal atrial fibrillation; I71.2 Thoracic aortic aneurysm, without rupture; E11.51 Type 2 diabetes mellitus with diabetic peripheral angiopathy without gangrene; I25.2 Old myocardial infarction; I25.10 Atherosclerotic heart disease of native coronary artery without angina pectoris; M10.9 Gout, unspecified; Z79.899 Other long term (current) drug therapy; Z79.4 Long term (current) use of insulin; Z66 Do not resuscitate; E11.618 Type 2 diabetes mellitus with other diabetic arthropathy; L97.519 Non-pressure chronic ulcer of other part of right foot with unspecified severity

== ENCOUNTER 2019-10-12 08:22 | Emergency (ER) | payer MEDICARE ==
[~2019-10-12] VITALS: Ht 195.6 cm; Wt 95.5 kg
[~2019-10-12 08:22] MED LIST changes: +CEFTINJ2 IV; +VANC1INJ IV
[2019-10-12 10:12] VITALS: BP 109/58
== END 2019-10-12 10:14 | disposition home or self-care (01) ==
LOC: M ED 08:22
DX: T82.898A Other specified complication of vascular prosthetic devices, implants and grafts, initial encounter (principal); M86.9 Osteomyelitis, unspecified; I38 Endocarditis, valve unspecified; Z79.2 Long term (current) use of antibiotics; I48.91 Unspecified atrial fibrillation; I25.2 Old myocardial infarction; E11.610 Type 2 diabetes mellitus with diabetic neuropathic arthropathy; E11.40 Type 2 diabetes mellitus with diabetic neuropathy, unspecified; I12.9 Hypertensive chronic kidney disease with stage 1 through stage 4 chronic kidney disease, or unspecified chronic kidney disease; N18.3 Chronic kidney disease, stage 3 (moderate); K21.9 Gastro-esophageal reflux disease without esophagitis; M10.9 Gout, unspecified; M54.9 Dorsalgia, unspecified; G89.29 Other chronic pain; Z86.718 Personal history of other venous thrombosis and embolism; Z87.19 Personal history of other diseases of the digestive system; Z95.5 Presence of coronary angioplasty implant and graft; Z89.429 Acquired absence of other toe(s), unspecified side

== ENCOUNTER → 2019-12-29 | Outpatient (REF) | payer MEDICARE ==
[~2019-12-29] MED LIST changes: -AMIO200T PO; +AMIO200T3 PO; -ASPI81TA85 PO; +ASPI81TA86 PO; +PANT40TA29 PO; -PANT40TA3 PO; -VANC1INJ IV; +VANC1PLA7 IV
[2020-02-14 19:25] LABS: HEMOGLOBIN 12.9 g/dl (13.5-17.5); RED BLOOD COUNT 4.52 10^6/uL (4.30-6.10); WHITE BLOOD COUNT 7.6 10^3/uL (4.0-10.0)
[2020-02-14 19:26] LABS: MEAN CORPUSCULAR HEMOGLOBIN 28.5 pg (27.0-33.0); MEAN CORPUSCULAR HGB CONC 31.5 g/dl (32.0-36.5); MEAN CORPUSCULAR VOLUME 90.7 fl (80.0-96.0)
[2020-02-14 19:27] LABS: ERYTHROCYTE SEDIMENTATION RATE 36 mm/hr (0-20); PLATELET COUNT, AUTOMATED 291 10^3/uL (150-450)
== END ==
LOC: M SFHCPLAZ 10:08
PROVIDERS: ATTEND Internal Medicine Infectious Disease
DX: I38 Endocarditis, valve unspecified (principal); E11.9 Type 2 diabetes mellitus without complications; D64.9 Anemia, unspecified

== ENCOUNTER → 2020-03-25 | Outpatient (REF) | payer MEDICARE ==
[2020-03-25 12:49] LABS: BASO # 0.1 10^3/uL (0.0-0.2); BASO % 1.6 % (0.0-1.0); EOS # 0.4 10^3/uL (0.0-0.5); EOS % 5.8 % (0.0-3.0); HEMATOCRIT 42.2 % (42.0-52.0); HEMOGLOBIN 13.5 g/dl (13.5-17.5); LYMPH # 2.1 10^3/uL (1.5-5.0); LYMPH % 33.8 % (24.0-44.0); MEAN CORPUSCULAR HEMOGLOBIN 29.1 pg (27.0-33.0); MEAN CORPUSCULAR VOLUME 90.9 fl (80.0-96.0); MONO # 0.4 10^3/uL (0.0-0.8); MONO % 6.5 % (0.0-5.0); NEUTROPHILS # 3.2 10^3/uL (1.5-8.5); NEUTROPHILS % 52.1 % (36.0-66.0); PLATELET COUNT, AUTOMATED 273 10^3/uL (150-450); RED BLOOD COUNT 4.64 10^6/uL (4.30-6.10); WHITE BLOOD COUNT 6.2 10^3/uL (4.0-10.0)
[2020-03-25 13:24] LABS: ERYTHROCYTE SEDIMENTATION RATE 14 mm/hr (0-20)
[2020-03-25 13:28] LABS: C REACTIVE PROTEIN QUANTITATIV 0.64 MG/DL (0.00-0.30); CALCIUM LEVEL 9.1 MG/DL (8.8-10.2); CREATININE FOR GFR 1.38 MG/DL (0.70-1.30); GLOMERULAR FILTRATION RATE 55.8 (>49); POTASSIUM SERUM 4.6 MEQ/L (3.5-5.1)
== END ==
LOC: M SFHCPLAZ 10:43 → M SFHCADAM 10:46
PROVIDERS: ATTEND Internal Medicine Infectious Disease
DX: I35.8 Other nonrheumatic aortic valve disorders (principal)

== ENCOUNTER → 2020-04-13 | Outpatient (CLI) | payer MEDICARE ==
[~2020-04-13] MED LIST changes: +COLC0.6T47 PO; -COLC1TAB13 PO
[2020-04-13 15:06] LABS: HEMATOCRIT 39.1 % (42.0-52.0); HEMOGLOBIN 12.2 g/dl (13.5-17.5); MEAN CORPUSCULAR HEMOGLOBIN 28.3 pg (27.0-33.0); MEAN CORPUSCULAR HGB CONC 31.2 g/dl (32.0-36.5); MEAN CORPUSCULAR VOLUME 90.7 fl (80.0-96.0); PLATELET COUNT, AUTOMATED 327 10^3/uL (150-450); RED BLOOD COUNT 4.31 10^6/uL (4.30-6.10); WHITE BLOOD COUNT 6.7 10^3/uL (4.0-10.0)
[2020-04-13 15:48] LABS: CALCIUM LEVEL 9.3 MG/DL (8.8-10.2); CREATININE FOR GFR 1.53 MG/DL (0.70-1.30); GLOMERULAR FILTRATION RATE 49.5 (>49); POTASSIUM SERUM 4.5 MEQ/L (3.5-5.1)
--- NOTE | 2020-04-13 15:54 | REP ---
INDICATION: SHORTNESS OF BREATH. COMPARISON: Preoperative examination of 09/29/2019 TECHNIQUE: PA and lateral views FINDINGS: Since the last examination, the patient has undergone median sternotomy. The cardiac silhouette is borderline in size. There are patchy bibasilar opacities and there is bilateral CP angle blunting all of which has developed since the last exam. There is silhouetting out of the diaphragmatic surface of each lung and silhouetting out of the apex of the left heart border. There is thickening of the fissures. IMPRESSION: Bibasilar atelectasis/pneumonia/pleural effusions, all of which has developed since the last examination for review dated 09/29/2019 a pre operative exam. <Electronically signed by Liam Sims > 04/13/20 [id number]
== END ==
LOC: M LAB 14:21
PROVIDERS: ATTEND Physician Assistant
DX: J98.11 Atelectasis (principal); J18.9 Pneumonia, unspecified organism; J90 Pleural effusion, not elsewhere classified; R06.02 Shortness of breath

== ENCOUNTER → 2020-05-10 | Outpatient (REF) | payer MEDICARE ==
[2020-05-10 13:10] LABS: HEMOGLOBIN A1c 6.1 %
[2020-05-10 14:06] LABS: BILIRUBIN,TOTAL 0.8 MG/DL (0.2-1.0); CALCIUM LEVEL 9.1 MG/DL (8.8-10.2); CREATININE FOR GFR 1.62 MG/DL (0.70-1.30); GLOMERULAR FILTRATION RATE 46.2 (>49); TOTAL PROTEIN 7.6 GM/DL (6.4-8.2)
== END ==
LOC: M LABDRWAD 12:27
PROVIDERS: ATTEND Nurse Practitioner Adult Health
DX: I50.32 Chronic diastolic (congestive) heart failure (principal); E11.40 Type 2 diabetes mellitus with diabetic neuropathy, unspecified; R06.02 Shortness of breath

== ENCOUNTER → 2020-05-10 | Outpatient (REF) | payer MEDICARE ==
[2020-05-10 13:22] LABS: CALCIUM LEVEL 9.2 MG/DL (8.8-10.2); CREATININE FOR GFR 1.6 MG/DL (0.70-1.30); GLOMERULAR FILTRATION RATE 46.9 (>49); POTASSIUM SERUM 4.9 MEQ/L (3.5-5.1)
== END ==
LOC: M LABDRWAD 12:30
PROVIDERS: ATTEND Physician Assistant
DX: I50.32 Chronic diastolic (congestive) heart failure (principal); R06.02 Shortness of breath

== ENCOUNTER → 2020-05-26 | Outpatient (REF) | payer MEDICARE ==
[~2020-05-26] MED LIST changes: +GABA-282 PO; -GABA-843 PO
[2020-05-26 13:33] LABS: BASO # 0.1 10^3/uL (0.0-0.2); BASO % 1.2 % (0.0-1.0); EOS # 0.2 10^3/uL (0.0-0.5); EOS % 3.1 % (0.0-3.0); HEMATOCRIT 43.2 % (42.0-52.0); HEMOGLOBIN 13.4 g/dl (13.5-17.5); LYMPH # 1.8 10^3/uL (1.5-5.0); LYMPH % 22.5 % (24.0-44.0); MEAN CORPUSCULAR HEMOGLOBIN 28.4 pg (27.0-33.0); MEAN CORPUSCULAR VOLUME 91.5 fl (80.0-96.0); MONO # 0.5 10^3/uL (0.0-0.8); MONO % 6.9 % (0.0-5.0); NEUTROPHILS # 5.1 10^3/uL (1.5-8.5); NEUTROPHILS % 65.9 % (36.0-66.0); PLATELET COUNT, AUTOMATED 273 10^3/uL (150-450); RED BLOOD COUNT 4.72 10^6/uL (4.30-6.10); WHITE BLOOD COUNT 7.8 10^3/uL (4.0-10.0)
[2020-05-26 13:59] LABS: CALCIUM LEVEL 9.5 MG/DL (8.8-10.2); CREATININE FOR GFR 1.91 MG/DL (0.70-1.30); GLOMERULAR FILTRATION RATE 38.2 (>49); POTASSIUM SERUM 4.6 MEQ/L (3.5-5.1)
== END ==
LOC: M LABDRWAD 12:17
PROVIDERS: ATTEND Physician Assistant
DX: I50.42 Chronic combined systolic (congestive) and diastolic (congestive) heart failure (principal)

== ENCOUNTER → 2020-07-23 | Outpatient (REF) | payer MEDICARE ==
[~2020-07-23] MED LIST changes: -AMIT10TA PO; +AMIT10TA7 PO
[2020-07-23 15:08] LABS: HEMOGLOBIN A1c 6.8 %
== END ==
LOC: M LAB REF 12:49 → M LABDRWAD 12:49
PROVIDERS: ATTEND Nurse Practitioner Adult Health
DX: E11.65 Type 2 diabetes mellitus with hyperglycemia (principal)

== ENCOUNTER → 2020-07-23 | Outpatient (REF) | payer MEDICARE ==
[2020-07-23 13:36] LABS: HEMATOCRIT 41.8 % (42.0-52.0); HEMOGLOBIN 13.2 g/dl (13.5-17.5); MEAN CORPUSCULAR HEMOGLOBIN 28.7 pg (27.0-33.0); MEAN CORPUSCULAR HGB CONC 31.6 g/dl (32.0-36.5); MEAN CORPUSCULAR VOLUME 90.9 fl (80.0-96.0); PLATELET COUNT, AUTOMATED 214 10^3/uL (150-450); WHITE BLOOD COUNT 5.3 10^3/uL (4.0-10.0)
[2020-07-23 13:48] LABS: CALCIUM LEVEL 8.8 MG/DL (8.8-10.2); CREATININE FOR GFR 1.49 MG/DL (0.70-1.30); GLOMERULAR FILTRATION RATE 50.9 (>49); MAGNESIUM LEVEL 2.1 MG/DL (1.8-2.4); POTASSIUM SERUM 4.8 MEQ/L (3.5-5.1)
== END ==
LOC: M LABDRWAD 12:45
PROVIDERS: ATTEND Physician Assistant
DX: I50.42 Chronic combined systolic (congestive) and diastolic (congestive) heart failure (principal); I48.92 Unspecified atrial flutter; E11.65 Type 2 diabetes mellitus with hyperglycemia

== ENCOUNTER → 2020-10-04 | Outpatient (REF) | payer MEDICARE ==
[2020-10-04 13:17] LABS: BLOOD UREA NITROGEN 16 MG/DL (7-18); CALCIUM LEVEL 8.8 MG/DL (8.8-10.2); CARBON DIOXIDE LEVEL 30 MEQ/L (21-32); CHLORIDE LEVEL 108 MEQ/L (98-107); CREATININE FOR GFR 1.26 MG/DL (0.70-1.30); GLOMERULAR FILTRATION RATE > 60.0 (>49); GLUCOSE, FASTING 87 MG/DL (70-100); MAGNESIUM LEVEL 1.7 MG/DL (1.8-2.4); NT-PRO BNP 10183 PG/ML (<125); POTASSIUM SERUM 4.3 MEQ/L (3.5-5.1); SODIUM LEVEL 143 MEQ/L (136-145)
== END ==
LOC: M LABDRWAD 12:12
PROVIDERS: ATTEND Physician Assistant
DX: I50.42 Chronic combined systolic (congestive) and diastolic (congestive) heart failure (principal)

== ENCOUNTER → 2020-11-04 | Outpatient (CLI) | payer MEDICARE ==
[2020-11-04 18:33] LABS: BASO # 0.1 10^3/uL (0.0-0.2); BASO % 1.2 % (0.0-1.0); EOS # 0.2 10^3/uL (0.0-0.5); EOS % 2.3 % (0.0-3.0); HEMATOCRIT 41.5 % (42.0-52.0); HEMOGLOBIN 13.5 g/dl (13.5-17.5); LYMPH # 0.9 10^3/uL (1.5-5.0); LYMPH % 13.2 % (24.0-44.0); MEAN CORPUSCULAR HEMOGLOBIN 29.3 pg (27.0-33.0); MEAN CORPUSCULAR HGB CONC 32.5 g/dl (32.0-36.5); MEAN CORPUSCULAR VOLUME 90.2 fl (80.0-96.0); MONO # 0.6 10^3/uL (0.0-0.8); MONO % 8.3 % (2.0-8.0); NEUTROPHILS # 5.1 10^3/uL (1.5-8.5); NEUTROPHILS % 74.7 % (36.0-66.0); PLATELET COUNT, AUTOMATED 210 10^3/uL (150-450); WHITE BLOOD COUNT 6.8 10^3/uL (4.0-10.0)
[2020-11-04 18:57] LABS: CALCIUM LEVEL 9.1 MG/DL (8.8-10.2); CREATININE FOR GFR 1.38 MG/DL (0.70-1.30); GLOMERULAR FILTRATION RATE 55.6 (>49); POTASSIUM SERUM 3.7 MEQ/L (3.5-5.1)
[2020-11-04 19:18] LABS: ERYTHROCYTE SEDIMENTATION RATE 10 mm/hr (0-20)
== END ==
LOC: M LAB 17:19
PROVIDERS: ATTEND Physician Assistant
DX: I50.32 Chronic diastolic (congestive) heart failure (principal)

== ENCOUNTER → 2020-11-04 | Outpatient (CLI) | payer MEDICARE ==
--- NOTE | 2020-11-04 18:28 | REP ---
INDICATION: CHRONIC DIASTOLIC (CHF) *LABS 1ST, XRY 2ND*. COMPARISON: The 04/27/2020 TECHNIQUE: PA and lateral views FINDINGS: There is a diffuse increase in the interstitial markings. There is bilateral CP angle blunting. There is thickening of the fissures. The heart is not enlarged. The osseous structures stable. IMPRESSION: Interstitial edema and small bilateral pleural effusions with fluid in the fissures. <Electronically signed by Liam Sims > 11/04/20 [id number]
== END ==
LOC: M LAB 17:25
PROVIDERS: ATTEND Internal Medicine Cardiovascular Disease
DX: I50.32 Chronic diastolic (congestive) heart failure (principal)

== ENCOUNTER → 2020-11-05 | Outpatient (CLI) | payer MEDICARE | LOC: M LAB 11:12 | PROVIDERS: ATTEND Physician Assistant | DX: R01.1 Cardiac murmur, unspecified (principal); Z95.2 Presence of prosthetic heart valve ==